=== PATIENT | female | born 1985 | race Caucasian/White ===

== ENCOUNTER 2019-08-17 11:01 | Observation (INO) | payer OTHER, MEDICAID, SELFPAY ==
[2019-08-17] VITALS (32 sets, daily range): BP systolic 81–177; BP diastolic 58–154; PULSE 72–91; RESP 9–45; TEMP 36.8–37.7; O2SAT 96–100; BMI 25.9
--- NOTE | ~2019-08-17 | XR_ITS ---
EXAMINATION: XR chest 2V 08/17/2019 11:24 INDICATION: Chest pain PROCEDURE: 2 view chest COMPARISON: No prior studies for comparison. FINDINGS: The lungs are clear. The cardiomediastinal silhouette is within normal limits. There are no pleural effusions. There is no pneumothorax suspected. IMPRESSION: 1: NO ACUTE CARDIOPULMONARY DISEASE. Reviewed, dictated and finalized at location A.
--- NOTE | ~2019-08-17 | NM_ITS ---
EXAMINATION: NM pulmonary perfusion EXAM DATE: 08/17/2019 17:12 INDICATION: Dyspnea and chest pain. Free TECHNIQUE: A perfusion lung scan was performed. The patient was injected with 5.2 mCi technetium 99m MAA and reimaged. Correlation is made to chest x-ray same date. FINDINGS: There is homogeneous perfusion throughout the lungs, no segmental defects. IMPRESSION: Normal lung perfusion scan. Reviewed, dictated and finalized at location A. IMPRESSION: Normal lung perfusion scan.
--- NOTE | 2019-08-17 11:03 | ECG_ITS ---
Measurements Intervals [place] Rate: 91 P: 68 KS: 150 QRS: 52 QRSD: 85 T: 44 QT: 343 QTc: 422 Interpretive Statements SINUS RHYTHM BASELINE ARTIFACT- V3-V4 NORMAL ECG Electronically Signed On 08-17-2019 11:31:07 CDT by Nakul Loza D.O.
[2019-08-17] MEDS: ASPIRIN 81 MG CHEWABLE TABLET 324 MG PO (11:16)
--- NOTE | 2019-08-17 11:16 | ED.CHESTPAIN ---
HPI - Chest Pain General Chief Complaint: Chest Pain Stated Complaint: chest pain Time Seen by Provider: 08/17/19 11:05 Source: RN notes reviewed History of Present Illness HPI narrative: Patient presents emergency department from home for chest pain. Patient states she has been having midsternal chest pain described as a pressure that radiates out across the chest. She states that symptoms have been occurring daily for the last 2 months. They are associated with shortness of breath. States that pain is better with rest. She denies any fevers or chills abdominal pain nausea vomiting or any other symptoms. Denies any previous cardiac history Related Data Home Medications Medication Instructions Recorded Confirmed No Home Medications 08/17/19 08/17/19 Allergies Allergy/AdvReac Type Severity Reaction Status Date / Time No Known Allergies Allergy Unverified 08/17/19 11:11 Review of Systems Review of Systems: Narrative: Gen.: Denies fevers or chills ENT: Denies congestion Respiratory: Denies shortness of breath or cough CV: See HPI GI: Denies abdominal pain nausea, emesis or diarrhea denies burning, urgency, frequency or hematuria Musculoskeletal: Denies back pain or muscle pain Neuro: Denies numbness, tingling, weakness or focal weakness Skin: Denies rash Except as documented, all other systems reviewed and negative [facility] Past Medical History Medical History (Updated 08/17/19 @ 17:38 by Steven Dupree DO) Skin cancer Social History Social History (Updated 08/17/19 @ 11:17 by Steven Dupree DO) Smoking packs per day: 1 Smoking cigarettes per day: 20.0 Gender identity (if verbalized by the patient): Female Exam Narrative: Exam Narrative: APPEARANCE: No acute distress, nontoxic, resting in bed EYES: EOMI HEENT: Normocephalic, atraumatic, OMM RESPIRATORY: No respiratory distress Clear to auscultation bilaterally with no rhonchi wheezing or rales. CARDIOVASCULAR: Regular rate and rhythm without murmurs rubs or gallops. ABDOMINAL: Soft, nontender, nondistended, no rebound or guarding MUSCULOSKELETAl: Moves all extremities. No clubbing, cyanosis or edema. NEURO: Awake and alert. Following commands, speech normal, no focal deficits SKIN:: Warm, dry. No rashes lesions or abrasions PSYCHIATRIC: Normal affect/mood, Course Course Emergency Course: Patient is chest pain-free at this time Discussed with Dr. Peterson presentation work-up. At this time recommends admission to the chest pain center Discussed with patient and family results of workup and diagnosis. Discussed need for admission. Patient and family understand and agree to current treatment plan Vital Signs Vital signs: Vital Signs Temperature 98.9 F 08/17/19 11:06 Pulse Rate 91 08/17/19 11:06 Respiratory Rate 18 08/17/19 11:06 Blood Pressure 157/103 H 08/17/19 11:06 Pulse Oximetry 100 08/17/19 11:06 Temperature 98.9 F 08/17/19 11:06 Pulse Rate 79 08/17/19 16:15 Respiratory Rate 15 08/17/19 16:15 Blood Pressure 118/79 08/17/19 16:01 Pulse Oximetry 98 08/17/19 16:15 MDM - Chest Pain Lab Data Result diagrams: 08/17/19 11:12 08/17/19 12:23 Labs: Lab Results 08/17/19 08/17/19 08/17/19 Range/Units 11:12 11:12 12:23 WBC 7.2 (4.5-10.0) K/mm3 RBC 5.10 (4.2-5.4) M/mm3 Hgb 14.8 (12.0-15.0) g/dL Hct 44.9 (37.0-47.0) % MCV 88.0 (80-100) fl MCH 29.0 (26-34) pg MCHC 33.0 (32-36) g/dl RDW 16.5 H (11.5-14.5) % Plt Count 415 H (150-375) k/mm3 MPV 10.6 H (7.4-10.4) fl Immature Gran % (Auto) 0.6 H (0-0.5) % Neut % (Auto) 53.6 (45.5-73.1) % Lymph % (Auto) 34.3 (18.3-44.2) % Atkinson % (Auto) 7.3 (2.6-8.5) % Eos % (Auto) 2.9 (0-4.4) % Baso % (Auto) 1.3 H (0.2-1.2) % Lymph # (Auto) 2.46 (0.9-3.2) K/mm3 Atkinson # (Auto) 0.5 (0.1-0.6) K/mm3 Eos # (Auto) 0.2 (0-0.3) K/mm3 Baso # (Aut
[2019-08-17 11:29] LABS: Basophils Absolute Auto 0.1 K/mm3 (0.0-0.1); Basophils Percent Auto 1.3 % (0.2-1.2); Eosinophils Absolute Auto 0.2 K/mm3 (0-0.3); Eosinophils Percent Auto 2.9 % (0-4.4); Hematocrit 44.9 % (37.0-47.0); Hemoglobin 14.8 g/dL (12.0-15.0); Immature Granulocyte Absolute 0.04 K/mm3 (0.00-0.031); Immature Granulocyte Percent A 0.6 % (0-0.5); Lymphocytes Absolute Auto 2.46 K/mm3 (0.9-3.2); Lymphocytes Percent Auto 34.3 % (18.3-44.2); Mean Platelet Volume 10.6 fl (7.4-10.4); Monocytes Absolute Auto 0.5 K/mm3 (0.1-0.6); Monocytes Percent Auto 7.3 % (2.6-8.5); Neutrophils Absolute Auto 3.9 K/mm3 (1.3-6.7); Neutrophils Percent Auto 53.6 % (45.5-73.1); Platelet Count Result 415 k/mm3 (150-375); Red Cell Distribution Width 16.5 % (11.5-14.5); White Blood Count 7.2 K/mm3 (4.5-10.0)
[2019-08-17 11:33] LABS: Prothrombin Time 12.5 Seconds (11.1-14.7)
[2019-08-17 11:34] LABS: Partial Thromboplastin Time 26.3 SECONDS (22.3-36.8)
[2019-08-17 12:44] LABS: Alanine Aminotransferase 29 U/L (4-35); Albumin Level 3.1 g/dL (3.5-5.1); Alkaline Phosphatase 46 U/L (38-126); Aspartate Amino Transferase 39 U/L (14-36); Bilirubin,Total 0.2 mg/dL (0.2-1.3); Blood Urea Nitrogen 12 mg/dL (7-17); Calcium 8.5 mg/dL (8.4-10.2); Carbon Dioxide 30 mmol/L (22-30); Chloride 104 mmol/L (98-107); Estimated CRCL calculation 107 ml/min; Estimated Glomerular Filt Rate > 60; Glucose 80 mg/dL (65-105); Lipase 161 U/L (23-300); Sodium 135 mmol/L (137-145)
[2019-08-17 12:55] LABS: Troponin I < 0.012 ng/mL (0.000-0.034)
--- NOTE | 2019-08-17 13:27 | PC.NURSE ---
Attempts x5 for IV site unsuccessful. Dr. Dupree made aware. Vascular nurse not available today.
--- NOTE | 2019-08-17 14:18 | PC.NURSE ---
Call to CT. States that patient is next to go to scan. Attempting to collect 3 hour troponin level.
--- NOTE | 2019-08-17 14:51 | PC.NURSE ---
Pt returns from CT; RAC IV site blew after contrast pushed and IV dc'd per technical sales advisor. Dr. Dupree aware. D-dimer ordered.
[2019-08-17 14:56] LABS: Troponin I < 0.012 ng/mL (0.000-0.034)
[2019-08-17] MEDS: SODIUM CHLORIDE 0.9% IV 500 ML 999 ML IV CONT (14:58)
--- NOTE | 2019-08-17 15:33 | PC.NURSE ---
Per lab blood too hemolyzed to run the d-dimer.
[2019-08-17 16:01] LABS: D Dimer 1.55 ug/mL (<0.48)
--- NOTE | 2019-08-17 16:12 | PC.NURSE ---
D-dimer elevated, still unable to get IV line. Preparing to call nuclear med in for VQ scan.
--- NOTE | 2019-08-17 16:27 | PC.NURSE ---
Explained need for VQ scan. Pt tearful, states she's just so exhausted, I'm so tired I can't even deal with how tired I am . Denies sob. VSS.
--- NOTE | 2019-08-17 16:56 | PC.NURSE ---
To Nuc Med via stretcher.
--- NOTE | 2019-08-17 17:57 | PC.NURSE ---
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 Pt updated.
[2019-08-17 18:05] LABS: Troponin I < 0.012 ng/mL (0.000-0.034)
[2019-08-17 18:22] LABS: Cholesterol 300 mg/dL (0-200); HDL Direct 55 mg/dL; Triglycerides 178 mg/dL (<150)
[2019-08-17 18:33] LABS: LDL Cholesterol Direct 178 mg/dL
[2019-08-17] MEDS: NICOTINE (*PBKC) 21 MG PATCH 1 PATCH TRANSDERM (20:25)
[2019-08-17] MEDS: MELATONIN 5 MG TABLET PO (21:15)
[2019-08-18] VITALS: PULSE 61
--- NOTE | 2019-08-18 | ECHO_ITS ---
Patient Info Name: Santy Okeefe Age: 34 years : 1985 Gender: Female Ht: 63 in Wt: 150 lbs BSA: 1.76 m2 HR: 66 bpm BP: 116 / 70 mmHg Heart Rhythm: Sinus Rhythm Technical Quality: Good Exam Date: 08/18/2019 10:34 AM [facility] Patient Status: Inpatient Admit Date: 08/17/2019 Staff Ordering Physician: Jaun Peterson MD Drying Rack Changer: Lauren Scott RDCS Attending Provider: Jaun Peterson MD Referring Physician: Kristen LEI; Exam Type: CA echo doppler color flow Study Info Indications - chest pain Complete two-dimensional, color flow and Doppler transthoracic echocardiogram is performed. Summary 1. Left ventricular chamber dimension is normal. 2. Left ventricular systolic function is normal, estimated at 55-60%. 3. There is no increased left ventricular wall thickness. 4. Left ventricular septal wall motion is normal. 5. The left ventricular diastolic function is normal. 6. There is mild mitral valve regurgitation. 7. There is mild tricuspid valve regurgitation. 8. There is mild pulmonic regurgitation. Left Ventricle Left ventricular chamber dimension is normal. Left ventricular systolic function is normal, estimated at 55-60%. There is no increased left ventricular wall thickness. Left ventricular septal wall motion is normal. The left ventricular diastolic function is normal. Right Ventricle Right ventricular chamber dimension is normal. Right ventricular systolic function is normal. Left Atria Left atrial chamber dimension is normal. Right Atria Right atrial chamber dimension is normal. Atrial Septum Intact interatrial septum visualized by color flow imaging. Aortic Valve The aortic valve is trileaflet. There is no aortic valve sclerosis. There is no aortic valve stenosis. There is trace aortic valve regurgitation. Pulmonic Valve The pulmonic valve is normal. There is no pulmonic valve stenosis. There is mild pulmonic regurgitation. Mitral Valve The mitral valve has normal leaflets. There is no mitral valve stenosis. There is mild mitral valve regurgitation. Tricuspid Valve The tricuspid valve leaflets are normal. There is no significant tricuspid valve stenosis. There is mild tricuspid valve regurgitation. No pulmonary hypertension, estimated pulmonary arterial systolic pressure is 29 mmHg. Pericardium/Pleural The pericardium appears normal. There is no pericardial effusion. Inferior Vena Cava Normal inferior vena cava with >50% collapse upon inspiration consistent with normal right atrial pressure, 10 mmHg. Aorta The aortic root size at the sinus of Valsalva is normal. The prox ascending aorta size is normal. Left Ventricular Outflow Tract Name Value Normal LVOT 2D LVOT Diameter 2.0 cm LVOT Doppler LVOT Peak Gradient 5 mmHg LVOT Mean Gradient 3 mmHg LVOT VTI 22 cm LVOT VTI/AV VTI Ratio 0.8 LVOT Stroke Volume 65 ml
--- NOTE | 2019-08-18 | EST_ITS ---
Patient Info Name: Santy Okeefe Age: 34 years : 1985 Gender: Female Ht: 63 in Wt: 146 lbs BSA: 1.73 m2 Technical Quality: Good Exam Date: 08/18/2019 12:14 PM Exam Location: [facility] Pulmonary Patient Status: Inpatient Admit Date: 08/17/2019 Staff Ordering Physician: Jaun Peterson MD Sales Promotion Manager: Bright Cabello RDCS, RT Attending Provider: Jaun Peterson MD Referring Physician: Kristen LEI; Exercise Technologist: Bright Cabello RDCS, RT Exercise Physician: Elmo Membreno MD Exam Type: CA stress echo Study Info Indications R07.89 - Other chest pain Treadmill exercise stress echocardiogram is performed. Summary 1. Stress echocardiogram is normal. 2. Appropriate heart rate recovery at 1 minute post exercise. Stress Echo Findings Left Ventricle No regional wall motion abnormalities noted at rest. Normal left venticular systolic function with no regional wall motion abnormalities noted at rest. No regional wall motion abnormalities noted post stress. Left ventricular end systolic volume decreases post stress. Overall global left ventricular systolic function Improved post stress. Normal augmentation of all wall segments without evidence of ischemia with stress. Protocol: Silviano Stress ECG Details Stage: REST Duration (min): 1 min : 27 sec Speed (mph): 0.0 Grade (%): 0 HR (bpm): 72 SBP (mmHg): 139 DBP (mmHg): 69 METS: --- Stage: REST Duration (min): 7 min : 3 sec Speed (mph): 0.0 Grade (%): 0 HR (bpm): 81 SBP (mmHg): 139 DBP (mmHg): 69 METS: --- Stage: STAGE 1 Duration (min): 1 min : 0 sec Speed (mph): 1.7 Grade (%): 10 HR (bpm): 107 SBP (mmHg): 139 DBP (mmHg): 69 METS: --- Stage: STAGE 1 Duration (min): 2 min : 0 sec Speed (mph): 1.7 Grade (%): 10 HR (bpm): 126 SBP (mmHg): 139 DBP (mmHg): 69 METS: --- Stage: STAGE 1 Duration (min): 3 min : 0 sec Speed (mph): 1.7 Grade (%): 10 HR (bpm): --- SBP (mmHg): 161 DBP (mmHg): 95 METS: --- Stage: STAGE 2 Duration (min): 1 min : 0 sec Speed (mph): 2.5 Grade (%): 12 HR (bpm): --- SBP (mmHg): 161 DBP (mmHg): 95 METS: --- Stage: STAGE 2 Duration (min): 2 min : 0 sec Speed (mph): 2.5 Grade (%): 12 HR (bpm): --- SBP (mmHg): 139 DBP (mmHg): 95 METS: --- Stage: STAGE 2 Duration (min): 3 min : 0 sec Speed (mph): 2.5 Grade (%): 12 HR (bpm): 131 SBP (mmHg): 135 DBP (mmHg): 87 METS: --- Stage: STAGE 3 Duration (min): 1 min : 0 sec Speed (mph): 3.4 Grade (%): 14 HR (bpm): 142 SBP (mmHg): 176 DBP (mmHg): 81 METS: --- Stage: STAGE 3 Duration (min): 2 min : 0 sec Speed (mph): 3.4 Grade (%): 14 HR (bpm): 147 SBP (mmHg): 176 DBP (mmHg): 81 METS: --- Stage: STAGE 3 Duration (min): 3 min : 0 sec Speed (mph): 3.4 Grade (%): 14 HR (bpm): 148 SBP (mmH
[2019-08-18 04:00] VITALS: BP 122/75; PULSE 69; PULSE 74; RESP 14; TEMP 36.6; O2SAT 100
[2019-08-18] MEDS: ASPIRIN 81 MG CHEWABLE TABLET PO (07:32)
[2019-08-18 07:35] VITALS: BP 126/75; PULSE 77; RESP 16; TEMP 36.9; O2SAT 100
[2019-08-18 08:00] VITALS: PULSE 76
--- NOTE | 2019-08-18 09:59 | PM.IMHP ---
H&P: HPI History of Present Illness Chief complaint: chest pain Narrative: Date of service: 08/18/2019 Santy Okeefe is a 34 year old female who came to hospital because of chest pain. She has been out of work recently because of some intermittent edema that she developed about 6 months ago. Her employer called her yesterday and asked her how she was feeling and after a discussion, she was instructed to go to the emergency room for further evaluation. Patient states that about 6 months ago she started developed some intermittent swelling in her feet legs and back. It would come and go. She takes some ibuprofen and we even things would improve. She has also elevate her legs. She has not had any edema over the past week or so. About 2 or 3 months ago though she started developing chest pain. Chest pain occurs daily. It occurs in the center of her chest and radiates to her shoulders at times. It is described a couple of different ways. She has some sharp localized chest pain in the center of her chest. She also has a dull tight chest discomfort. Her symptoms will last for couple minutes. Some of her symptoms are worsened as the day goes on depending how busy she is. At other times she describes her symptoms are worsened with exertion such as climbing a flight of stairs. She also describes some significant dyspnea. The chest discomfort is associated with some shortness of breath nausea and sweatiness. She also describes some symptoms of paroxysmal nocturnal dyspnea, inability to lie flat, and feeling short of breath even while sitting here discussing her symptoms with me. She denies any syncope but does have some dizziness at times. She has some associated palpitations. She does not have a primary care provider. She does smoke Review of Systems Review of Systems: All systems reviewed & are unremarkable except as noted in HPI and below Constitutional: Constitutional: Reports fatigue and Reports lethargy Eyes: Eyes: Denies blurry vision ENT: Denies epistaxis Cardiovascular: Cardiovascular: Reports chest pain and Reports leg edema Respiratory: Respiratory: Reports cough and Reports dyspnea Gastrointestinal: Gastrointestinal: Denies melena Genitourinary: Genitourinary: Denies hematuria and Denies flank pain Musculoskeletal: Musculoskeletal: Denies back pain and Denies neck pain Integumentary/Breasts: Skin/Breast: Denies dry skin and Denies unusual bruising Neurologic: Denies headache(s) and Denies numbness Psychiatric: Psychiatric: Reports anxiety Endocrine: Endocrine: Reports fatigue Hematologic/Lymphatic: Hematologic/Lymphatic: Denies easy bleeding Allergic/Immunologic: Allergic/Immunologic: Denies GI upset with certain foods PMFSH Past Medical History Medical History Skin cancer Family History Family History Sibling Testicle cancer Mother Small cell lung cancer Hypertension Father Melanoma Social History Social History Smoking packs per day: 1 Smoking cigarettes per day: 20.0 Smoking status: Current every day smoker Tobacco type: cigarettes Gender identity (if verbalized by the patient): Female Meds Home Medications and Allergies Home Medications Medication Instructions Recorded Confirmed Type melatonin 5 mg PO HS PRN 08/17/19 08/17/19 History Allergies Allergy/AdvReac Type Severity Reaction Status Date / Time No Known Allergies Allergy Unverified 08/17/19 11:11 Vital Signs Vital Signs - 24 hr 08/17/19 11:06 08/17/19 11:08 08/17/19 11:24 Temperature 37.2 C Pulse Rate 91 84 91 Respiratory Rate 18 15 22 H Blood Pressure 157/103 H 157/103 H 177/154 H Pulse Oximetry 100 99 99 08/17/19 11:27 08/17/19 11:31 08/17/19 12:04 Temperature Pulse Rate 89 87 74 Respiratory Rate 20 17 13 Blo
[2019-08-18 10:00] VITALS: PULSE 77
[2019-08-18 12:00] VITALS: BP 129/88; PULSE 85; RESP 24; TEMP 36.9; O2SAT 100
== END 2019-08-18 15:18 | disposition home or self-care (01) ==
LOC: ANHED 17:43 → ANHCPC 18:53
PROVIDERS: Admitting Provider Internal Medicine Cardiovascular Disease; Emergency Provider Emergency Medicine; Visit Provider Internal Medicine Cardiovascular Disease
DX: R07.89 Other chest pain (principal); R06.02 Shortness of breath; F17.210 Nicotine dependence, cigarettes, uncomplicated; F41.9 Anxiety disorder, unspecified; E78.5 Hyperlipidemia, unspecified
CPT/HCPCS: 36415; 71046; 78580; 80048; 80061; 80076; 83690; 84484; 85025; 85380; 85610; 85730; 93005; 93306; 93351; 96360; 99285; A9270; A9540; G0378; J7040

== ENCOUNTER 2019-10-14 15:21 | Emergency (ER) | payer OTHER, MEDICAID, SELFPAY ==
[2019-10-14 15:26] VITALS: BP 122/104; PULSE 89; RESP 18; TEMP 36.5; O2SAT 100
--- NOTE | 2019-10-14 15:38 | PC.NURSE ---
Pt to ED complaining of generalized swelling in face/mouth/throat, back, and legs. Pt reports face swelling is what is bothering her the most, specifically her throat.Pt able to speak in clear sentences with no labored breathing. Pt reports fatigue. Pt rpeorts this all started yesterday. Pt reports she has been sick this past week and was tested for COVID and it came back negative. Pt reports no BM at all for 2 weeks. Pt reports normal appetite.
[2019-10-14 16:17] VITALS: PULSE 70; O2SAT 99
--- NOTE | 2019-10-14 16:55 | PC.NURSE ---
Went to room 19 and patient was not in there. ER triage nurse reports he saw them leaving just 5 minutes prior. Pt did not have an IV. EDP mad aware.
--- NOTE | 2019-10-14 21:34 | ED_ITS ---
HPI - General Adult General Chief complaint: Unspecified Stated complaint: facial swelling Time Seen by Provider: 10/14/19 15:38 Related Data Home Medications Medication Instructions Recorded Confirmed melatonin 5 mg PO HS PRN 08/17/19 08/17/19 Allergies Allergy/AdvReac Type Severity Reaction Status Date / Time No Known Allergies Allergy Verified 10/14/19 15:41 [facility] Past Medical History Medical History (Updated 08/18/19 @ 10:08 by Jaun Peterson MD) Hyperlipidemia Skin cancer Tobacco abuse Social History Social History Smoking packs per day: 1 Smoking cigarettes per day: 20.0 Smoking status: Current every day smoker Tobacco type: cigarettes Gender identity (if verbalized by the patient): Female Course Course Emergency Course: Patient left before being seen. No medical evaluation was performed. Vital Signs Vital signs: Vital Signs Temperature 97.7 F 10/14/19 15:26 Pulse Rate 89 10/14/19 15:26 Respiratory Rate 18 10/14/19 15:26 Blood Pressure 122/104 H 10/14/19 15:26 Pulse Oximetry 100 10/14/19 15:26 Temperature 97.7 F 10/14/19 15:26 Pulse Rate 70 10/14/19 16:17 Respiratory Rate 18 10/14/19 15:26 Blood Pressure 122/104 H 10/14/19 15:26 Pulse Oximetry 99 10/14/19 16:17 Medical Decision Making Vital Signs Vital Signs: Vital Signs Temperature 97.7 F 10/14/19 15:26 Pulse Rate 89 10/14/19 15:26 Respiratory Rate 18 10/14/19 15:26 Blood Pressure 122/104 H 10/14/19 15:26 Pulse Oximetry 100 10/14/19 15:26 Temperature 97.7 F 10/14/19 15:26 Pulse Rate 70 10/14/19 16:17 Respiratory Rate 18 10/14/19 15:26 Blood Pressure 122/104 H 10/14/19 15:26 Pulse Oximetry 99 10/14/19 16:17 Discharge Plan Discharge Patient Disposition: Left Without Being Seen Prescriptions: No Action melatonin 5 mg Tablet 5 mg PO HS PRN (Reason: Insomnia) RF: 0 omeprazole 20 mg capsule,delayed release(DR/EC) 20 mg PO DAILY Qty: 30 RF: 3 Follow-up/Referrals: PHYSICIAN,IMAGE PROCESSING ENGINEER [Primary Care Provider] - Discharge Date/Time: 10/14/19 16:55
== END 2019-10-14 16:55 | disposition left against medical advice (07) ==
LOC: ANHED 15:47
PROVIDERS: Emergency Provider Emergency Medicine
DX: M79.89 Other specified soft tissue disorders (principal)
CPT/HCPCS: 99199

== ENCOUNTER 2019-10-20 07:53 | Inpatient (IN) | payer OTHER, MEDICAID, SELFPAY ==
[2019-10-20] VITALS (46 sets, daily range): BP systolic 104–151; BP diastolic 61–105; PULSE 59–112; RESP 17–30; TEMP 36.6–36.9; O2SAT 90–100; BMI 27.8
--- NOTE | 2019-10-20 | ECHO_ITS ---
Patient Info Name: Santy Okeefe Age: 34 years : 1985 Gender: Female Ht: 62 in Wt: 140 lbs BSA: 1.68 m2 HR: 72 bpm BP: 104 / 64 mmHg Heart Rhythm: Sinus Rhythm Technical Quality: Good Exam Date: 10/20/2019 4:07 PM Exam Location: [facility] Pulmonary Patient Status: Inpatient Admit Date: 10/20/2019 Staff Ordering Physician: Jaun Peterson MD Swimming Pool Salesperson: Gibson Rizzo RDCS Attending Provider: Maggie Alicia MD Referring Physician: Kristen LEI; Exam Type: CA echo doppler color flow Study Info Indications R07.9 - Chest pain, unspecified Complete two-dimensional, color flow and Doppler transthoracic echocardiogram is performed. History/Risk Factors Chest pain; pleural effusion. Summary 1. Left ventricular chamber dimension is normal. 2. Left ventricular systolic function is normal, estimated at 55-60%. 3. There is no increased left ventricular wall thickness. 4. The left ventricular diastolic function is normal. 5. There is mild tricuspid valve regurgitation. 6. There is mild pulmonic regurgitation. Left Ventricle Left ventricular chamber dimension is normal. Left ventricular systolic function is normal, estimated at 55-60%. There is no increased left ventricular wall thickness. The left ventricular diastolic function is normal. Right Ventricle Right ventricular chamber dimension is normal. Right ventricular systolic function is normal. Left Atria Left atrial chamber dimension is normal. Right Atria Right atrial chamber dimension is normal. Atrial Septum Intact interatrial septum visualized by color flow imaging. Aortic Valve The aortic valve is trileaflet. There is mild aortic valve sclerosis. There is no aortic valve stenosis. There is trace aortic valve regurgitation. Pulmonic Valve The pulmonic valve is normal. There is no pulmonic valve stenosis. There is mild pulmonic regurgitation. Mitral Valve The mitral valve has normal leaflets. There is no mitral valve stenosis. There is trace mitral valve regurgitation. Tricuspid Valve The tricuspid valve leaflets are normal. There is no significant tricuspid valve stenosis. There is mild tricuspid valve regurgitation. No pulmonary hypertension, estimated pulmonary arterial systolic pressure is 24 mmHg. Pericardium/Pleural The pericardium appears normal. There is no pericardial effusion. Inferior Vena Cava Normal inferior vena cava with >50% collapse upon inspiration consistent with normal right atrial pressure, 5 mmHg. Aorta The aortic root size at the sinus of Valsalva is normal. The prox ascending aorta size is normal. Left Ventricular Outflow Tract Name Value Normal LVOT 2D LVOT Diameter 2.1 cm LVOT Doppler LVOT Peak Gradient 6 mmHg LVOT Mean Gradient 3 mmHg LVOT VTI 22 cm LVOT VTI/AV VTI Ratio 0.8 LVOT Stroke Volume 76 ml LVOT CO 4.1 l/min LVOT CI
--- NOTE | ~2019-10-20 | US_ITS ---
EXAMINATION: US carotid duplex BI DATE: 10/27/2019 11:47 INDICATION: Dizziness. TECHNIQUE: Grayscale, color Doppler, and pulsed Doppler images of the cervical carotid arteries were obtained. The degree of vessel stenosis is placed in one of the following categories: normal, <50%, 5 0-69%, >=70% but less than near-occlusion, near-occlusion, or total occlusion. Note that percent sten osis relative to normal distal artery lumen diameter is indirectly measured from velocity measurement s as described by Omer, et al. Radiology 2003; [id number]. COMPARISON: None. FINDINGS: RIGHT: The right common carotid artery (CCA) peak systolic velocity (PSV) is 95 cm/s. The right internal car otid artery (ICA) PSV is 118 cm/s. The right ICA end-diastolic velocity (EDV) is 51 cm/s. The right I CA/CCA PSV ratio is 1.2. Grayscale and color Doppler images yield an estimate of 0% diameter reductio n from plaque in the ICA. There is antegrade flow in the right vertebral artery. LEFT: The left CCA PSV is 114 cm/s. The left ICA PSV is 98 cm/s. The left ICA EDV is 49 cm/s. The left ICA/ CCA PSV ratio is 0.9. Grayscale and color Doppler images yield an estimate of 0% diameter reduction f rom plaque in the ICA. There is antegrade flow in the left vertebral artery. IMPRESSION: 1. Normal internal carotid arteries. Reviewed, dictated and finalized at location A.
--- NOTE | ~2019-10-20 | US_ITS ---
EXAMINATION: US biopsy renal DATE: 10/25/2019 11:20 INDICATION: Nephrotic syndrome. TECHNIQUE: The procedure including the risks, benefits, and alternatives was discussed with the patie nt. Risks discussed included bleeding and infection. The patient understood the risks and agreed to p roceed. A timeout was performed to verify the patient's name, date of , and procedure to be p erformed. The skin overlying the left kidney was prepped and draped in usual sterile fashion. Anest hetic was administered with 1% lidocaine subcutaneously. An 18 gauge core biopsy needle was then use d to obtain 3 core biopsy specimens under continuous sonographic guidance. The entry site was cleaned and dressed. There were no immediate complications. FINDINGS: Ultrasound images demonstrate the needle in the kidney. IMPRESSION: 1. Ultrasound-guided random left kidney core needle biopsy. Reviewed, dictated and finalized at location A.
--- NOTE | ~2019-10-20 | XR_ITS ---
XR chest 1V portable DATE: 10/20/2019 09:23 INDICATION: Chest pain TECHNIQUE: Portable upright AP chest on 10/20/2019 at 0911 hours COMPARISON: 08/16/2021 view chest FINDINGS: There is bibasilar mild infiltrate and/atelectasis. The lungs are otherwise clear. Normal heart size. There is minimal if any pleural effusion. No pneumothorax. No hilar or mediastinal enlargement. IMPRESSION: Mild bibasilar infiltrate and/atelectasis Reviewed, dictated and finalized at location A.
--- NOTE | ~2019-10-20 | XR_ITS ---
EXAMINATION: XR chest 2V DATE: 10/24/2019 10:47 INDICATION: Shortness of breath. TECHNIQUE: Frontal and lateral views of the chest were obtained. COMPARISON: Chest 2 views 10/21/2019, chest CT 10/20/2019 FINDINGS: There is a small left pleural effusion. There is mild atelectasis at left lung base. No pne umothorax. The heart size is normal. IMPRESSION: 1. Stable small left pleural effusion. Reviewed, dictated and finalized at location A.
--- NOTE | ~2019-10-20 | CT_ITS ---
EXAMINATION: CTA chest PE protocol DATE: 10/20/2019 14:12 INDICATION: Chest pain TECHNIQUE: Computed tomography angiography (CTA) of the chest was performed with 100 mL Omnipaque-350 intravenous contrast timed to evaluate the pulmonary arteries. Coronal maximum intensity projection 3D-reconstructions were created by the technologist. Automated exposure control and iterative reconst ruction technique were employed. Exam dose: 193.66 mGy-cm total exam DLP. COMPARISON: 10/20/2019 portable AP chest 08/17/2019 pulmonary perfusion scan FINDINGS: There is diagnostic contrast enhancement of the pulmonary arteries and no evidence of pulmo nary embolism. No thoracic aortic aneurysm of dissection. No hilar or mediastinal mass lesion or lymphadenopathy. Moderate bilateral pleural effusions. Bilateral dependent lower lobe atelectasis. Included skeletal structures are unremarkable. IMPRESSION: No evidence of pulmonary embolism Moderate bilateral pleural effusions Bilateral lower lobe dependent atelectasias Reviewed, dictated and finalized at Location A. Reviewed, dictated and finalized at location A.
--- NOTE | ~2019-10-20 | CT_ITS ---
EXAMINATION: CT brain wo con EXAM DATE: 10/27/2019 11:20 INDICATION: Dizziness. TECHNIQUE: Spiral CT of the head was performed without contrast. Axial, coronal and sagittal images were reviewed. The dose-length product (DLP) for this examination was 605.33 mGy-cm. The exposure w as tailored according to patient size, and iterative reconstruction (ASIR) was used as additional dos e reduction technique. There is no prior study for comparison. FINDINGS: There is no acute intraparenchymal hemorrhage. No evidence of intraparenchymal brain mass lesion. No evidence of acute infarction. There is no mass effect or midline shift. The ventricles are normal in size. There are no extra-axial collections. There are no acute calvarial fractures. T he orbits are unremarkable. Soft tissue is unremarkable. The visualized sinuses and mastoid air mary ls are well aerated. IMPRESSION: Normal head CT examination. Reviewed, dictated and finalized at location B. IMPRESSION: Normal head CT examination.
--- NOTE | ~2019-10-20 | US_ITS ---
EXAMINATION: US thoracentesis DATE: 10/21/2019 14:44 INDICATION: Bilateral pleural effusions. TECHNIQUE: The procedure and its risks and benefits were discussed with the patient. Potential risks discussed included bleeding, infection, and pneumothorax. The patient understood the risks and agreed to proceed. The skin was prepped and draped in sterile fashion. 1% lidocaine was used for local anes thesia. Under ultrasound guidance, a 5 Fr catheter with trochar was advanced into the small right ple ural effusion. Fluid was aspirated. The catheter was removed, and a dressing was applied. There were no immediate complications. FINDINGS: Ultrasound images demonstrate a small right pleural effusion and the catheter within the fluid. IMPRESSION: 1. Successful ultrasound-guided thoracentesis yielding 100 mL of clear colorless fluid. Reviewed, dictated and finalized at location A. IMPRESSION: 1. Successful ultrasound-guided thoracentesis yielding 100 mL of clear colorle ss fluid.
--- NOTE | ~2019-10-20 | XR_ITS ---
EXAMINATION: XR chest 2V DATE: 10/21/2019 14:32 INDICATION: Bilateral pleural effusions post right thoracentesis TECHNIQUE: PA and lateral views of the chest were obtained. COMPARISON: Chest CT and radiographs dated 10/20/2019 FINDINGS: Small left pleural effusion with blunting at the costophrenic angle and posterior sulcus. Tiny right pleural effusion with minimal blunting at the posterior sulcus. Mild opacities along the left lung ba se with dense on prior CT most consistent with secondary passive atelectasis. No other airspace opaci ties, pulmonary edema or pneumothorax. The cardiomediastinal silhouette is normal. Mild thoracic spon dylosis. IMPRESSION: 1. Small left and tiny right pleural effusions. Reviewed, dictated and finalized at location A.
--- NOTE | 2019-10-20 08:04 | ECG_ITS ---
Measurements Intervals [place] Rate: 92 P: 64 MN: 163 QRS: 81 QRSD: 79 T: 54 QT: 336 QTc: 416 Interpretive Statements SINUS RHYTHM LOW QRS VOLTAGE IN PRECORDIAL LEADS BORDERLINE T WAVE ABNORMALITY- ANTERIOR LEADS BASELINE WANDER- II, III, V4-V5 BORDERLINE ECG Electronically Signed On 10-20-2019 8:08:49 CDT by Nakul Loza D.O.
--- NOTE | 2019-10-20 08:07 | ED.CHESTPAIN ---
HPI - Chest Pain General Chief Complaint: Chest Pain Stated Complaint: chest pain Time Seen by Provider: 10/20/19 07:54 Source: RN notes reviewed History of Present Illness HPI narrative: Patient presents emergency department from home for chest pain. Patient states pain began upon awaking this morning. Pain is located in the midsternal chest and does not radiate described as sharp and stabbing in nature. States associated with shortness of breath as well as generalized swelling. Patient states she has had the swelling for the past several months patient denies any fevers or chills abdominal pain nausea vomiting or any other symptoms. Patient very anxious crying and yelling in the room Related Data Home Medications Medication Instructions Recorded Confirmed melatonin 5 mg PO HS PRN 08/17/19 08/17/19 Allergies Allergy/AdvReac Type Severity Reaction Status Date / Time No Known Allergies Allergy Verified 10/20/19 09:16 Review of Systems Review of Systems: Narrative: Gen.: Denies fevers or chills Eyes: Denies eye pain or visual change ENT: Denies congestion Respiratory: Reports shortness of breath CV: See HPI GI: Denies abdominal pain nausea, emesis or diarrhea denies burning, urgency, frequency or hematuria Musculoskeletal: Denies back pain or muscle pain reports swelling of the legs Neuro: Denies numbness, tingling, weakness or focal weakness Skin: Denies rash Except as documented, all other systems reviewed and negative [facility] Past Medical History Medical History Hyperlipidemia Skin cancer Tobacco abuse Family History Family History Sibling Testicle cancer Mother Small cell lung cancer Hypertension Father Melanoma Social History Social History Smoking packs per day: 1 Smoking cigarettes per day: 20.0 Smoking status: Current every day smoker Tobacco type: cigarettes Gender identity (if verbalized by the patient): Female Exam Narrative: Exam Narrative: APPEARANCE: Anxious and tearful in bed hyperventilating EYES: EOMI HEENT: Normocephalic, atraumatic, OMM RESPIRATORY: No respiratory distress Clear to auscultation bilaterally with no rhonchi wheezing or rales. CARDIOVASCULAR: Regular rate and rhythm without murmurs rubs or gallops. ABDOMINAL: Soft, nontender, nondistended, no rebound or guarding MUSCULOSKELETAl: Moves all extremities. No clubbing, cyanosis 3+ edema the bilateral lower extremities as well as 2+ edema of the upper extremities NEURO: Awake and alert. Following commands, speech normal, no focal deficits SKIN:: Warm, dry. No rashes lesions or abrasions PSYCHIATRIC: Anxious and tearful Course Course Emergency Course: Patient given Ativan in ED. Following this patient is feeling much more calm states the chest pain has resolved On repeat troponin again discussed with patient states chest pain is beginning to return. At this time I will order a CTA of the chest Repeat CT of the chest showing pleural effusions again discussed with patient. She states she is had intermittent episodes of swelling. She states since yesterday she has had swelling of her eyes and her eyes have progressively had more swelling of the upper and lower eyelids with some mild chemosis will admit at this time for further evaluation. Question whether this is an acute process or for patient's rubbing of eyes and crying in ED but with pleural effusion suspect possible angioedema versus other Called and discussed with OCTAVIA Sy to Dr Alicia presentation work-up. Agrees with admission at this time Discussed Dr. May presentation work-up. Agrees with consult and will come see patient in ED Discussed with patient and family results of workup and diagnosis. Discussed need for admission. Patient and family understand and agree to current t
[2019-10-20 08:33] LABS: Basophils Absolute Auto 0.1 K/mm3 (0.0-0.1); Basophils Percent Auto 1.3 % (0.2-1.2); Eosinophils Absolute Auto 0.1 K/mm3 (0-0.3); Eosinophils Percent Auto 1.9 % (0-4.4); Hematocrit 41.9 % (37.0-47.0); Hemoglobin 13.7 g/dL (12.0-15.0); Immature Granulocyte Absolute 0.03 K/mm3 (0.00-0.031); Immature Granulocyte Percent A 0.5 % (0-0.5); Lymphocytes Absolute Auto 1.61 K/mm3 (0.9-3.2); Lymphocytes Percent Auto 26.1 % (18.3-44.2); Mean Corpuscular HGB Conc 32.7 g/dl (32-36); Mean Corpuscular Hemoglobin 28.8 pg (26-34); Mean Corpuscular Volume 88.2 fl (80-100); Mean Platelet Volume 10.5 fl (7.4-10.4); Monocytes Absolute Auto 0.4 K/mm3 (0.1-0.6); Monocytes Percent Auto 6.6 % (2.6-8.5); Neutrophils Absolute Auto 3.9 K/mm3 (1.3-6.7); Neutrophils Percent Auto 63.6 % (45.5-73.1); Platelet Count Result 464 k/mm3 (150-375); Red Blood Count 4.75 M/mm3 (4.2-5.4); Red Cell Distribution Width 14.1 % (11.5-14.5); White Blood Count 6.2 K/mm3 (4.5-10.0)
[2019-10-20 08:42] LABS: INR 0.9; Prothrombin Time 12.3 Seconds (11.1-14.7)
[2019-10-20 08:43] LABS: Partial Thromboplastin Time 26.7 SECONDS (22.3-36.8)
[2019-10-20 08:45] LABS: Anion Gap 1 mmol/L (8-16); Blood Urea Nitrogen 13 mg/dL (7-17); Calcium 8.1 mg/dL (8.4-10.2); Carbon Dioxide 27 mmol/L (22-30); Chloride 106 mmol/L (98-107); Estimated CRCL calculation 125 ml/min; Estimated Glomerular Filt Rate > 60; Glucose 90 mg/dL (65-105); Potassium 3.9 mmol/L (3.4-5.0); Sodium 134 mmol/L (137-145)
[2019-10-20 08:57] LABS: NT Pro B Type Natriuretic Pept 446 PG/ML (5-100); Troponin I < 0.012 ng/mL (0.000-0.034)
--- NOTE | 2019-10-20 09:30 | PC.NURSE ---
pt sleeping on stretcher. no distress noted
--- NOTE | 2019-10-20 09:30 | PC.NURSE ---
pt resting on stretcher. pt more calm. laying on side in darkened room in position of comfort.
--- NOTE | 2019-10-20 12:40 | PC.NURSE ---
3 hour troponin drawn and sent. pt c/o some chest pain when changing positions. but states is better than upon arrival
[2019-10-20 13:21] LABS: Troponin I < 0.012 ng/mL (0.000-0.034)
--- NOTE | 2019-10-20 13:38 | PC.NURSE ---
Per CT scan, need a 20 or 18 G IV for CTA of chest. Pt has 22G w/ mult attempts. Called Desiree Counts from [facility] to place IV.
[2019-10-20] MEDS: FUROSEMIDE INJ 40 MG/4 ML VIAL IV PUSH (15:10)
--- NOTE | 2019-10-20 15:36 | PM.CNCAR ---
Assessment and Plan Assessment and plan (1) Chest pain: Code(s): R07.9 - Chest pain, unspecified Status: Acute Assessment and Plan: this is not coronary chest pain. Stress test was previously negative and her EKG shows no acute ST or T-wave abnormality. There is some reproducible component with pushing on her chest. Low voltage does present. She does have pleural effusions and concern about pericardial effusion. Will repeat a 2D echocardiogram with Doppler now. Will check an TOREY panel, CRP, ESR. She has been given a dose of furosemide in the ER. Agree with Toradol also has a 1 time dose for pain relief. TSH and free T4 levels also ordered. She may need an endoscope, rheumatological evaluation versus other (2) Hyperlipidemia: Code(s): E78.5 - Hyperlipidemia, unspecified Status: Acute Assessment and Plan: not on statin to this point (3) Anxiety: Code(s): F41.9 - Anxiety disorder, unspecified Status: Acute (4) Pleural effusion: Code(s): J90 - Pleural effusion, not elsewhere classified Status: Acute Assessment and Plan: Thoracentesis to be ordered (5) Tobacco abuse: Code(s): Z72.0 - Tobacco use Status: Acute Assessment and Plan: ongoing History of Present Illness History of Present Illness Consult date/time: 10/20/19 15:36 Requesting physician: Steven Dupree DO Consult reason: chest pain and Other (Bilateral pleural effusions) Reason For Visit: b/l pleural effusion Narrative: date of service 10/20/2019 reason for admission: Chest pain, effusions History patient is a 34-year-old female who presents back to the emergency department because of chest pain. She was seen by myself a few months ago and unfortunately Mr. follow-up because of work schedule. She presented the hospital because of chest pain back in August and she had a stress echocardiogram which was unremarkable as well as a plane 2D echocardiogram with Doppler which was also unremarkable. She states that she felt okay for a few days after discharge. She went back to work and since then has had several episodes of chest pain and she states that she is progressively more swollen. She has had some paroxysmal nocturnal dyspnea recently. She states that today she woke up with chest pain and her eyes were more swollen. She describes the pain as very sharp and radiates all the way through into her back. She also describes it as an air bubble in her chest she did have a temperature of a 102? and was tested for Coronavirus while at work. Reportedly her Coronavirus test was negative. Her shortness breath has progressively worsened. 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 Chest pain is quite severe and sharp. It lasts for less than a minute and then goes away. It is nonexertional per se. No palpitations, syncope although she did feel as if she could have passed out today. She came to the hospital today because of the symptoms and the fact that the chest pain was overall much worse. It was also more frequent. Since the last time she was here she states that the chest pain was more severe but was not as frequent as what it had been. She does take some occasional ibuprofen which does not help. She did undergo CT scan which did show moderate bilateral effusions. Review of Systems Review of Systems: All systems reviewed & are unremarkable except as noted in HPI and below Constitutional: Constitutional: Reports body ache(s), Reports difficulty sleeping and Reports fatigue Eyes: Eyes: Reports blurry vision ENT: Reports nasal congestion and Reports nasal discharge Cardiovascular: Cardiovascular: Reports chest pain Respiratory: Respiratory: Reports dyspnea Gastrointestinal: Gastrointestinal: Denies diarrhea Genitourinary: Genitourinary: Denies hematuria Musculoskeletal: Musculoskeletal: Reports arthralgias, Reports joint sw
--- NOTE | 2019-10-20 15:39 | PC.NURSE ---
pt amb to bathroom with assistance of .
[2019-10-20] MEDS: KETOROLAC 30 MG/ML VIAL (*BKC) IV PUSH (15:45)
[2019-10-20 15:55] LABS: Troponin I < 0.012 ng/mL (0.000-0.034)
[2019-10-20 16:27] LABS: Alanine Aminotransferase 14 U/L (4-35); Albumin Level 2.7 g/dL (3.5-5.1); Alkaline Phosphatase 48 U/L (38-126); Aspartate Amino Transferase 23 U/L (14-36); Bilirubin,Total 0.2 mg/dL (0.2-1.3); Lipase 132 U/L (23-300)
--- NOTE | 2019-10-20 16:46 | ADMGEN ---
This patient, Santy Okeefe, was admitted to [facility] Surg Room 312-01. Patient/family oriented to hospital policies and general routines including ID bracelet, bed and alarms, visiting hours, pain management, procedures, bathroom and other care routines, personal items, smoking policy, room service/diet, and visiting hours. Valuables list has been completed. Information on how to activate the Rapid Response Team has been discussed. Patient/Family are encouraged to report perceived risks to care and to ask questions if they do not understand what they are told or what they should do.
[2019-10-20 17:46] LABS: CRP < 0.5 mg/dL (<1.0)
[2019-10-20 20:20] LABS: Erythrocyte Sedimentation Rate > 140 mm/hr (0-20)
--- NOTE | 2019-10-20 22:00 | PM.IMHP ---
H&P: HPI History of Present Illness Date/Time: 10/20/19 22:00 Chief complaint: Chest pain. Narrative: Santy Okeefe is a 34-year-old female smoker with history of melanoma status post excision who presented to the emergency department earlier this morning from home for evaluation of chest pain. When she woke from sleep this morning she began experiencing pain in the lower sternum/epigastric region, radiating through to the back, that she describes as sharp and stabbing in nature. The pain comes and goes without pattern and does not seem to last longer than minutes at a time. She was hospitalized on August 18, 2019 with chest pain, similar to what she is experiencing today, and she had a stress test at that time which was unremarkable. Today she developed swelling of her eyelids which has gotten progressively worse since admission. Additionally she has had shortness of breath, orthopnea, nonproductive cough, sinus congestion, and sweats. With further questioning, sometime last summer she developed sporadic urticaria and she was seen by a local network/telecom engineer and it sounds as though she had a skin test and possible blood tests, however she does not recall being told that she was allergic to anything. Since that time she has had intermittent swelling in her hands, feet, lower back, and on occasion her lips and tongue to a mild extent. At times her face will flush and she will begin to sweat. 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 She lives in a very old house, and believes there is a small amount of mold in one of her closets. They have a cat that lives in the house, and I believe they have owned it for approximately 1 year. She has not used any new products such as lotions, shampoos, or soaps. To her knowledge, there is no family history of similar symptoms. She has not been on any new medication or cqse-apw-yqabceg supplements, however she has been taking 800 milligrams of ibuprofen, 2 to 3 times per day, for a couple of months due to this chest/epigastric pain. she has not tried taking allergy medications. She has not had fever, otalgia, odynophagia, neck pain, stridor, wheezing, dysphagia, nausea, vomiting, hematemesis, melena, hematochezia, diarrhea, or dysuria. She has no history of thyroid disease or autoimmune disease. No recent travel, sick contacts, or history of venous thromboembolism. She has not had urticaria or pruritus recently. Review of Systems Review of Systems: Narrative: 12 systems were reviewed with pertinent positives and negatives as per HPI. She was recently tested for COVID-19 as she was experiencing upper respiratory symptoms and a fever up to 102?. That tested come back negative. Weight has remained stable. No significant hair loss. She denies excessively dry or or oily skin. No history of gallbladder disease or pancreatitis. She does take medication for GERD, but has not been bad recently. GI cocktail in the ER was of no benefit. No history of peptic ulcers. No dysuria or hematuria. She admits to being quite anxious, wondering what is causing all of these symptoms. Except as documented, all other systems were reviewed and are negative. FOR[facility] Past Medical History Medical History (Updated 10/21/19 @ 00:23 by Kerrie Henderson PA-C) Craniosynostosis Depression with anxiety Gastroesophageal reflux disease Hyperlipidemia Not currently on medication. Melanoma Left upper extremity, status post excision. Normal cardiac stress test (~08/2019) Previous echocardiogram showed an ejection fraction of 55-60% with mild mitral and tricuspid regurgitation. Tobacco abuse Surgical History Surgical History (Updated 10/21/19 @ 00:08 by Kerrie Henderson PA-C) History of 3 sections History of cranial surgery As a child for craniosynostosis. History of melanoma excision (~2017) Left upper extremity. History of tubal ligation Family History Family History (Up
[2019-10-20] MEDS: methylPREDNISolone SOD SUCC 125 MG VIAL 60 MG IV PUSH (23:27)
[2019-10-20] MEDS: diphenhydrAMINE HCl INJ 50 MG/ML VIAL 25 MG IV PUSH (23:27)
[2019-10-20] MEDS: FAMOTIDINE 20 MG/2 ML VIAL IV PUSH (23:27)
[2019-10-21] VITALS (12 sets, daily range): BP systolic 112–121; BP diastolic 49–78; PULSE 16–91; RESP 16–71; TEMP 36.4–37.5; O2SAT 92–99
[2019-10-21 00:15] LABS: Rheumatoid Factor < 8.6 IU/ML (<12)
[2019-10-21 00:50] LABS: HIV 1/2 Ab P24 Ag Result Negative (Negative)
[2019-10-21 01:10] LABS: Hepatitis B Surface Antigen Negative (Negative)
[2019-10-21 01:16] LABS: HAV RESULT Negative (Negative); Hepatitis B Core IgM Result Negative (Negative)
[2019-10-21 01:27] LABS: Hepatitis C Virus Antibody Negative (Negative)
[2019-10-21] MEDS: diphenhydrAMINE HCl CAP 25 MG CAPSULE PO ×3 (06:18→23:59)
[2019-10-21 06:48] LABS: Basophils Percent Auto 0.2 % (0.2-1.2); Hematocrit 40.2 % (37.0-47.0); Hemoglobin 13.1 g/dL (12.0-15.0); Immature Granulocyte Absolute 0.02 K/mm3 (0.00-0.031); Immature Granulocyte Percent A 0.4 % (0-0.5); Lymphocytes Absolute Auto 0.59 K/mm3 (0.9-3.2); Mean Corpuscular HGB Conc 32.6 g/dl (32-36); Mean Corpuscular Hemoglobin 28.4 pg (26-34); Mean Platelet Volume 10.3 fl (7.4-10.4); Monocytes Percent Auto 0.8 % (2.6-8.5); Neutrophils Absolute Auto 4.3 K/mm3 (1.3-6.7); Neutrophils Percent Auto 86.6 % (45.5-73.1); Platelet Count Result 422 k/mm3 (150-375); Red Blood Count 4.62 M/mm3 (4.2-5.4); Red Cell Distribution Width 13.9 % (11.5-14.5); White Blood Count 4.9 K/mm3 (4.5-10.0)
[2019-10-21 07:33] LABS: Alanine Aminotransferase 13 U/L (4-35); Albumin Level 2.4 g/dL (3.5-5.1); Alkaline Phosphatase 42 U/L (38-126); Anion Gap 0 mmol/L (8-16); Aspartate Amino Transferase 20 U/L (14-36); Bilirubin,Total 0.2 mg/dL (0.2-1.3); Blood Urea Nitrogen 13 mg/dL (7-17); Calcium 7.6 mg/dL (8.4-10.2); Carbon Dioxide 27 mmol/L (22-30); Chloride 105 mmol/L (98-107); Estimated CRCL calculation 118 ml/min; Estimated Glomerular Filt Rate > 60; Glucose 138 mg/dL (65-105); HDL Direct 65 mg/dL; LDL Cholesterol Direct 255 mg/dL; Magnesium 1.9 mg/dL (1.6-2.3); Potassium 3.8 mmol/L (3.4-5.0); Sodium 132 mmol/L (137-145); Triglycerides 96 mg/dL (<150)
[2019-10-21 07:38] LABS: Cholesterol 394 mg/dL (0-200)
[2019-10-21] MEDS: predniSONE 20 MG TABLET 40 MG PO (08:51)
[2019-10-21] MEDS: FAMOTIDINE 20 MG TABLET PO ×2 (08:51→20:20)
--- NOTE | 2019-10-21 09:26 | PM.IMPN ---
Progress Note: A&P Assessment and Plan (1) Atypical chest pain: Code(s): R07.89 - Other chest pain Status: Acute Assessment and Plan: Her chest pain is atypical and seems to be centered more so in the low sternum/epigastric region. I do not think it is musculoskeletal in etiology as it seems to occur her at the same time as her swelling. Possible visceral involvement of for angioedema. Omeprazole and GI cocktail have provided her with no relief. Telemetry grossly unremarkable Stress test in August 2019 was negative with echocardiogram as detailed above. Cardiology consulted from ER and appreciate recommendations Monitor (2) Angioedema: Code(s): T78.3XXA - Angioneurotic edema, initial encounter Status: Acute Assessment and Plan: She gives a history dating back to summer including episodic and sporadic urticaria, occasionally pruritic, in addition to more recent episodes of angioedema affecting the hands, feet, lips, tongue, and now the eyes. Evaluation by a local twisting machine operator in the summer of 2018 with skin and RAST tests was reportedly unremarkable. Etiology is not entirely clear and may very well be idiopathic. I am not sure it is IgE mediated, and her only new exposure over the last year is a cat that lives in their household and her eosinophils are not elevated. She takes quite a bit of ibuprofen, which may very well be causing the angioedema, and she was instructed to stop taking that. Autoimmune/rheumatologic conditions are considered thus will check rheumatoid factor, TOREY, ESR, and CRP. Vasculitis seems less likely by history. As she had no improvement with methylprednisolone, diphenhydramine, and famotidine, C4 and C1 esterase inhibitor obtained although she has no known family history of hereditary angioedema. C4 WNL. Tryptase level requested to be drawn in the emergency department when she began having worsening chemosis, but I am not certain that was drawn. She states her swelling improved only with Lasix. Considering nephrotic syndrome although patient has not been able to give a urine sample. Continue scheduled prednisone, diphenhydramine, and famotidine for now to see if it is of benefit. There is no true indication for epinephrine at this time, as she is stable and has no airway compromise. Should her condition not improve, it may be prudent to try a dose of epi simply to see if she is responsive to it. Will do another dose of Lasix for now to see if that improves (3) Bilateral pleural effusion: Code(s): J90 - Pleural effusion, not elsewhere classified Status: Acute Assessment and Plan: Etiology not clear, but may be related to her angioedema and possible capillary leak. Effusion due to malignancy, CHF, liver disease, or infection, are less likely. Will obtain a diagnostic/therapeutic thoracentesis today as patient states she has trouble taking deep breaths and data would possibly provide insight to etiology of angioedema (4) Hyperlipidemia: Code(s): E78.5 - Hyperlipidemia, unspecified Status: Acute Assessment and Plan: Cholesterol and LDL both significantly elevated. Not currently on medication. Will begin 40 mg atorvastatin this hospital stay (5) Tobacco abuse: Code(s): Z72.0 - Tobacco use Status: Acute Assessment and Plan: Smoking cessation is encouraged. Subjective Date/time seen: 10/21/19 09:26 Interval history: Patient is a 34 yo F with history of HLD and melanoma status post excision who is here for evaluation of angioedema and b/l pleural effusion. Patient states her swelling is possibly slightly worse than before. Mainly around her eyes, her lower b
[2019-10-21 09:47] LABS: Free T4 Free Thyroxine 0.82 ng/mL (0.78-2.19)
--- NOTE | 2019-10-21 10:43 | PM.PNCARD ---
Progress Note: A&P Assessment and Plan (1) Chest pain: Code(s): R07.9 - Chest pain, unspecified Status: Acute Assessment and Plan: this is not coronary chest pain. (2) Hyperlipidemia: Code(s): E78.5 - Hyperlipidemia, unspecified Status: Acute Assessment and Plan: not on statin to this point. Will eventually need statin medication but for now whole office to not complicate picture (3) Anxiety: Code(s): F41.9 - Anxiety disorder, unspecified Status: Acute (4) Pleural effusion: Code(s): J90 - Pleural effusion, not elsewhere classified Status: Acute Assessment and Plan: Thoracentesis to be ordered (5) Tobacco abuse: Code(s): Z72.0 - Tobacco use Status: Acute Assessment and Plan: ongoing (6) Elevated sed rate: Code(s): R70.0 - Elevated erythrocyte sedimentation rate Status: Acute Assessment and Plan: sed rate is greater than 140. Rheumatological evaluation is needed Subjective Date/time seen: 10/21/19 10:43 Interval history: Patient is a 34 yo F admitted for edema and chest pain Date of service 10/21/2019: Chest pain has resolved. Still very swollen and especially involving her eyes but some degree of generalized inflammation is noted. Review of Systems Review of Systems: All systems reviewed & are unremarkable except as noted in HPI and below Constitutional: Constitutional: Reports body ache(s), Reports difficulty sleeping, Denies excessive sweating and Denies headache(s) Eyes: Eyes: Reports blurry vision ENT: Denies headache(s), Reports nasal congestion, Reports nasal discharge and Denies neck pain Cardiovascular: Cardiovascular: Reports chest pain and Reports dyspnea Respiratory: Respiratory: Reports dyspnea Gastrointestinal: Gastrointestinal: Denies diarrhea Genitourinary: Genitourinary: Denies hematuria Musculoskeletal: Musculoskeletal: Reports arthralgias, Reports joint swelling and Denies neck pain Integumentary/Breasts: Skin/Breast: Denies dry skin Neurologic: Denies headache(s) Psychiatric: Psychiatric: Reports anxiety Endocrine: Endocrine: Denies excessive sweating Hematologic/Lymphatic: Hematologic/Lymphatic: Denies easy bleeding Exam Narrative: Exam Narrative: uncomfortable but pleasant. Anxious though Const: General: uncomfortable HENMT: General nose exam: no epistaxis Other: eyes are swollen. Sclera are red Eyes: Sclera: scleral abnormality ( redness) bilateral Other: eyes are swollen Neck: Neck: supple and no JVD Chest: Other: patient does have reproducible chest pain to palpate Resp: Auscultation: diminished lung sounds Other: blunting at the bases Cardio: Rate: regular rate Rhythm: regular rhythm Skin: General skin exam: normal color Neuro: Cognition (Neuro): normal cognition Speech: normal speech Extrem: General: edema Other: mild lower extremity edema is noted. Some generalized non pitting edema is also appreciated Psych: Affect: Anxious affect present Objective Data Vital Signs Vital Signs: Vital Signs - 24 hr 10/20/19 10:45 10/20/19 11:00 10/20/19 11:15 Temperature Pulse Rate 83 72 78 Respiratory Rate Blood Pressure Pulse Oximetry 100 100 100 10/20/19 11:30 10/20/19 11:45 10/20/19 12:00 Temperature Pulse Rate 69 71 69 Respiratory Rate Blood Pressure Pulse Oximetry 99 100 100 10/20/19 12:15 10/20/19 12:30 10/20/19 12:54 Temperature Pulse Rate 72 62 59 L Respiratory Rate Blood Pressure Pulse Oximetry 97 98 10/20/19 13:00 10/20/19 13:15 10/20/19 13:30 Temperature Pulse Rate 66 64 66 Respiratory Rate Blood Pressure Pulse Oximetry 100 97 10/20/19 13:35 10/20/19 13:45 10/20/19 13:46 Temperature Pulse Rate 67 67 71 Respiratory Rate 17 Blood Pressure 113/80 114/81 Pulse Oximetry 98 98 97 10/20/19 14:00 10/20/19 14:01 10/20/19 14:15 Tem
[2019-10-21] MEDS: ATORVASTATIN 40 MG TABLET PO (11:33)
[2019-10-21] MEDS: FUROSEMIDE INJ 40 MG/4 ML VIAL IV PUSH (11:34)
[2019-10-21 11:40] LABS: Add Urine Microscopic? YES; Appearance Urine Cloudy (Clear); Bilirubin Urine Negative (Negative); Blood Urine Negative (Negative); Color Urine Yellow (Yellow); Glucose Urine UA Negative (Negative); Ketones Urine Negative (Negative); Leukocyte Esterase Ur Negative LEU/UL (Negative); Mucus Urine Rare /lpf; Nitrate Urine Positive (Negative); Protein Urine 3+ mg/dL (Negative); RBC Urine 0-2 /hpf (0-2); Specific Grav Ur 1.028 (1.001-1.035); Squamous Epithelial Cell Urine Many /hpf (Few); Urobilinogen Urine Negative mg/dL (<2.0)
[2019-10-21] MEDS: ACETAMINOPHEN 325 MG TABLET 650 MG PO (11:40)
[2019-10-21 12:15] LABS: Amylase 68 U/L (30-110); Lactate Dehydrogenase 334 U/L (313-618)
[2019-10-21 13:04] LABS: Creatinine Urine 116.3 mg/dL
[2019-10-21 14:29] LABS: Sodium Urine Random 192 meq/L
[2019-10-21 14:39] LABS: Amphetamine Screen Urine Negative (Negative); Barbiturate Screen Urine Negative (Negative); Benzodiazepines Screen Urine Negative (Negative); Cannabinoid Screen Urine Negative (Negative); Cocaine Screen Urine Negative (Negative); Methadone Screen Urine Negative (Negative); Opiate Screen Urine Negative (Negative); Phencyclidine Screen Urine Negative (Negative)
[2019-10-21 15:45] LABS: Appearance Pleural Fluid Cloudy (Clear); Color Pleural Fluid Colorless (Colorless); Nucleated Cell Pleural Fluid 643 /uL (0-1000); Pleural fluid source Pleural fluid; RBC Pleural Fluid 0 /uL (0-0)
[2019-10-21 15:46] LABS: Lymphocytes Pleural Fluid 16 %; Macrophages Pleural Fluid 2 %; Mesothelial Cells Pleural Flui 22 %; Monocytes Pleural Fluid 56 %; Neutrophils Pleural Fluid 4 % (0-25)
[2019-10-21] MEDS: NICOTINE (*PBKC) 7 MG PATCH 1 PATCH TRANSDERM (16:12)
[2019-10-22] VITALS (9 sets, daily range): BP systolic 111–124; BP diastolic 67–97; PULSE 59–76; RESP 16–18; TEMP 36.6–37.2; O2SAT 99–100
[2019-10-22 05:57] LABS: Basophils Absolute Auto 0.1 K/mm3 (0.0-0.1); Basophils Percent Auto 1.4 % (0.2-1.2); Eosinophils Absolute Auto 0.2 K/mm3 (0-0.3); Eosinophils Percent Auto 2.8 % (0-4.4); Hematocrit 34.9 % (37.0-47.0); Hemoglobin 11.2 g/dL (12.0-15.0); Immature Granulocyte Absolute 0.01 K/mm3 (0.00-0.031); Immature Granulocyte Percent A 0.2 % (0-0.5); Lymphocytes Absolute Auto 2.26 K/mm3 (0.9-3.2); Lymphocytes Percent Auto 40.2 % (18.3-44.2); Mean Corpuscular HGB Conc 32.1 g/dl (32-36); Mean Corpuscular Hemoglobin 28.6 pg (26-34); Mean Platelet Volume 10.4 fl (7.4-10.4); Monocytes Absolute Auto 0.4 K/mm3 (0.1-0.6); Monocytes Percent Auto 7.1 % (2.6-8.5); Neutrophils Absolute Auto 2.7 K/mm3 (1.3-6.7); Neutrophils Percent Auto 48.3 % (45.5-73.1); Platelet Count Result 355 k/mm3 (150-375); Red Blood Count 3.92 M/mm3 (4.2-5.4); Red Cell Distribution Width 14.3 % (11.5-14.5); White Blood Count 5.6 K/mm3 (4.5-10.0)
[2019-10-22] MEDS: diphenhydrAMINE HCl CAP 25 MG CAPSULE PO ×3 (06:00→20:24)
[2019-10-22 06:22] LABS: Alanine Aminotransferase 12 U/L (4-35); Albumin Level 1.9 g/dL (3.5-5.1); Alkaline Phosphatase 29 U/L (38-126); Anion Gap -2 mmol/L (8-16); Aspartate Amino Transferase 17 U/L (14-36); Bilirubin,Total < 0.1 mg/dL (0.2-1.3); Blood Urea Nitrogen 16 mg/dL (7-17); Calcium 7.2 mg/dL (8.4-10.2); Carbon Dioxide 28 mmol/L (22-30); Chloride 106 mmol/L (98-107); Estimated CRCL calculation 144 ml/min; Estimated Glomerular Filt Rate > 60; Glucose 95 mg/dL (65-105); Magnesium 1.8 mg/dL (1.6-2.3); Phosphorus 3.6 mg/dL (2.5-4.5); Potassium 3.6 mmol/L (3.4-5.0); Sodium 132 mmol/L (137-145)
[2019-10-22] MEDS: NICOTINE (*PBKC) 7 MG PATCH 1 PATCH TRANSDERM (08:57)
[2019-10-22] MEDS: FAMOTIDINE 20 MG TABLET PO ×2 (08:57→20:53)
[2019-10-22] MEDS: predniSONE 20 MG TABLET 40 MG PO (08:58)
--- NOTE | 2019-10-22 12:17 | PM.PNCARD ---
Progress Note: A&P Assessment and Plan (1) Chest pain: Code(s): R07.9 - Chest pain, unspecified Status: Acute Assessment and Plan: this is not coronary chest pain. (2) Hyperlipidemia: Code(s): E78.5 - Hyperlipidemia, unspecified Status: Acute Assessment and Plan: not on statin to this point. Will eventually need statin medication but for now whole office to not complicate picture (3) Anxiety: Code(s): F41.9 - Anxiety disorder, unspecified Status: Acute (4) Pleural effusion: Code(s): J90 - Pleural effusion, not elsewhere classified Status: Acute Assessment and Plan: thoracentesis yesterday on the right side (5) Tobacco abuse: Code(s): Z72.0 - Tobacco use Status: Acute Assessment and Plan: ongoing (6) Elevated sed rate: Code(s): R70.0 - Elevated erythrocyte sedimentation rate Status: Acute Assessment and Plan: sed rate is greater than 140. Rheumatological evaluation is needed (7) Proteinuria: Code(s): R80.9 - Proteinuria, unspecified Status: Acute Assessment and Plan: will order 24 hour urine due to her protein urea. Will consult Nephrology Subjective Date/time seen: 10/22/19 12:17 Interval history: Patient is a 34 yo F admitted for edema and chest pain Date of service 10/22/2019: She feels better. Eyes are less swollen. She did undergo thoracentesis yesterday. No chest pain at this point. Still short of breath Review of Systems Review of Systems: All systems reviewed & are unremarkable except as noted in HPI and below Constitutional: Constitutional: Reports body ache(s), Reports difficulty sleeping, Denies excessive sweating and Denies headache(s) Eyes: Eyes: Reports blurry vision ENT: Denies headache(s), Reports nasal congestion, Reports nasal discharge and Denies neck pain Cardiovascular: Cardiovascular: Reports chest pain and Reports dyspnea Respiratory: Respiratory: Reports dyspnea Gastrointestinal: Gastrointestinal: Denies diarrhea Genitourinary: Genitourinary: Denies hematuria Musculoskeletal: Musculoskeletal: Reports arthralgias, Reports joint swelling and Denies neck pain Integumentary/Breasts: Skin/Breast: Denies dry skin Neurologic: Denies headache(s) Psychiatric: Psychiatric: Reports anxiety Endocrine: Endocrine: Denies excessive sweating Hematologic/Lymphatic: Hematologic/Lymphatic: Denies easy bleeding Exam Narrative: Exam Narrative: uncomfortable but pleasant. Anxious though Const: General: uncomfortable HENMT: General nose exam: no epistaxis Other: eyes are less swollen Eyes: Sclera: scleral abnormality ( redness) bilateral Other: eyes are less swollen Neck: Neck: supple and no JVD Chest: Other: patient does have reproducible chest pain to palpate Resp: Auscultation: diminished lung sounds Other: blunting at the left base Cardio: Rate: regular rate Rhythm: regular rhythm Skin: General skin exam: normal color Neuro: Cognition (Neuro): normal cognition Speech: normal speech Extrem: General: edema Other: mild lower extremity edema is noted. Some generalized non pitting edema is also appreciated Psych: Affect: Anxious affect present Objective Data Vital Signs Vital Signs: Vital Signs - 24 hr 10/21/19 14:00 10/21/19 14:38 10/21/19 14:39 Temperature 37.1 C Pulse Rate 76 20 L 16 L Respiratory Rate 18 71 H 16 Blood Pressure 118/69 112/77 118/78 Pulse Oximetry 99 92 94 10/21/19 16:00 10/21/19 20:00 10/21/19 22:00 Temperature 37.5 C Pulse Rate 85 91 86 Respiratory Rate 16 Blood Pressure 117/49 L Pulse Oximetry 95 10/21/19 22:14 10/22/19 00:00 10/22/19 04:00 Temperature Pulse Rate 74 69 Respiratory Rate Blood Pressure 118/66 Pulse Oximetry 10/22/19 06:00 10/22/19 08:00 Temperature 37.2 C Pulse Rate 70 76 Respiratory Rate 16 16 Blood Pressure 111/67 P
--- NOTE | 2019-10-22 14:37 | PM.IMPN ---
Progress Note: A&P Assessment and Plan (1) Atypical chest pain: Code(s): R07.89 - Other chest pain Status: Acute Assessment and Plan: Her chest pain is atypical Stress test in August 2019 was negative (2) Angioedema: Code(s): T78.3XXA - Angioneurotic edema, initial encounter Status: Acute Assessment and Plan: She gives a history dating back to summer including episodic and sporadic urticaria, occasionally pruritic, in addition to more recent episodes of angioedema affecting the hands, feet, lips, tongue, and now the eyes. Evaluation by a local director of analytics in the summer with skin and RAST tests was reportedly unremarkable. No family history of allergy or ESRD (3) Bilateral pleural effusion: Code(s): J90 - Pleural effusion, not elsewhere classified Status: Acute Assessment and Plan: Etiology not clear, but may be related to her angioedema Sp diagnostic/therapeutic thoracentesis awaiting full analysis (4) Hyperlipidemia: Code(s): E78.5 - Hyperlipidemia, unspecified Status: Acute Assessment and Plan: Cholesterol and LDL both significantly elevated. Not currently on medication. Will begin 40 mg atorvastatin this hospital stay TSH is high jan rpt TSH on dischrage to confirm hypothyroidism (5) Tobacco abuse: Code(s): Z72.0 - Tobacco use Status: Acute Assessment and Plan: Smoking cessation is encouraged. (6) Proteinuria: Code(s): R80.9 - Proteinuria, unspecified Status: Acute Assessment and Plan: treat for infection, protein in urine with swelling ? nephrotic syndrome -collect urine for 24 hours and consult nephrology Subjective Date/time seen: 10/22/19 14:37 Interval history: Patient is a 34 yo F with history of HLD and melanoma status post excision who is here for evaluation of angioedema and b/l pleural effusion. Swelling all over face to feet, happens often over past 6 months not related to medications. UA shows proteinuria. Awaiting 24 hour urinary collection. Awaiting to see nephrology. Denies SOB or dysphagia Denies rash or any specific allergies. RA is neg, TOREY pending, COmplment is pending, Immunoglobulins pending, HEP a, b ,c are negative, HIV is negative Review of Systems Constitutional: Comments: Anasarca Exam Const: General: cooperative, comfortable and no acute distress HENMT: Face and sinus: edema bilaterally periorbital Mouth: Yes moist mucous membranes Throat: posterior oropharynx normal Neck: Thyroid: thyroid normal Resp: Effort & Inspection: normal respiratory effort Auscultation: clear to auscultation bilaterally Cardio: Rate: regular rate Rhythm: regular rhythm Heart sounds: no murmurs GI: Inspection: non-distended Auscultation: normal bowel sounds Skin: General skin exam: normal color Neuro: General: patient oriented x3, moves all extremities and no focal motor deficits Speech: normal speech Extrem: Right upper extremity: edema Left upper extremity: edema Right lower extremity: edema Left lower extremity: edema Psych: Mental Status: mental status grossly normal Affect: normal affect Objective Data Vital Signs Vital Signs: Vital Signs - 24 hr 10/21/19 14:38 10/21/19 14:39 10/21/19 16:00 Temperature Pulse Rate 20 L 16 L 85 Respiratory Rate 71 H 16 Blood Pressure 112/77 118/78 Pulse Oximetry 92 94 10/21/19 20:00 10/21/19 22:00 10/21/19 22:14 Temperature 37.5 C Pulse Rate 91 86 Respiratory Rate 16 Blood Pressure 117/49 L 118/66 Pulse Oximetry 95 10/22/19 00:00 10/22/19 04:00 10/22/19 06:00 Temperature 37.2 C Pulse Rate 74 69 70 Respir
[2019-10-22] MEDS: ACETAMINOPHEN 325 MG TABLET 650 MG PO (19:13)
[2019-10-22] MEDS: NITROFURANTOIN MONOHYD MACROCR 100 MG CAP PO (20:53)
[2019-10-23] VITALS (9 sets, daily range): BP systolic 131–138; BP diastolic 71–97; PULSE 48–100; RESP 16–18; TEMP 36.3–37.2; O2SAT 97–100
[2019-10-23] MEDS: diphenhydrAMINE HCl CAP 25 MG CAPSULE PO ×4 (00:16→18:53)
[2019-10-23] MEDS: FAMOTIDINE 20 MG TABLET PO ×2 (07:43→20:12)
[2019-10-23] MEDS: NICOTINE (*PBKC) 7 MG PATCH 1 PATCH TRANSDERM (07:43)
[2019-10-23] MEDS: NITROFURANTOIN MONOHYD MACROCR 100 MG CAP PO ×2 (07:44→20:12)
[2019-10-23] MEDS: FUROSEMIDE 40 MG TABLET PO (07:44)
[2019-10-23] MEDS: predniSONE 20 MG TABLET PO (07:45)
--- NOTE | 2019-10-23 12:40 | PM.CNNEP ---
Assessment and Plan Assessment and plan (1) Proteinuria: Code(s): R80.9 - Proteinuria, unspecified Status: Acute Assessment and Plan: the patient has 3+ protein on her dipstick. Her specific gravity is quite high at 1.028 and so the dipstick would show concentrated urine and exaggerated any proteinuria present. A 24hour urine is being collected now and we will see how much protein she has in her urine. Certainly she has nephrotic range proteinuria would explain her volume overload with her swelling and pleural effusions. Her joint pains, high sed rate, proteinuria, and anasarca all are reminiscent of lupus, specially who class 5 lupus which comes with lots of protein but not an active sediment. There other things do this such as minimal change disease, membranous nephropathy, focal segmental glomerulosclerosis, or MP GN. And there are plenty of secondary glomerulonephritides that could cause these issues as well. At this point will see what the 24hour urine shows. Will see how some of the serology comes back. Consider biopsy. The patient could have the biopsy as an outpatient unless she still here when the decision is made. (2) Anasarca: Code(s): R60.1 - Generalized edema Status: Acute Assessment and Plan: She has proteinuria and low albumin. These may be due to nephrotic syndrome. (3) Hyperlipidemia: Code(s): E78.5 - Hyperlipidemia, unspecified Status: Acute Assessment and Plan: She has hyperlipidemia. She is awfully young for that high an LDL. I suspect that this may be from the nephrotic syndrome as well. (4) Tobacco abuse: Code(s): Z72.0 - Tobacco use Status: Acute Assessment and Plan: The patient should stop smoking. She may have to go on immunosuppressive therapy and smoking would be dangerous in that circumstance (5) Atypical chest pain: Code(s): R07.89 - Other chest pain Status: Acute Assessment and Plan: she was seen by Dr. Peterson and cleared. History of Present Illness Reason for Consult Consult date: 10/23/19 Chief Complaint Chief complaint: Chest pain. History of Present Illness Narrative: Santy is a very pleasant 34-year-old lady who has no prior medical problems. She says that about 6 months ago she noted some swelling in her ankles. Eventually this worsened and sandra to the thighs and then presacral area and more recently she has facial swelling as well. This has continued to worsen so she came to the emergency room. In the ER she was found to have protein in her urine. Lots of tests have been ordered including a 24hour urine for protein. She was found to have pleural effusions and so these were tapped. She has received diuretics and her swelling is better. She says that for about the last 12 months she has been having aches and pains in her joints she specifically points to her metacarpal phalangeal joints in both hands. But she has had aches and pains elsewhere as well. she has been taking ibuprofen 800 mg 1 every couple of days or so. This was given by her primary care provider. She has not had any blood done lately. She denies coughing up blood, blowing blood out of her nose, malar rash, sores in her mouth, hair loss in clumps, photosensitivity. She smokes but she only rarely drinks Review of Systems Constitutional: Constitutional: Reports no additional constitutional complaints Eyes: Eyes: Reports no additional eye complaints ENT: Reports system reviewed and no additional complaints, except as documented Cardiovascular: Cardiovascular: Reports no additional cardiovascular complaints Respiratory: Respiratory: Reports no additional respiratory complaints Gastrointestinal: Gastrointestinal: Reports no additional gastrointestinal complaints Genitourinary: Genitourinary: Reports no additional female genitourinary complaints Musculoskeletal: Musculoskeletal: Report
--- NOTE | 2019-10-23 15:32 | PM.IMPN ---
Progress Note: A&P Assessment and Plan (1) Atypical chest pain: Code(s): R07.89 - Other chest pain Status: Acute Assessment and Plan: Her chest pain is atypical Stress test in August 2019 was negative (2) Angioedema: Code(s): T78.3XXA - Angioneurotic edema, initial encounter Status: Acute Assessment and Plan: She gives a history dating back to summer including episodic and sporadic urticaria, occasionally pruritic, in addition to more recent episodes of angioedema affecting the hands, feet, lips, tongue, and now the eyes. Evaluation by a local paper cone grader in the summer with skin and RAST tests was reportedly unremarkable. No family history of allergy or ESRD (3) Bilateral pleural effusion: Code(s): J90 - Pleural effusion, not elsewhere classified Status: Acute Assessment and Plan: Etiology not clear, but may be related to her angioedema Sp diagnostic/therapeutic thoracentesis awaiting full analysis (4) Hyperlipidemia: Code(s): E78.5 - Hyperlipidemia, unspecified Status: Acute Assessment and Plan: Cholesterol and LDL both significantly elevated. Not currently on medication. Will begin 40 mg atorvastatin this hospital stay TSH is high jan rpt TSH on dischrage to confirm hypothyroidism (5) Tobacco abuse: Code(s): Z72.0 - Tobacco use Status: Acute Assessment and Plan: Smoking cessation is encouraged. (6) Proteinuria: Code(s): R80.9 - Proteinuria, unspecified Status: Acute Assessment and Plan: treat for infection, protein in urine with swelling ? nephrotic syndrome -collect urine for 24 hours, pt needs to have biopsy. Subjective Date/time seen: 10/23/19 15:32 Interval history: Patient is a 34 yo F with history of HLD and melanoma status post excision who is here for evaluation of angioedema and b/l pleural effusion. Swelling all over face to feet, happens often over past 6 months not related to medications. UA shows proteinuria. Awaiting 24 hour urinary collection. Nephrology recommends biopsy. Denies rash or any specific allergies. RA is neg, TOREY pending, Complment is pending, Immunoglobulins pending, HEP a, b ,c are negative, HIV is negative Review of Systems Review of Systems: Narrative: Swelling, Anasarca Exam Narrative: Exam Narrative: Const: General: cooperative, comfortable and no acute distress HENMT: Face and sinus: edema bilaterally periorbital Mouth: Yes moist mucous membranes Throat: posterior oropharynx normal Neck: Thyroid: thyroid normal Resp: Effort & Inspection: normal respiratory effort Auscultation: clear to auscultation bilaterally Cardio: Rate: regular rate Rhythm: regular rhythm Heart sounds: no murmurs GI: Inspection: non-distended Auscultation: normal bowel sounds Skin: General skin exam: normal color Neuro: General: patient oriented x3, moves all extremities and no focal motor deficits Speech: normal speech Extrem: Right upper extremity: edema Left upper extremity: edema Right lower extremity: edema Left lower extremity: edema Psych: Mental Status: mental status grossly normal Affect: normal affect Objective Data Vital Signs Vital Signs: Vital Signs - 24 hr 10/22/19 16:00 10/22/19 20:00 10/22/19 22:00 Temperature 36.6 C Pulse Rate 75 76 59 L Respiratory Rate 16 Blood Pressure 124/77 Pulse Oximetry 99 10/23/19 00:00 10/23/19 04:00 10/23/19 06:00 Temperature 36.6 C Pulse Rate 73 48 L 69 Respiratory Rate 16 Blood Pressure 135/89 Pulse Oximetry 98 10/23/19 08:00 10/23/19 12:00 10/23/19 14:00 Temperature 36.3 C L Pulse Rate 5
[2019-10-23 17:11] LABS: Specific Gravity Ur 1.011; Total Volume 24 Hour Urine 4700 ml
[2019-10-23 17:24] LABS: Total Protein Urine 24 Hr 14429 MG/DAY (28-141); Total Protein Urine Random 307 mg/dL
[2019-10-23] MEDS: ZOLPIDEM TARTRATE 5 MG TABLET PO (20:12)
[2019-10-24] VITALS (9 sets, daily range): BP systolic 112–122; BP diastolic 78–83; PULSE 52–99; RESP 16–18; TEMP 36.4–36.7; O2SAT 99–100
[2019-10-24] MEDS: diphenhydrAMINE HCl CAP 25 MG CAPSULE PO ×4 (01:23→19:05)
[2019-10-24 03:58] LABS: C1 Esterase Inhibitor >100 % (>=68)
[2019-10-24] MEDS: NICOTINE (*PBKC) 7 MG PATCH 1 PATCH TRANSDERM (07:57)
[2019-10-24] MEDS: NITROFURANTOIN MONOHYD MACROCR 100 MG CAP PO ×2 (07:58→21:14)
[2019-10-24] MEDS: FUROSEMIDE 40 MG TABLET PO (07:58)
[2019-10-24] MEDS: predniSONE 20 MG TABLET PO (07:58)
[2019-10-24] MEDS: FAMOTIDINE 20 MG TABLET PO ×2 (07:58→21:15)
--- NOTE | 2019-10-24 08:40 | PM.PNNEP ---
Progress Note: A&P Assessment and Plan (1) Proteinuria: Code(s): R80.9 - Proteinuria, unspecified Status: Acute Assessment and Plan: the patient has 3+ protein on her dipstick. Twenty-four urine shows over 14 g of protein per 24 hours the patient clearly has nephrotic range proteinuria. This explains the swelling, pleural effusions, hyperlipidemia. Her joint pains suggest a secondary cause. She could have lupus, cryoglobulinemia, or some sort of ANCA related vasculitis. I think the latter 2 are less likely because she does not have blood in the urine. Minimal change or membranous nephropathy due to nonsteroidals as possible as well since she has been on ibuprofen. Other possibilities include minimal change and membranous GN. FSGS is less likely because her creatinine is normal. and MP GN Is less likely because her hepatitis studies are negative. I discussed at length the situation and she should get a kidney biopsy to help elucidate what is going on. She is in agreement. We discussed the process, risks, benefits, and alternatives. She is already on prednisone but she may need higher doses or alternative therapies depending on what the pathology shows. Long discussion. (2) Anasarca: Code(s): R60.1 - Generalized edema Status: Acute Assessment and Plan: She has proteinuria and low albumin. These are due to nephrotic syndrome. (3) Hyperlipidemia: Code(s): E78.5 - Hyperlipidemia, unspecified Status: Acute Assessment and Plan: She has hyperlipidemia. She is awfully young for that high an LDL. I suspect that is probably from the nephrotic syndrome as well. (4) Tobacco abuse: Code(s): Z72.0 - Tobacco use Status: Acute Assessment and Plan: The patient should stop smoking. She may have to go on immunosuppressive therapy and smoking would be dangerous in that circumstance (5) Atypical chest pain: Code(s): R07.89 - Other chest pain Status: Acute Assessment and Plan: she was seen by Dr. Peterson and cleared. Subjective Date/time seen: 10/24/19 08:40 Interval history: Santy is feeling about the same. Still some aches and pains. Review of Systems Cardiovascular: Cardiovascular: Reports no additional cardiovascular complaints Respiratory: Respiratory: Reports no additional respiratory complaints Gastrointestinal: Gastrointestinal: Reports no additional gastrointestinal complaints Genitourinary: Genitourinary: Reports no additional female genitourinary complaints Exam Narrative: Exam Narrative: WDWN in NAD skin no rash. Rare small bruises. head ncat lungs clear cor reg no rub abd BS+ nontender and soft ext One to 2+ edema. Objective Data Vital Signs Vital Signs: Vital Signs - 24 hr 10/23/19 12:00 10/23/19 14:00 10/23/19 16:00 Temperature 36.3 C L Pulse Rate 71 100 64 Respiratory Rate 18 Blood Pressure 131/97 H Pulse Oximetry 97 10/23/19 20:00 10/23/19 22:00 10/24/19 00:00 Temperature 37.2 C Pulse Rate 60 64 64 Respiratory Rate 18 Blood Pressure 138/71 Pulse Oximetry 100 10/24/19 04:00 10/24/19 06:00 Temperature 36.4 C Pulse Rate 52 L 57 L Respiratory Rate 16 Blood Pressure 122/78 Pulse Oximetry 99 Intake/Output Intake/Output: Intake & Output 10/21/19 10/22/19 10/23/19 10/24/19 23:59 23:59 23:59 23:59 Intake Total 1330 2330 3000 800 Output Total 185 088 2009 600 Balance 980 1580 -900 200 Meds/Results Medications: Active Medications Generic Name Dose Route Start Last Admin Trade Name Freq PRN Reason Stop Dose Admin Acetaminophen 650 mg 10/21/19 09:16 10/22/19 19:13 Tylenol Tablet PO 650 mg Q4H PRN Administration Mild Pain (1-3) or Fever Diphenhydramine HCl 25 mg 10/21/19 06:55 10/24/19 06:17 Benadryl Cap PO 25 mg Q6H PRATIBHA Administration Famotidine 20 mg 10/21/19 09:00 10/24/19 07:58 Pe
[2019-10-24 09:47] LABS: Complement C3 119 mg/dL (88-165)
--- NOTE | 2019-10-24 16:49 | PM.IMPN ---
Progress Note: A&P Assessment and Plan (1) Atypical chest pain: Code(s): R07.89 - Other chest pain Status: Acute Assessment and Plan: Her chest pain is atypical Stress test in August 2019 was negative (2) Angioedema: Code(s): T78.3XXA - Angioneurotic edema, initial encounter Status: Acute Assessment and Plan: She gives a history dating back to summer including episodic and sporadic urticaria, occasionally pruritic, in addition to more recent episodes of angioedema affecting the hands, feet, lips, tongue, and now the eyes. Evaluation by a local cashier ticket selling in the summer with skin and RAST tests was reportedly unremarkable. No family history of allergy or ESRD (3) Bilateral pleural effusion: Code(s): J90 - Pleural effusion, not elsewhere classified Status: Acute Assessment and Plan: Etiology not clear, but may be related to her angioedema Sp diagnostic/therapeutic thoracentesis awaiting full analysis (4) Hyperlipidemia: Code(s): E78.5 - Hyperlipidemia, unspecified Status: Acute Assessment and Plan: Cholesterol and LDL both significantly elevated. Not currently on medication. Will begin 40 mg atorvastatin this hospital stay TSH is high jan rpt TSH on dischrage to confirm hypothyroidism (5) Tobacco abuse: Code(s): Z72.0 - Tobacco use Status: Acute Assessment and Plan: Smoking cessation is encouraged. (6) Proteinuria: Code(s): R80.9 - Proteinuria, unspecified Status: Acute Assessment and Plan: treat for infection, protein in urine with swelling ? nephrotic syndrome -collect urine for 24 hours, pt needs to have biopsy. Nephrology consulted. increase edema continue diuresis with iv lasix order ECHO also to check heart Subjective Date/time seen: 10/24/19 16:49 Interval history: Patient is a 34 yo F with history of HLD and melanoma status post excision who is here for evaluation of angioedema and b/l pleural effusion. Swelling all over face to feet, happens often over past 6 months not related to medications. UA shows proteinuria. Awaiting 24 hour urinary collection. Nephrology recommends biopsy. Denies rash or any specific allergies. RA is neg, TOREY pending, Complment is pending, Immunoglobulins pending, HEP a, b ,c are negative, HIV is negative Pt complains of edema in ankles abdomen and increasing SOB, diuresis with iv lasix. Review of Systems Review of Systems: All systems reviewed & are unremarkable except as noted in HPI and below Exam Const: Nutritional Appearance: well nourished Orientation/consciousness: patient oriented x3 HENMT: Head: normocephalic Face and sinus: edema Resp: Effort & Inspection: normal respiratory effort Auscultation: breath sounds absent and vesicular breath sounds Cardio: Rate: regular rate Rhythm: regular rhythm Heart sounds: no murmurs GI: Inspection: non-distended Auscultation: normal bowel sounds Skin: General skin exam: normal color Neuro: General: patient oriented x3, moves all extremities and no focal motor deficits Speech: normal speech Extrem: Right upper extremity: edema Left upper extremity: edema Right lower extremity: edema Left lower extremity: edema Other: Possibly slightly worse left>right in both UE and LE Psych: Mental Status: mental status grossly normal Affect: normal affect Objective Data Vital Signs Vital Signs: Vital Signs - 24 hr 10/23/19 20:00 10/23/19 22:00 10/24/19 00:00 Temperature 37.2 C Pulse Rate 60 64 64 Respiratory Rate 18 Blood Pressure 138/71 Pulse Oximetry 100 10/24/19 04:00 10/24/19 06:00 10/24/19 08:00
[2019-10-24] MEDS: FUROSEMIDE INJ 40 MG/4 ML VIAL 20 MG IV PUSH (16:57)
[2019-10-24] MEDS: ZOLPIDEM TARTRATE 5 MG TABLET PO (21:15)
[2019-10-25] VITALS (11 sets, daily range): BP systolic 111–133; BP diastolic 76–80; PULSE 54–80; RESP 16–20; TEMP 36.7; O2SAT 98–99
[2019-10-25] MEDS: diphenhydrAMINE HCl CAP 25 MG CAPSULE PO ×4 (01:00→17:58)
[2019-10-25 06:44] LABS: Basophils Absolute Auto 0.1 K/mm3 (0.0-0.1); Basophils Percent Auto 1.4 % (0.2-1.2); Eosinophils Absolute Auto 0.2 K/mm3 (0-0.3); Eosinophils Percent Auto 2.4 % (0-4.4); Hematocrit 39.1 % (37.0-47.0); Hemoglobin 12.2 g/dL (12.0-15.0); Immature Granulocyte Absolute 0.03 K/mm3 (0.00-0.031); Immature Granulocyte Percent A 0.4 % (0-0.5); Lymphocytes Absolute Auto 2.92 K/mm3 (0.9-3.2); Mean Corpuscular HGB Conc 31.2 g/dl (32-36); Mean Corpuscular Hemoglobin 28.8 pg (26-34); Mean Corpuscular Volume 92.4 fl (80-100); Mean Platelet Volume 10.1 fl (7.4-10.4); Monocytes Absolute Auto 0.5 K/mm3 (0.1-0.6); Monocytes Percent Auto 6.9 % (2.6-8.5); Neutrophils Absolute Auto 3.4 K/mm3 (1.3-6.7); Neutrophils Percent Auto 47.9 % (45.5-73.1); Platelet Count Result 391 k/mm3 (150-375); Red Blood Count 4.23 M/mm3 (4.2-5.4); Red Cell Distribution Width 14.2 % (11.5-14.5); White Blood Count 7.1 K/mm3 (4.5-10.0)
[2019-10-25 07:30] LABS: Albumin Level 2.1 g/dL (3.5-5.1); Anion Gap -1 mmol/L (8-16); Blood Urea Nitrogen 14 mg/dL (7-17); Calcium 7.6 mg/dL (8.4-10.2); Carbon Dioxide 28 mmol/L (22-30); Chloride 105 mmol/L (98-107); Estimated CRCL calculation 119 ml/min; Estimated Glomerular Filt Rate > 60; Glucose 89 mg/dL (65-105); Potassium 3.9 mmol/L (3.4-5.0); Sodium 132 mmol/L (137-145)
[2019-10-25] MEDS: NICOTINE (*PBKC) 7 MG PATCH 1 PATCH TRANSDERM (08:09)
[2019-10-25] MEDS: FUROSEMIDE INJ 40 MG/4 ML VIAL 20 MG IV PUSH ×2 (08:09→17:58)
--- NOTE | 2019-10-25 08:47 | PM.PNNEP ---
Progress Note: A&P Assessment and Plan (1) Proteinuria: Code(s): R80.9 - Proteinuria, unspecified Status: Acute Assessment and Plan: the patient has 3+ protein on her dipstick. Twenty-four urine shows over 14 g of protein per 24 hours the patient clearly has nephrotic range proteinuria. This explains the swelling, pleural effusions, hyperlipidemia. renal biopsy is scheduled for today. She is on prednisone (2) Anasarca: Code(s): R60.1 - Generalized edema Status: Acute Assessment and Plan: she also has pleural effusions She has proteinuria and low albumin. These are due to nephrotic syndrome. (3) Hyperlipidemia: Code(s): E78.5 - Hyperlipidemia, unspecified Status: Acute Assessment and Plan: likely due to the nephrosis. (4) Tobacco abuse: Code(s): Z72.0 - Tobacco use Status: Acute Assessment and Plan: The patient should stop smoking. She may have to go on immunosuppressive therapy and smoking would be dangerous in that circumstance (5) Atypical chest pain: Code(s): R07.89 - Other chest pain Status: Acute Assessment and Plan: she was seen by Dr. Peterson and cleared. Subjective Date/time seen: 10/25/19 08:47 Interval history: Santy is feeling about the same. Swelling seems to be better she says. Review of Systems Cardiovascular: Cardiovascular: Reports no additional cardiovascular complaints Respiratory: Respiratory: Reports no additional respiratory complaints Gastrointestinal: Gastrointestinal: Reports no additional gastrointestinal complaints Genitourinary: Genitourinary: Reports no additional female genitourinary complaints Exam Narrative: Exam Narrative: WDWN in NAD skin no rash. Rare small bruises. head ncat lungs clear To auscultation cor reg no rub abd BS+ nontender and soft ext 1+ edema. Objective Data Vital Signs Vital Signs: Vital Signs - 24 hr 10/24/19 12:00 10/24/19 14:00 10/24/19 16:00 Temperature 36.7 C Pulse Rate 99 86 73 Respiratory Rate 18 Blood Pressure 122/81 Pulse Oximetry 100 10/24/19 20:00 10/24/19 22:00 10/25/19 00:00 Temperature 36.7 C Pulse Rate 66 67 72 Respiratory Rate 16 Blood Pressure 112/83 Pulse Oximetry 99 10/25/19 04:00 10/25/19 06:00 Temperature 36.7 C Pulse Rate 59 L 54 L Respiratory Rate 16 Blood Pressure 133/80 Pulse Oximetry 99 Intake/Output Intake/Output: Intake & Output 10/22/19 10/23/19 10/24/19 10/25/19 23:59 23:59 23:59 23:59 Intake Total 2330 3000 2860 700 Output Total 750 3900 4400 2300 Balance 0273 -[phone] -[phone] -1600 Meds/Results Medications: Active Medications Generic Name Dose Route Start Last Admin Trade Name Freq PRN Reason Stop Dose Admin Acetaminophen 650 mg 10/21/19 09:16 10/22/19 19:13 Tylenol Tablet PO 650 mg Q4H PRN Administration Mild Pain (1-3) or Fever Diphenhydramine HCl 25 mg 10/21/19 06:55 10/25/19 06:47 Benadryl Cap PO 25 mg Q6H PRATIBHA Administration Famotidine 20 mg 10/21/19 09:00 10/24/19 21:15 Pepcid PO 20 mg Q12HR PRATIBHA Administration Furosemide 20 mg 10/24/19 17:00 10/25/19 08:09 Lasix Inj IV PUSH 20 mg BID PRATIBHA Administration Lorazepam 0.5 mg 10/21/19 12:43 10/21/19 13:35 Ativan Inj IV PUSH 0.5 mg ONCE PRN Administration Anxiety Nicotine 1 patch 10/21/19 15:30 10/25/19 08:09 Nicoderm Cq 7 Mg TRANSDERM 1 patch DAILY PRATIBHA Administration Nitrofurantoin Macrocrystals 100 mg 10/22/19 21:00 10/24/19 21:14 Macrobid PO 100 mg Q12HR PRATIBHA Administration Prednisone 20 mg 10/23/19 08:00 10/24/19 07:58 Prednisone PO 20 mg DAILY@0800 PRATIBHA Administration Zolpidem Tartrate 5 mg 10/24/19 10:16 10/24/19 21:15 Ambien PO 5 mg HS PRN Administration Insomnia Radiology Results: ITS Impressions Chest CTA 10/20/19 14:14 IMPRESSION: No evide
[2019-10-25] MEDS: NITROFURANTOIN MONOHYD MACROCR 100 MG CAP PO ×2 (14:21→20:54)
[2019-10-25] MEDS: predniSONE 20 MG TABLET PO (14:21)
[2019-10-25] MEDS: FAMOTIDINE 20 MG TABLET PO ×2 (14:21→20:54)
--- NOTE | 2019-10-25 15:23 | PM.IMPN ---
Progress Note: A&P Assessment and Plan (1) Atypical chest pain: Code(s): R07.89 - Other chest pain Status: Acute Assessment and Plan: Her chest pain is atypical Stress test in August 2019 was negative (2) Angioedema: Code(s): T78.3XXA - Angioneurotic edema, initial encounter Status: Acute Assessment and Plan: She gives a history dating back to summer including episodic and sporadic urticaria, occasionally pruritic, in addition to more recent episodes of angioedema affecting the hands, feet, lips, tongue, and now the eyes. Evaluation by a local smoke jumper supervisor in the summer with skin and RAST tests was reportedly unremarkable. No family history of allergy or ESRD 10/25/19 15:23 patient is a 34-year-old female with no significant past medical history presented with anasarca, hypoalbuminemia, proteinuria, pleural effusion and hyperlipidemia patient is seen by truck hop and had a 24 hour urine protein output which total of 14 g indicating most likely patient has nephrotic syndrome, to further evaluate patient had kidney biopsy today and just returned, patient denies any complaint abdominal pain nausea or vomiting fever or or chills, truck hop suspect patient will need immunosuppression therapy and further recommendation to follow (3) Bilateral pleural effusion: Code(s): J90 - Pleural effusion, not elsewhere classified Status: Acute Assessment and Plan: Etiology not clear, but may be related to her angioedema Sp diagnostic/therapeutic thoracentesis awaiting full analysis (4) Hyperlipidemia: Code(s): E78.5 - Hyperlipidemia, unspecified Status: Acute Assessment and Plan: Cholesterol and LDL both significantly elevated. Not currently on medication. Will begin 40 mg atorvastatin this hospital stay TSH is high jan rpt TSH on dischrage to confirm hypothyroidism (5) Tobacco abuse: Code(s): Z72.0 - Tobacco use Status: Acute Assessment and Plan: Smoking cessation is encouraged. (6) Proteinuria: Code(s): R80.9 - Proteinuria, unspecified Status: Acute Assessment and Plan: treat for infection, protein in urine with swelling ? nephrotic syndrome -collect urine for 24 hours, pt needs to have biopsy. Nephrology consulted. increase edema continue diuresis with iv lasix order ECHO also to check heart Subjective Date/time seen: 10/25/19 15:23 patient is a 34-year-old female with no significant past medical history presented with anasarca, hypoalbuminemia, proteinuria, pleural effusion and hyperlipidemia patient is seen by truck hop and had a 24 hour urine protein output which total of 14 g indicating most likely patient has nephrotic syndrome, to further evaluate patient had kidney biopsy today and just returned, patient denies any complaint abdominal pain nausea or vomiting fever or or chills, truck hop suspect patient will need immunosuppression therapy and further recommendation to follow Review of Systems Review of Systems: All systems reviewed & are unremarkable except as noted in HPI and below Exam Const: General: comfortable and no acute distress HENMT: General nose exam: Normal nares present Mouth: Yes moist mucous membranes Eyes: General: appearance normal, both eyes and all related structures Sclera: sclerae normal Neck: Neck: supple Resp: Other: bilateral fair air entry with rhonchi and rales Cardio: Rate: regular rate Rhythm: regular rhythm GI: Auscultation: normal bowel sounds Skin: General skin exam: normal color Neuro: Speech: normal speech Sensory Exam: normal sensation Extrem: Gene
[2019-10-25] MEDS: ZOLPIDEM TARTRATE 5 MG TABLET PO (20:54)
[2019-10-26] VITALS (9 sets, daily range): BP systolic 103–123; BP diastolic 52–81; PULSE 58–120; RESP 16–18; TEMP 36.3–36.9; O2SAT 100
[2019-10-26 02:55] LABS: Amylase, Pleural Fluid 13 U/L
[2019-10-26] MEDS: diphenhydrAMINE HCl CAP 25 MG CAPSULE PO ×3 (06:31→17:56)
[2019-10-26 06:38] LABS: Hemoglobin 12.7 g/dL (12.0-15.0); Mean Corpuscular HGB Conc 32.6 g/dl (32-36); Mean Corpuscular Hemoglobin 28.5 pg (26-34); Mean Corpuscular Volume 87.4 fl (80-100); Mean Platelet Volume 10.4 fl (7.4-10.4); Platelet Count Result 383 k/mm3 (150-375); Red Blood Count 4.46 M/mm3 (4.2-5.4); Red Cell Distribution Width 14.1 % (11.5-14.5); White Blood Count 10.5 K/mm3 (4.5-10.0)
[2019-10-26 06:54] LABS: Glucose Pleural Fluid 131 mg/dL; LDH Pleural Fluid 33 U/L; Total Protein Pleural Fluid <3.0 g/dL
[2019-10-26 06:55] LABS: Alanine Aminotransferase 24 U/L (4-35); Albumin Level 2.3 g/dL (3.5-5.1); Alkaline Phosphatase 33 U/L (38-126); Anion Gap -2 mmol/L (8-16); Aspartate Amino Transferase 23 U/L (14-36); Bilirubin,Total < 0.1 mg/dL (0.2-1.3); Blood Urea Nitrogen 11 mg/dL (7-17); Calcium 7.9 mg/dL (8.4-10.2); Carbon Dioxide 27 mmol/L (22-30); Chloride 105 mmol/L (98-107); Estimated CRCL calculation 143 ml/min; Estimated Glomerular Filt Rate > 60; Glucose 94 mg/dL (65-105); Potassium 4.1 mmol/L (3.4-5.0); Sodium 130 mmol/L (137-145)
--- NOTE | 2019-10-26 08:42 | PM.PNNEP ---
Progress Note: A&P Assessment and Plan (1) Proteinuria: Code(s): R80.9 - Proteinuria, unspecified Status: Acute Assessment and Plan: the patient has 3+ protein on her dipstick. Twenty-four urine shows over 14 g of protein per 24 hours the patient clearly has nephrotic range proteinuria. This explains the swelling, pleural effusions, hyperlipidemia. renal biopsy was done yesterday and is pending. She has some bruising and a negative anion gap. I wonder if she may have some paraprotein issue. She is on prednisone (2) Anasarca: Code(s): R60.1 - Generalized edema Status: Acute Assessment and Plan: she also has pleural effusions She has proteinuria and low albumin. These are due to nephrotic syndrome. (3) Hyperlipidemia: Code(s): E78.5 - Hyperlipidemia, unspecified Status: Acute Assessment and Plan: likely due to the nephrosis. (4) Tobacco abuse: Code(s): Z72.0 - Tobacco use Status: Acute Assessment and Plan: The patient should stop smoking. She may have to go on immunosuppressive therapy and smoking would be dangerous in that circumstance (5) Atypical chest pain: Code(s): R07.89 - Other chest pain Status: Acute Assessment and Plan: she was seen by Dr. Peterson and cleared. Subjective Date/time seen: 10/26/19 08:42 Interval history: Santy is feeling about the same. she says her weight is back to her fighting weight. It does not seem like she has lost any real weight Review of Systems Cardiovascular: Cardiovascular: Reports no additional cardiovascular complaints Respiratory: Respiratory: Reports no additional respiratory complaints Gastrointestinal: Gastrointestinal: Reports no additional gastrointestinal complaints Genitourinary: Genitourinary: Reports no additional female genitourinary complaints Exam Narrative: Exam Narrative: WDWN in NAD skin no rash. Rare small bruises. head ncat lungs clear To auscultation cor reg no rub abd BS+ nontender and soft ext 1+ edema. Objective Data Vital Signs Vital Signs: Vital Signs - 24 hr 10/25/19 10:45 10/25/19 11:10 10/25/19 12:00 Temperature Pulse Rate 64 62 62 Respiratory Rate 20 18 Blood Pressure 125/80 115/76 Pulse Oximetry 98 98 10/25/19 14:00 10/25/19 16:00 10/25/19 20:00 Temperature 36.7 C Pulse Rate 66 80 71 Respiratory Rate 16 Blood Pressure 111/77 Pulse Oximetry 98 10/25/19 22:00 10/26/19 00:00 10/26/19 04:00 Temperature 36.7 C Pulse Rate 79 74 58 L Respiratory Rate 18 Blood Pressure 124/76 Pulse Oximetry 98 10/26/19 05:57 Temperature 36.3 C L Pulse Rate 62 Respiratory Rate 18 Blood Pressure 122/81 Pulse Oximetry 100 Intake/Output Intake/Output: Intake & Output 10/23/19 10/24/19 10/25/19 10/26/19 23:59 23:59 23:59 23:59 Intake Total 3000 2860 2090 240 Output Total 3900 4400 5550 2300 [facility] -[phone] -6250 Meds/Results Medications: Active Medications Generic Name Dose Route Start Last Admin Trade Name Freq PRN Reason Stop Dose Admin Acetaminophen 650 mg 10/21/19 09:16 10/22/19 19:13 Tylenol Tablet PO 650 mg Q4H PRN Administration Mild Pain (1-3) or Fever Diphenhydramine HCl 25 mg 10/21/19 06:55 10/26/19 06:31 Benadryl Cap PO 25 mg Q6H PRATIBHA Administration Famotidine 20 mg 10/21/19 09:00 10/25/19 20:54 Pepcid PO 20 mg Q12HR PRATIBHA Administration Furosemide 20 mg 10/24/19 17:00 10/25/19 17:58 Lasix Inj IV PUSH 20 mg BID PRATIBHA Administration Lorazepam 0.5 mg 10/21/19 12:43 10/21/19 13:35 Ativan Inj IV PUSH 0.5 mg ONCE PRN Administration Anxiety Nicotine 1 patch 10/21/19 15:30 10/25/19 08:09 Nicoderm Cq 7 Mg TRANSDERM 1 patch DAILY PRATIBHA Administration Nitrofurantoin Macrocrystals 100 mg 10/22/19 21:00 10/25/19 20:54 Macrobid PO 100 mg Q12HR PRATIBHA Administra
[2019-10-26] MEDS: NITROFURANTOIN MONOHYD MACROCR 100 MG CAP PO ×2 (09:39→20:55)
[2019-10-26] MEDS: NICOTINE (*PBKC) 7 MG PATCH 1 PATCH TRANSDERM (09:39)
[2019-10-26] MEDS: predniSONE 20 MG TABLET PO (09:39)
[2019-10-26] MEDS: FAMOTIDINE 20 MG TABLET PO ×2 (09:39→20:57)
[2019-10-26] MEDS: FUROSEMIDE INJ 40 MG/4 ML VIAL 20 MG IV PUSH ×2 (09:40→16:47)
--- NOTE | 2019-10-26 12:57 | PM.IMPN ---
Progress Note: A&P Assessment and Plan (1) Atypical chest pain: Code(s): R07.89 - Other chest pain Status: Acute Assessment and Plan: Her chest pain is atypical Stress test in August 2019 was negative (2) Angioedema: Code(s): T78.3XXA - Angioneurotic edema, initial encounter Status: Acute Assessment and Plan: She gives a history dating back to summer including episodic and sporadic urticaria, occasionally pruritic, in addition to more recent episodes of angioedema affecting the hands, feet, lips, tongue, and now the eyes. 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 No family history of allergy or ESRD 10/26/19 12:57 patient is a 34-year-old female with no significant past medical history presented with anasarca, hypoalbuminemia, proteinuria, pleural effusion and hyperlipidemia patient is seen by florist and had a 24 hour urine protein output which total of 14 g indicating most likely patient has nephrotic syndrome, to further evaluate patient had kidney biopsy on 10/24 which is pending, today patient denies any complaint abdominal pain nausea or vomiting fever or or chills, florist suspect patient will need immunosuppression therapy pending kidney biopsy results, and further recommendation to follow (3) Bilateral pleural effusion: Code(s): J90 - Pleural effusion, not elsewhere classified Status: Acute Assessment and Plan: Etiology not clear, but may be related to her angioedema and most likely nephrotic syndrome Sp diagnostic/therapeutic thoracentesis awaiting full analysis (4) Hyperlipidemia: Code(s): E78.5 - Hyperlipidemia, unspecified Status: Acute Assessment and Plan: Cholesterol and LDL both significantly elevated. Not currently on medication. Will begin 40 mg atorvastatin this hospital stay TSH is high free T4 is normal, will repeat TSH once clinically stable (5) Tobacco abuse: Code(s): Z72.0 - Tobacco use Status: Acute Assessment and Plan: Smoking cessation is encouraged. (6) Proteinuria: Code(s): R80.9 - Proteinuria, unspecified Status: Acute Assessment and Plan: treat for infection, protein in urine with swelling ? nephrotic syndrome -collect urine for 24 hours, pt needs to have biopsy. Nephrology consulted. increase edema continue diuresis with iv lasix order ECHO also to check heart Subjective Date/time seen: 10/26/19 12:57 patient is a 34-year-old female with no significant past medical history presented with anasarca, hypoalbuminemia, proteinuria, pleural effusion and hyperlipidemia patient is seen by florist and had a 24 hour urine protein output which total of 14 g indicating most likely patient has nephrotic syndrome, to further evaluate patient had kidney biopsy on 10/24 which is pending, today patient denies any complaint abdominal pain nausea or vomiting fever or or chills, florist suspect patient will need immunosuppression therapy pending kidney biopsy results, and further recommendation to follow Review of Systems Review of Systems: All systems reviewed & are unremarkable except as noted in HPI and below Exam Const: General: comfortable and no acute distress HENMT: General nose exam: Normal nares present Eyes: General: appearance normal, both eyes and all related structures Sclera: sclerae normal Neck: Neck: supple Resp: Effort & Inspection: normal respiratory effort Auscultation: clear to auscultation bilaterally Cardio: Rate: regular rate Rhythm: regular rhythm GI: Auscultation: normal bowel soun
[2019-10-26] MEDS: ACETAMINOPHEN 325 MG TABLET 650 MG PO ×2 (16:57→20:15)
[2019-10-26 21:21] LABS: Immunoglobulin A 205 mg/dL (47-310); Immunoglobulin G 324 mg/dL (600-1640); Immunoglobulin M 215 mg/dL (50-300)
[2019-10-27 04:00] VITALS: PULSE 67
[2019-10-27 06:00] VITALS: BP 120/87; PULSE 69; RESP 16; TEMP 36.5; O2SAT 99
[2019-10-27 06:12] LABS: Hematocrit 41.7 % (37.0-47.0); Hemoglobin 13.8 g/dL (12.0-15.0); Mean Corpuscular HGB Conc 33.1 g/dl (32-36); Mean Corpuscular Hemoglobin 28.9 pg (26-34); Mean Corpuscular Volume 87.4 fl (80-100); Mean Platelet Volume 10.6 fl (7.4-10.4); Platelet Count Result 437 k/mm3 (150-375); Red Blood Count 4.77 M/mm3 (4.2-5.4); Red Cell Distribution Width 14.1 % (11.5-14.5); White Blood Count 11.4 K/mm3 (4.5-10.0)
[2019-10-27 06:26] LABS: Alanine Aminotransferase 31 U/L (4-35); Albumin Level 2.6 g/dL (3.5-5.1); Alkaline Phosphatase 40 U/L (38-126); Anion Gap 2 mmol/L (8-16); Aspartate Amino Transferase 23 U/L (14-36); Bilirubin,Total < 0.1 mg/dL (0.2-1.3); Blood Urea Nitrogen 21 mg/dL (7-17); Calcium 8.3 mg/dL (8.4-10.2); Carbon Dioxide 26 mmol/L (22-30); Chloride 104 mmol/L (98-107); Estimated CRCL calculation 117 ml/min; Estimated Glomerular Filt Rate > 60; Glucose 89 mg/dL (65-105); Potassium 4.1 mmol/L (3.4-5.0); Sodium 132 mmol/L (137-145)
[2019-10-27 06:53] VITALS: PULSE 71
[2019-10-27] MEDS: diphenhydrAMINE HCl CAP 25 MG CAPSULE PO (06:56)
[2019-10-27 08:00] VITALS: PULSE 63
--- NOTE | 2019-10-27 08:06 | PC.NURSE ---
1999 medications were administered under the wrong nurse sign on. Medications were given by Annita Ortega Rn.
[2019-10-27] MEDS: FUROSEMIDE INJ 40 MG/4 ML VIAL 20 MG IV PUSH (08:50)
[2019-10-27] MEDS: predniSONE 20 MG TABLET PO (08:50)
[2019-10-27] MEDS: FAMOTIDINE 20 MG TABLET PO (08:50)
[2019-10-27] MEDS: NITROFURANTOIN MONOHYD MACROCR 100 MG CAP PO (08:51)
[2019-10-27] MEDS: NICOTINE (*PBKC) 7 MG PATCH 1 PATCH TRANSDERM (08:51)
--- NOTE | 2019-10-27 09:30 | PC.NURSE ---
Called to room, patient lying in bed states was in bathroom brushing teeth and getting dressed to be discharged, suddenly felt light headed and dizzy, states this is not new she does this at work on occasion, it was the first time here and wanted to make us aware. b/p 127/86 p 78 r 18 o2 sat 94% on ra. notified.
[2019-10-27 09:39] LABS: HIV 1/2 Ab P24 Ag Result Negative (Negative)
--- NOTE | 2019-10-27 09:39 | PM.PNNEP ---
Progress Note: A&P Assessment and Plan (1) Proteinuria: Code(s): R80.9 - Proteinuria, unspecified Status: Acute Assessment and Plan: the patient has 3+ protein on her dipstick. Twenty-four urine shows over 14 g of protein per 24 hours renal biopsy was done. This shows minimal change nephropathy. This is often idiopathic. Some underlying causes include lymphoma, Hodgkin's, TB, HIV, other more strange infections, and a host of medications. She was on nonsteroidal anti-inflammatory agents and this usually causes a different kind of a diagnosis however might be on the list. She was encouraged not to take anymore the nonsteroidals. We discussed at length. We will check a QuantiFERON test, HIV, stay off the nonsteroidals. We will use prednsone 70 mg per day for 3 months and if she has responded by then we can taper doses. We discussed the risk of the prednisone. This includes high sugar, high blood pressure, weight gain, osteoporosis, stomach ulcers. We will start famotidine and the patient will take Tums 500 mg twice a day well on the prednisone. long discussion. (2) Anasarca: Code(s): R60.1 - Generalized edema Status: Acute Assessment and Plan: she also has pleural effusions She has proteinuria and low albumin. These are due to nephrotic syndrome. (3) Hyperlipidemia: Code(s): E78.5 - Hyperlipidemia, unspecified Status: Acute Assessment and Plan: likely due to the nephrosis. (4) Tobacco abuse: Code(s): Z72.0 - Tobacco use Status: Acute Assessment and Plan: The patient should stop smoking. She will go on Prednisone and smoking would be dangerous in that circumstance (5) Atypical chest pain: Code(s): R07.89 - Other chest pain Status: Acute Assessment and Plan: she was seen by Dr. Peterson and cleared. Subjective Date/time seen: 10/27/19 09:39 Interval history: Santy is feeling about the same. Review of Systems Cardiovascular: Cardiovascular: Reports no additional cardiovascular complaints Respiratory: Respiratory: Reports no additional respiratory complaints Gastrointestinal: Gastrointestinal: Reports no additional gastrointestinal complaints Genitourinary: Genitourinary: Reports no additional female genitourinary complaints Exam Narrative: Exam Narrative: WDWN in NAD skin no rash. Rare small bruises. head ncat lungs clear cor reg no rub abd BS+ nontender and soft ext 1+ edema. Objective Data Vital Signs Vital Signs: Vital Signs - 24 hr 10/26/19 12:00 10/26/19 14:00 10/26/19 16:00 Temperature 36.8 C Pulse Rate 120 H 88 114 H Respiratory Rate 18 Blood Pressure 103/52 L Pulse Oximetry 100 10/26/19 20:00 10/26/19 22:00 10/27/19 04:00 Temperature 36.9 C Pulse Rate 78 86 67 Respiratory Rate 16 Blood Pressure 123/75 Pulse Oximetry 100 10/27/19 06:00 10/27/19 06:53 Temperature 36.5 C Pulse Rate 69 71 Respiratory Rate 16 Blood Pressure 120/87 Pulse Oximetry 99 Intake/Output Intake/Output: Intake & Output 10/24/19 10/25/19 10/26/19 10/27/19 23:59 23:59 23:59 23:59 Intake Total 2860 2090 3740 520 Output Total 4400 5720 6182 1000 [facility] -[phone] -2435 -480 Meds/Results Medications: Active Medications Generic Name Dose Route Start Last Admin Trade Name Freq PRN Reason Stop Dose Admin Acetaminophen 650 mg 10/21/19 09:16 10/26/19 20:15 Tylenol Tablet PO 650 mg Q4H PRN Administration Mild Pain (1-3) or Fever Diphenhydramine HCl 25 mg 10/21/19 06:55 10/27/19 06:56 Benadryl Cap PO 25 mg Q6H PRATIBHA Administration Famotidine 20 mg 10/21/19 09:00 10/27/19 08:50 Pepcid PO 20 mg Q12HR PRATIBHA Administration Furosemide 20 mg 10/24/19 17:00 10/27/19 08:50 Lasix Inj IV PUSH 20 mg BID PRATIBHA Administration Lorazepam 0.5 mg 10/21/19 12:43 10/21/19 13:35 Ativan Inj IV PUSH 0.5
--- NOTE | 2019-10-27 09:59 | ECG_ITS ---
Measurements Intervals Keller Rate: 68 P: 54 VA: 175 QRS: 37 QRSD: 88 T: 59 QT: 368 QTc: 394 Interpretive Statements SINUS RHYTHM DELAYED PRECORDIAL R/S TRANSITION BORDERLINE T WAVE ABNORMALITY- ANTERIOR LEADS BORDERLINE ECG Electronically Signed On 10-27-2019 10:37:40 CDT by Nakul Loza D.O.
[2019-10-27 10:15] VITALS: BP 114/92; PULSE 109; RESP 16; TEMP 36.4; O2SAT 100
[2019-10-27 12:00] VITALS: PULSE 81
[2019-10-27] MEDS: predniSONE 40 MG, predniSONE 10 MG 50 MG PO (12:07)
--- NOTE | 2019-10-27 13:22 | PM.DS ---
DS: Admitting Diagnosis Admitting Diagnosis Admitting Diagnosis: Chest pain. DS: Discharge Diagnosis Discharge Diagnosis (1) Atypical chest pain: Code(s): R07.89 - Other chest pain Status: Acute Assessment and Plan: Her chest pain is atypical Stress test in August 2019 was negative (2) Angioedema: Code(s): T78.3XXA - Angioneurotic edema, initial encounter Status: Acute Assessment and Plan: She gives a history dating back to summer including episodic and sporadic urticaria, occasionally pruritic, in addition to more recent episodes of angioedema affecting the hands, feet, lips, tongue, and now the eyes. Evaluation by a local veneer sorter in the summer with skin and RAST tests was reportedly unremarkable. No family history of allergy or ESRD 10/26/19 12:57 patient is a 34-year-old female with no significant past medical history presented with anasarca, hypoalbuminemia, proteinuria, pleural effusion and hyperlipidemia patient is seen by ice rink attendant and had a 24 hour urine protein output which total of 14 g indicating most likely patient has nephrotic syndrome, to further evaluate patient had kidney biopsy on 10/24 which is pending, today patient denies any complaint abdominal pain nausea or vomiting fever or or chills, ice rink attendant suspect patient will need immunosuppression therapy pending kidney biopsy results, and further recommendation to follow (3) Bilateral pleural effusion: Code(s): J90 - Pleural effusion, not elsewhere classified Status: Acute Assessment and Plan: Etiology not clear, but may be related to her angioedema and most likely nephrotic syndrome Sp diagnostic/therapeutic thoracentesis awaiting full analysis (4) Hyperlipidemia: Code(s): E78.5 - Hyperlipidemia, unspecified Status: Acute Assessment and Plan: Cholesterol and LDL both significantly elevated. Not currently on medication. Will begin 40 mg atorvastatin this hospital stay TSH is high free T4 is normal, will repeat TSH once clinically stable (5) Tobacco abuse: Code(s): Z72.0 - Tobacco use Status: Acute Assessment and Plan: Smoking cessation is encouraged. (6) Proteinuria: Code(s): R80.9 - Proteinuria, unspecified Status: Acute Assessment and Plan: treat for infection, protein in urine with swelling ? nephrotic syndrome -collect urine for 24 hours, pt needs to have biopsy. Nephrology consulted. increase edema continue diuresis with iv lasix order ECHO also to check heart DS: Summary Hospital Course Reason for hospitalization: Chief complaint: Chest pain. Narrative: Santy Okeefe is a 34-year-old female smoker with history of melanoma status post excision who presented to the emergency department earlier this morning from home for evaluation of chest pain. When she woke from sleep this morning she began experiencing pain in the lower sternum/epigastric region, radiating through to the back, that she describes as sharp and stabbing in nature. The pain comes and goes without pattern and does not seem to last longer than minutes at a time. She was hospitalized on August 18, 2019 with chest pain, similar to what she is experiencing today, and she had a stress test at that time which was unremarkable. Today she developed swelling of her eyelids which has gotten progressively worse since admission. Additionally she has had shortness of breath, orthopnea, nonproductive cough, sinus congestion, and sweats. With further questioning, sometime last summer she developed sporadic urticaria and she was seen by a local veneer sorter and it sounds as though she had a skin t
[2019-10-28 07:00] LABS: Albumin Pleural Fluid 0.1 g/dL
[2019-10-28 08:03] LABS: Anti Glomerular Basement Memb <1.0 AI (<1.0)
[2019-10-28 10:24] LABS: ANCA Screen Negative (Negative)
[2019-10-28 12:04] LABS: Complement Total CH50 56 U/mL (31-60)
[2019-10-29 23:13] LABS: NIL 0.02 IU/mL; Quantiferon TB Plus, 1T NEGATIVE (NEGATIVE); TB1-NIL 0.01 IU/mL; TB2-NIL 0.01 IU/mL
[2019-10-30 04:13] LABS: Cryoglobulin, QL Negative (Negative)
[2019-10-30 22:09] LABS: Lambda Light Chain 24.7 mg/L (5.7-26.3)
== END 2019-10-27 14:10 | disposition home or self-care (01) | DRG 313 ==
LOC: ANHED 08:09 → ANH3MEDSUR 15:23
PROVIDERS: Internal Medicine Cardiovascular Disease; Internal Medicine Nephrology; Physician Assistant; Admitting Provider Family Medicine; Emergency Provider Emergency Medicine; Visit Provider Family Medicine
DX: R07.89 Other chest pain (principal); J90 Pleural effusion, not elsewhere classified; N04.9 Nephrotic syndrome with unspecified morphologic changes; T78.3XXA Angioneurotic edema, initial encounter; E78.5 Hyperlipidemia, unspecified; F17.210 Nicotine dependence, cigarettes, uncomplicated; R80.9 Proteinuria, unspecified; R70.0 Elevated erythrocyte sedimentation rate; F41.8 Other specified anxiety disorders; Z85.820 Personal history of malignant melanoma of skin; Z79.899 Other long term (current) drug therapy
CPT/HCPCS: 32555; 36415; 50200; 70450; 71045; 71046; 71275; 76942; 80048; 80053; 80061; 80069; 80074; 80076; 80307; 81001; 81025; 81050; 82042; 82150; 82570; 82595; 82784; 82945; 83520; 83615; 83690; 83735; 83880; 83883; 83986; 84156; 84157; 84300; 84311; 84439; 84443; 84478; 84484; 85025; 85027; 85610; 85652; 85730; 86021; 86038; 86140; 86160; 86162; 86334; 86335; 86430; 86480; 86703; 88104; 88108; 88184; 88300; 88305; 88313; 88329; 88346; 88348; 88350; 89051; 93005; 93306; 93880; 96374; 96375; 99285; A9270; G0378; G0432; J1200; J1885; J1940; J2060; J2930; J7512; Q9967

== ENCOUNTER 2019-10-28 10:27 | Outpatient (CLI) | payer OTHER, MEDICAID, SELFPAY ==
--- NOTE | 2019-10-29 15:14 | PC.NURSE ---
patient has prescription for prednisone 20 mg 3 tablets, x30 with 2 refills. [facility] in [place] notified that the prescription is actually for 90 tablets with [address] Brown.
== END 2019-10-28 10:28 | disposition home or self-care (01) ==
PROVIDERS: PCP Internal Medicine Cardiovascular Disease; Visit Provider Internal Medicine Nephrology
DX: R80.9 Proteinuria, unspecified (principal)
CPT/HCPCS: 86335

== ENCOUNTER 2020-01-12 18:20 | Inpatient (IN) | payer OTHER, MEDICAID, SELFPAY ==
--- NOTE | ~2020-01-12 | NM_ITS ---
EXAMINATION: NM pulmonary perfusion DATE: 01/12/2020 22:34 INDICATION: Shortness of breath. TECHNIQUE: 5.17 mCi Tc-99m MAA was administered intravenously for perfusion images. Scintigraphic im ages of the chest were obtained. COMPARISON: Chest 2 views 01/12/20, chest scintigraphy 08/17/2019 FINDINGS: Perfusion images show large and moderate-sized defects in left lower lobe. ] IMPRESSION: 1. Nondiagnostic (intermediate probability for pulmonary embolism). Reviewed, dictated and finalized at location A. UNITY LEADER
--- NOTE | ~2020-01-12 | CT_ITS ---
EXAMINATION: CT abdomen pelvis w con INDICATION: Abdominal distention TECHNIQUE: Computed tomographic images of the abdomen and pelvis were obtained after the administrati on of 100 cc of Omnipaque 350 intravenous contrast. The dose-length product (DLP) was 371.50 mGy-cm. Automated exposure control and iterative reconstruction technique were employed. COMPARISON: None available FINDINGS: Small pleural effusions persist but have decreased. There is also decreased atelectasis of the lung bases. The heart size is normal. The liver, spleen, pancreas, gallbladder, and adrenal gland s are normal. The kidneys are unremarkable. No pathologically enlarged abdominal or pelvic lymph node s are identified. There is no free intraperitoneal gas or evidence of bowel obstruction. A large volu me of colonic stool is present. There is a tiny umbilical hernia containing fat. IMPRESSION: 1. Constipation. 2. Interval decrease in small pleural effusions and bibasilar atelectasis. Reviewed, dictated and finalized at location A. PACKER
--- NOTE | ~2020-01-12 | XR_ITS ---
EXAMINATION: XR chest 2V DATE: 01/12/2020 22:38 INDICATION: Shortness of breath. TECHNIQUE: Frontal and lateral views of the chest were obtained. COMPARISON: Chest 2 views 10/24/2019 FINDINGS: There is a small left pleural effusion. There are airspace opacities in left lower lobe. No pneumothorax. The heart size is normal. IMPRESSION: 1. Airspace opacities in left lower lobe, consistent with atelectasis versus pneumonia. 2. Small left pleural effusion. Reviewed, dictated and finalized at location A. OR SOFTWARE QUALITY ENGINEER IMPRESSION: 1. Airspace opacities in left lower lobe, consistent with atelectasis versus pn eumonia. 2. Small left pleural effusion.
--- NOTE | ~2020-01-12 | CT_ITS ---
EXAMINATION: CTA chest PE protocol DATE: 01/13/2020 09:02 INDICATION: Shortness of breath TECHNIQUE: Computed tomography angiography (CTA) of the chest was performed with 100 mL Omnipaque-350 intravenous contrast timed to evaluate the pulmonary arteries. Coronal maximum intensity projection 3D-reconstructions were created by the technologist. The dose-length product (DLP) was 196.40 mGy-cm. Automated exposure control and iterative reconstruction technique were employed. COMPARISON: 10/20/2019 FINDINGS: The pulmonary arteries are well-opacified. No pulmonary embolism is identified. Respiratory motion artifact somewhat limits evaluation in peripheral pulmonary arterial branches. There are smal l pleural effusions. There are minimal airspace opacities in the lingula and lower lobes. No patholog ically enlarged thoracic lymph nodes are identified. The heart size is normal. There is mild thoracic spondylosis. The left hepatic artery arises from the left gastric artery. IMPRESSION: 1. No pulmonary embolism identified. 2. Small pleural effusions, left greater than right. 3. Minimal airspace opacities in the lingula and lower lobes, consistent with atelectasis. Reviewed, dictated and finalized at location A. E COMMERCE MANAGER IMPRESSION: 1. No pulmonary embolism identified. 2. Small pleural effusions, left greater than right. 3. Minimal airspace opacities in the lingula and lower lobes, consistent with a telectasis.
--- NOTE | ~2020-01-12 | US_ITS ---
EXAMINATION: US venous doppler [facility] DATE: 01/13/2020 10:25 INDICATION: Lower limb swelling TECHNIQUE: Glass scale images without and with compression and Doppler images of the bilateral lower e xtremity veins were obtained. COMPARISON: None FINDINGS: The right common femoral vein, profunda femoral vein, femoral vein, popliteal vein, peroneal trunk, p osterior tibial veins, and greater saphenous vein are patent. The left common femoral vein, profunda femoral vein, femoral vein, popliteal vein, peroneal trunk, po sterior tibial veins, and greater saphenous vein are patent. IMPRESSION: 1. Patent bilateral lower extremity veins. No evidence of deep venous thrombosis. Reviewed, dictated and finalized at location A. RVISOR WET ROOM IMPRESSION: 1. Patent bilateral lower extremity veins. No evidence of deep venous thrombosi s.
[2020-01-12 18:51] VITALS: BP 148/111; PULSE 73; RESP 16; TEMP 36.4; O2SAT 97
--- NOTE | 2020-01-12 19:21 | ED.GENADULT ---
HPI - General Adult General Chief complaint: Abdominal Pain Stated complaint: nephotic synd/mult complaints Time Seen by Provider: 01/12/20 19:04 Source: patient Mode of arrival: ambulatory Limitations: no limitations History of Present Illness HPI narrative: Patient is a 34-year-old female complaining of generalized edema particularly in her bilateral lower extremity accompanied by increased abdominal distention that started approximately 3 weeks ago and getting worse. Patient states she has a history of nephrotic syndrome and currently on steroids. Patient states that when she has nephrotic syndrome attack as usual presents this way. Patient states that she is short of breath only because her increasing nondistention is pushing up her lungs, worse when she lays down. Patient denies any chest pain, abdominal pain, nausea vomiting diarrhea or fever. Related Data Home Medications Medication Instructions Recorded Confirmed melatonin 5 mg PO HS PRN 08/17/19 10/20/19 nicotine 1 patch TRANSDERMAL DAILY 01/12/20 Allergies Allergy/AdvReac Type Severity Reaction Status Date / Time No Known Allergies Allergy Verified 01/12/20 19:05 Review of Systems Review of Systems: All systems reviewed & are unremarkable except as noted in HPI and below Constitutional: Constitutional: Denies body ache(s), Denies chills, Denies excessive sweating, Denies fatigue, Denies fever(s), Denies headache(s), Denies lethargy, Denies malaise, Denies weakness and Denies weight loss Eyes: Eyes: Denies blurry vision, Denies change in vision and Denies loss of vision ENT: Denies dizziness, Denies ear discharge, Denies headache(s), Denies lip swelling, Denies epistaxis, Denies nasal congestion, Denies neck pain, Denies throat swelling and Denies tongue swelling Cardiovascular: Cardiovascular: Denies chest pain, Denies chest pain at rest, Denies chest pain with activity, Denies diaphoresis, Denies rapid heart rate, Denies edema, Denies irregular heart rhythm, Denies lightheadedness and Denies palpitations Respiratory: Respiratory: Denies cough and Denies hemoptysis Gastrointestinal: Gastrointestinal: Denies abdominal pain, Denies melena, Denies hematochezia, Denies diarrhea, Denies nausea, Denies vomiting and Denies hematemesis Musculoskeletal: Musculoskeletal: Denies abnormal gait, Denies deformity, Denies joint swelling, Denies limited range of motion, Denies neck pain and Denies numbness Neurologic: Denies Abnormal speech present, Denies abnormal gait, Denies confusion, Denies dizziness, Denies headache(s), Denies focal weakness, Denies loss of vision, Denies numbness, Denies Other visual disturbances, Denies Sensory deficit (Neuro) and Denies weakness Psychiatric: Psychiatric: Denies confusion, Denies depression, Denies auditory hallucinations, Denies homicidal ideation and Denies suicidal ideation Endocrine: Endocrine: Denies cold intolerance, Denies excessive sweating, Denies fatigue, Denies heat intolerance and Denies palpitations Hematologic/Lymphatic: Hematologic/Lymphatic: Denies easy bleeding and Denies easy bruising Allergic/Immunologic: Allergic/Immunologic: Denies lip swelling, Denies throat swelling and Denies tongue swelling PMFSH Past Medical History Medical History (Updated 01/12/20 @ 23:48 by Steven Courtney MD) Craniosynostosis Depression with anxiety Gastroesophageal reflux disease Hyperlipidemia Not currently on medication. Melanoma Left upper extremity, status post excision. Normal cardiac stress test (~08/2019) Previous echocardiogram showed an ejection fraction of 55-60% with mild mitral and tricuspid regurgitation. Tobacco abuse Surgical History Surgical History History of 3 sections History of cranial surgery As a child for craniosynostosis. History of melanoma excision (~2017) Left upper extremity. History of tubal ligation Family History Family Hi
[2020-01-12] MEDS: FUROSEMIDE INJ 40 MG/4 ML VIAL IV PUSH (20:02)
[2020-01-12 20:24] LABS: Basophils Absolute Auto 0.1 K/mm3 (0.0-0.1); Basophils Percent Auto 0.4 % (0.2-1.2); Eosinophils Percent Auto 0.1 % (0-4.4); Hematocrit 35.1 % (37.0-47.0); Hemoglobin 11.7 g/dL (12.0-15.0); Immature Granulocyte Absolute 0.72 K/mm3 (0.00-0.031); Immature Granulocyte Percent A 3.7 % (0-0.5); Lymphocytes Absolute Auto 3.21 K/mm3 (0.9-3.2); Lymphocytes Percent Auto 16.6 % (18.3-44.2); Mean Corpuscular HGB Conc 33.3 g/dl (32-36); Mean Corpuscular Hemoglobin 28.4 pg (26-34); Mean Corpuscular Volume 85.2 fl (80-100); Monocytes Absolute Auto 1.3 K/mm3 (0.1-0.6); Monocytes Percent Auto 6.9 % (2.6-8.5); Neutrophils Percent Auto 72.3 % (45.5-73.1); Platelet Count Result 485 k/mm3 (150-375); Red Blood Count 4.12 M/mm3 (4.2-5.4); Red Cell Distribution Width 16.1 % (11.5-14.5); White Blood Count 19.4 K/mm3 (4.5-10.0)
[2020-01-12 20:34] LABS: INR 0.9; Prothrombin Time 12.3 Seconds (11.1-14.7)
[2020-01-12 20:35] LABS: Partial Thromboplastin Time 23.1 SECONDS (22.3-36.8)
[2020-01-12 20:36] LABS: D Dimer 2.55 ug/mL (<0.48)
[2020-01-12 20:40] LABS: Alanine Aminotransferase 16 U/L (4-35); Albumin Level 2.7 g/dL (3.5-5.1); Alkaline Phosphatase 35 U/L (38-126); Anion Gap 4 mmol/L (8-16); Aspartate Amino Transferase 20 U/L (14-36); Bilirubin,Total 0.2 mg/dL (0.2-1.3); Blood Urea Nitrogen 22 mg/dL (7-17); Calcium 8.5 mg/dL (8.4-10.2); Carbon Dioxide 27 mmol/L (22-30); Chloride 103 mmol/L (98-107); Estimated Glomerular Filt Rate > 60; Glucose 101 mg/dL (65-105); Potassium 4.1 mmol/L (3.4-5.0); Sodium 134 mmol/L (137-145)
[2020-01-12 20:49] LABS: NT Pro B Type Natriuretic Pept 216 PG/ML (5-100)
[2020-01-12 20:52] LABS: Troponin I < 0.012 ng/mL (0.000-0.034)
[2020-01-12 22:06] VITALS: BP 138/79; PULSE 68; RESP 16; O2SAT 98
--- NOTE | 2020-01-12 23:35 | ECG_ITS ---
Measurements Intervals [place] Rate: 84 P: 36 [place]: 147 QRS: 27 QRSD: 89 T: 46 QT: 349 QTc: 413 Interpretive Statements SINUS RHYTHM DELAYED PRECORDIAL R/S TRANSITION BORDERLINE ECG Electronically Signed On 01-13-2020 7:09:07 PIG IRON LOADER by Nakul Loza D.O.
[2020-01-12] MEDS: ENOXAPARIN 80 MG/0.8 ML SYRINGE 70 MG SUB-Q (23:46)
[2020-01-13] VITALS (7 sets, daily range): BP systolic 117–126; BP diastolic 72–78; PULSE 72–90; RESP 16–18; TEMP 36.1–36.7; O2SAT 97–99; BMI 29.2
--- NOTE | 2020-01-13 01:55 | ADMGEN ---
This patient, Santy Okeefe, was admitted to Medical Room 341-01. Patient/family oriented to hospital policies and general routines including ID bracelet, bed and alarms, visiting hours, pain management, procedures, bathroom and other care routines, personal items, smoking policy, room service/diet, and visiting hours. Information on how to activate the Rapid Response Team has been discussed. Patient/Family are encouraged to report perceived risks to care and to ask questions if they do not understand what they are told or what they should do.
[2020-01-13] MEDS: MORPHINE SULFATE (*CRX) 2 MG/ML INJ IV PUSH (03:25)
[2020-01-13 07:52] LABS: Hematocrit 33.8 % (37.0-47.0); Hemoglobin 11.1 g/dL (12.0-15.0); Mean Corpuscular HGB Conc 32.8 g/dl (32-36); Mean Corpuscular Hemoglobin 28.5 pg (26-34); Mean Corpuscular Volume 86.9 fl (80-100); Mean Platelet Volume 9.6 fl (7.4-10.4); Platelet Count Result 377 k/mm3 (150-375); Red Blood Count 3.89 M/mm3 (4.2-5.4); Red Cell Distribution Width 16.4 % (11.5-14.5); White Blood Count 12.5 K/mm3 (4.5-10.0)
[2020-01-13 08:04] LABS: Albumin Level 2.1 g/dL (3.5-5.1); Anion Gap -1 mmol/L (8-16); Blood Urea Nitrogen 20 mg/dL (7-17); Calcium 7.6 mg/dL (8.4-10.2); Carbon Dioxide 31 mmol/L (22-30); Chloride 103 mmol/L (98-107); Estimated CRCL calculation 126 ml/min; Estimated Glomerular Filt Rate > 60; Glucose 89 mg/dL (65-105); Phosphorus 4.8 mg/dL (2.5-4.5); Potassium 3.8 mmol/L (3.4-5.0); Sodium 133 mmol/L (137-145)
[2020-01-13 09:33] LABS: Add Urine Microscopic? YES; Appearance Urine Clear (Clear); Bilirubin Urine Negative (Negative); Blood Urine Negative (Negative); Color Urine Yellow (Yellow); Glucose Urine UA Negative (Negative); Ketones Urine Negative (Negative); Leukocyte Esterase Ur Negative LEU/UL (NEGATIVE); Nitrate Urine Negative (Negative); Protein Urine 1+ mg/dL (Negative); RBC Urine 0-2 /hpf (0-2); Squamous Epithelial Cell Urine Few /hpf (Few); Urobilinogen Urine Negative mg/dL (<2.0); WBC Urine 0-3 /hpf (0-3)
[2020-01-13 09:35] LABS: Creatinine Urine 68.3 mg/dL; Total Protein Urine Random 13 mg/dL
--- NOTE | 2020-01-13 09:45 | PM.CNCAR ---
Assessment and Plan Assessment and plan (1) Nephrotic syndrome: Code(s): N04.9 - Nephrotic syndrome with unspecified morphologic changes Status: Acute Assessment and Plan: Nephrology to see. (2) Bilateral pleural effusion: Code(s): J90 - Pleural effusion, not elsewhere classified Status: Acute Assessment and Plan: Her edema is related to nephrotic syndrome. (3) Shortness of breath: Code(s): R06.02 - Shortness of breath Status: Acute Assessment and Plan: Will give 1 more dose of furosemide 40 mg IV x1 (4) Leukocytosis: Qualifiers: Leukocytosis type: unspecified Qualified Code(s): D72.829 - Elevated white blood cell count, unspecified Code(s): D72.829 - Elevated white blood cell count, unspecified Status: Acute Assessment and Plan: Likely related to steroids History of Present Illness History of Present Illness Consult date/time: 01/13/20 09:45 Requesting physician: Kathleen Handley PA-C Consult reason: Other (edema) Reason For Visit: NEPHROTIC SYNDROME, ANASARCA, PLEURAL EFFUSION Narrative: Date of service 01/13/2020: History patient 34-year-old female who I originally met several months ago because of chest pain and swelling. She has been diagnosed with nephrotic syndrome and is seeing Dr. Mejia. She called our office yesterday stating that she is very swollen everywhere including abdominal distention, shortness of breath and leg swelling. She remains on high-dose steroids. Because of the symptoms she decided to come to the hospital for further evaluation where she was admitted and she was started on diuretics. Symptoms started about 3 weeks ago with lower extremity swelling which then progressed up to her abdominal area. Abdominal distension was noted and ultimately leading to significant swelling shortness of breath. She does describe some chest discomfort that she has had in the past related to swelling. She denies any syncope, presyncope. She does have some paroxysmal nocturnal dyspnea. Review of Systems Review of Systems: All systems reviewed & are unremarkable except as noted in HPI and below Constitutional: Constitutional: Denies chills Eyes: Eyes: Denies blurry vision ENT: Reports Normal hearing present Cardiovascular: Cardiovascular: Reports chest pain and Reports leg edema Respiratory: Respiratory: Reports dyspnea Gastrointestinal: Gastrointestinal: Reports abdominal pain Genitourinary: Genitourinary: Denies flank pain Musculoskeletal: Musculoskeletal: Reports arthralgias Integumentary/Breasts: Skin/Breast: Denies skin pain Neurologic: Denies headache(s) Psychiatric: Psychiatric: Denies anxiety Endocrine: Endocrine: Denies excessive sweating Hematologic/Lymphatic: Hematologic/Lymphatic: Denies easy bleeding Allergic/Immunologic: Allergic/Immunologic: Denies lip swelling PMFSH Past Medical History Medical History Craniosynostosis Depression with anxiety Gastroesophageal reflux disease Hyperlipidemia Not currently on medication. Melanoma Left upper extremity, status post excision. Normal cardiac stress test (~08/2019) Previous echocardiogram showed an ejection fraction of 55-60% with mild mitral and tricuspid regurgitation. Tobacco abuse Surgical History Surgical History History of 3 sections History of cranial surgery As a child for craniosynostosis. History of melanoma excision (~2017) Left upper extremity. History of tubal ligation Family History Family History Sibling Testicle cancer Mother Small cell lung cancer Hypertension Father Throat cancer Hernia Melanoma Social History Social History Social History:
[2020-01-13] MEDS: NICOTINE (*PBKC) 21 MG PATCH 1 PATCH TRANSDERM (09:47)
[2020-01-13] MEDS: predniSONE 10 MG TABLET PO (09:47)
[2020-01-13] MEDS: PANTOPRAZOLE 40 MG TABLET PO (09:47)
[2020-01-13] MEDS: predniSONE 20 MG TABLET 60 MG PO (09:47)
[2020-01-13] MEDS: traMADol HCL (*CRX) 50 MG TABLET PO ×2 (09:47→17:03)
[2020-01-13 09:48] LABS: Beta HCG Quantitative < 2.39 mIU/ML
--- NOTE | 2020-01-13 12:16 | PM.IMHP ---
H&P: HPI History of Present Illness Date/Time: 01/13/20 12:16 Chief complaint: NEPHROTIC SYNDROME, ANASARCA, PLEURAL EFFUSION Narrative: Santy Okeefe is a 34 year old female with PMH significant for nephrotic syndrome and currently on prednisone, depression, anxiety, GERD, and hx of tobacco dependence (quit smoking 3 weeks ago and using nicotine patch) who presented to the emergency department for the evaluation of generalized edema throughout her body for three weeks. She was diagnosed with nephrotic syndrome due to minimal change nephropathy 10/2019. She was treated with IV lasix and steroids with significant improvement in her edema. She notes that swelling returned 3 weeks ago. Her lower extremity edema was so significant that she took off work 12/26-01/04 and spent most of her time in bed. Her lower extremity edema improved but she subsequently noticed that her abdomen was much charles/bloated and she attributed this to fluid shift from her legs. She admits that she eats a very salty diet including pork steaks as well as fast food including sausage breakfast wraps and hot dogs from the gas station. She notices that her swelling is especially worse after a salty meal. 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 At the end of her shift, she noticed that she felt very swollen throughout and short of breath. This prompted her to proceed to the emergency department. Initial workup in the emergency department included CBC with WBC 19,400 with lymphocyte predominance, Hb 11.7, Hct 35.1, platelets 485. CMP with sodium 134, BUN 22, Cr 0.7. LFTs and bilirubin normal, troponin <0.012, total protein 5.0, and albumin 2.7. Urinalysis shows 1+ protein. D dimer was elevated at 2.55. VQ scan was performed and indeterminate for PE. CXR showed a small left pleural effusion and left lower lobe opacity consistent with atelectasis vs pneumonia. In the ER, she received 1 dose of IV ceftriaxone and azithromycin and IV lasix. She was admitted to the hospitalist service for further evaluation. Cardiology and nephrology were consulted. At the time of my evaluation, she notes that she already feels significantly better with IV diuresis. She reports that her bowels have been less frequent and she thinks she only has one bowel movement every two weeks. She notes abdominal fullness as opposed to localizing pain. She notes occasional nausea but no vomiting. She denies subjective fever and chills. She notes weight gain. Review of Systems Review of Systems: All systems reviewed & are unremarkable except as noted in HPI and below PMFSH Past Medical History Medical History (Updated 01/13/20 @ 23:32 by Kathleen Handley PA-C) Craniosynostosis Depression with anxiety Gastroesophageal reflux disease Hyperlipidemia Not currently on medication. Melanoma Left upper extremity, status post excision. Nephrotic syndrome Normal cardiac stress test (~08/2019) Previous echocardiogram showed an ejection fraction of 55-60% with mild mitral and tricuspid regurgitation. Tobacco abuse Surgical History Surgical History History of 3 sections History of cranial surgery As a child for craniosynostosis. History of melanoma excision (~2017) Left upper extremity. History of tubal ligation Family History Family History Sibling Testicle cancer Mother Small cell lung cancer Hypertension Father Throat cancer Hernia Melanoma Social History Social History (Updated 01/13/20 @ 19:47 by Kathleen Handley PA-C) Social History: The patient lives in [place] with her and 4 children. She has 1 adult child that is out of the home. 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 She smoked 1PPD for 20 years. She quit three weeks ago using the nicotine patches. She has a his
--- NOTE | 2020-01-13 12:17 | PM.CNNEP ---
Assessment and Plan Assessment and plan (1) Nephrotic syndrome: Code(s): N04.9 - Nephrotic syndrome with unspecified morphologic changes Status: Acute Assessment and Plan: the patient had nephrotic syndrome in October. She was spilling 14 g of protein in the urine. Biopsy showed minimal change nephropathy. She was treated with steroids 1milligram/kilogram per day. She seemed to of had a good response. Now her urine protein to creatinine ratio is only about 300. Her urinalysis shows 1+ protein and no blood. I suspect that she is recovering from her minimal change nephropathy. I do not think that her swelling has anything to do with the kidney disease. I would like to wean the steroids. I will drop the dose to 60mg a day for now and continue weaning as an outpatient. The patient may get a recurrence down the line as there is a significant percentage of people with minimal change nephropathy that will occur. This can happen years later. She does seem to have some swelling. She has trace amount of swelling in her ankles. She also has pleural effusions. Her belly is put she but does not have any pitting edema in her belly Or her hips. I suppose she could have ascites. If so this probably would not be related to her kidneys either and we would have to investigate liver issues. She is on steroids which can cause increased appetite and weight gain. This may be most of her problem. This steroids also can cause sodium retention which is probably why she has a little bit of extra fluid throughout her body. I discussed with OCTAVIA Cain. will give some diuretics to see if we can get her feeling better. Will wean the steroids. Check a CT of the abdomen to make sure is nothing else going on there. (2) Leukocytosis: Qualifiers: Leukocytosis type: unspecified Qualified Code(s): D72.829 - Elevated white blood cell count, unspecified Code(s): D72.829 - Elevated white blood cell count, unspecified Status: Acute Assessment and Plan: The patient has an elevated white count. This could be due to the steroids. History of Present Illness Reason for Consult Consult date: 01/13/20 Chief Complaint Chief complaint: NEPHROTIC SYNDROME, ANASARCA, PLEURAL EFFUSION History of Present Illness Narrative: Santy is a very pleasant 34-year-old lady who has multiple medical problems including nephrotic syndrome due to minimal change nephropathy, hyperlipidemia, melanoma, tobacco abuse, normal stress test, GERD , depression and anxiety. The patient came in the hospital in October with severe swelling. She had proteinuria and so renal biopsy was done which showed minimal change nephropathy. She was placed on steroids. I saw her in mid November in the office and she was much better. Swelling was gone. I sent her for blood work and urine for protein however she never got this done. Santy called me yesterday because of swelling and shortness of breath so she came to the emergency room. She says that in mid December her swelling became substantially worse. She said her legs were 3 times the size of what they had been. This came on relatively suddenly. She just went to bed and stayed there until it went away. She did not call anybody because she had no insurance. Then in the last few days the patient has noticed more shortness of breath. She notes that in the morning her belly is swollen and in the evening her legs are swollen. She denies bloody urine foamy urine kidney stones or bladder infections. She is still taking prednisone 70 mg a day. She says she had been eating a lot. She is always hungry. She has been eating junk food. She denies any fevers or chills. She has no cough. Review of Systems Constitutional: Constitutional: Reports no additional constitutional complaints Eyes: Eyes: Reports no additional eye complaints ENT: Reports system reviewed and no a
[2020-01-13] MEDS: FUROSEMIDE INJ 40 MG/4 ML VIAL IV PUSH (12:49)
[2020-01-13] MEDS: diphenhydrAMINE HCl CAP 25 MG CAPSULE PO (21:13)
[2020-01-13] MEDS: ENOXAPARIN 40 MG/0.4 ML SYRINGE SUB-Q (21:13)
[2020-01-14 05:53] VITALS: BP 134/79; PULSE 78; RESP 16; TEMP 36.2; O2SAT 100
[2020-01-14 06:08] LABS: Hematocrit 36.2 % (37.0-47.0); Hemoglobin 11.7 g/dL (12.0-15.0); Mean Corpuscular HGB Conc 32.3 g/dl (32-36); Mean Corpuscular Hemoglobin 28.7 pg (26-34); Mean Corpuscular Volume 88.7 fl (80-100); Mean Platelet Volume 9.7 fl (7.4-10.4); Platelet Count Result 415 k/mm3 (150-375); Red Blood Count 4.08 M/mm3 (4.2-5.4); Red Cell Distribution Width 16.6 % (11.5-14.5); White Blood Count 16.9 K/mm3 (4.5-10.0)
[2020-01-14 06:27] LABS: Albumin Level 2.4 g/dL (3.5-5.1); Anion Gap -1 mmol/L (8-16); Blood Urea Nitrogen 14 mg/dL (7-17); Calcium 8.2 mg/dL (8.4-10.2); Carbon Dioxide 32 mmol/L (22-30); Chloride 101 mmol/L (98-107); Cholesterol 264 mg/dL (0-200); Estimated CRCL calculation 124 ml/min; Estimated Glomerular Filt Rate > 60; Glucose 100 mg/dL (65-105); HDL Direct 103 mg/dL; Phosphorus 3.2 mg/dL (2.5-4.5); Potassium 3.6 mmol/L (3.4-5.0); Sodium 132 mmol/L (137-145); Triglycerides 176 mg/dL (<150)
[2020-01-14 06:32] LABS: LDL Cholesterol Direct 128 mg/dL
[2020-01-14 07:09] LABS: Hepatitis B Surface Antigen Negative (Negative)
[2020-01-14 07:15] LABS: HAV RESULT Negative (Negative); Hepatitis B Core IgM Result Negative (Negative)
[2020-01-14 07:27] LABS: Hepatitis C Virus Antibody Negative (Negative)
[2020-01-14] MEDS: PANTOPRAZOLE 40 MG TABLET PO (09:41)
[2020-01-14] MEDS: predniSONE 20 MG TABLET 60 MG PO (09:41)
[2020-01-14] MEDS: NICOTINE (*PBKC) 21 MG PATCH 1 PATCH TRANSDERM (09:42)
[2020-01-14] MEDS: polyethylene glycoL 3350 17 GM POWD.PACK PO (09:53)
[2020-01-14] MEDS: BISACODYL 10 MG SUPPOSITORY RECTAL (09:54)
[2020-01-14] MEDS: FUROSEMIDE 40 MG TABLET PO (11:50)
--- NOTE | 2020-01-14 12:01 | PCDIET ---
Physician consult for better diet choices and Low Sodium Diet education. Educated patient today, info given. Would make a diet recommendation to have diet order changed to Low Sodium diet vs Renal Dialysis diet. Thank you for the consult.
--- NOTE | 2020-01-14 13:04 | PM.PNCARD ---
Progress Note: A&P Assessment and Plan (1) Nephrotic syndrome: Code(s): N04.9 - Nephrotic syndrome with unspecified morphologic changes Status: Acute Assessment and Plan: Nephrology to see. (2) Bilateral pleural effusion: Code(s): J90 - Pleural effusion, not elsewhere classified Status: Acute Assessment and Plan: Her edema is related to nephrotic syndrome. (3) Shortness of breath: Code(s): R06.02 - Shortness of breath Status: Acute Assessment and Plan: DC IV furosemide. Oral Lasix 40 mg on a p.r.n. basis from my perspective. Will defer to Dr. Mejia treatment/ adjustments in her nephrotic syndrome regimen/treatment (4) Leukocytosis: Qualifiers: Leukocytosis type: unspecified Qualified Code(s): D72.829 - Elevated white blood cell count, unspecified Code(s): D72.829 - Elevated white blood cell count, unspecified Status: Acute Assessment and Plan: Likely related to steroids Subjective Date/time seen: 01/14/20 13:04 Interval history: 34-year-old with nephrotic syndrome admitted for anasarca Date of service 01/14/2020: Feels much better. No chest pain or shortness of breath. Review of Systems Review of Systems: All systems reviewed & are unremarkable except as noted in HPI and below Constitutional: Constitutional: Denies chills, Denies excessive sweating and Denies headache(s) Eyes: Eyes: Denies blurry vision ENT: Reports Normal hearing present, Denies headache(s) and Denies lip swelling Cardiovascular: Cardiovascular: Reports chest pain, Reports leg edema and Reports dyspnea Respiratory: Respiratory: Reports dyspnea Gastrointestinal: Gastrointestinal: Reports abdominal pain Genitourinary: Genitourinary: Denies flank pain Musculoskeletal: Musculoskeletal: Reports arthralgias Integumentary/Breasts: Skin/Breast: Denies skin pain Neurologic: Reports Normal hearing present and Denies headache(s) Psychiatric: Psychiatric: Denies anxiety Endocrine: Endocrine: Denies excessive sweating Hematologic/Lymphatic: Hematologic/Lymphatic: Denies easy bleeding Allergic/Immunologic: Allergic/Immunologic: Reports GI upset with certain foods and Denies lip swelling Exam Narrative: Exam Narrative: Patient is alert and oriented. Appears to be in no acute distress Const: General: comfortable and no acute distress HENMT: General nose exam: Normal nares present Eyes: Sclera: sclerae normal Neck: Neck: supple and no JVD Chest: Other: No reproducible chest wall pain to palpation Resp: Auscultation: clear to auscultation bilaterally Cardio: Rate: regular rate Rhythm: regular rhythm Skin: General skin exam: normal color Neuro: Cranial nerves: Yes Normal hearing present Cognition (Neuro): normal cognition Speech: normal speech Extrem: General: edema Psych: Affect: normal affect Objective Data Vital Signs Vital Signs: Vital Signs - 24 hr 01/13/20 14:00 01/13/20 15:56 01/13/20 20:28 Temperature 36.3 C L 36.2 C L Pulse Rate 90 81 Respiratory Rate 16 18 Blood Pressure 117/76 123/75 Pulse Oximetry 99 98 98 01/13/20 21:48 01/14/20 05:53 Temperature 36.2 C L Pulse Rate 78 Respiratory Rate 16 Blood Pressure 134/79 Pulse Oximetry 98 100 Intake/Output Intake/Output: Intake & Output 01/11/20 01/12/20 01/13/20 01/14/20 23:59 23:59 23:59 23:59 Intake Total 50 1620 1128 Output Total 4240 1500 Balance 80 -5603 -435 Meds/Results Medications: Active Medications Generic Name Dose Route Start Last Admin Trade Name Freq PRN Reason Stop Dose Admin Bisacodyl 10 mg 01/14/20 09:39 01/14/20 09:54 Bisacodyl 10 Mg Suppository RECTAL 10 mg QAM PRN Administration Resistant constipation Diphenhydramine HCl 25 mg 01/13/20 21:00 01/13/20 21:13 Diphenhydramine Hcl Cap 25 Mg Capsule PO 25 mg HS PRATIBHA Administration Docusate Sodium 100 mg 01/14/20 21:00 D
[2020-01-14 14:00] VITALS: BP 146/91; PULSE 94; RESP 18; TEMP 36.4; O2SAT 98
--- NOTE | 2020-01-14 15:12 | PM.DS ---
DS: Admitting Diagnosis Admitting Diagnosis Admitting Diagnosis: NEPHROTIC SYNDROME, ANASARCA, PLEURAL EFFUSION DS: Discharge Diagnosis Discharge Diagnosis (1) Nephrotic syndrome: Code(s): N04.9 - Nephrotic syndrome with unspecified morphologic changes Status: Acute Assessment and Plan: Discharge Summary (Date of service 01/14/20): Mrs. Okeefe is a 34 y.o. female with PMH significant for nephrotic syndrome (on immunosuppressive therapy with prednisone prior to admission), depression, anxiety, GERD, and former smoker who presented to the emergency department for the evaluation of generalized edema throughout her body for three weeks. She was diagnosed with nephrotic syndrome due to minimal change nephropathy 10/2019. She was treated with IV lasix and steroids with significant improvement in her edema. Her swelling returned 3 weeks prior to admission. She noted that her diet was very high in salt and appetite increased due to prednisone. Initial workup in the emergency department included CBC with WBC 19,400 with lymphocyte predominance, Hb 11.7, Hct 35.1, platelets 485. CMP with sodium 134, BUN 22, Cr 0.7. LFTs and bilirubin normal, troponin <0.012, total protein 5.0, and albumin 2.7. Urinalysis shows 1+ protein. D dimer was elevated at 2.55. VQ scan was performed and indeterminate for PE. CXR showed a small left pleural effusion and left lower lobe opacity consistent with atelectasis vs pneumonia. In the ER, she received 1 dose of IV ceftriaxone and azithromycin and IV lasix. She was admitted to the hospitalist service for further evaluation. Cardiology and nephrology were consulted. Chest CTA was performed and negative for pulmonary embolism. Small pleural effusions were noted. She had excellent urine output of 6.6 liters with diuresis. Her edema improved significantly. She met with the gymnastics coach to discuss a low sodium diet and really appreciated all the education she received. She was seen by nephrology who recommended she begin a slow prednisone taper for her minimal change nephropathy. She was seen by cardiology who recommended no further cardiac workup at this time since her symptoms were felt secondary to nephrotic syndrome and prednisone use. She did have an echocardiogram 10/2019 which showed normal EF 55-60%, normal diastolic function, and mild tricuspid and pulmonic regurgitation. CT abd/pelvis was performed to ensure she did not have any hepatic/retroperitoneal etiology for her edema which was negative. CT abd/pelvis did show constipation and she had a good bowel movement with miralax. She felt much better and requested to discharge home. She was advised to continue a low sodium diet and start slow prednisone taper per nephrology recommendations. She was given lasix to take on an as needed basis for weight gain with strict instructions for use. She was advised to follow-up with Dr. Mejia outpatient. Reasons to return to the emergency department were discussed and she verbalized understanding with the plan of care. She was discharged in hemodynamically stable condition 01/14/20. (2) Leukocytosis: Qualifiers: Leukocytosis type: unspecified Qualified Code(s): D72.829 - Elevated white blood cell count, unspecified Code(s): D72.829 - Elevated white blood cell count, unspecified Status: Acute Assessment and Plan: Likely secondary to high-dose steroid use for minimal change nephropathy. Chest CTA was performed and demonstrated minimal airspace opacities in the lingula and lower lobes, consistent with atelectasis. Pneumonia is not suspected. Urinalysis was negative for evidence of infection. She was advised to monitor closely for any new symptoms. (3) Proteinuria: Code(s): R80.9 - Proteinuria, unspecified Status: Acute Assessment and Plan: Likely secondary to nephrotic syndrome. Urinalysis showed 1+ protein. Urine random protein has improved significantly from 307 to 13. Nephrology r
== END 2020-01-14 16:22 | disposition home or self-care (01) | DRG 699 ==
LOC: ANHED 23:49 → ANH3MED 01-13 01:26
PROVIDERS: Internal Medicine Nephrology; Physician Assistant; Admitting Provider Student in an Organized Health Care Education/Training Program; Emergency Provider Emergency Medicine; PCP Internal Medicine Cardiovascular Disease; Visit Provider Family Medicine
DX: N04.9 Nephrotic syndrome with unspecified morphologic changes (principal); J91.8 Pleural effusion in other conditions classified elsewhere; D72.829 Elevated white blood cell count, unspecified; R19.8 Other specified symptoms and signs involving the digestive system and abdomen; R79.89 Other specified abnormal findings of blood chemistry; K59.9 Functional intestinal disorder, unspecified; F41.8 Other specified anxiety disorders; K21.9 Gastro-esophageal reflux disease without esophagitis; Z23 Encounter for immunization; Z79.52 Long term (current) use of systemic steroids; Z79.899 Other long term (current) drug therapy; Z85.820 Personal history of malignant melanoma of skin; Z87.891 Personal history of nicotine dependence
CPT/HCPCS: 36415; 71046; 71275; 74177; 78580; 80053; 80061; 80069; 80074; 81001; 82570; 83605; 83880; 84156; 84484; 84702; 85025; 85027; 85380; 85610; 85730; 87040; 90471; 90653; 93005; 93970; 94667; 96365; 96367; 96372; 96375; 99285; A9270; A9540; G0008; G0378; G0379; J0456; J0696; J1650; J1940; J2270; J7512; Q9967

== ENCOUNTER 2020-04-06 15:38 | Emergency (ER) | payer OTHER, SELFPAY ==
--- NOTE | 2020-04-06 16:00 | PC.NURSE ---
97.3TEMP, 84 PULSE, 98% SATS 137/86 BP
--- NOTE | 2020-04-06 16:04 | PC.NURSE ---
AT 1600 I WALK INTO ROOM TO INTRODUCE SELF TO PT AND TELL HER WE ARE GOING TO TRIAGE HER AND WORK ON GETTING AN IV. SHE REQUESTS THE ULTRASOUND RN. WE TOLD HER THAT NO ULTRASOUND NURSE AVAILABLE AT THIS TIME. SHE THEN IMMEDIATELY BEGINS TO PANT, CRY AND YELL OUT THAT WE AREN'T GOING TO TRY FOR AN IV WITHOUT ULTRASOUND BECAUSE WE KEEP STICKING AND STICKING AND STICKING AND STICKING. PT BECAME HYSTERICAL. AT BEDSIDE ATTEMPTING TO REASSURE THE PT. I EXPLAINED THAT WE CAN STILL TRY FOR AN IV BUT PT STATES THAT SHE IS LEAVING AND WILL RETURN TOMORROW MORNING WHEN THE ULTRASOUND IV NURSE IS IN HOUSE.
== END 2020-04-06 16:12 | disposition left against medical advice (07) ==
PROVIDERS: Emergency Provider Emergency Medicine; PCP Internal Medicine Cardiovascular Disease
DX: Z53.21 Procedure and treatment not carried out due to patient leaving prior to being seen by health care provider (principal)
CPT/HCPCS: 99199

== ENCOUNTER 2020-04-07 13:49 | Inpatient (IN) | payer OTHER, SELFPAY ==
[2020-04-07] VITALS (22 sets, daily range): BP systolic 127–204; BP diastolic 70–160; PULSE 75–98; RESP 11–30; TEMP 36.6–36.7; O2SAT 96–100; BMI 30.9
--- NOTE | ~2020-04-07 | XR_ITS ---
EXAMINATION: XR chest 2V EXAM DATE: 04/07/2020 14:49 INDICATION: Shortness of breath, fluid overload. Recent pneumonia. TECHNIQUE: Frontal and lateral projections of the chest obtained and reviewed. Comparison is made to prior examination from 01/12/2020. FINDINGS: Again there is small left pleural effusion and adjacent subsegmental atelectasis. The lung s are otherwise clear. There are no pleural effusions. The cardiomediastinal silhouette is within n ormal limits. There is no pneumothorax suspected. The bones and soft tissues are unremarkable. IMPRESSION: Small left pleural effusion, adjacent subsegmental atelectasis. Reviewed, dictated and finalized at location A. ING UNIT OPERATOR
--- NOTE | ~2020-04-07 | US_ITS ---
EXAMINATION: US biopsy renal DATE: 04/11/2020 12:05 INDICATION: Proteinuria. TECHNIQUE: The procedure including the risks, benefits, and alternatives was discussed with the patie nt. Risks discussed included bleeding and infection. The patient understood the risks and agreed to p roceed. A timeout was performed to verify the patient's name, date of , and procedure to be p erformed. The skin overlying the left kidney was prepped and draped in usual sterile fashion. Anest hetic was administered with 1% lidocaine subcutaneously. An 18 gauge core biopsy needle was then use d to obtain 3 core biopsy specimens under continuous sonographic guidance. The entry site was cleaned and dressed. There were no immediate complications. FINDINGS: Ultrasound images demonstrate the needle in the kidney. IMPRESSION: 1. Ultrasound-guided random left kidney core needle biopsy. Reviewed, dictated and finalized at location A. D PROTECTION SPECIALIST
--- NOTE | 2020-04-07 14:10 | ECG_ITS ---
Measurements Intervals Proctor Rate: 84 P: 29 WY: 167 QRS: 27 QRSD: 83 T: 48 QT: 343 QTc: 406 Interpretive Statements SINUS RHYTHM BASELINE ARTIFACT- I, II, AVR, AVL NORMAL ECG Electronically Signed On 04-07-2020 16:44:05 PROJECTION CAMERA OPERATOR by Nakul Loza D.O.
[2020-04-07 14:38] LABS: Basophils Percent Auto 0.3 % (0.2-1.2); Eosinophils Percent Auto 0.1 % (0-4.4); Hematocrit 39.8 % (37.0-47.0); Hemoglobin 13.1 g/dL (12.0-15.0); Immature Granulocyte Absolute 0.08 K/mm3 (0.00-0.031); Immature Granulocyte Percent A 0.5 % (0-0.5); Lymphocytes Absolute Auto 2.16 K/mm3 (0.9-3.2); Lymphocytes Percent Auto 14.4 % (18.3-44.2); Mean Corpuscular HGB Conc 32.9 g/dl (32-36); Mean Corpuscular Hemoglobin 28.9 pg (26-34); Mean Corpuscular Volume 87.7 fl (80-100); Mean Platelet Volume 10.4 fl (7.4-10.4); Monocytes Absolute Auto 0.7 K/mm3 (0.1-0.6); Monocytes Percent Auto 4.9 % (2.6-8.5); Neutrophils Percent Auto 79.8 % (45.5-73.1); Platelet Count Result 491 k/mm3 (150-375); Red Blood Count 4.54 M/mm3 (4.2-5.4); Red Cell Distribution Width 16.1 % (11.5-14.5)
[2020-04-07 14:59] LABS: Anion Gap -3 mmol/L (8-16); Blood Urea Nitrogen 24 mg/dL (7-17); Calcium 7.6 mg/dL (8.4-10.2); Carbon Dioxide 30 mmol/L (22-30); Chloride 105 mmol/L (98-107); Estimated CRCL calculation 132 ml/min; Estimated Glomerular Filt Rate > 60; Glucose 103 mg/dL (65-105); Potassium 3.8 mmol/L (3.4-5.0); Sodium 132 mmol/L (137-145)
[2020-04-07 16:59] LABS: Alanine Aminotransferase 13 U/L (4-35); Albumin Level 2.4 g/dL (3.5-5.1); Alkaline Phosphatase 42 U/L (38-126); Aspartate Amino Transferase 23 U/L (14-36); Bilirubin,Total 0.2 mg/dL (0.2-1.3)
[2020-04-07 17:08] LABS: NT Pro B Type Natriuretic Pept 257 PG/ML (5-100)
--- NOTE | 2020-04-07 17:48 | ED.GENADULT ---
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 It is unclear to me whether she was treated with steroids or not. Right around March 10 she began to experience edema again and restarted her diuretics at that time She reported that they were efficacious for about a week but for the last 2 or 3 weeks she is just continued to experience progressive worse generalized swelling as well as some shortness of breath culminating in her visit to the ER today Onset (ago): week(s) Related Data Home Medications Medication Instructions Recorded Confirmed melatonin 5 mg PO HS PRN 08/17/19 01/13/20 nicotine 1 patch TRANSDERMAL DAILY 01/12/20 01/13/20 tramadol 50 mg PO Q4H PRN 01/13/20 01/13/20 Allergies Allergy/AdvReac Type Severity Reaction Status Date / Time No Known Allergies Allergy Verified 01/13/20 02:30 Review of Systems Review of Systems: All systems reviewed & are unremarkable except as noted in HPI and below Constitutional: Constitutional: Denies chills, Reports fatigue, Denies fever(s), Denies headache(s) and Reports weakness Eyes: Eyes: Reports no additional eye complaints and Denies change in vision ENT: Denies headache(s), Denies epistaxis, Denies nasal congestion and Denies sore throat Cardiovascular: Cardiovascular: Denies chest pain, Denies leg edema, Denies palpitations and Denies dyspnea Respiratory: Respiratory: Denies cough, Reports dyspnea and Denies wheezing Gastrointestinal: Gastrointestinal: Reports abdominal pain, Reports bloating, Denies diarrhea, Denies nausea and Denies vomiting Genitourinary: Genitourinary: Denies hematuria, Denies urinary frequency, Denies nocturia (Infrequent in fact) and Denies dysuria Musculoskeletal: Musculoskeletal: Reports myalgias, Denies deformity, Reports arthralgias, Reports joint swelling, Denies muscle weakness and Denies numbness Integumentary/Breasts: Skin/Breast: Denies rash and Denies wounds Neurologic: Denies headache(s), Denies focal weakness, Denies numbness and Denies weakness Psychiatric: Psychiatric: Reports no additional psychiatric complaints Endocrine: Endocrine: Denies fatigue and Denies palpitations Hematologic/Lymphatic: Hematologic/Lymphatic: Denies easy bleeding and Denies easy bruising Allergic/Immunologic: Allergic/Immunologic: Denies wheezing PMFSH Past Medical History Medical History (Updated 04/07/20 @ 18:29 by Silverio Williamson MD) Craniosynostosis Depression with anxiety Gastroesophageal reflux disease Hyperlipidemia Not currently on medication. Melanoma Left upper extremity, status post excision. Nephrotic syndrome Normal cardiac stress test (~08/2019) Previous echocardiogram showed an ejection fraction of 55-60% with mild mitral and tricuspid regurgitation. Tobacco abuse Surgical History Surgical History History of 3 sections History of cranial surgery As a child for craniosynostosis. History of melanoma excision (~2017) Left upper extremity. History of tubal ligation Family History Family History Sibling Testicle cancer Mother Small cell lung cancer Hypertension Father Throat cancer Hernia Melanoma Social History Social History (Updated 01/13/20 @ 19:47 by Kathleen Handley PA-C) Social History: The patient lives in [place] with her and 4 children. She has 1 adult child
[2020-04-07] MEDS: BUMETANIDE INJ 1 MG/4 ML VIAL 2 MG IV PUSH (17:52)
[2020-04-07 19:13] LABS: Add Urine Microscopic? YES; Appearance Urine Clear (Clear); Bacteria Urine Trace /hpf; Bilirubin Urine Negative (Negative); Blood Urine 1+ (Negative); Color Urine Straw (Yellow); Glucose Urine UA Negative (Negative); Ketones Urine Negative (Negative); Leukocyte Esterase Ur Negative LEU/UL (Negative); Mucus Urine Rare /lpf; Nitrate Urine Negative (Negative); Protein Urine 2+ mg/dL (Negative); RBC Urine 0-2 /hpf (0-2); Squamous Epithelial Cell Urine Few /hpf (Few); Urobilinogen Urine Negative mg/dL (<2.0); WBC Urine 0-3 /hpf
--- NOTE | 2020-04-07 19:45 | ADMGEN ---
This patient, Santy Okeefe, was admitted to Medical Room 348-01. Patient/family oriented to hospital policies and general routines including ID bracelet, bed and alarms, visiting hours, pain management, procedures, bathroom and other care routines, personal items, smoking policy, room service/diet, and visiting hours. Information on how to activate the Rapid Response Team has been discussed. Patient/Family are encouraged to report perceived risks to care and to ask questions if they do not understand what they are told or what they should do.
[2020-04-07] MEDS: FUROSEMIDE INJ 40 MG/4 ML VIAL IV PUSH (20:52)
[2020-04-07] MEDS: FAMOTIDINE 20 MG/2 ML VIAL IV PUSH (20:52)
--- NOTE | 2020-04-08 00:16 | PM.IMHP ---
H&P: HPI History of Present Illness Date/Time: 04/08/20 00:16 Chief Complaint: Generalized swelling for the past few weeks++ Narrative: This is a 34 year old female with PMH significant for nephrotic syndrome, depression, anxiety, and GERD who presented to the hospital with a complaint of increased peripheral swelling over the past couple of weeks. The patient was recently admitted to our Hospitalist service in January for similar symptoms and had been doing well until the beginning of March when she started to develop increased swelling. She has been on a steroid taper since her last discharge. She reports that she did take her oral lasix this past week but it has not been effective. She believes that maybe she waited too long before she started to take her lasix. She has noticed increased swelling of her legs, arms, abdomen, and left breast. She also complains of lower extremity itching. Tonight she was treated with IV lasix and reports more urine output tonight than all of this past week. The patient admits that she has not been compliant with keeping her medical appointments and attributes this to working too much and caring for 5 children. Tonight she denies any fever, chills, cough, chest pain, shortness of breath, dysuria, hematuria, vomiting, or diarrhea. ER provider has consulted nephrology to see the patient. The patient's normal dry weight is 120 pounds. Today she weights 176 pounds. Review of Systems Review of Systems: All systems reviewed & are unremarkable except as noted in HPI and below PMFSH Past Medical History Medical History Craniosynostosis Depression with anxiety Gastroesophageal reflux disease Hyperlipidemia Not currently on medication. Melanoma Left upper extremity, status post excision. Nephrotic syndrome Normal cardiac stress test (~08/2019) Previous echocardiogram showed an ejection fraction of 55-60% with mild mitral and tricuspid regurgitation. Tobacco abuse Surgical History Surgical History History of 3 sections History of cranial surgery As a child for craniosynostosis. History of melanoma excision (~2017) Left upper extremity. History of tubal ligation Family History Family History Sibling Testicle cancer Mother Small cell lung cancer Hypertension Father Throat cancer Hernia Melanoma Social History Social History Social History: The patient lives in [place] with her and 4 children. She has 1 adult child that is out of the home. 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 She smoked 1PPD for 20 years. She quit three weeks ago using the nicotine patches. She has a history of IV methamphetamine use for 2 years and quit over a year ago. She designates her , Jamil, as her surrogate decision maker and she wishes to be a full code. Smoking packs per day: 1 Smoking cigarettes per day: 20.0 Years smoked: 20 Smoking pack-years: 20.00 Smoking status: Current every day smoker Tobacco type: cigarettes Additional smoking assessment comments: Using nicotine patch Alcohol intake: former Substance use: former Substance use type: methamphetamine Gender identity (if verbalized by the patient): Female Sexual Orientation (if Verbalized by the Patient): Straight or Heterosexual Spiritual care concerns: No Agree to blood products: Yes Meds Home Medications and Allergies Home Medications Medication Instructions Recorded Confirmed Type melatonin 5 mg PO HS PRN 08/17/19 04/07/20 History diphenhydramine HCl 25 mg PO Q6H #30 cap 10/27/19 04/07/20 Rx famotidine 20 mg PO Q12HR #60 tablet 10/27/19 04/07/20 Rx nicotine 1 patch TRANSDERMAL DAILY 01/12/20 04/07/20 History tramado
[2020-04-08] MEDS: diphenhydrAMINE HCl CAP 25 MG CAPSULE PO ×4 (01:22→23:10)
[2020-04-08] MEDS: MELATONIN 5 MG TABLET PO ×2 (01:22→20:15)
[2020-04-08 04:50] VITALS: BP 112/71; PULSE 77; RESP 18; TEMP 36.1; O2SAT 96
[2020-04-08 05:56] LABS: Basophils Absolute Auto 0.1 K/mm3 (0.0-0.1); Basophils Percent Auto 1.1 % (0.2-1.2); Eosinophils Absolute Auto 0.1 K/mm3 (0-0.3); Eosinophils Percent Auto 1.8 % (0-4.4); Hematocrit 33.6 % (37.0-47.0); Hemoglobin 10.8 g/dL (12.0-15.0); Immature Granulocyte Absolute 0.07 K/mm3 (0.00-0.031); Immature Granulocyte Percent A 0.9 % (0-0.5); Lymphocytes Absolute Auto 3.16 K/mm3 (0.9-3.2); Lymphocytes Percent Auto 39.6 % (18.3-44.2); Mean Corpuscular HGB Conc 32.1 g/dl (32-36); Mean Corpuscular Hemoglobin 28.3 pg (26-34); Mean Platelet Volume 10.2 fl (7.4-10.4); Monocytes Absolute Auto 0.6 K/mm3 (0.1-0.6); Monocytes Percent Auto 7.3 % (2.6-8.5); Neutrophils Absolute Auto 3.9 K/mm3 (1.3-6.7); Neutrophils Percent Auto 49.3 % (45.5-73.1); Platelet Count Result 376 k/mm3 (150-375); Red Blood Count 3.82 M/mm3 (4.2-5.4); Red Cell Distribution Width 16.4 % (11.5-14.5)
[2020-04-08 06:18] LABS: LDL Cholesterol Direct 196 mg/dL
[2020-04-08 06:19] LABS: Anion Gap -7 mmol/L (8-16); Blood Urea Nitrogen 22 mg/dL (7-17); Calcium 7.3 mg/dL (8.4-10.2); Carbon Dioxide 33 mmol/L (22-30); Chloride 106 mmol/L (98-107); Estimated CRCL calculation 129 ml/min; Estimated Glomerular Filt Rate > 60; Glucose 95 mg/dL (65-105); HDL Direct 71 mg/dL; Potassium 3.8 mmol/L (3.4-5.0); Sodium 132 mmol/L (137-145); Triglycerides 264 mg/dL (<150)
[2020-04-08 06:55] LABS: Cholesterol 349 mg/dL (0-200)
[2020-04-08] MEDS: predniSONE 20 MG TABLET 60 MG PO (08:13)
[2020-04-08] MEDS: FAMOTIDINE 20 MG/2 ML VIAL IV PUSH ×2 (08:13→20:15)
[2020-04-08] MEDS: NICOTINE (*PBKC) 21 MG PATCH 1 PATCH TRANSDERM (08:14)
[2020-04-08] MEDS: FUROSEMIDE INJ 40 MG/4 ML VIAL IV PUSH ×2 (08:14→20:15)
[2020-04-08] MEDS: ACETAMINOPHEN 325 MG TABLET 650 MG PO (09:15)
[2020-04-08 09:26] LABS: Creatinine Urine 37.2 mg/dL; Total Protein Urine Random 114 mg/dL; Ur Ttl Prot Creatinine Ratio 3.06 mg/mg (0-0.20)
[2020-04-08 09:35] LABS: Sodium Urine Random 129 meq/L
--- NOTE | 2020-04-08 10:43 | PM.IMPN ---
Progress Note: A&P Assessment and Plan (1) Generalized edema: Code(s): R60.1 - Generalized edema Status: Acute Assessment and Plan: [place] to be secondary to nephrotic syndrome; unclear if she has definitive diagnosis of lupus. Dr. Hutchison has been consulted and appreciate input. Follows Dr. Mejia as outpatient. Notes her home lasix regimen only increased her urine output slightly; possibly needs increase in her meds. She states her dry weight is about 130#. She has improvement in her edema overnight; good urine output thus far Continue lasix 40 mg IV Q12h for now Await further rec from Nephrology Monitor (2) Nephrotic syndrome: Code(s): N04.9 - Nephrotic syndrome with unspecified morphologic changes Status: Acute Assessment and Plan: Renal Biopsy showed minimal change nephropathy in 10/2019. Has been following Dr. Mejia since diagnosis. Patient thinks she may have been diagnosed with Lupus on previous stay, but uncertain if this is official dx. Other etiologies include previous IV drug use; no longer user. Continue steroid therapy low salt diet Appreciate Nephrology recommendations Monitor (3) Leukocytosis: Qualifiers: Leukocytosis type: unspecified Qualified Code(s): D72.829 - Elevated white blood cell count, unspecified Code(s): D72.829 - Elevated white blood cell count, unspecified Status: Acute Assessment and Plan: Likely secondary to steroid use. WNL today Monitor CBC (4) Hyperlipidemia: Qualifiers: Hyperlipidemia type: unspecified Qualified Code(s): E78.5 - Hyperlipidemia, unspecified Code(s): E78.5 - Hyperlipidemia, unspecified Status: Chronic Assessment and Plan: Likely secondary to nephrotic syndrome. Continue fish oil. (5) Depression with anxiety: Code(s): F41.8 - Other specified anxiety disorders Status: Chronic Assessment and Plan: No acute issues continue home meds Subjective Date/time seen: 04/08/20 10:43 Interval history: Patient is a 34 year old female with PMH significant for nephrotic syndrome, depression, anxiety, and GERD who is seen in follow up for generalized edema/nephrotic syndrome. PAtient states she feels better today. She notes she was unable to open eyes due to swelling, but now feels her facial swelling has improved significantly. She noticed her LE swelling has improved. SOB also improved since admission. No other complaints. She reports increased urine output Denies f/c/s, headaches, dizziness, lightheadedness, cp/palpitations, cough, n/v/d/c, abd pain, changes in BMs, dysuria, calf pain/swelling. Review of Systems Review of Systems: All systems reviewed & are unremarkable except as noted in HPI and below Exam Narrative: Exam Narrative: General: Patient resting supine in bed in no acute distress. HEENT: Normocephalic, EOMI, oral mucosa moist. Facial edema appreciated Cardiovascular: Rate and rhythm are regular. No notable murmur, rub, or gallop. Respiratory: Lungs clear to auscultation all hallman. Non-labored breathing. Abdomen: Soft, edematous, non-tender, a bit distended, bowel sounds present. Extremities: Peripheral pulses intact. No edema. generalized b/l edema in all extremities. NTTP b/l calves Neuro: No focal neurological deficits. Speech is clear. Objective Data Vital Signs Vital Signs: Last Vital Signs Temp 97 F L 04/08/20 04:50 Pulse 77 04/08/20 04:50 Resp 18 04/08/20 04:50 BP 112/71 04/08/20 04:50 Pulse Ox 96 04/08/20 04:50 Intake/Output Intake/Output: Intake & Output 04/05/20 04/06/20 04/07/20 04/08/20 23:59 23:59 23:59 23:59 Intake Total 1200 Output Total 1200 300 Balance -1200 900 Meds/Results Medicatio
[2020-04-08] MEDS: CALCIUM CARBONATE (TUMS) 500 MG (200 MG ELEMENTAL) PO ×2 (11:10→20:17)
[2020-04-08 14:00] VITALS: BP 118/76; PULSE 72; RESP 18; TEMP 36.1; O2SAT 96
[2020-04-08 16:49] VITALS: O2SAT 96
--- NOTE | 2020-04-08 17:14 | PM.CNNEP ---
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 Status: Acute Assessment and Plan: biopsy proven possible flare as her proteinuria has increased to 3000mg when it was 190mg in January 2020 on prednisone at this time (2) Nephrotic syndrome: Code(s): N04.9 - Nephrotic syndrome with unspecified morphologic changes Status: Acute Assessment and Plan: due to #1 supportive therapy (3) Anasarca: Code(s): R60.1 - Generalized edema Status: Acute Assessment and Plan: although she does have recurrence of her proteinuria, I am unclear if this is the specific cause of he edema even in January 2020 when she had edema/swelling, her proteinuria was significantly better agree with IV diuretics at this time will given one time dose of IV bumex + metolazone today follow daily weights and I/Os Long and extensive discussion (> 20 minutes) with patient regarding the above issues and plan of care as outlined. Will continue to follow. History of Present Illness Reason for Consult Consult date: 04/08/20 Reason for consult: Other (minimal change disease and edema) Chief Complaint Chief complaint: glomerulonephritis with nephrotic syndrome History of Present Illness Narrative: The patient is a 34 year old Causian female with past medical history as outlined below Who presented to [facility] Emergency room with complaints of increased swelling/edema everywhere for the last two weeks. The patient was just recently hospitalized in January of last year for similar issues and improved with conservative therapy during that hospital say any even after discharge. However, in early March of this year, she noted increased swelling and edema. She has remained on her steroid taper since her last hospitalization despite these intervention, it seems that she has been persistently retaining more and more fluid. She is on oral diuretic therapy but she feels it is not really accomplished anything with regard to her swelling as she has gained approximately 60 pounds that she attributes to fluid. The swelling seems to be present in multiple locations including her lower extremities, arms, abdomen, and upper chest. For all these reasons, she presented to the ER for further evaluation. Workup and evaluation in the emergency room demonstrated the patient to be hemodynamically stable and with what appeared to be generalized anasarca. She had no other acute complaints with regard to fevers, chills, shortness of breath, chest pain dysuria, hematuria, nausea, vomiting, or diarrhea. Given her history nephrotic syndrome and the constellation of symptoms as mentioned above, she was started on IV diuretic therapy and subsequent mid the hospital for further evaluation and therapy. Since her admission, she has diuresed reasonably well with the use of IV Lasix but she feels that it has not improved her overall condition as well as it should have. Renal consultation was requested due to history of minimal change disease and associated history of nephrotic syndrome. The patient normally follows with Dr. Giovanni Mejia for management of this issue although the last time she saw Dr. Mejia was when she was hospitalized here in January of 2020. her history significant for nephrotic range proteinuria / syndrome with approximately 15-16 g of proteinuria. She had a renal biopsy done in November of 2019 that demonstrated minimal change disease as the etiology of her nephrotic syndrome. There is no evidence of any type of vasculitis or autoimmune disorder both by blood work and of course the renal biopsy. She was treated prednisone with a fairly good response as her proteinuria had dropped to almost 190 mg in January of 2020 as evidenced by testing during her January 2020 hospitalization. She was instructed to decrease
[2020-04-08 20:32] VITALS: BP 144/101; PULSE 84; RESP 14; TEMP 36.6; O2SAT 97
[2020-04-08] MEDS: metOLazone 2.5 MG TABLET PO (23:09)
[2020-04-08] MEDS: BUMETANIDE INJ 1 MG/4 ML VIAL 1.5 MG IV PUSH (23:09)
[2020-04-09 05:51] LABS: Hematocrit 33.1 % (37.0-47.0); Hemoglobin 10.7 g/dL (12.0-15.0); Mean Corpuscular HGB Conc 32.3 g/dl (32-36); Mean Corpuscular Hemoglobin 28.2 pg (26-34); Mean Corpuscular Volume 87.1 fl (80-100); Platelet Count Result 364 k/mm3 (150-375); Red Cell Distribution Width 15.8 % (11.5-14.5); White Blood Count 11.5 K/mm3 (4.5-10.0)
[2020-04-09] MEDS: diphenhydrAMINE HCl CAP 25 MG CAPSULE PO ×2 (05:55→12:07)
[2020-04-09 05:58] VITALS: BP 124/72; PULSE 84; RESP 14; TEMP 36.6; O2SAT 98
[2020-04-09 06:06] LABS: Albumin Level 1.9 g/dL (3.5-5.1); Anion Gap -7 mmol/L (8-16); Blood Urea Nitrogen 19 mg/dL (7-17); Calcium 7.9 mg/dL (8.4-10.2); Carbon Dioxide 34 mmol/L (22-30); Chloride 102 mmol/L (98-107); Estimated CRCL calculation 107 ml/min; Estimated Glomerular Filt Rate > 60; Glucose 111 mg/dL (65-105); Magnesium 1.7 mg/dL (1.6-2.3); Phosphorus 4.6 mg/dL (2.5-4.5); Potassium 3.4 mmol/L (3.4-5.0); Sodium 129 mmol/L (137-145)
[2020-04-09] MEDS: NICOTINE (*PBKC) 21 MG PATCH 1 PATCH TRANSDERM (08:44)
[2020-04-09] MEDS: FAMOTIDINE 20 MG/2 ML VIAL IV PUSH ×2 (08:45→20:12)
[2020-04-09] MEDS: FUROSEMIDE INJ 40 MG/4 ML VIAL IV PUSH ×2 (08:45→14:33)
[2020-04-09] MEDS: predniSONE 20 MG TABLET 60 MG PO (08:45)
[2020-04-09] MEDS: CALCIUM CARBONATE (TUMS) 500 MG (200 MG ELEMENTAL) PO (08:54)
--- NOTE | 2020-04-09 12:39 | PM.IMPN ---
Progress Note: A&P Assessment and Plan (1) Generalized edema: Code(s): R60.1 - Generalized edema Status: Acute Assessment and Plan: [place] to be secondary to nephrotic syndrome; diagnosis of biopsy-proven minimal change disease. Dr. Hutchison has been consulted and appreciate input. Follows Dr. Mejia as outpatient. Notes her home lasix regimen only increased her urine output slightly as an outpatient. She states her dry weight is about 130#. She has improvement in her edema again overnight; good urine output thus far Continue lasix 40 mg IV Q12h for now Await further rec from Nephrology Monitor (2) Nephrotic syndrome: Code(s): N04.9 - Nephrotic syndrome with unspecified morphologic changes Status: Acute Assessment and Plan: Renal Biopsy showed minimal change disease in 10/2019. Has been following Dr. Mejia since diagnosis. Patient thinks she may have been diagnosed with Lupus on previous stay, but uncertain if this is official dx. Other etiologies include previous IV drug use; no longer user. Continue steroid therapy low salt diet Appreciate Nephrology recommendations Monitor (3) Leukocytosis: Qualifiers: Leukocytosis type: unspecified Qualified Code(s): D72.829 - Elevated white blood cell count, unspecified Code(s): D72.829 - Elevated white blood cell count, unspecified Status: Acute Assessment and Plan: Likely secondary to steroid use. WNL today Monitor CBC (4) Hyperlipidemia: Qualifiers: Hyperlipidemia type: unspecified Qualified Code(s): E78.5 - Hyperlipidemia, unspecified Code(s): E78.5 - Hyperlipidemia, unspecified Status: Chronic Assessment and Plan: Likely secondary to nephrotic syndrome. Continue fish oil. (5) Depression with anxiety: Code(s): F41.8 - Other specified anxiety disorders Status: Chronic Assessment and Plan: No acute issues continue home meds Subjective Date/time seen: 04/09/20 12:39 Interval history: Patient is a 34 year old female with PMH significant for nephrotic syndrome, depression, anxiety, and GERD who is seen in follow up for generalized edema/nephrotic syndrome. Patient states she feels better again today. She had good urine output last night after given one time doses of additional diuretics per Dr. Hutchison. She notes great improvement in her swelling in her face and extremities and has noticed weight loss today. SOB has improved as well, but still has orthopnea. No other complaints. Urine output has been less this morning but still significang. Denies f/c/s, headaches, dizziness, lightheadedness, cp/palpitations, cough, n/v/d/c, abd pain, changes in BMs, dysuria, calf pain/swelling. Review of Systems Review of Systems: All systems reviewed & are unremarkable except as noted in HPI and below Exam Narrative: Exam Narrative: General: Patient sitting upright in bed in no acute distress. HEENT: Normocephalic, EOMI, oral mucosa moist. Facial edema present but significant improvement compared to yesterday Cardiovascular: Rate and rhythm are regular. No notable murmur, rub, or gallop. Respiratory: Lungs clear to auscultation all hallman. Non-labored breathing. Abdomen: Soft, edematous, non-tender, a bit distended, bowel sounds present. Extremities: Peripheral pulses intact. generalized b/l edema in all extremities, with improvement since yesterday. NTTP b/l calves Neuro: No focal neurological deficits. Speech is clear. Objective Data Vital Signs Vital Signs: Last Vital Signs Temp 98 F 04/09/20 05:58 Pulse 84 04/09/20 05:58 Resp 14 04/09/20 05:58 BP 124/72 04/09/20 05:58 Pulse Ox 98 04/09/20 05:58 Intake/Output Intake/Output: Intake & Output 04/06
--- NOTE | 2020-04-09 13:34 | PM.PNNEP ---
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 - Unspecified nephritic syndrome with minor glomerular abnormality Status: Acute Assessment and Plan: biopsy proven possible flare as her proteinuria has increased to 3000mg when it was 190mg in January 2020 on prednisone at this time (2) Nephrotic syndrome: Code(s): N04.9 - Nephrotic syndrome with unspecified morphologic changes Status: Acute Assessment and Plan: due to #1 supportive therapy (3) Anasarca: Code(s): R60.1 - Generalized edema Status: Acute Assessment and Plan: although she does have recurrence of her proteinuria, I am unclear if this is the specific cause of all of her edema even in January 2020 when she had edema/swelling, her proteinuria was significantly better agree with IV diuretics at this time follow daily weights and I/Os (4) Hyponatremia: Code(s): E87.1 - Hypo-osmolality and hyponatremia Status: Acute Assessment and Plan: due to diuretics or fluid retention or both(?) did receive thiazide diuretic (metolazone) once follow trend with ongoing therapy Will continue to follow. Subjective Date/time seen: 04/09/20 13:34 Significant diuresis/urine output in the last 24 - 48 hours with current therapy although she thinks bumex is working better for her than lasix; no issues or events overnight other that frequent urination due to diuretics; hemodynamics appear better if not stable (fluctuating BP readings noted). Exam Narrative: Exam Narrative: General: WD/WN female in NAD Heart: normal S1 and S2; no rub Lungs: clear to auscultation Abdomen: soft, nontender, nondistended, positive bowel sounds Extremities: no cyanosis or clubbing; 1+ edema Skin: warm and dry Objective Data Vital Signs Vital Signs: Vital Signs Temp Pulse Resp BP Pulse Ox 04/09/20 05:58 36.6 C 84 14 124/72 98 04/08/20 20:32 36.6 C 84 14 144/101 H 97 Intake/Output Intake/Output: Intake & Output 04/06/20 04/07/20 04/08/20 04/09/20 23:59 23:59 23:59 23:59 Intake Total 2230 560 Output Total 1200 4500 18871 Balance -6894 -8116 -48688 Meds/Results Medications: Active Medications Generic Name Dose Route Start Last Admin Trade Name Freq PRN Reason Stop Dose Admin Acetaminophen 650 mg 04/07/20 18:23 04/08/20 09:15 Acetaminophen 325 Mg Tablet PO 650 mg Q4H PRN Administration Mild Pain (1-3) or Fever Artificial Tears 1 drop 04/09/20 13:35 04/09/20 14:32 Artificial Tears Op Soln 15 Ml Bottle EACH EYE 1 drop QID PRN Administration Dry Eye(s) Calcium Carbonate 200 mg 04/08/20 10:07 04/09/20 08:54 Calcium Carbonate (Tums) 500 Mg (200 Mg Elemental) PO 200 mg Q6H PRN Administration Indigestion Diphenhydramine HCl 50 mg 04/09/20 18:00 Diphenhydramine Hcl Cap 25 Mg Capsule PO Q6H PRATIBHA Famotidine 20 mg 04/07/20 21:00 04/09/20 08:45 Famotidine 20 Mg/2 Ml Vial IV PUSH 20 mg Q12HR PRATIBHA Administration Furosemide 40 mg 04/07/20 21:00 04/09/20 08:45 Furosemide Inj 40 Mg/4 Ml Vial IV PUSH 40 mg Q12HR PRATIBHA Administration Melatonin 5 mg 04/08/20 00:06 04/08/20 20:15 Melatonin 5 Mg Tablet PO 5 mg HS PRN Administration Insomnia Multi-Ingred Cream/Lotion/Oil/Oint 1 applic 04/10/20 09:00 Eucerin Cream 120 Gm Jar TOPICAL DAILY PRATIBHA Nicotine 1 patch 04/08/20 09:00 04/09/20 08:44 Nicotine (*Pbkc) 21 Mg Patch TRANSDERM 1 patch DAILY PRATIBHA Administration Ondansetron HCl 4 mg 04/07/20 18:23 Ondansetron Inj 4 Mg/2 Ml Vial IV PUSH Q4H PRN Nausea Polyethylene Glycol 17 gm 04/08/20 00:06 Polyethylene Glycol 3350 17 Gm Powd.Pack PO QAM PRN Constipation Prednisone 60 mg 04/08/20 08:00 04/09/20 08:45 Prednisone 20 Mg Tablet PO 60 mg DAILY@08 PRATIBHA Administration Radiology Results: ITS I
[2020-04-09 14:26] VITALS: BP 127/84; PULSE 92; RESP 16; TEMP 36.2; O2SAT 97
[2020-04-09] MEDS: metOLazone 2.5 MG TABLET PO ×2 (14:33→20:12)
[2020-04-09] MEDS: diphenhydrAMINE HCl CAP 25 MG CAPSULE 50 MG PO ×2 (18:05→23:20)
[2020-04-09] MEDS: BUMETANIDE INJ 1 MG/4 ML VIAL 1.5 MG IV PUSH (20:13)
[2020-04-09 20:20] VITALS: BP 161/111; PULSE 105; RESP 14; TEMP 36.5; O2SAT 99
[2020-04-09 21:16] VITALS: BP 153/98
[2020-04-10 06:07] LABS: Hematocrit 43.7 % (37.0-47.0); Hemoglobin 14.6 g/dL (12.0-15.0); Mean Corpuscular HGB Conc 33.4 g/dl (32-36); Mean Corpuscular Hemoglobin 28.9 pg (26-34); Mean Corpuscular Volume 86.5 fl (80-100); Mean Platelet Volume 9.7 fl (7.4-10.4); Platelet Count Result 563 k/mm3 (150-375); Red Blood Count 5.05 M/mm3 (4.2-5.4); Red Cell Distribution Width 16.1 % (11.5-14.5); White Blood Count 15.6 K/mm3 (4.5-10.0)
[2020-04-10 06:16] LABS: Albumin Level 2.8 g/dL (3.5-5.1); Anion Gap -1 mmol/L (8-16); Blood Urea Nitrogen 15 mg/dL (7-17); Carbon Dioxide 38 mmol/L (22-30); Chloride 94 mmol/L (98-107); Estimated CRCL calculation 91 ml/min; Estimated Glomerular Filt Rate > 60; Glucose 89 mg/dL (65-105); Magnesium 1.6 mg/dL (1.6-2.3); Phosphorus 5.7 mg/dL (2.5-4.5); Potassium 3.3 mmol/L (3.4-5.0); Sodium 131 mmol/L (137-145)
[2020-04-10 06:57] VITALS: BP 151/91; PULSE 98; RESP 18; TEMP 36.8; O2SAT 93
[2020-04-10] MEDS: FAMOTIDINE 20 MG/2 ML VIAL IV PUSH ×2 (09:02→21:44)
[2020-04-10] MEDS: predniSONE 20 MG TABLET 60 MG PO (09:02)
[2020-04-10] MEDS: POTASSIUM CHLORIDE 20 MEQ TABLET 40 MEQ PO (09:02)
[2020-04-10] MEDS: BUMETANIDE INJ 1 MG/4 ML VIAL IV PUSH (09:02)
[2020-04-10] MEDS: NICOTINE (*PBKC) 21 MG PATCH 1 PATCH TRANSDERM (09:03)
[2020-04-10] MEDS: EUCERIN CREAM 120 GM JAR 1 APPLIC TOPICAL (09:04)
[2020-04-10] MEDS: ENOXAPARIN 40 MG/0.4 ML SYRINGE SUB-Q (09:07)
[2020-04-10 14:31] VITALS: BP 140/97; PULSE 116; RESP 18; TEMP 36.2; O2SAT 96
--- NOTE | 2020-04-10 14:46 | PM.IMPN ---
Progress Note: A&P Assessment and Plan (1) Generalized edema: Code(s): R60.1 - Generalized edema Status: Acute Assessment and Plan: [place] to be secondary to nephrotic syndrome; diagnosis of biopsy-proven minimal change disease. Nephrology has been consulted and appreciate input. Follows Dr. Mejia as outpatient. Notes her home lasix regimen only increased her urine output slightly as an outpatient. She states her dry weight is about 130#. She has improvement in her edema again overnight; good urine output thus far with significant weight loss (~20kg) since admission. Discussed with Dr. Mejia who rec switching to Bumex 1 mg PO BID this evening and observing urine output overnight, if sufficient urine output then will consider discharge tomorrow on this regimen. Switch to Bumex 1 mg PO BID tonight metolazone 2.5 mg once, now Observe urine output overnight; possible discharge in 1-2 days if continued urine output and clinical improvement Await further rec from Nephrology Monitor (2) Nephrotic syndrome: Code(s): N04.9 - Nephrotic syndrome with unspecified morphologic changes Status: Acute Assessment and Plan: Renal Biopsy showed minimal change disease in 10/2019. Has been following Dr. Mejia since diagnosis. Patient thinks she may have been diagnosed with Lupus on previous stay, but uncertain if this is official dx. Other etiologies include previous IV drug use; no longer user. Continue prednisone 60 mg daily. After discussion with Dr. Mejia, plan on discharging at this amount with a long taper, again low salt diet Appreciate Nephrology recommendations Monitor (3) Leukocytosis: Qualifiers: Leukocytosis type: unspecified Qualified Code(s): D72.829 - Elevated white blood cell count, unspecified Code(s): D72.829 - Elevated white blood cell count, unspecified Status: Acute Assessment and Plan: Likely secondary to steroid use. 15.6k today Monitor CBC (4) Hyperlipidemia: Qualifiers: Hyperlipidemia type: unspecified Qualified Code(s): E78.5 - Hyperlipidemia, unspecified Code(s): E78.5 - Hyperlipidemia, unspecified Status: Chronic Assessment and Plan: Likely secondary to nephrotic syndrome. Continue fish oil. (5) Depression with anxiety: Code(s): F41.8 - Other specified anxiety disorders Status: Chronic Assessment and Plan: No acute issues continue home meds Subjective Date/time seen: 04/10/20 14:46 Interval history: Patient is a 34 year old female with PMH significant for nephrotic syndrome, depression, anxiety, and GERD who is seen in follow up for generalized edema/nephrotic syndrome. Patient states she feels better again today. She had good urine output again today. Feels her swelling has significantly improved. SOB improved as well. No other complaints. Denies f/c/s, headaches, dizziness, lightheadedness, cp/palpitations, cough, n/v/d/c, abd pain, changes in BMs, dysuria, calf pain/swelling. Review of Systems Review of Systems: All systems reviewed & are unremarkable except as noted in HPI and below Exam Narrative: Exam Narrative: General: Patient sitting upright in bed in no acute distress. HEENT: Normocephalic, EOMI, oral mucosa moist. Facial edema present but, again, significant improvement compared to yesterday Cardiovascular: tachycardic, regular rhythm. No notable murmur, rub, or gallop. Respiratory: Lungs clear to auscultation all hallman. Non-labored breathing. Abdomen: Soft, edematous but improved, non-tender, a bit distended, bowel sounds present. Extremities: Peripheral pulses intact. generalized b/l edema in all extremities, with improvement since yesterday. NTTP b/l calves Neuro: No focal neur
[2020-04-10] MEDS: metOLazone 2.5 MG TABLET PO (15:47)
[2020-04-10] MEDS: BUMETANIDE 1 MG TABLET PO (17:06)
--- NOTE | 2020-04-10 18:25 | PM.PNNEP ---
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 I believe the proteinuria was better in January as her symptoms were far better and she was off diuretics completely. I told her we could go to directions. One would be to give her a different immunosuppressive to treat her minimal change. She had a remission then relapsed while on therapy. I do not think this is glucocorticoid resistance but rather just a relapse during weaning of therapy. If this would be the idea then cyclophosphamide would be the correct medication to use. I told her this is a mild chemotherapy that we see use in lymphoma at higher dose but now is more common for immunologic diseases like hers. She is done having children. A 2nd option would be a repeat biopsy. Her minimal change is not acting like the run of the mill minimal change. So perhaps this is focal segmental sclerosis. Sometimes the sclerotic glomeruli which make the diagnosis on pathology are scattered and a biopsy may miss this. focal segmental sclerosis is a more resistant disease but would be treated a little differently. We discussed these 2 options at length and I think the best way to go would be to re-biopsy so we know it were dealing with. She agrees. She remembers a biopsy per from before and she remembers the risks benefits alternatives and process. (2) Nephrotic syndrome: Code(s): N04.9 - Nephrotic syndrome with unspecified morphologic changes Status: Acute Assessment and Plan: due to #1 On Bumex and intermittent metolazone. (3) Anasarca: Code(s): R60.1 - Generalized edema Status: Acute Assessment and Plan: although she does have recurrence of her proteinuria, I am unclear if this is the specific cause of all of her edema even in January 2020 when she had edema/swelling, her proteinuria was significantly better agree with IV diuretics at this time follow daily weights and I/Os (4) Hyponatremia: Code(s): E87.1 - Hypo-osmolality and hyponatremia Status: Acute Assessment and Plan: due to diuretics or fluid retention or both(?) did receive thiazide diuretic (metolazone) once follow trend with ongoing therapy Will continue to follow. Subjective Date/time seen: 04/10/20 18:25 Interval history: patient is feeling better. Reviewing her course, she started with 14,000 mg of protein. Biopsy showed minimal change nephropathy. She then started on Prednisone 60 mg per day In October. she did not follow up in the office until January when her protein had dropped to about 180 mg. At this point she started weaning the prednisone. Her weight on was 120 lb. This is close to her fighting weight. Even at this weight, she did have some swelling when she woke up in the mornings in her hands and face. However was far better than it had been in October. Then over the next 2 weeks she gained about 50 lb and 2 weeks later she came back into the hospital because of all the swelling. Currently her proteinuria is up to 3060. Diuretics have improved her swelling and she feels better and wants to go home. Review of Systems Cardiovascular: Cardiovascular: Reports no additional cardiovascular complaints Respiratory: Respiratory: Reports no additional respiratory complaints Gastrointestinal: Gastrointestinal: Reports no additional gastrointestinal complaints Genitourinary: Genitourinary: Reports no additional female genitourinary complaints Exam Narrative: Exam Narrative: General: WD/WN female in NAD Heart: normal S1 and S2; no rub Lungs: clear to auscultation Abdomen: soft, nontender, nondistended, positive bowel sounds Extremities: no cyanosis or clubbi
[2020-04-10 20:00] VITALS: BP 132/97; PULSE 110; RESP 14; TEMP 36.1; O2SAT 100
[2020-04-10] MEDS: MELATONIN 5 MG TABLET PO (21:44)
[2020-04-10] MEDS: diphenhydrAMINE HCl CAP 25 MG CAPSULE 50 MG PO (23:45)
[2020-04-10 23:54] LABS: INR 0.8
[2020-04-11 00:01] LABS: Creatinine Urine 9.9 mg/dL; Total Protein Urine Random 54 mg/dL; Ur Ttl Prot Creatinine Ratio 5.45 mg/mg (0-0.20)
[2020-04-11 04:31] VITALS: BP 139/87; PULSE 115; RESP 18; TEMP 36.9; O2SAT 100
[2020-04-11 06:30] LABS: Hematocrit 43.9 % (37.0-47.0); Hemoglobin 14.5 g/dL (12.0-15.0); Mean Corpuscular Hemoglobin 28.3 pg (26-34); Mean Corpuscular Volume 85.6 fl (80-100); Mean Platelet Volume 9.9 fl (7.4-10.4); Platelet Count Result 581 k/mm3 (150-375); Red Blood Count 5.13 M/mm3 (4.2-5.4); White Blood Count 15.9 K/mm3 (4.5-10.0)
[2020-04-11] MEDS: CALCIUM CARBONATE (TUMS) 500 MG (200 MG ELEMENTAL) PO (07:46)
[2020-04-11] MEDS: ONDANSETRON INJ 4 MG/2 ML VIAL IV PUSH (10:25)
[2020-04-11] MEDS: NICOTINE (*PBKC) 21 MG PATCH 1 PATCH TRANSDERM (11:00)
[2020-04-11] MEDS: EUCERIN CREAM 120 GM JAR 1 APPLIC TOPICAL (11:00)
[2020-04-11] MEDS: FAMOTIDINE 20 MG/2 ML VIAL IV PUSH (11:01)
[2020-04-11 11:32] VITALS: BP 127/93; PULSE 99; RESP 18; O2SAT 100
[2020-04-11 12:00] VITALS: BP 100/71; PULSE 90; RESP 18; O2SAT 100
[2020-04-11] MEDS: predniSONE 20 MG TABLET 60 MG PO (12:16)
[2020-04-11] MEDS: diphenhydrAMINE HCl CAP 25 MG CAPSULE 50 MG PO (12:16)
[2020-04-11] MEDS: BUMETANIDE 1 MG TABLET PO (12:17)
[2020-04-11 13:04] LABS: Albumin Level 3.1 g/dL (3.5-5.1); Anion Gap 1 mmol/L (8-16); Blood Urea Nitrogen 21 mg/dL (7-17); Carbon Dioxide 37 mmol/L (22-30); Chloride 94 mmol/L (98-107); Estimated CRCL calculation 91 ml/min; Estimated Glomerular Filt Rate > 60; Glucose 84 mg/dL (65-105); Magnesium 1.5 mg/dL (1.6-2.3); Phosphorus 4.7 mg/dL (2.5-4.5); Potassium 3.7 mmol/L (3.4-5.0); Sodium 132 mmol/L (137-145)
[2020-04-11 14:00] VITALS: BP 173/93; PULSE 90; RESP 18; TEMP 34.9; O2SAT 97
--- NOTE | 2020-04-11 14:00 | PM.DS ---
DS: Admitting Diagnosis Admitting Diagnosis Admitting Diagnosis: Leg swelling, weight gain DS: Discharge Diagnosis Discharge Diagnosis (1) Generalized edema: Code(s): R60.1 - Generalized edema Status: Acute Assessment and Plan: Henry to be secondary to nephrotic syndrome; diagnosis of biopsy-proven minimal change disease. Nephrology has been consulted and appreciate input. Follows Dr. Mejia as outpatient. Notes her home lasix regimen only increased her urine output slightly as an outpatient. She states her dry weight is about 130#. She has improvement in her edema again overnight; good urine output thus far with significant weight loss (~20kg) since admission. Discussed with Dr. Mejia who rec switching to Bumex 1 mg PO BID this evening and observing urine output overnight, if sufficient urine output then will consider discharge tomorrow on this regimen. Continue Bumex 1 mg PO BID at discharge Nephrology would like for you to continue Prednisone 60 mg per day and follow up with them in 1 week with further adjustments. (2) Nephrotic syndrome: Code(s): N04.9 - Nephrotic syndrome with unspecified morphologic changes Status: Acute Assessment and Plan: Renal Biopsy showed minimal change disease in 10/2019. Has been following Dr. Mejia since diagnosis. Patient thinks she may have been diagnosed with Lupus on previous stay, but uncertain if this is official dx. Other etiologies include previous IV drug use; no longer user. Continue prednisone 60 mg daily and follow up with nephrology for further adjustments. low salt diet (3) Leukocytosis: Qualifiers: Leukocytosis type: unspecified Qualified Code(s): D72.829 - Elevated white blood cell count, unspecified Code(s): D72.829 - Elevated white blood cell count, unspecified Status: Acute Assessment and Plan: Likely secondary to steroid use. 15.9k today (4) Hyperlipidemia: Qualifiers: Hyperlipidemia type: unspecified Qualified Code(s): E78.5 - Hyperlipidemia, unspecified Code(s): E78.5 - Hyperlipidemia, unspecified Status: Chronic Assessment and Plan: Likely secondary to nephrotic syndrome. Continue fish oil. (5) Depression with anxiety: Code(s): F41.8 - Other specified anxiety disorders Status: Chronic Assessment and Plan: No acute issues continue home meds DS: Summary Hospital Course Reason for hospitalization: Patient is a 34-year-old woman with a history of nephrotic syndrome, followed by nephrology as an outpatient, who presented to the emergency room with increased peripheral swallowing, abdominal distension and reported 50 lb weight gain over the last few weeks. Initial vitals showed she was afebrile, normal heart rate, increased respiratory rate at 30, elevated blood pressure 204/160, oxygen saturation 100% on room air. Initial labs showed leukocytosis at 15,000, normal anemia labs, hyponatremia at 132, normal creatinine at 0.5, BUN slightly elevated at 24, BNP 257, urinalysis showed 2+ protein, 1+ blood. Chest x-ray showed small left pleural effusion, adjacent subsegmental atelectasis. Patient was admitted into the hospital with fluid overload, started on IV diuretics, consult to Nephrology who follows her as an outpatient. She received multiple days of IV Lasix, IV Bumex with resolution of her fluid overload status and loss of approximately 40 lb in the last few days. Patient was feeling much better prior to discharge and was sent home on oral Bumex 1 mg b.i.d., prednisone 60 mg daily and follow-up with nephrology for further recommendations on prednisone tapering. While she was here she also received a renal biopsy which we followed up by Nephrology as an outpatient. __
[2020-04-11] MEDS: MAGNESIUM SULF 2 GM/WATER 50ML 2 GM/50 ML BAG IVPB (14:05)
== END 2020-04-11 15:15 | disposition home or self-care (01) | DRG 462 ==
LOC: ANHED 18:29 → ANH3MED 22:39
PROVIDERS: Family Medicine; Internal Medicine Nephrology; Physician Assistant; Admitting Provider Internal Medicine; Emergency Provider Emergency Medicine; PCP Family Medicine; Visit Provider Physician Assistant
DX: N04.9 Nephrotic syndrome with unspecified morphologic changes (principal); D72.829 Elevated white blood cell count, unspecified; N05.0 Unspecified nephritic syndrome with minor glomerular abnormality; E78.5 Hyperlipidemia, unspecified; F41.8 Other specified anxiety disorders; F17.210 Nicotine dependence, cigarettes, uncomplicated; K21.9 Gastro-esophageal reflux disease without esophagitis; Z79.899 Other long term (current) drug therapy
CPT/HCPCS: 36415; 50200; 71046; 76942; 80048; 80061; 80069; 80076; 81001; 81050; 82570; 83735; 83880; 84156; 84300; 84443; 85025; 85027; 85610; 85730; 85999; 88300; 88305; 88313; 88329; 88346; 88348; 88350; 93005; 96372; 96374; 96375; 96376; 99285; A9270; G0378; G0379; J1650; J1940; J2405; J3475; J7512

== ENCOUNTER 2020-05-02 14:38 | Outpatient (CLI) | payer OTHER, SELFPAY ==
[2020-05-02 15:39] LABS: Albumin Level 3.8 g/dL (3.5-5.1); Anion Gap 5 mmol/L (8-16); Blood Urea Nitrogen 18 mg/dL (7-17); Carbon Dioxide 27 mmol/L (22-30); Chloride 107 mmol/L (98-107); Estimated Glomerular Filt Rate > 60; Glucose 109 mg/dL (65-105); Phosphorus 3.2 mg/dL (2.5-4.5); Potassium 3.4 mmol/L (3.4-5.0); Sodium 139 mmol/L (137-145)
[2020-05-02 16:25] LABS: Creatinine Urine 203.1 mg/dL; Total Protein Urine Random 7 mg/dL; Ur Ttl Prot Creatinine Ratio 0.03 mg/mg (0-0.20)
== END 2020-05-02 14:39 | disposition home or self-care (01) ==
PROVIDERS: Visit Provider Internal Medicine Nephrology
DX: N18.2 Chronic kidney disease, stage 2 (mild) (principal); R80.1 Persistent proteinuria, unspecified
CPT/HCPCS: 36415; 80069; 82570; 84156

== ENCOUNTER 2021-04-18 16:55 | Emergency (ER) | payer BC, SELFPAY ==
[2021-04-18 16:59] VITALS: BP 125/96; PULSE 101; RESP 20; TEMP 36.4; O2SAT 100
--- NOTE | 2021-04-18 17:55 | PC.NURSE ---
patient not found in room or WR.
== END 2021-04-19 03:40 | disposition left against medical advice (07) ==
PROVIDERS: Emergency Provider Family Medicine; PCP Family Medicine
DX: M79.601 Pain in right arm (principal)
CPT/HCPCS: 99199

== ENCOUNTER 2021-04-25 12:08 | Emergency (ER) | payer BC, SELFPAY ==
[2021-04-25 12:13] VITALS: BP 112/84; PULSE 110; RESP 16; TEMP 36.2; O2SAT 99
--- NOTE | 2021-04-25 13:00 | PC.NURSE ---
pt to desk to inform this RN she will try another day because it is too busy . pt was amb with steady gait out of building.
== END 2021-04-26 04:37 | disposition left against medical advice (07) ==
LOC: ANHED 13:53
PROVIDERS: PCP Family Medicine
DX: R29.898 Other symptoms and signs involving the musculoskeletal system (principal)
CPT/HCPCS: 99199

== ENCOUNTER 2021-05-08 13:00 | Outpatient (CLI) | payer BC, SELFPAY ==
--- NOTE | 2021-05-08 13:17 | ECG_ITS ---
Measurements Intervals Perry Rate: 103 P: OK: 0 QRS: 32 QRSD: 88 T: 58 QT: 340 QTc: 446 Interpretive Statements SINUS TACHYCARDIA NONSPECIFIC T WAVE ABNORMALITY ABNORMAL ECG Electronically Signed On 05-08-2021 13:44:50 HAND STONER by Jaun Peterson M.D.
== END 2021-05-08 13:01 | disposition home or self-care (01) ==
PROVIDERS: PCP Family Medicine; Visit Provider Physician Assistant
DX: R55 Syncope and collapse (principal); R94.31 Abnormal electrocardiogram [ECG] [EKG]
CPT/HCPCS: 93005

== ENCOUNTER 2021-05-14 09:57 | Outpatient (CLI) | payer BC, SELFPAY ==
[2021-05-14 10:59] LABS: Hematocrit 37.7 % (37.0-47.0); Hemoglobin 12.2 g/dL (12.0-15.0); Mean Corpuscular HGB Conc 32.4 g/dl (32-36); Mean Corpuscular Hemoglobin 29.3 pg (26-34); Mean Corpuscular Volume 90.4 fl (80-100); Mean Platelet Volume 9.7 fl (7.4-10.4); Platelet Count Result 384 k/mm3 (150-375); Red Blood Count 4.17 M/mm3 (4.2-5.4); Red Cell Distribution Width 15.9 % (11.5-14.5); White Blood Count 7.6 K/mm3 (4.5-10.0)
[2021-05-14 11:10] LABS: Alanine Aminotransferase 11 U/L (4-35); Albumin Level 4.1 g/dL (3.5-5.1); Alkaline Phosphatase 38 U/L (38-126); Anion Gap 9 mmol/L (8-16); Aspartate Amino Transferase 21 U/L (14-36); Bilirubin,Total 0.1 mg/dL (0.2-1.3); Blood Urea Nitrogen 13 mg/dL (7-17); Calcium 8.4 mg/dL (8.4-10.2); Carbon Dioxide 25 mmol/L (22-30); Chloride 106 mmol/L (98-107); Estimated Glomerular Filt Rate > 60; Glucose 67 mg/dL (65-110); Potassium 3.8 mmol/L (3.4-5.0); Sodium 140 mmol/L (137-145)
[2021-05-14 11:11] LABS: Rheumatoid Factor < 8.6 IU/ML (<12)
[2021-05-14 11:32] LABS: Erythrocyte Sedimentation Rate 12 mm/hr (0-20)
[2021-05-14 11:40] LABS: Thyroid Stimulating Hormone 0.614 uIU/mL (0.465-4.680)
[2021-05-14 11:43] LABS: Free T4 Free Thyroxine 0.99 ng/mL (0.78-2.19)
== END 2021-05-14 09:58 | disposition home or self-care (01) ==
LOC: ANHLAB 10:00
PROVIDERS: PCP Family Medicine; Visit Provider Physician Assistant
DX: Z00.00 Encounter for general adult medical examination without abnormal findings (principal); M25.50 Pain in unspecified joint; N04.9 Nephrotic syndrome with unspecified morphologic changes; R53.83 Other fatigue
CPT/HCPCS: 36415; 80053; 84439; 84443; 85027; 85652; 86038; 86430; 99212; G0463

== ENCOUNTER 2023-12-05 12:05 | Outpatient (CLI) | payer OTHER, SELFPAY ==
[2023-12-05 12:37] LABS: Basophils Absolute Auto 0.1 K/mm3 (0.0-0.1); Basophils Percent Auto 1.9 % (0.2-1.2); Eosinophils Absolute Auto 0.1 K/mm3 (0-0.3); Eosinophils Percent Auto 1.7 % (0-4.4); Hematocrit 34.4 % (37.0-47.0); Hemoglobin 10.5 g/dL (12.0-15.0); Immature Granulocyte Absolute 0.05 K/mm3 (0.00-0.031); Immature Granulocyte Percent A 0.7 % (0-0.5); Lymphocytes Percent Auto 24.8 % (18.3-44.2); Mean Corpuscular HGB Conc 30.5 g/dl (32-36); Mean Corpuscular Hemoglobin 21.9 pg (26-34); Mean Corpuscular Volume 71.8 fl (80-100); Mean Platelet Volume 9.6 fl (7.4-10.4); Monocytes Absolute Auto 0.6 K/mm3 (0.1-0.6); Monocytes Percent Auto 9.3 % (2.6-8.5); Neutrophils Absolute Auto 4.2 K/mm3 (1.3-6.7); Neutrophils Percent Auto 61.6 % (45.5-73.1); Platelet Count Result 446 k/mm3 (150-375); Red Blood Count 4.79 M/mm3 (4.2-5.4); Red Cell Distribution Width 18.8 % (11.5-14.5); White Blood Count 6.9 K/mm3 (4.5-10.0)
[2023-12-05 13:05] LABS: Microcytosis 2+ (NORMAL); Platelet Estimate Adequate (Adequate); Schistocytes None Seen
== END 2023-12-05 12:06 | disposition home or self-care (01) ==
LOC: ANHLAB 12:07
PROVIDERS: PCP Family Medicine; Visit Provider Obstetrics & Gynecology
DX: N92.0 Excessive and frequent menstruation with regular cycle (principal)
CPT/HCPCS: 36415; 85025

== ENCOUNTER 2023-12-26 12:54 | Outpatient (CLI) | payer OTHER, SELFPAY ==
--- NOTE | ~2023-12-26 | MMUS_ITS ---
EXAMINATION: MM diagnostic rachel BI w joaquin, US breast BI complete HISTORY: Palpable right breast abnormality TECHNIQUE: Additional 3-D tomosynthesis images of the breasts were performed and synthetic 2-D images were generated. CAD analysis was submitted and interpreted. High resolution complete bilateral breas t ultrasound was performed. COMPARISON: No prior studies for comparison. BREAST PARENCHYMAL COMPOSITION: Dense: The breasts are extremely dense, which lowers the sensitivity of mammography. FINDINGS: MAMMOGRAPHIC FINDINGS: There are no suspicious masses, calcifications or architectural distortion in either breast to sugges t malignancy. Specifically, no abnormality in the area of palpable concern. ULTRASOUND: Complete US of all 4 quadrants of the breast/s and retroareolar region was reviewed. Normal heterogen eous echotexture without focal solid or cystic mass. IMPRESSION: 1. No evidence for malignancy in either breast. 2. Routine yearly screening mammogram and regular clinical breast examination are recommended. BI-RADS Category 1: Negative Reviewed, dictated and finalized at location B. IMPRESSION: 1. No evidence for malignancy in either breast. 2. Routine yearly screening mammogram and regular clinical breast examination a re recommended. BI-RADS Category 1: Negative
== END 2023-12-26 12:55 | disposition home or self-care (01) ==
LOC: ANHIMG 12:56
PROVIDERS: PCP Family Medicine; Visit Provider Obstetrics & Gynecology
DX: N63.11 Unspecified lump in the right breast, upper outer quadrant (principal)
CPT/HCPCS: 76641; 77062; 77066; G0279

== ENCOUNTER 2024-04-16 11:54 | Inpatient (IN) | payer OTHER, SELFPAY ==
[2024-04-16] VITALS (20 sets, daily range): BP systolic 125–143; BP diastolic 77–117; PULSE 78–112; RESP 11–28; TEMP 36.4–36.7; O2SAT 96–100; BMI 32.4
--- NOTE | ~2024-04-16 | XR_ITS ---
EXAMINATION: XR chest 1V portable DATE: 04/16/2024 14:07 INDICATION: Dyspnea. TECHNIQUE: A single frontal view of the chest was obtained. COMPARISON: Chest 2 views 04/07/2020 FINDINGS: There is a small left pleural effusion. There are airspace opacities at left lung base. No pneumothorax. The heart size is normal. IMPRESSION: 1. Small left pleural effusion. 2. Airspace opacities at left lung base, likely atelectasis. Reviewed, dictated and finalized at location A. F WHEELAGE CLERK
--- OUTSIDE RECORDS SUMMARY | 2024-04-16 12:13 | XMS_ITS ---
Author Organization [facility] Address [address] [place] [address] Care Team Providers Care Business Management Intern Name Role Phone Natalia Saucedo Primary Care Provider [phone] REASON FOR VISIT psych eval; hospital followup from [facility] Encounters Encounter Location Date Provider Diagnosis [address] [address] 03/18/2023 Natalia Saucedo Plan Of Treatment No Information Progress Notes * OKEEFE BinuJose AOB: 4 (39 yo F)Acc No.[id number]:03/18/2023 UNLOCKED PROGRESS NOTE Patient: Santy SINGH Provider: Niels Saucedo, DNP, CUFF SETTER OVERLOCK, PMHNP-BC :1985 A ge:37 Y S ex:Female Date:03/18/2023 [id number] Subjective: * Chief Complaints: * 1 . psych eval; hospital followup from [facility]. * Medical History: Objective: * Vitals: Assessment: Plan: * Treatment: * Recommended Wellness and Pre vention Guidelines: * S tatus A lert L ast Done N ext Due A ction Taken N ONCOMPLIANT B price Mass Index - 0 03/17/2023 - N ONCOMPLIANT C ervical cancer screening - 0 03/17/2023 - N ONCOMPLIANT D epression screening - 0 03/17/2023 - N ONCOMPLIANT H IV screening - 0 03/17/2023 - * * Electronic signature of Carmenza Ogden , [id number] on 04/16/2024 at 12:12 PM MOTTLER MACHINE FEEDER Sign off status: Pending * Provider: Niels Saucedo DNP, CUFF SETTER [employer]LOCK, PMHNP-BC Date: 0 03/18/2023 Generated for Printing/Faxing/eTransmitting on: 0 04/16/2024 12:12 PM MOTTLER MACHINE FEEDER
--- OUTSIDE RECORDS SUMMARY | 2024-04-16 12:13 | XMS_ITS | CONTINUITY OF CARE DOCUMENT ---
Author Name donna thompson Address Unknown Organization [facility] Address [address] [facility] [address] [place] [address] Phone [phone] Care Team Providers Care Rn Telehealth Name Role Phone Joao Hopson MD Unavailable [phone] Joao Hopson MD Unavailable [phone] INSURANCE PROVIDERS Payer name Policy type / Coverage type [place] red green party ID [facility] Medicaid [id number]
--- OUTSIDE RECORDS SUMMARY | 2024-04-16 12:13 | XMS_ITS | Clinical Summary ---
Author Organization [facility] Address [address] [place] [id number] Care Team Providers Care Legal Billing Coordinator Name Role Phone Giovanni Mejia MD Unavailable [phone] Litzy Clayton MD Primary Care Provider [phone] Allergies No known active allergies Medications bumetanide (BUMEX) 2 MG tablet Take 1 tablet (2 mg total) by mouth daily. 30 tablet 11/27/2023 Active Social History Tobacco Use Types Packs/Day Years Used Date Smoking Tobacco: Every Day Cigarettes Smokeless Tobacco: Never Tobacco Cessation:Ready to Q uit: Not Asked; Counseling Given: Not Answered Alcohol Use Standard Drinks/Week Comments Never 0 (1 standard drink = 0.6 oz pur e alcohol) Comments Unknown Sex and Gender Information Value Date Recorded Sex Assigned at Not on file Legal Sex Female 1:55 PM CDT Gender Identity Not on file Sexual Orientation Not on file Last Filed Vital Signs Vital Sign Reading Time Taken Comments Blood Pressure 126/72 11/27/2023 4:57 PM CDT Pulse 92 11/27/2023 4:57 PM CDT Temperature 36.7 C (98.1 F) 11/27/2023 4:57 PM CDT Respiratory Rate 18 11/27/2023 4:57 PM CDT Oxygen Saturation 99% 11/27/2023 4:57 PM CDT Inhaled Oxygen Concentration - - Weight 65.4 kg (144 lb 2.9 oz) 11/27/2023 2:08 P M CDT Height 160 cm (5' 3 ) 11/27/2023 2:08 PM CDT Body Mass Index 25.54 11/27/2023 2:08 PM CDT Plan of Treatment Upcoming Encounters Date Type Department Care Team (Latest Contact Info) Description 04/29/2024 12:48 PM CONVEYOR ATTENDANT Hospital Encounter [facility] [place] [address] Elmo Thompson MD [address] [place], [place] [address]dg [address] [place] [address] 04/29/2024 12:48 PM CONVEYOR ATTENDANT - 04/29/2024 4:36 PM CONVEYOR ATTENDANT Surgery [place] [address] Elmo Thompson MD [address] [place], [place] [address] [address] [place] [address] ROBOTIC XI ASSISTED TOTAL LAPAROSCOPIC HYSTERECTOMY, BILATERAL SALPINGECTOMY, CYSTOSCOPY Scheduled Procedures Name Priority Associated Diagnoses Date/Ti me ROBOTIC XI HYSTERECTOMY N92.4, N94.4- MENORRHAGIA, DYSMENORRHEA 04/29/2024 12:48 PM CONVEYOR ATTENDANT Health Maintenance Due Date Last Done Comments Cervical Cancer Screening Pap Smear (Age 30 to 64) Every 3 Years 1983 Annual Physical 1986 Hepatitis C 2001 Hepatitis B Vaccines (1 of 3 - 19+ 3-dose series) 2002 Cervical Cancer Screening Pap with HPV Testing (Age 30 to 64) Every 5 Years 2013 Cervical Cancer Screening with HPV 2013 Mammogram Screening 2023 COVID-19 Vaccine ( season) 2023 07/06/2020, 06/09/2020 Influenza Adult (#1) 2023 11/16/2021, 01/14/2020, 12/09/2019, Additional history exists DTaP, Tdap and Td Vaccines (3 - Td or Tdap) 03/04/2033 03/04/2023, 11/16/2021 Pneumococcal Vaccine: Pediatrics (0 to 5 Years) and At-Risk Patients (6 to 64 Years) Completed 11/16/2021 HPV Vaccines Aged Out No longer eligi ble based on patient's age to complete this topic Meningococcal B Vaccine Aged Out No l onger eligible based on patient's age to complete this topic Meningococcal Vaccine Aged Out No zac jean-pierre eligible based on patient's age to complete this topic RSV Immunizations Under 20 Months Aged Out No longer eligible based on patient's age to complete this topic Insurance [employer] Care Teams Legal Billing Coordinator Relationship Specialty Start Date End Date Litzy Clayton MD [address] [place] [address] PCP - General FAMILY PRACTICE 11/27/23 Giovanni Mejia MD [address] [place] [address] Referring Physician NEPHROLOGY 11/27/23
--- OUTSIDE RECORDS SUMMARY | 2024-04-16 12:13 | XMS_ITS | Data Portability ---
Author Organization [facility] , [facility] Address [address] [place] [address] Assessment No assessment recorded. Plan of Treatment Reminders Order Date Submit Date Provider Last Modified By Organization Details Last Modified Time Details Appointments Surgery Block 2024 10:30A M Elmo Thompson MD Not available Not available Not available Lab CBC w/ diff [address], [address] [place] [address] [address], [place], [address], 01/08/2024 15:03:25 Referral breast evaluatio n referral 2023 024 [facility] Not available 12/19/2023 12:29:35 Procedures None recorded. Surgeries None recorded. Imaging US, transvagi nal 2023 024 [facility] Not available 08/28/2023 12:29:39 US, breast, unilatera l - right breast upper outer quad [address] - [facility]tr, [address], [address], [place], [address], 12/19/2023 15:48:26 MAMMO, diagnosti c, digital, unilatera l - right breast upper outer quad 2023 024 [facility], [address], [address], [place], [address], 01/02/2024 16:10:28 US, transvagi nal 2023 024 GER Not available 12/13/2023 20:45:51 Medication Orders ferrous sulfate 325 mg (65 mg iron) tablet 2024 025 [facility]23645, [address] [place] [address], [id number], 03/22/2024 14:50:56 IBU 800 mg tablet 2024 025 [facility] #63954, [address] [place] [address], [id number], 03/22/2024 14:50:58 hydroxyzi ne HCl 25 mg tablet 2024 025 [facility] #60528, [address] [place] [address], [id number], 03/22/2024 14:51:07 metronida zole 500 mg tablet 2024 025 [facility] #45913, [address] [place] [address], [id number], 03/22/2024 14:50:59 oxycodone -acetamin ophen 5 mg-325 mg tablet 2024 025 [facility] #06681, [address] [place] [address], [id number], 03/22/2024 14:51:01 Patient TargetsNo targets recorded. Patient Instructions Encounter Date Encounter Id Patient Instructions Last Modified By Organization Details Last Modified Time 12/10/2023 [id number] breast lumps: care instructions Not available 12/10/2023 17:55:10 Reason for Referral Breast Evaluation Referral f or Breast lump Referring Physician: Elmo Thompson, WHITTLING ROOM OPERATOR, Encounter Date: 12/10/2023 Results Created Date Observation Date Name Description Value Unit Range Abnormal Flag Note LastModifiedBy Organization Detail LastModifiedTime 12/13/19 24 12/10/2023 US, trans vagin al No observ ation record ed. [email or web address] [address], [place], [address], 12/16/2023 14:52:28 12/26/19 24 12/26/2023 MAMMO , diagn ostic , digit al, unila teral No observ ation record ed. [address], [place], [address], 03/22/2024 14:52:01 Result Notes None recorded. Procedures Surgical History Date Name Laterality Status Provider Name and Address Organization Details Recorded Time Most Recent Mammogram completed Rosalia Ramachandran [facility] 03/22/2024 14:20:15 5 laparoscopy completed Elmo Thompson MD [facility] [place], [address], [facility] 07/30/2023 16:02:36 C Section completed Janice Rosa [facility] 07/30/2023 15:12:15 Imaging Results Imaging Date Name Status LastModified by Organization Details LastModified Time 12/10/2023 US, transvaginal completed [email or web address], [place], [address], 12/16/2023 14:52:28 12/26/2023 MAMMO, diagnostic, digital, unilateral completed [address], [place], [address], 03/22/2024 14:52:01 Procedure Notes None recorded. Medical Equipment None Reported. Allergies No known drug allergies Medications Name Sig Start Date Stop Date Status Note LastModified by Organization Details LastModified Time bumetanide 2 mg tablet 12/09 completed Not Available Not Available Not Available ibuprofen 800 mg tablet TAKE 1 TABLET BY MOUTH FOUR TIMES DAILY DIRECTED active Not Available Not Available No t Available sumatriptan 50 mg tablet active Not Available Not Available Not Available metronidazo le 500 mg tablet Take 1 tablet every 12 hours by oral route as directed. 2024 active Not Available Not Available Not Avai lable oxycodone-a cetaminophe n 5 mg-325 mg tablet Take 1 tablet every 6 hours by oral route as needed. 2024 active Not Available Not Available Not Avai lable ferrous sulfate 325 mg (65 mg iron) tablet Take 1 tablet twice a day by oral route. 2024 active Not Available Not Available Not Avai lable bumetanide 1 mg tablet TAKE 1 TABLET BY MOUTH TWICE DAILY active Not Available Not Available No t Available hydroxyzine HCl 25 mg tablet TAKE 1 TO 2 TABLETS BY MOUTH EVERY 6 HOURS NEEDED active Not Available Not Available No t Available polyethylen e glycol 3350 17 gram/dose oral powder 12/09 completed Not Available Not Available Not Available fluoxetine 20 mg capsule TAKE 1 CAPSULE BY MOUTH EVERY DAY active Not Available Not Available No t Available escitalopra m 10 mg tablet active Not Available Not Available Not Available BinaxNOW COVID-19 Ag Self Test kit TEST DIRECTED TODAY 07/29 completed Not Available Not Available Not Available Vitals Date Recorded Body height Body mass index (BMI) Body weight Body temperature Systolic blood pressure Diastolic blood pressure Provider Name and Address Organization Details Last Updated DateTime 4 160.02 cm 23.9 kg/m2 62005.9 7 g 98.1 [degF] 122 mm[Hg] 70 mm[Hg] Janice Rosa [facility] 4 15:22:19 Date Recorded Body height Body mass index (BMI) Body weight Systolic blood pressure Diastolic blood pressure Provider Name and Address Organization Details Last Updated DateTime 12/10/2023 160.02 cm 25.5 kg/m2 07128.02 g 102 mm[Hg] 68 mm[Hg] Estiven [place]on [place] [facility] 4 17:09:14 Date Recorded Body height Body mass index (BMI) Body weight Systolic blood pressure Diastolic blood pressure Provider Name and Address Organization Details Last Updated DateTime 03/22/2024 160.02 cm 27.8 kg/m2 02371.28 g 104 mm[Hg] 78 mm[Hg] Rosalia Ramachandran [place] [facility] 5 14:24:22 Social History Question Answer Notes LastModified by Organizat ion Details LastModified Time Tobacco Smoking Status Current Some Day Smoker Janice Moe [facility], [facility] 07/30/2023 15:12:05 Are You Blind Or Do You Have Difficulty Seeing? No [email or web address] Information not available 07/30/2023 Are You Currently Employed? Yes [email or web address] Information not available 07/30/2023 Are You Deaf Or Do You Have Serious Difficulty Hearing? No [email or web address] Information not available 07/30/2023 What Type Of Diet Are You Following? 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 3 3 Living 2 Adopted. [email or web address] Information not available 03/22/2024 Are There Any Occupational Health Risks Where You Work? Yes [email or web address] Information not available 07/30/2023 What Is Your Relationship Status? 10 Years = Jamil And All Is Good Information not available 07/30/2023 Are You Sexually Active? Yes [email or web address] Information not available 07/30/2023 At What Age Did You Start Smoking Tobacco? 12 [email or web address] Information not available 07/30/2023 How Much Tobacco Do You Smoke? 2 PPW [email or web address] Information not available 07/30/2023 Do You Use Any Illicit Or Recreational Drugs? No [email or web address] Information not available 07/30/2023 How Many Years Have You Smoked Tobacco? 26 [email or web address] Information not available 07/30/2023 Sex: Unknown Functional Status Question Answer Note LastModified by Organizat ion Details LastModified Time What is your exercise level? Occasional [email or web address] Information not available 07/30/2023 Mental Status None recorded. Family History Relationship Description Onset Age of this Age Resolved Age Notes LastModified by Organization Details LastModified Time Mother Malignant tumor of lung small cells- passed 2016 [email or web address] Not available 12/10/2023 17:05:50 Father Hypertensive disorder [email or web address] Not available 2023 17:07:02 Father Malignant neoplasm of liver [email or web address] Not available 2024 14:20:58 Father Malignant neoplasm of skin Not available 2024 14:21:13 Father Hernia of abdominal cavity [email or web address] Not available 2024 14:21:30 Medical History Condition Response Other Cancer N High Blood Pressure N Colon Cancer N Cytomegalovirus N Hyperthyroidism N Breast Cancer N Herpes (HSV) N MRSA N Blood Transfusion Y Lung Cancer N Depression Y Hypothyroidism N Incontinence N Panic Attacks Y Neurological Disorder N Deep Vein Thrombosis N Anxiety Disorder N Autoimmune disease Y Arthritis Y Tuberculosis/Positive PPD N Shingles N Polycystic Ovarian Syndrome N Infertility N Cervical Cancer N Hematuria N Chlamydia N Varicosities N Stroke N Crohn's Disease N Seasonal allergies Y Alzheimer's/Dementia N COPD/Emphysema N HPV/Genital Warts N Endometriosis N IBS (Irritable Bowel Syndrome) N History of Abnormal Pap N High Cholesterol Y Liver Disease N Fibromyalgia N Kidney Infection N Ulcer Y Kidney Disease Y HIV N Gallbladder disease N Von Willebrand disease N Sickle Cell Disease/Trait N ADD/ADHD N Eating Disorder N Diabetes Mellitus (non-insulin dependent ) N Anemia Y Ovarian Problems N Multiple Sclerosis N Gonorrhea N Frequent Urinary Tract infections N Osteopenia N Headaches/migraines Y GERD (reflux) N Ovarian Cancer N Diabetes (insulin dependent) N Seizures/Epilepsy N Breast Problems N Fibroids Y Asthma N Heart Attack N Endometrial Cancer N Lupus Y Rubella N Blood Clotting Disorder Y Bipolar Disorder N Diabetes Mellitus (during ) N Ulcerative Colitis N Hepatitis N Heart Disease N Pulmonary Embolism N RPR N Chicken Pox Y Osteoporosis N Gynecological History Statement/Question Response Flow Heavy Frequency of Cycle (Q days) 30 Date of LMP 03/21/2024 HPV Vaccine N Date of Last Pap Smear Duration of Flow (days) 5 Most Recent Mammogram 12/26/2023 Current Control Method Tubal Ligat ion Age at Menarche 12 Obstetrics History GPAL:G 3 P 3 0 0 3 Type Value Full Term 3 Living 3 Total 3 Past Encounters Encounter ID Performer Location Encounter Start Date Encounter Closed Date Diagnosis/Indication Diagnosis SNOMED-CT Code Diagnosis ICD10 Code Diagnosis Note [id number] Elmo Thompson MD [facility] [address] [place] [address] 07/30/2023 14:49:18 08/05/2023 15:44:01 Menorrhagia 911216289 N92.0 COUNSELING was provided today regarding the following topics: . You are scheduled for an endometria l ablation which may be done a few different ways and we will proceed with the type we feel seems best for you. You have a substantia l risk for complicati ons including blood transfusio n, hysterecto my and or if you become after an endometria l ablation. A the time of ablation we highly suggest permanet sterilizat ion and at least a reliable long acting contracept jeanine. Risks of surgery discussed which include: infection, undesirabl e result with continued bleeding, cramping or pain, possibly leading to hysterecto my; electrolyt e imbalance which could lead to a seizure; perforatio n of uterine wall or transfer of energy through the uterine wall leading to damage to adjacent structures such as bowel and bladder; blood clots.Samuel tional diagnosis detail: Menorrhagi a with regular cycle We will have her come back and get an ultrasound and a Pap smear see again so she is going to come back for an ultrasound she is making that appointmen t up therelabs to be drawn at [facility] Iron defic iency anemia due to blood loss 337308787 D50.0 Additional diagnosis detail: Iron deficiency anemia due to chronic blood loss [id number] Elmo Thompson MD [facility] [address] [place] [address] 12/10/2023 16:24:22 12/11/2023 17:52:55 Pain of breast 71514475 N64.4 Breast lump 71443603 N63 .0 we will send [facility] if needed Menometrorrhagia 6973236 08 N92.1 COUNSELING was provided today regarding the following topics: . The surgical procedure for Da German total Laparoscop ic Hyst and bilateral salpingect gayla, the alternativ es and risks including but not limited to anethesia, bleeding, infection, injury to surroundin g organs, improper wound healing, DVT, VTE, PE, pneumonia, possible need for laparotomy , ureteral or bladder injury, , or possible need for more surgery at a later date were all discussed and explained. The procedure was explained with the aid of an anatomical model and pamphlet. The patient wants to keep her ovaries unless they look abnormal or we discussed removing them and ramificati ons of surgical menopause as well as recommend to do HRT in some regard . She understand s that her uterus is being removed and she then will not be able to carry a for herself or anyone else. The expected recovery was discussed. The patient was able to tell me back a good understand ing of the procedure, it's indication , the risks and recovery. She has no questions and wants to proceed as scheduled Secondary dysmenorrhea 23895678 N94.5 Anemia due to chronic blood loss 158510501 D50.0 Lump in up per outer quadrant of right breast 2755574968 28994 N63.11 Ordered US and mammogram for further evaluation . [id number] Elmo Thompson MD [facility] [address] [place] [address] 03/22/2024 14:08:12 03/24/2024 16:16:50 Menometrorrhagia 969543173 N92.1 COUNSELING was provided today regarding the following topics: . The surgical procedure for Da German total Laparoscop ic Hyst and bilateral salpingect gayla, the alternativ es and risks including but not limited to anethesia, bleeding, infection, injury to surroundin g organs, improper wound healing, DVT, VTE, PE, pneumonia, possible need for laparotomy , ureteral or bladder injury, , or possible need for more surgery at a later date were all discussed and explained. The procedure was explained with the aid of an anatomical model and pamphlet. The patient wants to keep her ovaries unless they look abnormal or we discussed removing them and ramificati ons of surgical menopause as well as recommend to do HRT in some regard . She understand s that her uterus is being removed and she then will not be able to carry a for herself or anyone else. The expected recovery was discussed. The patient was able to tell me back a good understand ing of the procedure, it's indication , the risks and recovery. She has no questions and wants to proceed as scheduled Secondary dysmenorrhea 48031003 N94.5 Anemia due to chronic blood loss 914169760 D50.0 10.5 Health Concerns Section Related Observation LastModified by Organization Detai ls LastModified Time None Recorded Concern Status LastModified by Organization Details LastModified Time None Recorded Advance Directives Directive None Recorded Payers Encounter Date Sequence Insurance Name Policy Number Policy Mendoza Covered Member ID Mendoza Member ID Guarantor Name 07/30/2023 1 [facility] (MEDICAID HMO) [id number] Santy Okeefe [id number] Santy Okeefe 12/10/2023 1 [facility] (MEDICAID HMO) [id number] Santy Milianer [id number] Santy Okeefe 03/22/2024 1 [facility] (MEDICAID HMO) [id number] Santy Okeefe [id number] Santy Okeefe Notes Date Note Type Note Provider Name and Address Organization Details Recorded Time 07/30/2023 text/html Had a tubal in 2 015 after her last , ever since then her periods are extremely heavy pt wears 2 super tampons and an overnight pad. 5-7 days is usually the length of her periods. Pt menses was not heavy prior to tubal, pt has Lupus and nephrotic syndrome. and bleeds theough clothes and 2 tampons and a diaper and has anemia and blood transfusion and has never had an US and has been 9 years since she has had a pelvic .......has cramps and she and has postional dyspareunia and no change in bowel parttern and she has dierrhetics and has some paracentesis w/nephrotic sx Elmo Thompson MD [address] [place] [address], [phone], [facility] IV 08/02/2023 20:02:59 12/10/2023 text/html Breast ProblemReported bypatient.Location:[facility]; in [place] The patient verbally consented to documentation via virtual scribe for this encounter. Santy is a 38-year-old female who is here for followup on US and complaints of breast pain. She reports this started Friday night and reports she feels shooting pains. She denies any breast discharge. She also started her periods 12/07 and reports her periods are heavy and has clots the size of her fist. She reports having these symptoms for about 9 years. She is interested in aggressive treatment. She has had tubal ligation in the past and 3 C-sections in the past. Elmo Thompson MD [address] [place] [address], [phone], [facility] 12/11/2023 15:48:08 03/22/2024 text/html The patient elvis gray consented to documentation via virtual scribe for this encounter. Santy is a 38-year-old woman who presents today for a hysterectomy consult due to menorrhagia. Patient stated that her menstrual cycles have been really heavy lately. She underwent mammogram, which were within normal limits. Elmo Thompson MD [facility] [place], [address], [facility] 03/23/2024 14:45:44 OBGyn Episode Ob Episode Information Episode Created Date Number of Fetuses Patient Bloodtype Patient rh Status Prepregnancy Weight lbs Domestic Partner Domestic Partner Phone Father Name Lighting Engineer Status 12/10/19 1 CLOSED Fetus Data First Name Last Name Admitted to NICU Weight (g) Sex Living Outcome Pediatric Complications Fetus ID Race Codes Race Delivery Type 3515.33 8 F Full Term [id number] Repeat Milan Calculation Initial Milan Date Initial Exam Date Initial Exam Provider Initial Ultrasound Date Last Menstrual Period Date Ultra Sound Weeks Gestation 0 Eighteen To Twenty Week Milan Update Ultra Sound Date Fundal Height At Umbil Quickening Date Ultra Sound Latest Weeks Gestation Final [place] Confirmed By Final [place] Confirmed Date Final [place] Date Ultra Sound Latest Days Gestation 0 0 Menstrual History Last Menstrual Date Menses Monthly On Bcp Conception Prior Menses Frequency Hcg Plus Date Menarche Onset Age Delivery Information Delivery Date Delivery Type Labor Anesthesia Weeks Gestation Incision Type Labor Labor Length Hrs Delivered By Post Complications Tubal Sterilization Discharge Date Comments 7 Discharge Information Feeding Method Contraceptive Method Maternal HG B and HCT Levels Ob Episode Information Episode Created Date Number of Fetuses Patient Bloodtype Patient rh Status Prepregnancy Weight lbs Domestic Partner Domestic Partner Phone Father Name Lighting Engineer Status 12/10/19 24 1 CLOSED Fetus Data First Name Last Name Admitted to NICU Weight (g) Sex Living Outcome Pediatric Complications Fetus ID Race Codes Race Delivery Type 3345.24 1 F Full Term [id number] Primary Milan Calculation Initial Milan Date Initial Exam Date Initial Exam Provider Initial Ultrasound Date Last Menstrual Period Date Ultra Sound Weeks Gestation 0 Eighteen To Twenty Week Milan Update Ultra Sound Date Fundal Height At Umbil Quickening Date Ultra Sound Latest Weeks Gestation Final [place] Confirmed By Final [place] Confirmed Date Final [place] Date Ultra Sound Latest Days Gestation 0 0 Menstrual History Last Menstrual Date Menses Monthly On Bcp Conception Prior Menses Frequency Hcg Plus Date Menarche Onset Age Delivery Information Delivery Date Delivery Type Labor Anesthesia Weeks Gestation Incision Type Labor Labor Length Hrs Delivered By Post Complications Tubal Sterilization Discharge Date Comments 2 Discharge Information Feeding Method Contraceptive Method Maternal HG B and HCT Levels Ob Episode Information Episode Created Date Number of Fetuses Patient Bloodtype Patient rh Status Prepregnancy Weight lbs Domestic Partner Domestic Partner Phone Father Name Lighting Engineer Status 12/10/19 24 1 CLOSED Fetus Data First Name Last Name Admitted to NICU Weight (g) Sex Living Outcome Pediatric Complications Fetus ID Race Codes Race Delivery Type 3430.06 2704 M Full Term [id number] Repeat Milan Calculation Initial Milan Date Initial Exam Date Initial Exam Provider Initial Ultrasound Date Last Menstrual Period Date Ultra Sound Weeks Gestation 0 Eighteen To Twenty Week Milan Update Ultra Sound Date Fundal Height At Umbil Quickening Date Ultra Sound Latest Weeks Gestation Final [place] Confirmed By Final [place] Confirmed Date Final [place] Date Ultra Sound Latest Days Gestation 0 0 Menstrual History Last Menstrual Date Menses Monthly On Bcp Conception Prior Menses Frequency Hcg Plus Date Menarche Onset Age Delivery Information Delivery Date Delivery Type Labor Anesthesia Weeks Gestation Incision Type Labor Labor Length Hrs Delivered By Post Complications Tubal Sterilization Discharge Date Comments 5 Discharge Information Feeding Method Contraceptive Method Maternal HG B and HCT Levels
--- OUTSIDE RECORDS SUMMARY | 2024-04-16 12:13 | XMS_ITS ---
Author Organization [facility] Address [address] [place] [address] Care Team Providers Care Personnel Administrator Name Role Phone Natalia Saucedo Primary Care Provider [phone] REASON FOR VISIT appt check in Encounters Encounter Location Date Provider Diagnosis [facility] [address] [place] [address] 03/18/2023 Natalia Saucedo Plan Of Treatment No Information Progress Notes * Matt OKEEFEOB: 4 (37 yo F)Acc No.[id number]:03/18/2023 Patient: Santy SINGH :1985 A ge:37 Y S ex:Female Address:[address], [place] [address] * true * Date: Generated for Jose L carson/Shawna/eTransmitting on: 0 04/16/2024 12:12 PM 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
--- OUTSIDE RECORDS SUMMARY | 2024-04-16 12:13 | XMS_ITS | Patient Health Record ---
Author Organization [facility] Address [address] [place] [address] Care Team Providers Care Application Manager Name Role Phone Natalia Saucedo Primary Care Provider [phone] Reason For Referral No Information Plan Of Treatment No Information Insurance Providers Payer Name Payer Address Payer Phone Subscriber Number Group Number Insured Name Patient Relationship to Insured Coverage Start Date Coverage End Date [employer] [address] [place] [address] [id number] Santy Okeefe Self - patient is the insured 4 [employer] [address] [place] [address] [id number] Santy Okeefe Self - patient is the insured 4
--- NOTE | 2024-04-16 13:38 | ECG_ITS ---
Test Date: 2024-04-16 14:31:58 Measurements Intervals [place] Rate: 80 P: 67 AL: 165 QRS: 42 QRSD: 86 T: 64 QT: 380 QTc: 439 Interpretive Statements SINUS RHYTHM BORDERLINE T WAVE ABNORMALITY- ANTERIOR LEADS BORDERLINE ECG No previous ECG available for comparison Electronically Signed On 04-16-2024 14:46:45 [employer]BORNE AND AIR DELIVERY SPECIALIST by Nakul Loza D.O.
--- NOTE | 2024-04-16 13:43 | ED.SOB ---
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 today patient presents to the emergency department with profound swelling, weight gain, subjective dyspnea and feeling like she is going through a significant flare of her nephrotic syndrome. Her last flare was 2 years prior and she follows with Dr. Mejia on outpatient basis. She states that she thinks she needs steroids as it has previously helped in the past. She has been taking 2 mg of Bumex at home without any significant urination. Has not urinated over last 2 days.. Over last week she has been having profound swelling in her face, hands, feet and describing shortness of breath. Denies any chest pain, fever, chills. She is extremely anxious and tearful, brought back to room 4 for evaluation. Related Data Home Medications ?Medication ?Instructions ?Recorded ?Confirmed ?Last Taken ?Type melatonin 5 mg tablet 5 mg PO HS PRN Insomnia 08/17/19 05/08/21 08/16/19 21:00 History nicotine 21 mg/24 hr daily 1 patch transdermal DAILY 01/12/20 05/08/21 Unknown History transdermal patch prednisone 10 mg tablet 10 mg PO DAILY 09/06/21 Unknown History Allergies Allergy/AdvReac Type Severity Reaction Status Date / Time adhesive tape AdvReac Unknown Rash Verified 09/06/21 10:36 Review of Systems Review of Systems: As reviewed above in HPI [facility] Past Medical History Medical History Rheumatoid arthritis Arthritis Depression Hair loss Psoriasis Cellulitis Excessive thirst Kidney disease Kidney infection UTI (urinary tract infection) Constipation Abdominal pain Nausea High cholesterol Wheezing SOB (shortness of breath) Ear pain Hearing loss Wears glasses Light headedness Dizziness Chronic headaches Trigger finger of right thumb Trigger finger, left middle finger Generalized edema Elevated d-dimer Abdominal fullness Nephrotic syndrome Normal cardiac stress test (~08/2019) Previous echocardiogram showed an ejection fraction of 55-60% with mild mitral and tricuspid regurgitation. Angioedema Depression with anxiety Gastroesophageal reflux disease Craniosynostosis Melanoma Left upper extremity, status post excision. Pleural effusion Chest pain Negative stress test 10/2019 Hyperlipidemia Not currently on medication. Tobacco abuse Surgical History Surgical History History of cranial surgery As a child for craniosynostosis. History of tubal ligation History of 3 sections History of melanoma excision (~2018) Left upper extremity. Family History Family History Sibling Testicle cancer Mother Small cell lung cancer Hypertension Father Throat cancer Hernia Melanoma Other Asthma Depression High cholesterol Kidney disorder Social History Social History Social History: The patient lives in [place] with her and 4 children. She has 1 adult child that is out of the home. 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 She smoked 1PPD for 20 years. She quit three weeks ago using the nicotine patches. She has a history of IV methamphetamine use for 2 years and quit over a year ago. She designates her , Jamil, as her surrogate decision maker and she wishes to be a full code. Smoking packs per day: 1 Smoking cigarettes per day: 20.0 Years smoked: 20 Smoking pack-years: 20.00 Smoking status: Current every day smoker Tobacco type: cigarettes Additional smoking assessment comments: Using nicotine patch Alcohol intake: former Alcohol use details: She reports no recent alcohol use. Substance use: former Substance use type: marijuana and methamphetamine Other substance usage details: Current marijuana user Living arrangements: with family Occupation/Education: occupation Gender identity (if verbalized by the patient): Female Sexual Orientation (if Verbalized by the Patient): Straight or Heterosexual Spiritual care concerns: No Agree to blood products: Yes Exam Narrative: GENERAL: uncomfortable appearing, anxious and tearful HEAD: [Normocephalic, atraumatic.] EYES: profound periorbital edema ENT: Nares clear, no rhinorrhea or epistaxis. Mucous membranes moist. NECK: Supple. CHEST: [Clear to auscultation. No respiratory distress.] HEART: [ tachycardic rate but regular rhythm]. No murmur heard. [Normal peripheral pulses.] ABDOMEN: [Soft, nondistended], [nontender], [No rigidity or guarding] EXTREMITIES: Normal range of motion. 2+ pitting edema to both hands and feet SKIN: Warm, dry, no rash. NEURO: [No focal deficits]. Alert and oriented [x3.] PSYCH: [Normal mood and affect.] Course Vital Signs Vital signs: Vital Signs Temperature 36.4 C 04/16/24 12:06 Pulse Rate 112 H 04/16/24 12:06 Respiratory Rate 22 H 04/16/24 12:06 Blood Pressure 143/117 H 04/16/24 12:06 Pulse Oximetry 96 04/16/24 12:06 Oxygen Delivery Room Air 04/16/24 12:06 Temperature 36.4 C 04/16/24 12:06 Pulse Rate 112 H 04/16/24 12:06 Respiratory Rate 22 H 04/16/24 12:06 Blood Pressure 143/117 H 04/16/24 12:06 Pulse Oximetry 96 04/16/24 12:06 Oxygen Delivery Room Air 04/16/24 12:06 MDM - SOB/Dyspnea MDM Narrative Medical decision making narrative: 39-year-old female with 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 She presents to the emergency department with profound swelling in her extremities, facial features and a 20 kg weight gain over last 7 days. Her dry weight is approximately 60 kg. She follows with Dr. Mejia on outpatient basis. She states that she feels like this is a significant flare for her and she has had previous flares most recently 2 years prior. Requesting steroids that has helped her in the past. Denies any fever, chills. Endorses some subjective shortness of breath, but she is also very anxious and uncomfortable appearing. She has profound periorbital edema and peripheral edema in her arms and legs. Clear breath sounds. Afebrile and saturating 96% on room air. No recent steroid use, has been taking Bumex at home but urinating less often. Presently she weighs 80 kg. IV was established and she was given 2 mg of IV Bumex, 60 mg of p.o. prednisone as previous recommendations from her urologist were documented in the EMR. CBC and CMP were obtained as well as urinalysis. Will evaluate if she needs any abdomen replacement. Patient would require admission to the hospital for continued diuresis and management of her flare. patient was re-evaluated, did get a Hartman catheter placed with significant urinary output. She was diuresing appropriately and already seems to be less puffy around her face and hands. Her creatinine is within normal limits, urinalysis does show some microscopic hematuria and protein consistent with her nephrotic syndrome. No significant leukocytosis or significant electrolyte derangements. Consult was placed to Nephrology and patient will be admitted to the hospital. I discussed the case with the P currently covering the hospitalist service. Patient was accepted to a medical-surgical bed at this time is a full admission. Prednisone daily with scheduled, she received albumin infusions secondary to hypoalbuminemia which will help with the oncotic pressure and diuresis as well. Patient was comfortable with plan of care for admission. Medical Records Attestation: I reviewed the patient's medical records. Lab Data Attestation: I reviewed the patient's lab results. 04/16/24 13:56 04/16/24 13:56 Labs: Lab Results 04/16/24 Range/Units 13:56 WBC 5.4 (4.5-10.0) K/mm3 RBC 4.97 (4.2-5.4) M/mm3 Hgb 11.8 L (12.0-15.0) g/dL Hct 39.0 (37.0-47.0) % MCV 78.5 L (80-100) fl MCH 23.7 L (26-34) pg MCHC 30.3 L (32-36) g/dl RDW 21.2 H (11.5-14.5) % Plt Count 471 H (150-375) k/mm3 MPV 10.2 (7.4-10.4) fl Immature Gran % (Auto) 0.6 H (0-0.5) % Neut % (Auto) 62.7 (45.5-73.1) % Lymph % (Auto) 21.8 (18.3-44.2) % Ross % (Auto) 11.9 H (2.6-8.5) % Eos % (Auto) 1.9 (0-4.4) % Baso % (Auto) 1.1 (0.2-1.2) % Lymph # (Auto) 1.17 (0.9-3.2) K/mm3 Ross # (Auto) 0.6 (0.1-0.6) K/mm3 Eos # (Auto) 0.1 (0-0.3) K/mm3 Baso # (Auto) 0.1 (0.0-0.1) K/mm3 Abs Immat Gran (auto) 0.03 (0.00-0.031) K/mm3 Absolute Neuts (auto) 3.4 (1.3-6.7) K/mm3 Absolute Nucleated RBC 0.000 (0.0-0.012) K/mm3 Nucleated RBC % 0.0 (0.0-0.2) % Sodium 133 L (137-145) mmol/L Potassium 4.3 (3.4-5.0) mmol/L Chloride 104 (98-107) mmol/L Carbon Dioxide 26 (22-30) mmol/L Anion Gap 3 L (4-12) mmol/L BUN 11 (7-17) mg/dL Creatinine 0.46 L (0.7-1.0) mg/dL Estim Creat Clear Calc 110 ml/min Estimated GFR > 60 (59 - ) Glucose 83 (65-110) mg/dL Calcium 8.1 L (8.4-10.2) mg/dL Magnesium 1.7 (1.6-2.3) mg/dL Total Bilirubin 0.3 (0.2-1.3) mg/dL AST 39 H (14-36) U/L ALT 29 (6-35) U/L Alkaline Phosphatase 52 (38-126) U/L Total Protein 6.0 L (6.3-8.2) g/dL Albumin 2.3 L (3.5-5.1) g/dL Urine Color Yellow (Yellow) Urine Appearance Clear (Clear) Urine pH 8.5 (5.0-9.0) Ur Specific [place] 1.015 (1.001-1.035) Urine Protein 4+ H (Negative) mg/dL Urine Glucose (UA) Negative (Negative) mg/dL Urine Ketones Negative (Negative) mg/dL Ur Blood (Man) 3+ H (Negative) Urine Nitrate Negative (Negative) Urine Bilirubin Negative (Negative) Urine Urobilinogen 0.2 (<2.0) mg/dL Leukocyte Esterase Rfl Negative (Negative) POP/UL Urine RBC >100 H (0-2) /hpf Urine WBC 0-5 (0-3) /hpf Ur Squamous Epith Cells None seen (Few) /hpf Urine Bacteria None seen /hpf Urine Casts 0-2 Imaging Data Attestation: I personally reviewed and interpreted this imaging study as follows: My impression: Impressions Chest X-Ray 04/16/24 14:07 IMPRESSION: 1. Small left pleural effusion. 2. Airspace opacities at left lung base, likely atelectasis. Discharge Plan Discharge Clinical Impression: Nephrotic syndrome, Peripheral edema Patient Disposition: Home, Self-Care Condition: Stable Instructions: Antibiotic Form Patient Language: Fijian Prescriptions: No Action prednisone 10 mg tablet 10 mg PO DAILY melatonin 5 mg Tablet 5 mg PO HS PRN (Reason: Insomnia) nicotine 21 mg/24 hr Patch 24 Hour 1 patch TRANSDERMAL DAILY (DME) compression socks, medium Misc See Rx Instructions .ROUTE .MEDSUPPLY Qty: 1 0RF Rx Instructions: As directed ketoconazole 2 % cream 1 applic topical DAILY Qty: 60 0RF bumetanide 1 mg tablet 1 mg PO BID 30 Days Qty: 60 5RF sumatriptan succinate [Imitrex] 50 mg tablet See Rx Instructions PO .COMPLEX Qty: 10 6RF Rx Instructions: take 1 tab at onset of headache; if no relief may repeat 1 tab after at least 2 hrs; max = 4 tabs/24 hr PO Follow-up/Referrals: Litzy Clayton MD [Primary Care Provider] - Time of Disposition: 15:37
[2024-04-16] MEDS: BUMETANIDE INJ 1 MG/4 ML VIAL 2 MG IV PUSH (13:51)
[2024-04-16] MEDS: predniSONE 20 MG TABLET 60 MG PO (13:52)
--- OUTSIDE RECORDS SUMMARY | 2024-04-16 13:58 | XMS_ITS | CONTINUITY OF CARE DOCUMENT ---
Author Name donna thompson Address Unknown Organization [facility] Address [address] [place] [address] Phone [phone] Care Team Providers Care Restaurant Supervisor Name Role Phone Joao Hopson MD Unavailable [phone] Joao Hopson MD Unavailable [phone] INSURANCE PROVIDERS Payer name Policy type / Coverage type Media red alliance party ID [facility] Medicaid [id number]
--- OUTSIDE RECORDS SUMMARY | 2024-04-16 13:58 | XMS_ITS | Clinical Summary ---
Author Organization [facility] Address [address] [place] [address] Care Team Providers Care Coastal/Harbor Defense Officer Name Role Phone Giovanni Mejia MD Unavailable [phone] Litzy Clayton MD Primary Care Provider [phone] Allergies No known active allergies Medications bumetanide [...] (Latest Contact Info) Description 04/29/2024 12:48 PM HEALTHCARE MANAGEMENT Hospital Encounter [facility] [place] [address] Elmo Thompson MD [address] [place], [place] [address]dg [address] [place] [address] 04/29/2024 12:48 PM HEALTHCARE MANAGEMENT - 04/29/2024 4:36 PM HEALTHCARE MANAGEMENT [place] [address] Elmo Thompson MD [address] [place], [place] [address] [address] [place] [address] ROBOTIC XI ASSISTED TOTAL LAPAROSCOPIC HYSTERECTOMY, BILATERAL SALPINGECTOMY, CYSTOSCOPY Scheduled Procedures Name Priority Associated Diagnoses Date/Ti me ROBOTIC XI HYSTERECTOMY N92.4, N94.4- MENORRHAGIA, DYSMENORRHEA 04/29/2024 12:48 PM HEALTHCARE MANAGEMENT Health Maintenance Due Date Last Done Comments [...] complete this topic Insurance [employer] Care Teams Coastal/Harbor Defense Officer Relationship Specialty Start Date End Date Litzy Clayton MD [address] [place] [address] PCP - General FAMILY PRACTICE 11/27/23 Giovanni Mejia MD [address] [place] [address] Referring Physician NEPHROLOGY 11/27/23
[2024-04-16 14:10] LABS: Basophils Absolute Auto 0.1 K/mm3 (0.0-0.1); Basophils Percent Auto 1.1 % (0.2-1.2); Eosinophils Absolute Auto 0.1 K/mm3 (0-0.3); Eosinophils Percent Auto 1.9 % (0-4.4); Hemoglobin 11.8 g/dL (12.0-15.0); Immature Granulocyte Absolute 0.03 K/mm3 (0.00-0.031); Immature Granulocyte Percent A 0.6 % (0-0.5); Lymphocytes Absolute Auto 1.17 K/mm3 (0.9-3.2); Lymphocytes Percent Auto 21.8 % (18.3-44.2); Mean Corpuscular HGB Conc 30.3 g/dl (32-36); Mean Corpuscular Hemoglobin 23.7 pg (26-34); Mean Corpuscular Volume 78.5 fl (80-100); Mean Platelet Volume 10.2 fl (7.4-10.4); Monocytes Absolute Auto 0.6 K/mm3 (0.1-0.6); Monocytes Percent Auto 11.9 % (2.6-8.5); Neutrophils Absolute Auto 3.4 K/mm3 (1.3-6.7); Neutrophils Percent Auto 62.7 % (45.5-73.1); Platelet Count Result 471 k/mm3 (150-375); Red Blood Count 4.97 M/mm3 (4.2-5.4); Red Cell Distribution Width 21.2 % (11.5-14.5); White Blood Count 5.4 K/mm3 (4.5-10.0)
[2024-04-16 14:13] LABS: Add Urine Microscopic? YES; Appearance Urine Clear (Clear); Bacteria Urine None Seen /hpf; Bilirubin Urine Negative (Negative); Blood Urine 3+ (Negative); Color Urine Yellow (Yellow); Glucose Urine UA Negative (Negative); Ketones Urine Negative (Negative); Leukocyte Esterase Ur Negative LEU/UL (Negative); Nitrate Urine Negative (Negative); Non Pathogenic Casts 0-2; Protein Urine 4+ mg/dL (Negative); RBC Urine >100 /hpf (0-2); Specific Grav Ur 1.015 (1.001-1.035); Squamous Epithelial Cell Urine None Seen /hpf (Few); Urobilinogen Urine 0.2 mg/dL (<2.0); WBC Urine 0-5 /hpf (0-3); pH Urine 8.5 (5.0-9.0)
[2024-04-16 14:18] LABS: Alanine Aminotransferase 29 U/L (6-35); Albumin Level 2.3 g/dL (3.5-5.1); Alkaline Phosphatase 52 U/L (38-126); Anion Gap 3 mmol/L (4-12); Aspartate Amino Transferase 39 U/L (14-36); Bilirubin,Total 0.3 mg/dL (0.2-1.3); Blood Urea Nitrogen 11 mg/dL (7-17); Calcium 8.1 mg/dL (8.4-10.2); Carbon Dioxide 26 mmol/L (22-30); Chloride 104 mmol/L (98-107); Estimated CRCL calculation 110 ml/min; Estimated Glomerular Filt Rate > 60; Glucose 83 mg/dL (65-110); Magnesium 1.7 mg/dL (1.6-2.3); Potassium 4.3 mmol/L (3.4-5.0); Sodium 133 mmol/L (137-145)
[2024-04-16] MEDS: NICOTINE (*PBKC) 21 MG PATCH 1 PATCH TRANSDERM (14:45)
[2024-04-16 16:14] LABS: BEDSIDEPREGUCG Negative (Negative)
[2024-04-16] MEDS: ALBUMIN HUMAN 25% 25 GM/100 ML 100 ML IVPB (16:26)
--- NOTE | 2024-04-16 18:55 | ADMGEN ---
This patient, Santy Okeefe, was admitted to [address] [place] [address] Room 332-01 and arrived at 1755. Patient/family oriented to hospital policies and general routines including ID bracelet, bed and alarms, visiting hours, pain management, procedures, bathroom and other care routines, personal items, smoking policy, room service/diet, and visiting hours. Information on how to activate the Rapid Response Team has been discussed. Patient/Family are encouraged to report perceived risks to care and to ask questions if they do not understand what they are told or what they should do.
--- NOTE | 2024-04-16 23:01 | PM.IMHP ---
H&P: HPI History of Present Illness Date/Time: 04/16/24 23:01 Chief Complaint: Generalized swelling Narrative: 39-year-old female with a past medical history nephrotic syndrome and minimal change disease, migraines, active tobacco abuse presenting to [place] [facility] with complaint of profound generalized swelling weight gain of 20 kg and shortness of breath for 7 days. The patient follows with Dr. Mejia in the outpatient setting her last flare reported by the patient was a few years ago. 70-100 mg of prednisone daily but has been off of that for 1 year now. She also reports lack of urination for 2 days now in spite of taking her prescribed Bumex. Patient was anxious on arrival. On presentation she was saturating well on room air with blood pressure 143/117. A one-view portable chest x-ray demonstrated a small left pleural effusion and airspace opacities at the left lung likely indicating atelectasis. She was given Bumex 2 mg IV x1, albumin IV infusion, prednisone 60 mg p.o. x1. A Hartman catheter was placed with significant urinary output. Her swelling began to improve. Nephrology was contacted from the ER. Patient was again seen on the medical surgical floor and she reports feeling improved regarding her presenting symptoms but she does have a moderate headache and would like her migraine medicine. She also requested Ativan which she reports she takes as needed. Review of Systems Review of Systems: All systems reviewed & are unremarkable except as noted in HPI and below (HPI) [facility] Past Medical History Medical History Rheumatoid arthritis Arthritis Depression Hair loss Psoriasis Cellulitis Excessive thirst Kidney disease Kidney infection UTI (urinary tract infection) Constipation Abdominal pain Nausea High cholesterol Wheezing SOB (shortness of breath) Ear pain Hearing loss Wears glasses Light headedness Dizziness Chronic headaches Trigger finger of right thumb Trigger finger, left middle finger Generalized edema Elevated d-dimer Abdominal fullness Nephrotic syndrome Normal cardiac stress test (~08/2019) Previous echocardiogram showed an ejection fraction of 55-60% with mild mitral and tricuspid regurgitation. Angioedema Depression with anxiety Gastroesophageal reflux disease Craniosynostosis Melanoma Left upper extremity, status post excision. Pleural effusion Chest pain Negative stress test 10/2019 Hyperlipidemia Not currently on medication. Tobacco abuse Surgical History Surgical History History of cranial surgery As a child for craniosynostosis. History of tubal ligation History of 3 sections History of melanoma excision (~2018) Left upper extremity. Family History Family History Sibling Testicle cancer Mother Small cell lung cancer Hypertension Father Throat cancer Hernia Melanoma Other Asthma Depression High cholesterol Kidney disorder Social History Social History Social History: The patient lives in [place] with her and 4 children. She has 1 adult child that is out of the home. 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 She smoked 1PPD for 20 years. She quit three weeks ago using the nicotine patches. She has a history of IV methamphetamine use for 2 years and quit over a year ago. She designates her , Jamil, as her surrogate decision maker and she wishes to be a full code. Smoking packs per day: 1 Smoking cigarettes per day: 20.0 Years smoked: 20 Smoking pack-years: 20.00 Smoking status: Current every day smoker Tobacco type: cigarettes Second hand tobacco smoke exposure: Yes Additional smoking assessment comments: Using nicotine patch Alcohol intake: former Alcohol use details: She reports no recent alcohol use. Substance use: current Substance use type: marijuana Other substance usage details: former IV methamphetamine use; last used >10 years, no alcohol intake >8 yr Do You Feel Safe in your Home?: Yes Lack of Transportation: YES Lack of Food: Often True Current Housing: I Do Not Have Housing Concerned About Future Housing: YES Difficulty Paying Gas/Electric Bills: YES Difficulty Paying for Meds: YES Currently Unemployed: No Education: Bachelor's Degree Difficulty w/ Childcare or Family Care: No Living arrangements: with family Occupation/Education: occupation Gender identity (if verbalized by the patient): Female Sexual Orientation (if Verbalized by the Patient): Straight or Heterosexual Spiritual care concerns: No Agree to blood products: Yes Meds Home Medications and Allergies Home Medications ?Medication ?Instructions ?Recorded ?Confirmed ?Type melatonin 5 mg tablet 5 mg PO HS PRN Insomnia 08/17/19 04/16/24 History nicotine 21 mg/24 hr daily 1 patch transdermal DAILY 01/12/20 04/16/24 History transdermal patch compression socks, medium #1 ea 01/14/20 04/16/24 Rx prednisone 10 mg tablet 10 mg PO DAILY 09/06/21 04/16/24 History ketoconazole 2 % topical cream 1 applic topical DAILY #60 grams 03/31/22 04/16/24 Rx bumetanide 1 mg tablet 1 mg PO BID 30 days #60 tabs 04/13/23 04/16/24 Rx sumatriptan succinate 50 mg tablet See Rx Instructions PO .COMPLEX 03/29/24 04/16/24 Rx (Imitrex) #10 tabs ferrous sulfate 325 mg (65 mg mg 04/16/24 History iron) tablet (FeroSul) Allergies Allergy/AdvReac Type Severity Reaction Status Date / Time adhesive tape AdvReac Unknown Rash Verified 09/06/21 10:36 Vital Signs Vital Signs - 24 hr 04/16/24 12:06 04/16/24 13:02 04/16/24 13:19 Temperature 97.6 F Pulse Rate 112 H 91 82 Respiratory Rate 22 H 16 11 L Blood Pressure 143/117 H Pulse Oximetry 96 100 100 Oxygen Delivery Room Air 04/16/24 13:50 04/16/24 14:00 04/16/24 14:15 Temperature Pulse Rate 104 H 87 87 Respiratory Rate 26 H 16 24 H Blood Pressure Pulse Oximetry Oxygen Delivery 04/16/24 14:30 04/16/24 14:56 04/16/24 15:00 Temperature Pulse Rate 78 86 83 Respiratory Rate 13 16 14 Blood Pressure Pulse Oximetry Oxygen Delivery 04/16/24 15:31 04/16/24 15:45 04/16/24 16:09 Temperature Pulse Rate 88 85 110 H Respiratory Rate 13 14 16 Blood Pressure Pulse Oximetry Oxygen Delivery 04/16/24 16:12 04/16/24 16:24 04/16/24 16:31 Temperature Pulse Rate 84 101 H 104 H Respiratory Rate 15 17 Blood Pressure Pulse Oximetry Oxygen Delivery 04/16/24 16:45 04/16/24 17:14 04/16/24 17:15 Temperature Pulse Rate 108 H 104 H 95 Respiratory Rate 26 H 28 H 14 Blood Pressure 142/90 H Pulse Oximetry 98 99 Oxygen Delivery 04/16/24 19:36 04/16/24 20:00 Temperature 98.1 F Pulse Rate 101 H Respiratory Rate 18 Blood Pressure 140/99 H Pulse Oximetry Oxygen Delivery Room Air Exam Const: General: comfortable and no acute distress Other: Anasarca Eyes: Pupils: Equal, round and reactive pupils present Neck: Neck: supple Resp: Effort & Inspection: normal respiratory effort Auscultation: clear to auscultation bilaterally Cardio: Rate: regular rate Rhythm: regular rhythm GI: GI Palp: Yes Soft to palpation Extrem: General: edema H&P: Results Labs Labs: Short CBC 04/16/24 Range/Units 13:56 WBC 5.4 (4.5-10.0) K/mm3 Hgb 11.8 L (12.0-15.0) g/dL Hct 39.0 (37.0-47.0) % Plt Count 471 H (150-375) k/mm3 BMP 04/16/24 13:56 Sodium 133 L Potassium 4.3 Chloride 104 Carbon Dioxide 26 BUN 11 Creatinine 0.46 L Glucose 83 Calcium 8.1 L Liver Function 04/16/24 Range/Units 13:56 Total Bilirubin 0.3 (0.2-1.3) mg/dL AST 39 H (14-36) U/L ALT 29 (6-35) U/L Alkaline Phosphatase 52 (38-126) U/L Albumin 2.3 L (3.5-5.1) g/dL Urine 04/16/24 Range/Units 13:56 Urine Color Yellow (Yellow) Urine Appearance Clear (Clear) Urine pH 8.5 (5.0-9.0) Ur Specific [place] 1.015 (1.001-1.035) Urine Protein 4+ H (Negative) mg/dL Urine Glucose (UA) Negative (Negative) mg/dL Assessment and Plan Assessment and plan (1) Anxiety: Code(s): F41.9 - Anxiety disorder, unspecified Status: Acute (2) Nephrotic syndrome: Code(s): N04.9 - Nephrotic syndrome with unspecified morphologic changes Status: Acute Plan 39-year-old female with a past medical history nephrotic syndrome and minimal change disease, migraines, active tobacco abuse presenting to [facility] with complaint of profound generalized swelling weight gain of 20 kg and shortness of breath for 7 days. The patient follows with Dr. Mejia in the outpatient setting her last flare reported by the patient was a few years ago. 70-100 mg of prednisone daily but has been off of that for 1 year now. She also reports lack of urination for 2 days now in spite of taking her prescribed Bumex. Patient was anxious on arrival. On presentation she was saturating well on room air with blood pressure 143/117. A one-view portable chest x-ray demonstrated a small left pleural effusion and airspace opacities at the left lung likely indicating atelectasis. She was given Bumex 2 mg IV x1, albumin IV infusion, prednisone 60 mg p.o. x1. A Hartman catheter was placed with significant urinary output. Her swelling began to improve. Nephrology was contacted from the ER. Patient was again seen on the medical surgical floor and she reports feeling improved regarding her presenting symptoms but she does have a moderate headache and would like her migraine medicine. She also requested Ativan which she reports she takes as needed. ----- Hartman catheter remains. Trend daily weights along with strict intake and output. Anasarca improved but still significant. Will given additional Bumex 2 mg IV x1. Continue with prednisone 60 mg p.o. q.day. nephrology to see in consultation. For her migraine restart CASTING OPERATOR sumatriptan p.r.n. Tobacco counseling provided. Continue nicotine patch. Restart CASTING OPERATOR melatonin for insomnia. Patient reports overt anxiety and self reports she takes Ativan p.r.n. at home. Will allow a 1 time dose of Ativan 0.5 mg p.o.. ----- SCDs. Patient wishes to be full code. Hospitalist [facility] Advance Care Plan I have confirmed that the patient's Advanced Care Plan is present, code status is documented, or surrogate decision maker is listed in patient medical record.: Yes Medication Reconciliation I have utilized all available resources to obtain, update and review the patients current medications (includes all prescriptions, OTC, herbals, cannabis, and nutritional supplements).: Yes
[2024-04-16] MEDS: SUMAtriptan SUCCINATE 25 MG TABLET PO (23:07)
[2024-04-16] MEDS: MELATONIN 5 MG TABLET PO (23:07)
[2024-04-16] MEDS: LORazepam (*CRX) 0.5 MG TABLET PO (23:07)
[2024-04-16 23:54] LABS: Creatinine Urine 79.8 mg/dL; Urea Random Urine 704 MG/DL
[2024-04-17 00:05] LABS: Sodium Urine Random 191 meq/L
[2024-04-17 00:41] LABS: Eosinophil Urine Rare % (None Seen); Urine Eos QC 2nd Tech Confirmed
[2024-04-17 01:04] LABS: Creatinine Urine 80.9 mg/dL; Total Protein Urine Random > 600 mg/dL; Ur Ttl Prot Creatinine Ratio > 7.42 mg/mg (0-0.20)
[2024-04-17 01:05] LABS: Total Protein Urine Random > 600 mg/dL
[2024-04-17 02:55] VITALS: BP 134/99
[2024-04-17] MEDS: BUMETANIDE INJ 1 MG/4 ML VIAL 2 MG IV PUSH (02:55)
[2024-04-17 05:19] VITALS: BP 121/72; PULSE 89; RESP 16; TEMP 36.4; O2SAT 95
[2024-04-17 07:09] LABS: Albumin Level 2.1 g/dL (3.5-5.1); Anion Gap 0 mmol/L (4-12); Blood Urea Nitrogen 13 mg/dL (7-17); Calcium 7.8 mg/dL (8.4-10.2); Carbon Dioxide 29 mmol/L (22-30); Chloride 106 mmol/L (98-107); Creatine Kinase 28 U/L (30-135); Estimated CRCL calculation 131 ml/min; Estimated Glomerular Filt Rate > 60; Glucose 95 mg/dL (65-110); HDL Direct 64 mg/dL; Phosphorus 3.9 mg/dL (2.5-4.5); Potassium 3.6 mmol/L (3.4-5.0); Sodium 135 mmol/L (137-145); Triglycerides 171 mg/dL (<150)
[2024-04-17 07:17] LABS: LDL Cholesterol Direct 220 mg/dL
[2024-04-17 08:12] LABS: Cholesterol 339 mg/dL (0-200)
[2024-04-17] MEDS: NICOTINE (*PBKC) 21 MG PATCH 1 PATCH TRANSDERM (09:10)
[2024-04-17] MEDS: predniSONE 20 MG TABLET 60 MG PO (09:10)
--- NOTE | 2024-04-17 09:15 | P.CONNP_ITS ---
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 Status: Acute Assessment and Plan: * biopsy proven (January 2020) * possible flare/recurrence as her proteinuria has increased > 7grams (by random testing done here) * clinical improvement with steroids and IV diuretics * continue diuretics PRN * on prednisone -- would continue for at least 4 weeks prior to weaning (2) Nephrotic syndrome: Code(s): N04.9 - Nephrotic syndrome with unspecified morphologic changes Status: Acute Assessment and Plan: * due to #1 * likely etiology of #4 * continue supportive therapy (3) Hypertension: Code(s): I10 - Essential (primary) hypertension Status: Acute Assessment and Plan: * resolved with current therapy * follow trend of hemodynamics * consider SILVIA-I or ARB as joint terminal attack controller therapy depending on trend of BP readings as an outpatient (4) Anasarca: Code(s): R60.1 - Generalized edema Status: Deleted Assessment and Plan: * suspected manifestation for #1 and #2 * clinical improvement noted * continue current therapy Not opposed to discharge from renal perspective if she is otherwise medically stable -- suspect her swelling/edema will continue to improve with steroids and diuretics as it has in the past on her previous hospitalizations (from January 2020 and April 2020); she should follow-up with Dr. Mejia for ongoing management of her minimal change disease... I will continue to follow the patient with you while he remains hospitalized and make further recommendations as deemed necessary. Thank you for allowing me to participate in the care of this patient. L History of Present Illness Reason for Consult Consult date: 04/17/24 Reason for consult: proteinuria and Other (minimal change disease) Chief Complaint Chief complaint: Nephrotic Syndrome/Hypoalbuminemia/Peripheral Rachid History of Present Illness Narrative: The patient is a 39 year old female with past medical history as outlined below who presented to [facility] Emergency room with complaints of worsening swelling/edema, weight gain (fluid), and shortness of breath. The patient states that over the past week if not longer, she has noticed worsening swelling and edema localized to her face, hands, feet, and lower extremities in association with shortness of breath. It effort to compensate for this issue, she has been he taking oral Bumex but she has not noticed any significant improvement in her urine output or her volume status. She does have a known history of biopsy-proven minimal change disease which was diagnosed when she developed nephrotic range proteinuria/nephrotic syndrome in the past. Unfortunately, she has not seen Dr. Mejia in the office in almost 3 years if not longer. She came to the emergency room due to the a for mentioned constellation of symptoms and the concern that this may be a flare up of her minimal change disease/nephrotic syndrome. Workup and evaluation emergency room demonstrated the patient to be slightly hypertensive with systolic BP in the 140s but with stable oxygenation on room air. Routine blood test demonstrated normal renal function and CBC and her urinalysis was significant for protein and some blood. Her chest x-ray demonstrated a small left pleural effusion and airspace opacities at the left lung likely indicate atelectasis. Given the concern for a flare of her minimal change disease and associated chronic syndrome, she read given IV Bumex, IV albumin, initiated on prednisone therapy. Although the recreation instructor mentions in his admission note that ER physician contacted me, this was not the case.She also had a Hartman catheter placed in the emergency room with significant urine output following the interventions mention. Since her admission to the hospital, her swelling and edema has significantly improved particularly in her face and extremities. She has been making fairly good urine output with just the doses of IV Bumex that she has received but does report that she still feels little congested but does not want to stay in the hospital to which longer for fear that she will develop pneumonia. Renal consultation was requested due to history of minimal change disease and associated history of nephrotic syndrome. The patient HAD BEEN following with Dr. Giovanni Mejia for management of this issue although the last time she saw Dr. Mejia was in late April 2020 after her recently hospitalization earlier that month for an apparent recurrence of nephrotic syndrome. Her history is significant for nephrotic range proteinuria/syndrome with approximately 15-16 g of proteinuria. She had a renal biopsy done in November of 2019 that demonstrated minimal change disease as the etiology of her nephrotic syndrome. There is no evidence of any type of vasculitis or autoimmune disorder both by blood work and of course the renal biopsy. She was treated prednisone with a fairly good response as her proteinuria had dropped to almost 190 mg in January of 2020 as evidenced by testing during her January 2020 hospitalization. She was hospitalized once again in early April of 2020 with recurrence of her nephrotic syndrome and nephrotic range proteinuria. She was initiated on IV diuretic therapy as well as prednisone with improvement in her overall volume status. There was discussion by Dr. Mejia on his last progress note about possibly repeating a renal biopsy to ensure that we are not missing some other disease process given the rapid recurrence of proteinuria when steroids were weaned but it does not seem this ever occurred. She last saw Dr. Mejia in the office in late April of 2020 but by that point, she had achieved her dry weight with prednisone therapy and her diuretics were discontinued altogether although there was discussion about possible use of immunosuppression (i.e. cellcept or cyclosporine). However, she never followed up after that April 2020 office visit. Currently, the patient is feeling significantly better is asking me about discharge as she does not want to stay in the hospital for fear that she may develop an infection (pneumonia). Review of Systems 2 Review of Systems: As per HPI. [facility] Past Medical History Medical History Rheumatoid arthritis Arthritis Depression Hair loss Psoriasis Cellulitis Excessive thirst Kidney disease Kidney infection UTI (urinary tract infection) Constipation Abdominal pain Nausea High cholesterol Wheezing SOB (shortness of breath) Ear pain Hearing loss Wears glasses Light headedness Dizziness Chronic headaches Trigger finger of right thumb Trigger finger, left middle finger Generalized edema Elevated d-dimer Abdominal fullness Nephrotic syndrome Normal cardiac stress test (~08/2019) Previous echocardiogram showed an ejection fraction of 55-60% with mild mitral and tricuspid regurgitation. Angioedema Depression with anxiety Gastroesophageal reflux disease Craniosynostosis Melanoma Left upper extremity, status post excision. Pleural effusion Chest pain Negative stress test 10/2019 Hyperlipidemia Not currently on medication. Tobacco abuse Surgical History Surgical History History of cranial surgery As a child for craniosynostosis. History of tubal ligation History of 3 sections History of melanoma excision (~2017) Left upper extremity. Family History Family History Sibling Testicle cancer Mother Small cell lung cancer Hypertension Father Throat cancer Hernia Melanoma Other Asthma Depression High cholesterol Kidney disorder Social History Social History Social History: The patient lives in [place] with her and 4 children. She has 1 adult child that is out of the home. 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 She smoked 1PPD for 20 years. She quit three weeks ago using the nicotine patches. She has a history of IV methamphetamine use for 2 years and quit over a year ago. She designates her , Jamil, as her surrogate decision maker and she wishes to be a full code. Smoking packs per day: 1 Smoking cigarettes per day: 20.0 Years smoked: 20 Smoking pack-years: 20.00 Smoking status: Current every day smoker Tobacco type: cigarettes Second hand tobacco smoke exposure: Yes Additional smoking assessment comments: Using nicotine patch Alcohol intake: former Alcohol use details: She reports no recent alcohol use. Substance use: current Substance use type: marijuana Other substance usage details: former IV methamphetamine use; last used >10 years, no alcohol intake >8 yr Do You Feel Safe in your Home?: Yes Lack of Transportation: YES Lack of Food: Often True Current Housing: I Do Not Have Housing Concerned About Future Housing: YES Difficulty Paying Gas/Electric Bills: YES Difficulty Paying for Meds: YES Currently Unemployed: No Education: Bachelor's Degree Difficulty w/ Childcare or Family Care: No Living arrangements: with family Occupation/Education: occupation Gender identity (if verbalized by the patient): Female Sexual Orientation (if Verbalized by the Patient): Straight or Heterosexual Spiritual care concerns: No Agree to blood products: Yes Meds Home Medications and Allergies Home Medications ?Medication ?Instructions ?Recorded ?Confirmed ?Type melatonin 5 mg tablet 5 mg PO HS PRN Insomnia 08/17/19 04/16/24 History nicotine 21 mg/24 hr daily 1 patch transdermal DAILY 01/12/20 04/16/24 History transdermal patch compression socks, medium #1 ea 01/14/20 04/16/24 Rx ketoconazole 2 % topical cream 1 applic topical DAILY #60 grams 03/31/22 04/16/24 Rx bumetanide 1 mg tablet 1 mg PO BID 30 days #60 tabs 04/13/23 04/16/24 Rx sumatriptan succinate 50 mg tablet See Rx Instructions PO .COMPLEX 03/29/24 04/16/24 Rx (Imitrex) #10 tabs ferrous sulfate 325 mg (65 mg mg 04/16/24 History iron) tablet (FeroSul) prednisone 20 mg tablet 60 mg (3 x 20 mg) PO DAILY@08 #30 04/17/24 Rx tabs Allergies Allergy/AdvReac Type Severity Reaction Status Date / Time adhesive tape AdvReac Unknown Rash Verified 09/06/21 10:36 Vital Signs Vital Signs Temp Pulse Resp BP Pulse Ox O2 Del Method 04/17/24 05:19 97.5 F L 89 16 121/72 95 04/17/24 02:55 134/99 H 04/16/24 21:05 97.9 F 112 H 16 125/77 97 04/16/24 20:00 Room Air 04/16/24 19:36 98.1 F 101 H 18 140/99 H 04/16/24 17:15 95 14 99 04/16/24 17:14 104 H 28 H 142/90 H 98 04/16/24 16:45 108 H 26 H 04/16/24 16:31 104 H 17 04/16/24 16:24 101 H 15 04/16/24 16:12 84 04/16/24 16:09 110 H 16 04/16/24 15:45 85 14 04/16/24 15:31 88 13 04/16/24 15:00 83 14 04/16/24 14:56 86 16 04/16/24 14:30 78 13 04/16/24 14:15 87 24 H 04/16/24 14:00 87 16 04/16/24 13:50 104 H 26 H 04/16/24 13:19 82 11 L 100 Exam 2 Narrative: GENERAL APPEARANCE: well developed well nourished female in no acute distress HEENT: normocephalic, atraumatic, normal conjunctiva and sclera, nares patient NECK: no lymphadenopathy, thyromegaly, or JVD MOUTH: normal lips, teeth, and gums CARDIOVASCULAR: RRR, normal S1 and S2, no rub detected RESPIRATORY: clear anteriorly; decreased at bases ABDOMEN: soft, nontender, nondistended, positive bowel sounds present EXTREMITIES: no evidence of cyanosis, clubbing; generalized edema (arms, legs, back, abdomen, face...etc) NEUROLOGICAL: alert and oriented x 3; CN II - XII intact bilaterally; no focal deficits noted Results Lab Results 04/16/24 13:56 04/17/24 05:59 Lab results: Most recent lab results Calcium 7.8 mg/dL (8.4-10.2) L 04/17/24 05:59 Phosphorus 3.9 mg/dL (2.5-4.5) 04/17/24 05:59 Magnesium 1.7 mg/dL (1.6-2.3) 04/16/24 13:56 Urine Creatinine 79.8 mg/dL 04/16/24 23:34 Urine Creatinine 80.9 mg/dL 04/16/24 23:34
[2024-04-17] MEDS: SUMAtriptan SUCCINATE 25 MG TABLET PO (09:26)
--- NOTE | 2024-04-17 11:33 | PC.NURSE ---
pt c/o feeling like fluid is on lungs, 2+ generalized edema present. I reviewed med list and no diuretic currently ordered. MD notified. MD said she would take a look at chart.
--- NOTE | 2024-04-17 12:56 | PM.DS ---
DS: Admitting Diagnosis Discharge Date 04/17/2024 Admitting Diagnosis Generalized swelling DS: Discharge Diagnosis Discharge Diagnosis (1) Anxiety: Code(s): F41.9 - Anxiety disorder, unspecified Status: Acute (2) Nephrotic syndrome: Code(s): N04.9 - Nephrotic syndrome with unspecified morphologic changes Status: Acute Plan 39-year-old female with a past medical history nephrotic syndrome and minimal change disease, migraines, active tobacco abuse presenting to [place] [facility] with complaint of profound generalized swelling weight gain of 20 kg and shortness of breath for 7 days. The patient follows with Dr. Mejai in the outpatient setting her last flare reported by the patient was a few years ago. 70-100 mg of prednisone daily but has been off of that for 1 year now. She also reports lack of urination for 2 days now in spite of taking her prescribed Bumex. Patient was anxious on arrival. On presentation she was saturating well on room air with blood pressure 143/117. A one-view portable chest x-ray demonstrated a small left pleural effusion and airspace opacities at the left lung likely indicating atelectasis. She was given Bumex 2 mg IV x1, albumin IV infusion, prednisone 60 mg p.o. x1. A Hartman catheter was placed with significant urinary output. Her swelling began to improve. Nephrology was contacted from the ER. Patient was again seen on the medical surgical floor and she reports feeling improved regarding her presenting symptoms but she does have a moderate headache and would like her migraine medicine. She also requested Ativan which she reports she takes as needed. ----- Hartman catheter remains. Trend daily weights along with strict intake and output. Anasarca improved but still significant. Will given additional Bumex 2 mg IV x1. Continue with prednisone 60 mg p.o. q.day. nephrology to see in consultation. For her migraine restart RESIDENT CARE ASSISTANT sumatriptan p.r.n. Tobacco counseling provided. Continue nicotine patch. Restart RESIDENT CARE ASSISTANT melatonin for insomnia. Patient reports overt anxiety and self reports she takes Ativan p.r.n. at home. Will allow a 1 time dose of Ativan 0.5 mg p.o.. DS: Summary Hospital Course Hospital Course: Renal consultation was requested due to history of minimal change disease and associated history of nephrotic syndrome. The patient HAD BEEN following with Dr. Giovanni Mejia for management of this issue although the last time she saw Dr. Mejia was in late April 2020 after her recently hospitalization earlier that month for an apparent recurrence of nephrotic syndrome. Her history is significant for nephrotic range proteinuria/syndrome with approximately 15-16 g of proteinuria. She had a renal biopsy done in November of 2019 that demonstrated minimal change disease as the etiology of her nephrotic syndrome. There is no evidence of any type of vasculitis or autoimmune disorder both by blood work and of course the renal biopsy. She was treated prednisone with a fairly good response as her proteinuria had dropped to almost 190 mg in January of 2020 as evidenced by testing during her January 2020 hospitalization. She was hospitalized once again in early April of 2020 with recurrence of her nephrotic syndrome and nephrotic range proteinuria. She was initiated on IV diuretic therapy as well as prednisone with improvement in her overall volume status. There was discussion by Dr. Mejia on his last progress note about possibly repeating a renal biopsy to ensure that we are not missing some other disease process given the rapid recurrence of proteinuria when steroids were weaned but it does not seem this ever occurred. She last saw Dr. Mejia in the office in late April of 2020 but by that point, she had achieved her dry weight with prednisone therapy and her diuretics were discontinued altogether although there was discussion about possible use of immunosuppression (i.e. cellcept or cyclosporine). However, she never followed up after that April 2020 office visit. ok to Dc with steroids as per nephrology note ok really wants to go home Time Spent with Patient Time attestation: Total time spent providing and/or coordinating discharge services:40 minutes on day of dc Exam Const: General: comfortable and no acute distress Other: less swollen Eyes: Pupils: Equal, round and reactive pupils present Neck: Neck: supple Resp: Effort & Inspection: normal respiratory effort Auscultation: clear to auscultation bilaterally Cardio: Rate: regular rate Rhythm: regular rhythm Neuro: Cranial nerves: Yes Equal, round and reactive pupils present Extrem: General: edema DS: Data Data Completed and Pending Labs on day of discharge: Labs from last 24 hours 04/17/24 04/16/24 04/16/24 05:59 23:34 23:34 WBC RBC Hgb Hct MCV MCH MCHC RDW Plt Count MPV Immature Gran % (Auto) Neut % (Auto) Lymph % (Auto) Harris % (Auto) Eos % (Auto) Baso % (Auto) Lymph # (Auto) Harris # (Auto) Eos # (Auto) Baso # (Auto) Abs Immat Gran (auto) Absolute Neuts (auto) Absolute Nucleated RBC Nucleated RBC % Sodium 135 L Potassium 3.6 Chloride 106 Carbon Dioxide 29 Anion Gap 0 L BUN 13 Creatinine 0.45 L Estim Creat Clear Calc 131 Estimated GFR > 60 Glucose 95 Calcium 7.8 L Phosphorus 3.9 Magnesium Total Bilirubin AST ALT Alkaline Phosphatase Total Creatine Kinase 28 L Total Protein Albumin 2.1 L Triglycerides 171 H Cholesterol 339 H LDL Cholesterol Direct 220 HDL Direct 64 TSH (Reflex) 1.730 Urine Color Urine Appearance Urine pH Ur Specific [place] Urine Protein Urine Glucose (UA) Urine Ketones Ur Blood (Man) Urine Nitrate Urine Bilirubin Urine Urobilinogen Leukocyte Esterase Rfl Urine RBC Urine WBC Ur Squamous Epith Cells Urine Bacteria Urine Casts Urine Eosinophils U Random Total Protein > 600 Ur Random Sodium 191 Ur Random Urea 704 Urine Creatinine 79.8 80.9 Protein/Creat Ratio 2 > 7.42 H POC Urine HCG, Qual 04/16/24 04/16/24 04/16/24 23:34 16:12 13:56 WBC 5.4 RBC 4.97 Hgb 11.8 L Hct 39.0 MCV 78.5 L MCH 23.7 L MCHC 30.3 L RDW 21.2 H Plt Count 471 H MPV 10.2 Immature Gran % (Auto) 0.6 H Neut % (Auto) 62.7 Lymph % (Auto) 21.8 Harris % (Auto) 11.9 H Eos % (Auto) 1.9 Baso % (Auto) 1.1 Lymph # (Auto) 1.17 Harris # (Auto) 0.6 Eos # (Auto) 0.1 Baso # (Auto) 0.1 Abs Immat Gran (auto) 0.03 Absolute Neuts (auto) 3.4 Absolute Nucleated RBC 0.000 Nucleated RBC % 0.0 Sodium 133 L Potassium 4.3 Chloride 104 Carbon Dioxide 26 Anion Gap 3 L BUN 11 Creatinine 0.46 L Estim Creat Clear Calc 110 Estimated GFR > 60 Glucose 83 Calcium 8.1 L Phosphorus Magnesium 1.7 Total Bilirubin 0.3 AST 39 H ALT 29 Alkaline Phosphatase 52 Total Creatine Kinase Total Protein 6.0 L Albumin 2.3 L Triglycerides Cholesterol LDL Cholesterol Direct HDL Direct TSH (Reflex) Urine Color Yellow Urine Appearance Clear Urine pH 8.5 Ur Specific [place] 1.015 Urine Protein 4+ H Urine Glucose (UA) Negative Urine Ketones Negative Ur Blood (Man) 3+ H Urine Nitrate Negative Urine Bilirubin Negative Urine Urobilinogen 0.2 Leukocyte Esterase Rfl Negative Urine RBC >100 H Urine WBC 0-5 Ur Squamous Epith Cells None seen Urine Bacteria None seen Urine Casts 0-2 Urine Eosinophils Rare U Random Total Protein > 600 Ur Random Sodium Ur Random Urea Urine Creatinine Protein/Creat Ratio 2 POC Urine HCG, Qual Negative Discharge Plan Discharge Attending physician on discharge: Maggie Alicia Consulting providers: David Hutchison Discharging Clinician: Maggie Alicia Anticipated Discharge Date/Time: 04/17/24 12:53 Patient Disposition: Home, Self-Care Activity: as tolerated Diet: renal Discharge Instructions: Pt to complete steroid course and follow up with Nephrology MD Patient Instructions: Antibiotic Form Patient Language: Marshallese Stand Alone Forms: General Discharge Information Follow-up/Referrals: Litzy Clayton MD [Primary Care Provider] - (in 3-4 weeks time ) Giovanni Mejia MD [Physician] - (in 3-4 weeks time with [facility] ) Discharge Medications: New prednisone 20 mg Tablet 60 mg PO DAILY@08 Qty: 30 0RF Continued ferrous sulfate [FeroSul] 325 mg (65 mg iron) tablet melatonin 5 mg Tablet 5 mg PO HS PRN (Reason: Insomnia) nicotine 21 mg/24 hr Patch 24 Hour 1 patch TRANSDERMAL DAILY (DME) compression socks, medium Misc See Rx Instructions .ROUTE .MEDSUPPLY Qty: 1 0RF Rx Instructions: As directed ketoconazole 2 % cream 1 applic topical DAILY Qty: 60 0RF bumetanide 1 mg tablet 1 mg PO BID 30 Days Qty: 60 5RF sumatriptan succinate [Imitrex] 50 mg tablet See Rx Instructions PO .COMPLEX Qty: 10 6RF Rx Instructions: take 1 tab at onset of headache; if no relief may repeat 1 tab after at least 2 hrs; max = 4 tabs/24 hr PO Discontinued prednisone 10 mg tablet 10 mg PO DAILY Date of admission: 04/16/24 15:26 Primary Care Provider: Litzy Clayton Admitting Provider: Ray Babb Attending physician on admission: Ray Babb Condition: Stable
[2024-04-17] MEDS: BUMETANIDE INJ 2.5 MG/10 ML VIAL 2 MG IV PUSH (13:44)
[2024-04-17 16:07] VITALS: BP 126/96; PULSE 95; RESP 16; TEMP 36.5; O2SAT 95
[2024-04-17] MEDS: INFLUENZA TRIVALENT VACCINE 45 MCG/0.5 ML SYRINGE IM (18:00)
--- NOTE | 2024-04-22 19:30 | ECG_ITS ---
Test Date: 2024-04-22 19:29:20 Measurements Intervals [place] Rate: 80 P: 46 MI: 132 QRS: 37 QRSD: 89 T: 58 QT: 344 QTc: 399 Interpretive Statements SINUS RHYTHM BORDERLINE T WAVE ABNORMALITY- ANTERIOR LEADS BASELINE ARTIFACT- I, II, III, AVR, AVL, AVF, V1-V6 BORDERLINE ECG Compared to ECG 04/16/2024 14:31:58 No significant changes Electronically Signed On 04-23-2024 06:55:20 [employer]GY SYSTEMS LABORATORY DIRECTOR by Nakul Loza D.O.
== END 2024-04-17 18:05 | disposition home or self-care (01) | DRG 462 ==
LOC: ANHED 15:37 → ANH3MEDSUR 16:39
PROVIDERS: Internal Medicine Nephrology; Admitting Provider Internal Medicine; Emergency Provider Student in an Organized Health Care Education/Training Program; PCP Family Medicine; Visit Provider Family Medicine
DX: N04.0 Nephrotic syndrome with minor glomerular abnormality (principal); M06.9 Rheumatoid arthritis, unspecified; M19.90 Unspecified osteoarthritis, unspecified site; L40.9 Psoriasis, unspecified; E78.00 Pure hypercholesterolemia, unspecified; E78.5 Hyperlipidemia, unspecified; K21.9 Gastro-esophageal reflux disease without esophagitis; R60.1 Generalized edema; H91.90 Unspecified hearing loss, unspecified ear; F41.9 Anxiety disorder, unspecified; F32.A Depression, unspecified; Z23 Encounter for immunization; Z85.820 Personal history of malignant melanoma of skin; Z87.891 Personal history of nicotine dependence
CPT/HCPCS: 36415; 71045; 80053; 80061; 80069; 81001; 81025; 81050; 82550; 82570; 83735; 84156; 84300; 84443; 84540; 85025; 85999; 90471; 90656; 93005; 96365; 96375; 99285; A9270; G0008; J1939; J7512; P9047

== ENCOUNTER 2024-04-22 19:26 | Inpatient (IN) | payer OTHER, SELFPAY ==
--- NOTE | ~2024-04-22 | CT_ITS ---
EXAMINATION: CTA chest PE protocol DATE: 04/22/2024 22:18 [facility] INDICATION: Elevated d-dimer TECHNIQUE: Computed tomographic angiography (CTA) of the chest was performed with 100 mL Omnipaque-35 0 intravenous contrast. The dose-length product was 240.65 mGy-cm. Maximum intensity projection 3D-re constructions of the aorta and other arteries were constructed by the technologist on a separate work station. COMPARISON: 01/13/2020 FINDINGS/OBSERVATIONS: PULMONARY ARTERIES: No filling defect is identified within the main or proximal pulmonary artery. The main pulmonary artery is not enlarged. THORACIC AORTA: No aneurysmal dilatation or dissection is present. The great vessels are intact LUNGS: Examination is limited by respiratory motion artifact for the detection of small pulmonary nod ules. Trace bilateral pleural effusions with adjacent compressive atelectasis. MEDIASTINUM: No morphologically suspicious or pathologically enlarged lymph nodes are identified with in the mediastinum or bilateral axilla. BONES OF THE CHEST: No acute fracture. No significant degenerative disease. No lytic or blastic lesions. HEART: The heart is within the upper limits of normal for size, without pericardial effusion. SOFT TISSUES: Moderate anasarca is detected. IMPRESSION: No pulmonary embolus. No thoracic aortic dissection. Trace bilateral pleural effusions with adjacent compressive atelectasis Reviewed, dictated and finalized at location A. [facility]
--- NOTE | ~2024-04-22 | XR_ITS ---
CHEST RADIOGRAPH CLINICAL HISTORY: [email or web address] . COMPARISON: 04/16/2024 TECHNIQUE: Single portable view of the chest. FINDINGS The cardiomediastinal silhouette is unremarkable. Blunting of the left costophrenic sulcus is identified suggesting a small left-sided pleural effusion . Increased interstitial markings are identified bilaterally, findings suggesting mild pulmonary vascul ar congestion. The lungs are otherwise clear. IMPRESSION: Mild pulmonary vascular congestion with a small left-sided pleural effusion. No focal infiltrate. Reviewed, dictated and finalized at location A. CONSTRUCTION SUPERINTENDENT
[2024-04-22 19:21] VITALS: BP 133/100; PULSE 77; RESP 25; O2SAT 100
[2024-04-22 19:31] VITALS: PULSE 78
--- NOTE | 2024-04-22 19:32 | ED_ITS ---
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 Mejia and Dr. Hutchison. Patient was just admitted last week for a flare of her nephrotic syndrome with significant proteinuria. Patient did well on inpatient basis after being aggressively diuresed with 2 mg Bumex doses and 60 mg daily prednisone. Patient was discharged on the in good health. She states she started developing chest pain earlier today radiating towards the right flank into her back associated difficulty in breathing. She drove her car here but had to stop and was too weak to get out of the car and called EMS for assistance. She gets into the ER via EMS and is tachypneic, tachycardic, appears in acute distress but is saturating well on room air. Patient is very coarse breath sounds bilaterally, brought back in the room 2. For resuscitation and further evaluations. She states she was doing well upon discharge and then suddenly had a worsening recurrence of her swelling, not urinating enough over last few days and then today started developing chest pain. No history of DVT or PE to her knowledge but does have significant proteinuria and does raise her risk factor for his. Related Data Home Medications ?Medication ?Instructions ?Recorded ?Confirmed ?Last Taken ?Type melatonin 5 mg tablet 5 mg PO HS PRN Insomnia 08/17/19 04/16/24 04/12/24 History nicotine 21 mg/24 hr daily 1 patch transdermal DAILY 01/12/20 04/16/24 04/16/24 History transdermal patch ferrous sulfate 325 mg (65 mg mg 04/16/24 Unknown History iron) tablet (FeroSul) Allergies Allergy/AdvReac Type Severity Reaction Status Date / Time adhesive tape AdvReac Unknown Rash Verified 09/06/21 10:36 Review of Systems 2 Review of Systems: As reviewed above in HPI [facility] Past Medical History Medical History Rheumatoid arthritis Arthritis Depression Hair loss Psoriasis Cellulitis Excessive thirst Kidney disease Kidney infection UTI (urinary tract infection) Constipation Abdominal pain Nausea High cholesterol Wheezing SOB (shortness of breath) Ear pain Hearing loss Wears glasses Light headedness Dizziness Chronic headaches Trigger finger of right thumb Trigger finger, left middle finger Generalized edema Elevated d-dimer Abdominal fullness Nephrotic syndrome Normal cardiac stress test (~08/2019) Previous echocardiogram showed an ejection fraction of 55-60% with mild mitral and tricuspid regurgitation. Angioedema Depression with anxiety Gastroesophageal reflux disease Craniosynostosis Melanoma Left upper extremity, status post excision. Pleural effusion Chest pain Negative stress test 10/2019 Hyperlipidemia Not currently on medication. Tobacco abuse Surgical History Surgical History History of cranial surgery As a child for craniosynostosis. History of tubal ligation History of 3 sections History of melanoma excision (~2017) Left upper extremity. Family History Family History Sibling Testicle cancer Mother Small cell lung cancer Hypertension Father Throat cancer Hernia Melanoma Other Asthma Depression High cholesterol Kidney disorder Social History Social History Social History: The patient lives in [place] with her and 4 children. She has 1 adult child that is out of the home. 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 She smoked 1PPD for 20 years. She quit three weeks ago using the nicotine patches. She has a history of IV methamphetamine use for 2 years and quit over a year ago. She designates her , Jamil, as her surrogate decision maker and she wishes to be a full code. Smoking packs per day: 1 Smoking cigarettes per day: 20.0 Years smoked: 20 Smoking pack-years: 20.00 Smoking status: Current every day smoker Tobacco type: cigarettes Second hand tobacco smoke exposure: Yes Additional smoking assessment comments: Using nicotine patch Alcohol intake: former Alcohol use details: She reports no recent alcohol use. Substance use: current Substance use type: marijuana Other substance usage details: former IV methamphetamine use; last used >10 years, no alcohol intake >8 yr Do You Feel Safe in your Home?: Yes Lack of Transportation: YES Lack of Food: Often True Current Housing: I Do Not Have Housing Concerned About Future Housing: YES Difficulty Paying Gas/Electric Bills: YES Difficulty Paying for Meds: YES Currently Unemployed: No Education: Bachelor's Degree Difficulty w/ Childcare or Family Care: No Living arrangements: with family Occupation/Education: occupation Gender identity (if verbalized by the patient): Female Sexual Orientation (if Verbalized by the Patient): Straight or Heterosexual Spiritual care concerns: No Agree to blood products: Yes Exam 2 Narrative: GENERAL: Moderate distress, tachypneic, answer all questions appropriately, no conversational dyspnea. HEAD: [Normocephalic, atraumatic.] EYES: [PERRLA and EOMI.] ENT: Nares clear, no rhinorrhea or epistaxis. Mucous membranes moist. NECK: Supple. CHEST: Coarse breath sounds bilaterally, tachypnea with moderate respiratory distress but no hypoxia. Conversing in full sentences. Sitting more upright HEART: [Regular rate and rhythm]. No murmur heard. [Normal peripheral pulses.] ABDOMEN: [Soft, nondistended], [nontender], [No rigidity or guarding] EXTREMITIES: Normal range of motion. 2+ edema SKIN: Warm, dry, no rash. NEURO: [No focal deficits]. Alert and oriented [x3.] PSYCH: [Normal mood and affect.] Course Vital Signs Vital signs: Vital Signs Pulse Rate 77 04/22/24 19:21 Respiratory Rate 25 H 04/22/24 19:21 Blood Pressure 133/100 H 04/22/24 19:21 Pulse Oximetry 100 04/22/24 19:21 Oxygen Delivery Room Air 04/22/24 19:21 Temperature 36.6 C 04/22/24 20:16 Pulse Rate 93 04/23/24 02:45 Respiratory Rate 15 04/23/24 02:45 Blood Pressure 111/69 04/23/24 02:29 Pulse Oximetry 94 04/23/24 02:45 Oxygen Delivery Room Air 04/22/24 19:29 Procedures EJ/Peripheral Line Arm R: EJ/Peripheral Line Date: 04/22/24 EJ/Peripheral Line Time: 21:11 Time Out Performed: Yes Skin Cleansed in Sterile Fashion: Yes Ultrasound Guided: Yes Size (gauge): 20 IV Secured and Dressing Applied: Yes Patient Tolerated Procedure: well and no complications MDM - Chest Pain MDM Narrative Medical decision making narrative: 39-year-old female with a history of minimal change disease and nephrotic syndrome with significant proteinuria. She was just admitted to the hospital last week for a flare of her nephrotic syndrome requiring aggressive diuresis and steroids. Was discharged in good health with plans to follow up with Nephrology and possibly even start dialysis outpatient. Patient does not have any dialysis access. She returns today feeling weakness, chest pain radiating to her right flank and back. She is in [id number] distress, tachypneic and tachycardic, saturating 100% on room air with normal blood pressure. Coarse breath sounds throughout both lungs. Does appear to be edematous more so than my previous examination I saw her 1 week prior. Differential diagnosis at this time includes pneumonia, ACS, pneumothorax, pulmonary embolism, recurrence of her nephrotic syndrome and significant fluid overload in a pleural effusion. Workup was ordered including CBC, CMP, troponin, EKG, chest x-ray. Hartman catheter inserted with plan for possible diuresis. CT angiography of the chest was ordered at this time. Workup shows a leukocytosis of 12.9, hemoglobin 11.3, seems to be at her baseline. Thrombocytosis is noted but not severe. Chemistry panel shows slight rise in BUN and creatinine from previous but otherwise no significant elevation. Normal electrolytes with mild hypo natremia. Normal GFR. Normal glucose. Normal LFTs. Troponin negative x2. BNP very mildly elevated 156. Hypoalbuminemia 2.1. Worse than previous. Negative lipase. Chest x-ray shows some pulmonary vascular congestion and small left-sided pleural effusion which appears worse than previous. No infiltrates. CT angiography was ordered to rule out PE. There is no pulmonary embolism, no thoracic dissection, trace bilateral pleural effusions with compressive atelectasis is noted. EKG was obtained and nonischemic. Patient had a urinary Hartman catheter placed was given Bumex and prednisone here. Patient had significant improvement after diuresis. She is feeling better and no longer is tachypneic or tachycardic. Would benefit from admission given how quickly she developed respiratory distress upon discharge for more aggressive diuresis and re-evaluation by Nephrology for other therapeutic interventions or treatment plans. Patient was agreeable to this plan. I discussed the case with the hospitalist who accepted the patient to a [facility] telemetry bed. Medical Records Data Attestation: I reviewed the patient's medical records. Lab Data Attestation: I reviewed the patient's lab results. 04/22/24 21:07 04/22/24 21:07 Labs: Lab Results 04/22/24 04/23/24 Range/Units 21:07 00:37 WBC 12.9 H (4.5-10.0) K/mm3 RBC 4.73 (4.2-5.4) M/mm3 Hgb 11.3 L (12.0-15.0) g/dL Hct 36.4 L (37.0-47.0) % MCV 77.0 L (80-100) fl MCH 23.9 L (26-34) pg MCHC 31.0 L (32-36) g/dl RDW 21.1 H (11.5-14.5) % Plt Count 507 H (150-375) k/mm3 MPV 9.6 (7.4-10.4) fl Immature Gran % (Auto) 1.1 H (0-0.5) % Neut % (Auto) 81.7 H (45.5-73.1) % Lymph % (Auto) 10.5 L (18.3-44.2) % Webster % (Auto) 6.5 (2.6-8.5) % Eos % (Auto) 0.0 (0-4.4) % Baso % (Auto) 0.2 (0.2-1.2) % Lymph # (Auto) 1.35 (0.9-3.2) K/mm3 Webster # (Auto) 0.8 H (0.1-0.6) K/mm3 Eos # (Auto) 0.0 (0-0.3) K/mm3 Baso # (Auto) 0.0 (0.0-0.1) K/mm3 Abs Immat Gran (auto) 0.14 H (0.00-0.031) K/mm3 Absolute Neuts (auto) 10.5 H (1.3-6.7) K/mm3 Absolute Nucleated RBC 0.000 (0.0-0.012) K/mm3 Nucleated RBC % 0.0 (0.0-0.2) % PT 12.6 (11.1-14.7) Seconds INR 0.9 APTT 30.0 (22.3-36.8) Seconds Sodium 131 L (137-145) mmol/L Potassium 3.7 (3.4-5.0) mmol/L Chloride 101 (98-107) mmol/L Carbon Dioxide 30 (22-30) mmol/L Anion Gap 0 L (4-12) mmol/L BUN 24 H D (7-17) mg/dL Creatinine 0.56 L (0.7-1.0) mg/dL Estim Creat Clear Calc 109 ml/min Estimated GFR > 60 (59 - ) Glucose 95 (65-110) mg/dL Calcium 7.9 L (8.4-10.2) mg/dL Magnesium 1.9 (1.6-2.3) mg/dL Total Bilirubin 0.3 (0.2-1.3) mg/dL AST 24 (14-36) U/L ALT 22 (6-35) U/L Alkaline Phosphatase 64 (38-126) U/L Troponin I < 0.012 < 0.012 (0.000-0.034) ng/mL NT-Pro-B Natriuret Pep 156 H (19.9-100) pg/mL Total Protein 5.0 L (6.3-8.2) g/dL Albumin 2.1 L (3.5-5.1) g/dL Lipase 98 (23-300) U/L Imaging Data Attestation: I personally reviewed and interpreted this imaging study as follows: My impression: Impressions Chest X-Ray 04/22/24 20:32 IMPRESSION: Mild pulmonary vascular congestion with a small left-sided pleural effusion. No focal infiltrate. Chest CTA 04/22/24 22:18 IMPRESSION: No pulmonary embolus. No thoracic aortic dissection. Trace bilateral pleural effusions with adjacent compressive atelectasis ECG Data EKG #1: Attestation: I personally reviewed and interpreted this ECG as follows: ECG completion date: 04/23/24 ECG completion time: 00:23 Prior ECG tracings: available for review Interpretation: Sinus rhythm with no ST segment elevations, depressions or inversions. Regular rate, regular rhythm and axis. NV interval 161, QRS interval 89. QTC 381. Overall normal sinus rhythm, no signs of acute ischemic event. Discharge Plan Discharge Clinical Impression: Chest pain, Nephrotic syndrome, Hypoalbuminemia Patient Disposition: Still a Patient Condition: Stable Quality HEART score for chest pain patients History: moderately suspicious ECG: normal Age: < or = to 45 years Risk factors: 1 or 2 risk factors Troponin: < or = to 1x normal limit Heart score: 2
--- OUTSIDE RECORDS SUMMARY | 2024-04-22 19:42 | XMS_ITS | Clinical Summary ---
Author Organization [facility] Address [facility] [place] [address] Care Team Providers Care Black And White Printer Operator Name Role Phone Giovanni Mejia MD Unavailable [phone] Litzy Clayton MD Primary Care Provider [phone] Allergies No known active allergies Medications bumetanide [...] Care Team (Latest Contact Info) Description 04/29/2024 11:18 AM REEL AND REWINDER OPERATOR Hospital Encounter [facility] [place] [place] [address] Elmo Thompson MD [address] [address] 04/29/2024 11:18 AM REEL AND REWINDER OPERATOR - 04/29/2024 3:06 PM REEL AND REWINDER OPERATOR [place] [address] Elmo Thompson MD [address] [facility] [address] [place] [id number] ROBOTIC XI ASSISTED TOTAL LAPAROSCOPIC HYSTERECTOMY, BILATERAL SALPINGECTOMY, CYSTOSCOPY Scheduled Procedures Name Priority Associated Diagnoses Date/Ti me ROBOTIC XI HYSTERECTOMY N92.4, N94.4- MENORRHAGIA, DYSMENORRHEA 04/29/2024 11:18 AM REEL AND REWINDER OPERATOR Health Maintenance Due Date Last Done Comments [...] complete this topic Insurance [employer] Care Teams Black And White Printer Operator Relationship Specialty Start Date End Date Litzy Clayton MD [address] [place] [address] PCP - General FAMILY PRACTICE 11/27/23 Giovanni Mejia MD [address] [place], [place] [id number] Referring Physician NEPHROLOGY 11/27/23
--- OUTSIDE RECORDS SUMMARY | 2024-04-22 19:43 | XMS_ITS ---
Author Organization [facility] Address [address] [place] [address] Care Team Providers Care Staff Technologist Name Role Phone Natalia Saucedo Primary Care Provider REASON FOR VISIT appt check in Encounters Encounter Location Date Provider Diagnosis [facility] [address] [place] [address] 03/18/2023 Natalia Saucedo Plan Of Treatment No Information Progress Notes * Matt OKEEFEOB: 4 (37 yo F)Acc No.[id number]:03/18/2023 Patient: Santy SINGH :1985 A ge:37 Y S ex:Female Address:[address], [place] [address] * true * Date: Generated for Jose L carson/Shawna/eTransmitting on: 0 04/22/2024 07:42 PM GENERAL SURGEON
--- OUTSIDE RECORDS SUMMARY | 2024-04-22 19:43 | XMS_ITS | Data Portability ---
Author Organization [facility] [employer] [facility] , [facility] Address [address] [place] [address] Assessment No assessment recorded. Plan of Treatment Reminders Order Date Submit Date Provider Last Modified By Organization Details Last Modified Time Details Appointments Surgery Block 2024 10:30A M Elmo Thompson MD Not available Not available Not available Lab CBC w/ diff [address], [address] [place] [address] [address], [place], [address], 01/08/2024 15:03:25 Referral breast evaluatio n referral 2023 024 [place] [address] Not available 12/19/2023 12:29:35 Procedures None recorded. Surgeries None recorded. Imaging US, breast, unilatera l - right breast upper outer quad [address] - Breast Ctr, [address], [address], [place], [address], 12/19/2023 15:48:26 MAMMO, diagnosti c, digital, unilatera l - right breast upper outer quad 2023 024 [facility], [address], [address], [place], [address], 01/02/2024 16:10:28 US, transvagi nal 2023 024 GER Not available 12/13/2023 20:45:51 US, transvagi nal 2023 024 [email or web address] Not available 08/28/2023 12:29:39 Medication Orders ferrous sulfate 325 mg (65 mg iron) tablet [address] [facility]82449, [address] [place] [address], [id number], 03/22/2024 14:50:56 IBU 800 mg tablet [address] [facility] #74336, [address] [place] [address], [id number], 03/22/2024 14:50:58 hydroxyzi ne HCl 25 mg tablet [address] [facility] #66669, [address] [place] [address], [id number], 03/22/2024 14:51:07 metronida zole 500 mg tablet [address] [facility] #97002, [address] [place] [address], [id number], 03/22/2024 14:50:59 oxycodone -acetamin ophen 5 mg-325 mg tablet [address] [facility] #86273, [address] [place] [address], [id number], 03/22/2024 14:51:01 Patient TargetsNo targets recorded. Patient Instructions Encounter Date Encounter Id Patient Instructions Last Modified By Organization Details Last Modified Time 12/10/2023 [id number] breast lumps: care instructions Not available 12/10/2023 17:55:10 Reason for Referral Breast Evaluation Referral f or Breast lump Referring Physician: Elmo Thompson, RETAIL SHIFT SUPERVISOR, Encounter Date: 12/10/2023 Results Created Date Observation Date Name Description Value Unit Range Abnormal Flag Note LastModifiedBy Organization Detail LastModifiedTime 12/13/19 24 12/10/2023 US, trans vagin al No observ ation record ed. [email or web address], [place], [address], 12/16/2023 14:52:28 12/26/19 24 12/26/2023 MAMMO , diagn ostic , digit al, unila teral No observ ation record ed. [address], [place], [address], 03/22/2024 14:52:01 Result Notes None recorded. Procedures Surgical History Date Name Laterality Status Provider Name and Address Organization Details Recorded Time Most Recent Mammogram completed Rosalia Ramachandran [facility] IV 03/22/2024 14:20:15 5 laparoscopy completed Elmo Thompson MD [facility] [place], [address], [facility] IV 07/30/2023 16:02:36 C Section completed Janice Rosa [facility] IV 07/30/2023 15:12:15 Imaging Results Imaging Date Name Status LastModified by Organization Details LastModified Time 12/10/2023 US, transvaginal completed [email or web address], [place], [address], 12/16/2023 14:52:28 12/26/2023 MAMMO, diagnostic, digital, unilateral completed [address], [place], [address], 03/22/2024 14:52:01 Procedure Notes None recorded. Medical Equipment None Reported. Allergies No known drug allergies Medications Name Sig Start Date Stop Date Status Note LastModified by Organization Details LastModified Time bumetanide 2 mg tablet 12/09 completed Not Available Not Available Not Available IBU 800 mg tablet Take 1 tablet(s) 4 times a day by oral route as directed. active Not Available Not Available No t [...] Updated DateTime 4 160.02 cm 23.9 kg/m2 04265.9 7 g 98.1 [degF] 122 mm[Hg] 70 mm[Hg] Janice Rosa [facility] IV 4 15:22:19 Date Recorded Body height Body mass index (BMI) Body weight Systolic blood pressure Diastolic blood pressure Provider Name and Address Organization Details Last Updated DateTime 12/10/2023 160.02 cm 25.5 kg/m2 72205.02 g 102 mm[Hg] 68 mm[Hg] Estiven Sue RI [employer] IV 4 17:09:14 Date Recorded Body height Body mass index (BMI) Body weight Systolic blood pressure Diastolic blood pressure Provider Name and Address Organization Details Last Updated DateTime 03/22/2024 160.02 cm 27.8 kg/m2 14357.28 g 104 mm[Hg] 78 mm[Hg] Rosalia Ramachandran [facility] IV 5 14:24:22 Social History Question Answer Notes LastModified by Organizat ion Details LastModified Time Tobacco Smoking Status Current Some Day Smoker Janicenathaly Rosa [facility], [facility] 07/30/2023 15:12:05 Are You Blind Or Do You Have Difficulty Seeing? No [email or web address] Information not available 07/30/2023 Are You Currently Employed? Yes [email or web address] Information not available 07/30/2023 Are You Deaf Or Do You Have Serious Difficulty Hearing? No [email or web address] Information not available 07/30/2023 What Type Of Diet Are You Following? SPECIFIC [email or web address] Information not available 07/30/2023 What Is Your Occupation? [employer] And Has Lupus And Nephrotic Syndrome Information not available 07/30/2023 How Many Children Do You Have? 3 3 Living 2 Adopted. Information not available 03/22/2024 Are There Any Occupational Health Risks Where You Work? Yes Information not available 07/30/2023 What Is Your Relationship Status? 10 Years = Jamil [employer] Information not available 07/30/2023 Are You Sexually Active? Yes [email or web address] Information not available 07/30/2023 At What Age Did You Start Smoking Tobacco? 12 [email or web address] Information not available 07/30/2023 How Much Tobacco Do You Smoke? 2 PPW [email or web address] Information not available 07/30/2023 Do You Use Any Illicit Or Recreational Drugs? No Information not available 07/30/2023 How Many Years Have You Smoked Tobacco? 26 [email or web address] Information not available 07/30/2023 Sex: Unknown Functional Status Question Answer Note LastModified by Organizat ion Details LastModified Time What is your exercise level? Occasional Information not available 07/30/2023 Mental Status None recorded. Family History Relationship Description Onset Age of this Age Resolved Age Notes LastModified by Organization Details LastModified Time Mother Malignant tumor of lung small cells- passed 2016 [email or web address] Not available 12/10/2023 17:05:50 Father Hypertensive disorder [email or web address] Not available 2023 17:07:02 Father Malignant neoplasm of liver [email or web address] Not available 2024 14:20:58 Father Malignant neoplasm of skin Not available 2024 14:21:13 Father Hernia of abdominal cavity [email or web address] Not available 2024 14:21:30 Medical History Condition [...] SNOMED-CT Code Diagnosis ICD10 Code Diagnosis Note [id number] Elmo Thompson MD [facility] [address] [place] [address] 07/30/2023 14:49:18 08/05/2023 15:44:01 Menorrhagia 517989958 N92.0 COUNSELING was provided today regarding the [...] t up therelabs to be drawn at [facility] Iron defic iency anemia due to blood loss 177406655 D50.0 Additional diagnosis detail: Iron deficiency anemia due to chronic blood loss [id number] Elmo Thompson MD [facility] [address] [place] [address] 12/10/2023 16:24:22 12/11/2023 17:52:55 Pain of breast 55282470 N64.4 Breast lump 02078518 N63 .0 we will send [facility] if needed Menometrorrhagia 8538285 08 N92.1 COUNSELING was provided today regarding [...] wants to proceed as scheduled Secondary dysmenorrhea 67193244 N94.5 Anemia due to chronic blood loss 396086784 D50.0 Lump in up per outer quadrant of right breast 0486635780 80297 N63.11 Ordered US and mammogram for further evaluation . [id number] Elmo Thompson MD [facility] [address] [place] [address] 03/22/2024 14:08:12 03/24/2024 16:16:50 Menometrorrhagia 989896060 N92.1 COUNSELING was provided today regarding the [...] wants to proceed as scheduled Secondary dysmenorrhea 33665934 N94.5 Anemia due to chronic blood loss 827167286 D50.0 10.5 Health Concerns Section Related Observation LastModified by Organization Detai ls LastModified Time None Recorded Concern Status LastModified by Organization Details LastModified Time None Recorded Advance Directives Directive None Recorded Payers Encounter Date Sequence Insurance Name Policy Number Policy Mendoza Covered Member ID Mendoza Member ID Guarantor Name 07/30/2023 1 [facility] (MEDICAID HMO) [id number] Santy Okeefe [id number] Santy Okeefe 12/10/2023 1 [facility] (MEDICAID HMO) [id number] Santy Okeefe [id number] Santy Okeefe 03/22/2024 1 [facility] (MEDICAID HMO) [id number] Santy Okeefe [id number] Santy Okeefe Notes Date Note Type Note [...] some paracentesis w/nephrotic sx Elmo Thompson MD [address] [place] [address], [place], [address], [facility] 08/02/2023 20:02:59 12/10/2023 text/html Breast ProblemReported bypatient.Location:[facility]; in the axilla The patient verbally consented [...] C-sections in the past. Elmo Thompson MD [address] [place] [address], [place], [address], [facility] X[facility]ex IV 12/11/2023 15:48:08 03/22/2024 text/html The patient elvis gray consented to documentation via virtual scribe for this encounter. Santy is a 38-year-old woman who presents today for a hysterectomy consult due to menorrhagia. Patient stated that her menstrual cycles have been really heavy lately. She underwent mammogram, which were within normal limits. Elmo Thompson MD [address] [facility], [place], [address], [facility] IV 03/23/2024 14:45:44 OBGyn Episode Ob Episode Information Episode Created Date Number of Fetuses Patient Bloodtype Patient rh Status Prepregnancy Weight lbs Domestic Partner Domestic Partner Phone Father Name Molder Inflated Ball Status 12/10/19 24 1 CLOSED Fetus Data First Name Last Name Admitted to NICU Weight (g) Sex Living Outcome Pediatric Complications Fetus ID Race Codes Race Delivery Type 3515.33 8 F Full Term [id number] Repeat [place] Calculation Initial [place] Date Initial [...] Domestic Partner Domestic Partner Phone Father Name Molder Inflated Ball Status 12/10/19 24 1 CLOSED Fetus Data First Name Last Name Admitted to NICU Weight (g) Sex Living Outcome Pediatric Complications Fetus ID Race Codes Race Delivery Type 3345.24 1 F Full Term [id number] Primary [place] Calculation Initial [place] Date Initial [...] Domestic Partner Domestic Partner Phone Father Name Molder Inflated Ball Status 12/10/19 24 1 CLOSED Fetus Data First Name Last Name Admitted to NICU Weight (g) Sex Living Outcome Pediatric Complications Fetus ID Race Codes Race Delivery Type 3430.06 2704 M Full Term 194977 Repeat Milan Calculation Initial [place] Date Initial [...]
--- OUTSIDE RECORDS SUMMARY | 2024-04-22 19:43 | XMS_ITS | Patient Health Record ---
Author Organization [facility] Address [address] [place] [address] Care Team Providers Care Matlab Developer Name Role Phone Natalia Saucedo Primary Care Provider Reason For Referral No Information Plan Of Treatment No Information Insurance Providers Payer Name Payer Address Payer Phone Subscriber Number Group Number Insured Name Patient Relationship to Insured Coverage Start Date Coverage End Date [employer] [address] [place] [address] [id number] Santy Okeefe Self - patient is the insured 4 [employer] [address] [place] [address] [id number] Santy Okeefe Self - patient is the insured 4
--- OUTSIDE RECORDS SUMMARY | 2024-04-22 19:43 | XMS_ITS ---
Author Organization [facility] Address [address] [place] [address] Care Team Providers Care Product Safety Associate Name Role Phone Natalia Saucedo Primary Care Provider [phone] REASON FOR VISIT psych eval; hospital followup from [facility] Encounters Encounter Location Date Provider Diagnosis [address] [address] 03/18/2023 Natalia Saucedo Plan Of Treatment No Information Progress Notes * OKEEFE, JamJose AOB: [birth year] (39 yo F)Acc No.[id number]:03/18/2023 UNLOCKED PROGRESS NOTE Patient: Santy SINGH Provider: Niels Saucedo, DNP, PRODUCTION LINE TECHNICIAN, PMHNP-BC :1985 A ge:37 Y S ex:Female Date:03/18/2023 [facility] Subjective: * Chief Complaints: * 1 . [...] * Electronic signature of Carmenza Ogden , [id number] on 04/22/2024 at 07:43 PM ICE PLATFORM SUPERVISOR Sign off status: Pending * Provider: Niels Saucedo DNP, PRODUCTION LINE TECHNICIAN, PMHNP-BC Date: 0 03/18/2023 Generated for Printing/Faxing/eTransmitting on: 0 04/22/2024 07:43 PM ICE PLATFORM SUPERVISOR
[2024-04-22 20:16] VITALS: TEMP 36.6
[2024-04-22 21:14] LABS: Basophils Percent Auto 0.2 % (0.2-1.2); Hematocrit 36.4 % (37.0-47.0); Hemoglobin 11.3 g/dL (12.0-15.0); Immature Granulocyte Absolute 0.14 K/mm3 (0.00-0.031); Immature Granulocyte Percent A 1.1 % (0-0.5); Lymphocytes Absolute Auto 1.35 K/mm3 (0.9-3.2); Lymphocytes Percent Auto 10.5 % (18.3-44.2); Mean Corpuscular Hemoglobin 23.9 pg (26-34); Mean Platelet Volume 9.6 fl (7.4-10.4); Monocytes Absolute Auto 0.8 K/mm3 (0.1-0.6); Monocytes Percent Auto 6.5 % (2.6-8.5); Neutrophils Absolute Auto 10.5 K/mm3 (1.3-6.7); Neutrophils Percent Auto 81.7 % (45.5-73.1); Platelet Count Result 507 k/mm3 (150-375); Red Blood Count 4.73 M/mm3 (4.2-5.4); Red Cell Distribution Width 21.1 % (11.5-14.5); White Blood Count 12.9 K/mm3 (4.5-10.0)
[2024-04-22 21:23] LABS: Alanine Aminotransferase 22 U/L (6-35); Albumin Level 2.1 g/dL (3.5-5.1); Alkaline Phosphatase 64 U/L (38-126); Anion Gap 0 mmol/L (4-12); Aspartate Amino Transferase 24 U/L (14-36); Bilirubin,Total 0.3 mg/dL (0.2-1.3); Blood Urea Nitrogen 24 mg/dL (7-17); Calcium 7.9 mg/dL (8.4-10.2); Carbon Dioxide 30 mmol/L (22-30); Chloride 101 mmol/L (98-107); Estimated CRCL calculation 109 ml/min; Estimated Glomerular Filt Rate > 60; Glucose 95 mg/dL (65-110); Lipase 98 U/L (23-300); Magnesium 1.9 mg/dL (1.6-2.3); Potassium 3.7 mmol/L (3.4-5.0); Sodium 131 mmol/L (137-145)
[2024-04-22 21:27] LABS: INR 0.9; Prothrombin Time 12.6 Seconds (11.1-14.7)
[2024-04-22 21:34] LABS: NT Pro B Type Natriuretic Pept 156 pg/mL (19.9-100); Troponin I < 0.012 ng/mL (0.000-0.034)
[2024-04-22 22:39] VITALS: PULSE 101; RESP 21; O2SAT 99
[2024-04-22] MEDS: BUMETANIDE INJ 1 MG/4 ML VIAL IV PUSH (22:46)
[2024-04-22] MEDS: ALBUMIN HUMAN 25% 25 GM/100 ML 100 ML IVPB (23:19)
[2024-04-22] MEDS: NICOTINE (*PBKC) 14 MG PATCH 1 PATCH TRANSDERM (23:48)
[2024-04-22 23:58] VITALS: BP 137/89; PULSE 93; RESP 19; O2SAT 99
[2024-04-23] VITALS (24 sets, daily range): BP systolic 105–142; BP diastolic 67–81; PULSE 79–102; RESP 11–20; O2SAT 94–100; BMI 32.1
--- NOTE | 2024-04-23 00:20 | ECG_ITS ---
Test Date: 2024-04-23 00:23:23 Measurements Intervals [place] Rate: 94 P: 57 MA: 161 QRS: 20 QRSD: 89 T: 53 QT: 329 QTc: 413 Interpretive Statements SINUS RHYTHM BORDERLINE T WAVE ABNORMALITY- ANTERIOR LEADS BORDERLINE ECG Compared to ECG 04/22/2024 19:29:20 No significant changes Electronically Signed On 04-23-2024 06:54:51 [employer] [employer] [facility] by Nakul Loza D.O.
[2024-04-23 01:05] LABS: Troponin I < 0.012 ng/mL (0.000-0.034)
[2024-04-23 07:42] LABS: Basophils Percent Auto 0.3 % (0.2-1.2); Eosinophils Percent Auto 0.6 % (0-4.4); Hematocrit 30.8 % (37.0-47.0); Hemoglobin 9.4 g/dL (12.0-15.0); Immature Granulocyte Absolute 0.04 K/mm3 (0.00-0.031); Immature Granulocyte Percent A 0.6 % (0-0.5); Lymphocytes Absolute Auto 2.14 K/mm3 (0.9-3.2); Lymphocytes Percent Auto 32.5 % (18.3-44.2); Mean Corpuscular HGB Conc 30.5 g/dl (32-36); Mean Corpuscular Hemoglobin 23.7 pg (26-34); Mean Corpuscular Volume 77.6 fl (80-100); Mean Platelet Volume 9.7 fl (7.4-10.4); Monocytes Absolute Auto 0.5 K/mm3 (0.1-0.6); Monocytes Percent Auto 7.6 % (2.6-8.5); Neutrophils Absolute Auto 3.9 K/mm3 (1.3-6.7); Neutrophils Percent Auto 58.4 % (45.5-73.1); Platelet Count Result 454 k/mm3 (150-375); Red Blood Count 3.97 M/mm3 (4.2-5.4); White Blood Count 6.6 K/mm3 (4.5-10.0)
--- NOTE | 2024-04-23 07:42 | PC.NURSE ---
called dietary and ordered breakfast tray for pt at this time
[2024-04-23 07:52] LABS: Anion Gap 1 mmol/L (4-12); Blood Urea Nitrogen 21 mg/dL (7-17); Calcium 7.5 mg/dL (8.4-10.2); Carbon Dioxide 28 mmol/L (22-30); Chloride 102 mmol/L (98-107); Estimated CRCL calculation 121 ml/min; Estimated Glomerular Filt Rate > 60; Glucose 89 mg/dL (65-110); Magnesium 1.7 mg/dL (1.6-2.3); Potassium 3.8 mmol/L (3.4-5.0); Sodium 131 mmol/L (137-145)
--- NOTE | 2024-04-23 08:12 | PM.IMHP ---
H&P: HPI History of Present Illness Date/Time: 04/23/24 08:12 Chief Complaint: Chest pain Narrative: 39 years old lady with history of nephrotic syndrome, chronic anemia, migraine, present ED with a chief complaint of chest pain. Patient started have intermittent left chest pain yesterday, radiating to the back, associated with dyspnea. Patient denies fever chills cough headache. Patient was recently admitted to the hospital because of nephrotic syndrome and fluid overloaded. Patient received diuretic medication and steroid patient will discharge home with prednisone p.o. on . Patient does not have history of cardiac stent or bypass surgery. Patient called EMS and the patient was brought to ED for evaluation treatment. Upon arrival to ED, patient was afebrile, but as tachycardia tachypnea, no O2 desaturation on room air. CBC showed leukocytosis 12,800, hemoglobin 11.3 on the baseline, chemistry showed hyponatremia 131, elevated BUN creatinine ratio 24/0.56 abdomen 2.1 on baseline. Troponin x2 negative. EKG shows sinus rhythm no specific ST or T-wave changes. CTA showed no PE, no thoracic aortic dissection,, trace bilateral pleural effusion and adjacent atelectasis. We admit patient for further evaluation and management Review of Systems Review of Systems: ROS negative except above PMFSH Past Medical History Medical History Rheumatoid arthritis Arthritis Depression Hair loss Psoriasis Cellulitis Excessive thirst Kidney disease Kidney infection UTI (urinary tract infection) Constipation Abdominal pain Nausea High cholesterol Wheezing SOB (shortness of breath) Ear pain Hearing loss Wears glasses Light headedness Dizziness Chronic headaches Trigger finger of right thumb Trigger finger, left middle finger Generalized edema Elevated d-dimer Abdominal fullness Nephrotic syndrome Normal cardiac stress test (~08/2019) Previous echocardiogram showed an ejection fraction of 55-60% with mild mitral and tricuspid regurgitation. Angioedema Depression with anxiety Gastroesophageal reflux disease Craniosynostosis Melanoma Left upper extremity, status post excision. Pleural effusion Chest pain Negative stress test 10/2019 Hyperlipidemia Not currently on medication. Tobacco abuse Surgical History Surgical History History of cranial surgery As a child for craniosynostosis. History of tubal ligation History of 3 sections History of melanoma excision (~2017) Left upper extremity. Family History Family History Sibling Testicle cancer Mother Small cell lung cancer Hypertension Father Throat cancer Hernia Melanoma Other Asthma Depression High cholesterol Kidney disorder Social History Social History Social History: The patient lives in [place] with her and 4 children. She has 1 adult child that is out of the home. 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 She smoked 1PPD for 20 years. She quit three weeks ago using the nicotine patches. She has a history of IV methamphetamine use for 2 years and quit over a year ago. She designates her , Jamil, as her surrogate decision maker and she wishes to be a full code. Smoking packs per day: 1 Smoking cigarettes per day: 20.0 Years smoked: 20 Smoking pack-years: 20.00 Smoking status: Current every day smoker Second hand tobacco smoke exposure: Yes Additional smoking assessment comments: Using nicotine patch Alcohol intake: never Alcohol use details: She reports no recent alcohol use. Substance use: never Substance use type: marijuana Other substance usage details: former IV methamphetamine use; last used >10 years, no alcohol intake >8 yr Do You Feel Safe in your Home?: Yes Lack of Transportation: No Lack of Food: Never True Current Housing: I Have Housing Concerned About Future Housing: No Difficulty Paying Gas/Electric Bills: No Difficulty Paying for Meds: No Currently Unemployed: No Education: Bachelor's Degree Difficulty w/ Childcare or Family Care: No Living arrangements: with family Occupation/Education: occupation Gender identity (if verbalized by the patient): Female Sexual Orientation (if Verbalized by the Patient): Straight or Heterosexual Spiritual care concerns: No Agree to blood products: Yes Meds Home Medications and Allergies Home Medications ?Medication ?Instructions ?Recorded ?Confirmed ?Type melatonin 5 mg tablet 5 mg PO HS PRN Insomnia 08/17/19 04/23/24 History nicotine 21 mg/24 hr daily 1 patch transdermal DAILY 01/12/20 04/23/24 History transdermal patch compression socks, medium #1 ea 01/14/20 04/16/24 Rx ketoconazole 2 % topical cream 1 applic topical DAILY #60 grams 03/31/22 04/23/24 Rx bumetanide 1 mg tablet 1 mg PO BID 30 days #60 tabs 04/13/23 04/23/24 Rx sumatriptan succinate 50 mg tablet See Rx Instructions PO .COMPLEX 03/29/24 04/23/24 Rx (Imitrex) #10 tabs prednisone 20 mg tablet 60 mg (3 x 20 mg) PO DAILY@08 #30 04/17/24 04/23/24 Rx tabs hydroxyzine HCl 25 mg tablet 25 mg PO Q6H PRN anxiety 04/23/24 04/23/24 History Allergies Allergy/AdvReac Type Severity Reaction Status Date / Time adhesive tape AdvReac Unknown Rash Verified 04/23/24 09:06 Vital Signs Vital Signs - 24 hr 04/22/24 19:21 04/22/24 19:29 04/22/24 19:31 Temperature Pulse Rate 77 78 Respiratory Rate 25 H Blood Pressure 133/100 H Pulse Oximetry 100 Oxygen Delivery Room Air Room Air 04/22/24 20:16 04/22/24 22:39 04/22/24 23:58 Temperature 97.9 F Pulse Rate 101 H 93 Respiratory Rate 21 H 19 Blood Pressure 137/89 Pulse Oximetry 99 99 Oxygen Delivery 04/23/24 01:05 04/23/24 02:27 04/23/24 02:29 Temperature Pulse Rate 93 99 95 Respiratory Rate 16 15 17 Blood Pressure 142/80 H 111/69 Pulse Oximetry 98 100 98 Oxygen Delivery 04/23/24 02:30 04/23/24 02:45 04/23/24 03:01 Temperature Pulse Rate 94 93 98 Respiratory Rate 16 15 11 L Blood Pressure 112/74 Pulse Oximetry 98 94 100 Oxygen Delivery 04/23/24 03:02 04/23/24 03:15 04/23/24 03:40 Temperature Pulse Rate 95 99 101 H Respiratory Rate 11 L 15 18 Blood Pressure Pulse Oximetry 99 100 100 Oxygen Delivery 04/23/24 03:45 04/23/24 04:00 04/23/24 04:01 Temperature Pulse Rate 102 H 90 93 Respiratory Rate 12 13 14 Blood Pressure 108/67 Pulse Oximetry 99 100 99 Oxygen Delivery 04/23/24 04:15 04/23/24 04:32 04/23/24 04:45 Temperature Pulse Rate 93 95 92 Respiratory Rate 12 13 12 Blood Pressure Pulse Oximetry 99 98 96 Oxygen Delivery 04/23/24 05:03 04/23/24 05:15 04/23/24 05:30 Temperature Pulse Rate 89 85 84 Respiratory Rate 14 12 14 Blood Pressure Pulse Oximetry 96 98 Oxygen Delivery 04/23/24 06:34 04/23/24 07:30 Temperature Pulse Rate 89 96 Respiratory Rate 14 20 Blood Pressure 105/68 123/73 Pulse Oximetry 97 97 Oxygen Delivery Exam Narrative: GENERAL: Ill-appearing, in no acute distress. Well-nourished. - EYES: EOMI. Anicteric. Periorbital edema - HENT: Moist mucous membranes. - LUNGS: Clear to auscultation bilaterally, no wheezing, rhonchi, or rales. - CARDIOVASCULAR: Regular rate and rhythm. No murmur. No JVD. - ABDOMEN: Soft, non-tender and non-distended. No palpable masses. - EXTREMITIES: 3+ lower extremities edema. Peripheral pulses 2+. Non-tender. - NEUROLOGIC: No focal neurological deficits. CN II-XII grossly intact. - PSYCHIATRIC: Awake, Alert and oriented x 3. Appropriate mood and affect. - SKIN: No rashes or lesions. Warm. - LYMPH: No cervical lymphadenopathy. H&P: Results Labs Labs: Short CBC 04/22/24 04/23/24 Range/Units 21:07 07:26 WBC 12.9 H 6.6 (4.5-10.0) K/mm3 Hgb 11.3 L 9.4 L (12.0-15.0) g/dL Hct 36.4 L 30.8 L (37.0-47.0) % Plt Count 507 H 454 H (150-375) k/mm3 [facility] 04/22/24 04/23/24 21:07 07:26 Sodium 131 L 131 L Potassium 3.7 3.8 Chloride 101 102 Carbon Dioxide 30 28 BUN 24 H D 21 H Creatinine 0.56 L 0.50 L Glucose 95 89 Calcium 7.9 L 7.5 L Cardiac Enzymes 04/22/24 04/23/24 Range/Units 21:07 00:37 Troponin I < 0.012 < 0.012 (0.000-0.034) ng/mL Liver Function 04/22/24 Range/Units 21:07 Total Bilirubin 0.3 (0.2-1.3) mg/dL AST 24 (14-36) U/L ALT 22 (6-35) U/L Alkaline Phosphatase 64 (38-126) U/L Albumin 2.1 L (3.5-5.1) g/dL Assessment and Plan Assessment and plan (1) Chest pain: Code(s): R07.9 - Chest pain, unspecified Status: Acute (2) Hyperlipidemia: Qualifiers: Hyperlipidemia type: unspecified Qualified Code(s): E78.5 - Hyperlipidemia, unspecified Code(s): E78.5 - Hyperlipidemia, unspecified Status: Chronic (3) Nephrotic syndrome: Code(s): N04.9 - Nephrotic syndrome with unspecified morphologic changes Status: Acute (4) Minimal change glomerulonephropathy: Code(s): N05.0 - Unspecified nephritic syndrome with minor glomerular abnormality Status: Acute (5) Proteinuria: Code(s): R80.9 - Proteinuria, unspecified Status: Acute (6) Hyponatremia: Code(s): E87.1 - Hypo-osmolality and hyponatremia Status: Acute (7) Chronic anemia: Code(s): D64.9 - Anemia, unspecified Status: Acute Plan Chest pain Patient has been having intermittent chest pain since yesterday, locating in left chest, associated with shortness breast Troponin negative x2, EKGs are sinus rhythm no specific ST or T-wave changes CTA chest shows no PE or aortic dissection risk of ACS Place patient telemetry monitoring Stress echo 2020 shows no regional wall motion abnormality but showed left ventricle end systolic volume decreased pulse stress repeat echocardiogram Aspirin 325 mg once and 80 mg daily p.o. Telemetry monitoring Follow-up serial troponin, EKG. Ged Preparation Teacher syndrome Kidney function stable Patient is on Bumex and prednisone p.o. Hypoalbuminemia persists Consult licensed real estate broker for evaluation and management Hyponatremia Lower than baseline, 131 upon arrival, baseline 135 when patient was discharged Possible due to diuretic medication Provide sodium chloride 1 g b.i.d. p.o. Anasarca Patient has severe edema Labs resulting from hypoalbuminemia and fluid retention Start albumin 25 g q.6 hour Continue Bumex Chronic anemia Continue ferrous sulfate p.o. Follow-up CBC Hospitalist MIPS Advance Care Plan I have confirmed that the patient's Advanced Care Plan is present, code status is documented, or surrogate decision maker is listed in patient medical record.: Yes Medication Reconciliation The patient is not eligible for med reconciliation; the patient is in a emergent medical situation where delaying treatment would jeopardize the patients health.: Yes
[2024-04-23] MEDS: predniSONE 20 MG TABLET 60 MG PO (08:31)
--- NOTE | 2024-04-23 08:33 | ECHO_ITS ---
Patient Info Name: Santy Okeefe Age: 39 years : 1985 Gender: Female Ht: 62 in Wt: 175 lbs BSA: 1.90 m2 HR: 83 bpm BP: 138 / 81 mmHg Heart Rhythm: Sinus Rhythm Technical Quality: Good Exam Date: 04/23/2024 12:09 PM Exam Location: Echo Lab Exam Room: [facility] Patient Status: Inpatient Admit Date: 04/23/2024 Staff Ordering Physician: Nnamdi Casarze MD Refrigeration Brazer/Solderer: Kassandra Lacey RDCS Attending Provider: Caity Sifuentes MD Exam Type: CA echo doppler color flow Study Info Indications - Chest pain Complete two-dimensional, color flow and Doppler transthoracic echocardiogram is performed. Summary 1. Complete two-dimensional, color flow and Doppler transthoracic echocardiogram is performed. 2. Normal left ventricular size and systolic function with no regional wall motion abnormalities. 3. Trivial amount of mitral and pulmonic valve regurgitation. Left Ventricle Left ventricular chamber dimension is normal. Left ventricular systolic function is normal, estimated at 60-65%. The left ventricular diastolic function is grade I diastolic dysfunction. Right Ventricle Right ventricular chamber dimension is normal. Left Atria Left atrial chamber dimension is normal. Right Atria Right atrial chamber dimension is normal. Aortic Valve The aortic valve is normal. Pulmonic Valve The pulmonic valve is normal. There is trace pulmonic regurgitation. Mitral Valve The mitral valve has normal leaflets. There is trace mitral valve regurgitation. Tricuspid Valve The tricuspid valve leaflets are normal. Pericardium/Pleural The pericardium appears normal. Aorta The aortic root size at the sinus of Valsalva is normal. Left Ventricular Outflow Tract Name Value Normal LVOT 2D LVOT Diameter 2.2 cm LVOT Doppler LVOT Peak Gradient 7 mmHg LVOT Mean Gradient 4 mmHg LVOT VTI 27 cm LVOT VTI/AV VTI Ratio 0.8 LVOT Stroke Volume 101 ml LVOT CO 8.9 l/min LVOT CI 4.7 l/min/m2 Pulmonic Valve Name Value Normal PV Doppler PV Peak Gradient 4 mmHg PV Regurgitation Doppler VT Peak End Diastolic Velocity 120 cm/s Mitral Valve Name Value Normal MV Doppler MV Peak Gradient 4 mmHg MV Mean Gradient 1 mmHg MV Decel [place] 496 cm/s2 MV PHT 56 ms MV Area (PHT) 3.9 cm2 4.0-5.0 MV Area (Cont Eq VTI) 5.2 cm2 MV Regurgitation Doppler MR Peak Gradient 69 mmHg MV Diastolic Function MV E Peak Velocity 96 cm/s MV A Peak Velocity 66 cm/s MV E/A 1.4 MV Decel Time 193 ms MV Annular TDI MV E/e' (Septal) 9.6 <=8.0 MV E/e' (Lateral) 5.3 <=8.0 MV E/e' (Average) 7.4 Aortic Valve Name Value Normal AV Doppler AV Peak Velocity 168 cm/s AV Peak Gradient 11 mmHg AV Mean Gradient 6 mmHg AV VTI 36 cm AV Area (Cont Eq VTI) 2.8 cm2 >=3.0 AV Area (Cont Eq Patricio) 3.0 cm2 AV Regurgitation 2D LVOT Area 3.7 cm2 Ventricles Name Value Normal LV Dimensions 2D/MM IVS Diastole Thickness (MM) 0.8 cm 0.6-0.9 LVID Diastole (MM) 5.4 cm 3.8-5.2 LVIW Diastolic Thickness (MM) 0.9 cm 0.6-0.9 IVS Systolic Thickness (MM) 1.0 cm LVID Systole (MM) 3.9 cm 2.2-3.5 LVIW Systolic Thickness (MM) 1.1 cm LVOT Diameter 2.2 cm LV Mass (MM Cubed) 170.56 g 67.00-162.00 LV Mass Index (MM Cubed) 90 g/m2 43-95 Relative Wall Thickness (MM) 0.33 LV Fractional Shortening/Ejection Fraction 2D/MM LV Fractional Shortening (MM) 28 % 27-45 LV EF (MM Teicholz) 54 % 54-74 LV Diastolic Volume (4C MOD) 156 ml LV EF (4C MOD) 52 % LV Diastolic Volume (2C MOD) 184 ml LV EF (2C MOD) 59 % LV Diastolic Volume (BP MOD) 174 ml 46-106 LV Diastolic Volume Index (BP MOD) 92 ml/m2 29-61 LV Systolic Volume (BP MOD) 75 ml 14-42 LV Systolic Volume Index (BP MOD) 40 ml/m2 8-24 LV EF (BP MOD) 57 % 54-74 LV Diastolic Length (4C) 9.3 cm LV Systolic Length (4C) 7.6 cm LV Stroke Volume (4C MOD) 82 ml Atria Name Value Normal RA Dimensions RA Area (4C) 17.2 cm2 <=18.0 Report Signatures
--- NOTE | 2024-04-23 08:56 | ECG_ITS ---
Test Date: 2024-04-23 09:01:46 Measurements Intervals [place] Rate: 94 P: 54 ND: 176 QRS: 53 QRSD: 90 T: 65 QT: 350 QTc: 438 Interpretive Statements SINUS RHYTHM BASELINE ARTIFACT- V1-V6 NORMAL ECG Compared to ECG 04/23/2024 00:23:23 No significant changes Electronically Signed On 04-23-2024 09:13:35 TRANSPORTATION ASSOCIATE by Nakul Loza D.O.
[2024-04-23] MEDS: BUMETANIDE INJ 1 MG/4 ML VIAL IV PUSH (08:57)
[2024-04-23] MEDS: HYDROmorphone HCL INJ (*CRX) 1 MG/ML SYR 0.5 MG IV PUSH (09:12)
[2024-04-23] MEDS: NICOTINE (*PBKC) 14 MG PATCH 1 PATCH TRANSDERM (09:13)
[2024-04-23] MEDS: SODIUM CHLORIDE 1 GM TABLET PO (09:14)
--- NOTE | 2024-04-23 09:43 | PC.NURSE ---
800 output urinary catheter
--- NOTE | 2024-04-23 09:55 | ADMGEN ---
This patient, Santy Okeefe, was admitted to [facility] Surg Room 312-01. Patient/family oriented to hospital policies and general routines including ID bracelet, bed and alarms, visiting hours, pain management, procedures, bathroom and other care routines, personal items, smoking policy, room service/diet, and visiting hours. Information on how to activate the Rapid Response Team has been discussed. Patient/Family are encouraged to report perceived risks to care and to ask questions if they do not understand what they are told or what they should do.
--- NOTE | 2024-04-23 10:58 | PM.CNNEP ---
Assessment and Plan Assessment and plan (1) Nephrotic syndrome: Code(s): N04.9 - Nephrotic syndrome with unspecified morphologic changes Status: Acute Assessment and Plan: the patient has nephrotic syndrome. This is most likely due to recurrence of minimal change disease. She has been taking prednisone for a week. Last check she had greaterthan7.42g of protein per g of creatinine in her urine protein to creatinine ratio. Will recheck another 1 now symptoms are just as bad as they were last week she says. Her weight has not changed much since last admission. Her albumin level is low at 2.1. Will give 25g of albumin every 6hours and follow it with Bumex and see how she does. She will be on a low-salt diet as well. If things do not get better soon she may need a re-biopsy. (2) Chronic anemia: Code(s): D64.9 - Anemia, unspecified Status: Acute Assessment and Plan: Patient's hemoglobin is low. This should not come from nephrotic syndrome. Will check iron levels As well as B12 and folate. (3) Hyponatremia: Code(s): E87.1 - Hypo-osmolality and hyponatremia Status: Acute Assessment and Plan: sodium level is slightly low. His most likely from the pre renal fax of the nephrotic syndrome. Will see how this does going forward (4) Hypertension: Code(s): I10 - Essential (primary) hypertension Status: Acute Assessment and Plan: blood pressure seems to be doing pretty well. Will start lisinopril since this can help the urine protein as well. (5) Hyperlipidemia: Qualifiers: Hyperlipidemia type: unspecified Qualified Code(s): E78.5 - Hyperlipidemia, unspecified Code(s): E78.5 - Hyperlipidemia, unspecified Status: Chronic Assessment and Plan: She sees Dr. Rowe. Stress test is negative. History of Present Illness Reason for Consult Consult date: 04/23/24 Chief Complaint Chief complaint: Anasarca, nephrotic syndrome, fluid overload History of Present Illness Narrative: Santy is a very pleasant 39-year-old lady who has multiple medical problems including chronic smoking, hyperlipidemia, left upper extremity melanoma, craniosynostosis, depression with anxiety, GERD, and minimal change disease. She was seen in the office a couple of years ago and had swelling. She had proteinuria so biopsy was done showing the minimal change nephropathy. She was treated with prednisone and improved. She was then lost to follow-up because she has trouble getting to the office. She says about a month ago she started swelling again. She did not call anybody about this but then the swelling became severe. She gained about 70lb she says. She went to the ER. This is felt to be a recurrence of her minimal change so she was given steroids and diuretics. She lost about 20lb while here she says and she was discharged. Since then she has not really improved in fact she feels like she is gained more swelling so she came back yesterday. The patient says she has sensitive skin because of all the swelling. She has shortness of breath because she feels like she is drowning. She has foamy urine but no blood. She continues to smoke. No she should quit and is trying. Consider Shan takes or patches? She will work with her primary care physician she does not drink alcohol PMFSH Past Medical History Medical History Rheumatoid arthritis Arthritis Depression Hair loss Psoriasis Cellulitis Excessive thirst Kidney disease Kidney infection UTI (urinary tract infection) Constipation Abdominal pain Nausea High cholesterol Wheezing SOB (shortness of breath) Ear pain Hearing loss Wears glasses Light headedness Dizziness Chronic headaches Trigger finger of right thumb Trigger finger, left middle finger Generalized edema Elevated d-dimer Abdominal fullness Nephrotic syndrome Normal cardiac stress test (~08/2019) Previous echocardiogram showed an ejection fraction of 55-60% with mild mitral and tricuspid regurgitation. Angioedema Depression with anxiety Gastroesophageal reflux disease Craniosynostosis Melanoma Left upper extremity, status post excision. Pleural effusion Chest pain Negative stress test 10/2019 Hyperlipidemia Not currently on medication. Tobacco abuse Surgical History Surgical History History of cranial surgery As a child for craniosynostosis. History of tubal ligation History of 3 sections History of melanoma excision (~2017) Left upper extremity. Family History Family History Sibling Testicle cancer Mother Small cell lung cancer Hypertension Father Throat cancer Hernia Melanoma Other Asthma Depression High cholesterol Kidney disorder Social History Social History Social History: The patient lives in [place] with her and 4 children. She has 1 adult child that is out of the home. 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 She smoked 1PPD for 20 years. She quit three weeks ago using the nicotine patches. She has a history of IV methamphetamine use for 2 years and quit over a year ago. She designates her , Jamil, as her surrogate decision maker and she wishes to be a full code. Smoking packs per day: 1 Smoking cigarettes per day: 20.0 Years smoked: 20 Smoking pack-years: 20.00 Smoking status: Current every day smoker Second hand tobacco smoke exposure: Yes Additional smoking assessment comments: Using nicotine patch Alcohol intake: never Alcohol use details: She reports no recent alcohol use. Substance use: never Substance use type: marijuana Other substance usage details: former IV methamphetamine use; last used >10 years, no alcohol intake >8 yr Do You Feel Safe in your Home?: Yes Lack of Transportation: No Lack of Food: Never True Current Housing: I Have Housing Concerned About Future Housing: No Difficulty Paying Gas/Electric Bills: No Difficulty Paying for Meds: No Currently Unemployed: No Education: Bachelor's Degree Difficulty w/ Childcare or Family Care: No Living arrangements: with family Occupation/Education: occupation Gender identity (if verbalized by the patient): Female Sexual Orientation (if Verbalized by the Patient): Straight or Heterosexual Spiritual care concerns: No Agree to blood products: Yes Meds Home Medications and Allergies Home Medications ?Medication ?Instructions ?Recorded ?Confirmed ?Type melatonin 5 mg tablet 5 mg PO HS PRN Insomnia 08/17/19 04/23/24 History nicotine 21 mg/24 hr daily 1 patch transdermal DAILY 01/12/20 04/23/24 History transdermal patch compression socks, medium #1 ea 01/14/20 04/16/24 Rx ketoconazole 2 % topical cream 1 applic topical DAILY #60 grams 03/31/22 04/23/24 Rx bumetanide 1 mg tablet 1 mg PO BID 30 days #60 tabs 04/13/23 04/23/24 Rx sumatriptan succinate 50 mg tablet See Rx Instructions PO .COMPLEX 03/29/24 04/23/24 Rx (Imitrex) #10 tabs prednisone 20 mg tablet 60 mg (3 x 20 mg) PO DAILY@08 #30 04/17/24 04/23/24 Rx tabs hydroxyzine HCl 25 mg tablet 25 mg PO Q6H PRN anxiety 04/23/24 04/23/24 History Allergies Allergy/AdvReac Type Severity Reaction Status Date / Time adhesive tape AdvReac Unknown Rash Verified 04/23/24 09:06 Vital Signs Vital Signs - 24 hr 04/22/24 19:21 04/22/24 19:29 04/22/24 19:31 Temperature Pulse Rate 77 78 Respiratory Rate 25 H Blood Pressure 133/100 H Pulse Oximetry 100 Oxygen Delivery Room Air Room Air 04/22/24 20:16 04/22/24 22:39 04/22/24 23:58 Temperature 97.9 F Pulse Rate 101 H 93 Respiratory Rate 21 H 19 Blood Pressure 137/89 Pulse Oximetry 99 99 Oxygen Delivery 04/23/24 01:05 04/23/24 02:27 04/23/24 02:29 Temperature Pulse Rate 93 99 95 Respiratory Rate 16 15 17 Blood Pressure 142/80 H 111/69 Pulse Oximetry 98 100 98 Oxygen Delivery 04/23/24 02:30 04/23/24 02:45 04/23/24 03:01 Temperature Pulse Rate 94 93 98 Respiratory Rate 16 15 11 L Blood Pressure 112/74 Pulse Oximetry 98 94 100 Oxygen Delivery 04/23/24 03:02 04/23/24 03:15 04/23/24 03:40 Temperature Pulse Rate 95 99 101 H Respiratory Rate 11 L 15 18 Blood Pressure Pulse Oximetry 99 100 100 Oxygen Delivery 04/23/24 03:45 04/23/24 04:00 04/23/24 04:01 Temperature Pulse Rate 102 H 90 93 Respiratory Rate 12 13 14 Blood Pressure 108/67 Pulse Oximetry 99 100 99 Oxygen Delivery 04/23/24 04:15 04/23/24 04:32 04/23/24 04:45 Temperature Pulse Rate 93 95 92 Respiratory Rate 12 13 12 Blood Pressure Pulse Oximetry 99 98 96 Oxygen Delivery 04/23/24 05:03 04/23/24 05:15 04/23/24 05:30 Temperature Pulse Rate 89 85 84 Respiratory Rate 14 12 14 Blood Pressure Pulse Oximetry 96 98 Oxygen Delivery 04/23/24 06:34 04/23/24 07:30 04/23/24 08:49 Temperature Pulse Rate 89 96 84 Respiratory Rate 14 20 15 Blood Pressure 105/68 123/73 123/73 Pulse Oximetry 97 97 95 Oxygen Delivery 04/23/24 09:41 04/23/24 09:46 Temperature Pulse Rate 86 83 Respiratory Rate 13 14 Blood Pressure 138/81 138/81 Pulse Oximetry 96 99 Oxygen Delivery Results Lab Results 04/23/24 07:26 04/23/24 07:26 Lab results: Most recent lab results Calcium 7.5 mg/dL (8.4-10.2) L 04/23/24 07:26 Magnesium 1.7 mg/dL (1.6-2.3) 04/23/24 07:26
[2024-04-23 11:41] LABS: Iron 22 ug/dL (37-170)
[2024-04-23 11:51] LABS: Percent Iron Saturation 22 % (20-50)
[2024-04-23 12:49] LABS: Folic Acid 12.2 ng/mL (2.76->20)
[2024-04-23] MEDS: FUROSEMIDE INJ 40 MG/4 ML VIAL IV PUSH (13:26)
[2024-04-23] MEDS: ASPIRIN 81 MG CHEWABLE TABLET 324 MG PO (13:26)
[2024-04-23] MEDS: ALBUMIN HUMAN 25% 25 GM/100 ML 100 ML IVPB (13:27)
--- NOTE | 2024-04-23 15:21 | PC.NURSE ---
called to pt's room, she wishes to sign out AMA per her and family request, she is having drive her due to her eyes being completely swollen closed, he states he is taking her to [facility] in [facility]
--- NOTE | 2024-04-26 16:33 | P.DS_ITS ---
DS: Admitting Diagnosis Discharge Date 04/23/24 Admitting Diagnosis (1) Chest pain: Code(s): R07.9 - Chest pain, unspecified Status: Acute (2) Hyperlipidemia: Qualifiers: Hyperlipidemia type: unspecified Qualified Code(s): E78.5 - Hyperlipidemia, unspecified Code(s): E78.5 - Hyperlipidemia, unspecified Status: Chronic (3) Nephrotic syndrome: Code(s): N04.9 - Nephrotic syndrome with unspecified morphologic changes Status: Acute (4) Minimal change glomerulonephropathy: Code(s): N05.0 - Unspecified nephritic syndrome with minor glomerular abnormality Status: Acute (5) Proteinuria: Code(s): R80.9 - Proteinuria, unspecified Status: Acute (6) Hyponatremia: Code(s): E87.1 - Hypo-osmolality and hyponatremia Status: Acute (7) Chronic anemia: Code(s): D64.9 - Anemia, unspecified Status: Acute DS: Discharge Diagnosis Discharge Diagnosis (1) Chest pain: Code(s): R07.9 - Chest pain, unspecified Status: Acute (2) Hyperlipidemia: Qualifiers: Hyperlipidemia type: unspecified Qualified Code(s): E78.5 - Hyperlipidemia, unspecified Code(s): E78.5 - Hyperlipidemia, unspecified Status: Chronic (3) Nephrotic syndrome: Code(s): N04.9 - Nephrotic syndrome with unspecified morphologic changes Status: Acute (4) Minimal change glomerulonephropathy: Code(s): N05.0 - Unspecified nephritic syndrome with minor glomerular abnormality Status: Acute (5) Proteinuria: Code(s): R80.9 - Proteinuria, unspecified Status: Acute (6) Hyponatremia: Code(s): E87.1 - Hypo-osmolality and hyponatremia Status: Acute (7) Chronic anemia: Code(s): D64.9 - Anemia, unspecified Status: Acute DS: Summary Hospital Course Hospital Course: 39 years old lady with history of nephrotic syndrome, chronic anemia, migraine, present ED with a chief complaint of chest pain. Patient started have intermittent left chest pain yesterday, radiating to the back, associated with dyspnea. Patient denies fever chills cough headache. Patient was recently admitted to the hospital because of nephrotic syndrome and fluid overloaded. Patient received diuretic medication and steroid patient will discharge home with prednisone p.o. on fiber . Patient does not have history of cardiac stent or bypass surgery. Patient called EMS and the patient was brought to ED for evaluation treatment. Upon arrival to ED, patient was afebrile, but as tachycardia tachypnea, no O2 desaturation on room air. CBC showed leukocytosis 12,800, hemoglobin 11.3 on the baseline, chemistry showed hyponatremia 131, elevated BUN creatinine ratio 24/0.56 abdomen 2.1 on baseline. Troponin x2 negative. EKG shows sinus rhythm no specific ST or T-wave changes. CTA showed no PE, no thoracic aortic dissection,, trace bilateral pleural effusion and adjacent atelectasis. We admit patient for further evaluation and management The following med issues have been addressed during hospitalization Chest pain Patient has been having intermittent chest pain since yesterday, locating in left chest, associated with shortness breast Troponin negative x2, EKGs are sinus rhythm no specific ST or T-wave changes CTA chest shows no PE or aortic dissection risk of ACS Place patient telemetry monitoring Stress echo 2019 shows no regional wall motion abnormality but showed left ventricle end systolic volume decreased pulse stress repeat echocardiogram Aspirin 325 mg once and 80 mg daily p.o. Telemetry monitoring Follow-up serial troponin, EKG. Wood Grainer syndrome Kidney function stable Patient is on Bumex and prednisone p.o. Hypoalbuminemia persists Consult ropeman for evaluation and management Hyponatremia Lower than baseline, 131 upon arrival, baseline 135 when patient was discharged Possible due to diuretic medication Provide sodium chloride 1 g b.i.d. p.o. Anasarca Patient has severe edema Labs resulting from hypoalbuminemia and fluid retention Start albumin 25 g q.6 hour Continue Bumex Chronic anemia Continue ferrous sulfate p.o. Follow-up CBC Patient left AMA, the risk of AMA were explained to the patient, patient understood the risk of AMA Time Spent with Patient Time attestation: Total time spent providing and/or coordinating discharge services: Exam Narrative: GENERAL: Ill-appearing, in no acute distress. Well-nourished. - EYES: EOMI. Anicteric. Periorbital ed raven - HENT: Moist mucous membranes. - LUNGS: Clear to auscultation bilateral ly, no wheezing, rhonchi, or rales. - CARDIOVASCULAR: Regular rate and rhyth m. No murmur. No JVD. - ABDOMEN: Soft, non-tender and non-dist ended. No palpable masses. - EXTREMITIES: 3+ lower extremities ashley ma. Peripheral pulses 2+. Non-tender. - NEUROLOGIC: No focal neurological defi cits. CN II-XII grossly intact. - PSYCHIATRIC: Awake, Alert and oriented x 3. Appropriate mood and affect. - SKIN: No rashes or lesions. Warm. - LYMPH: No cervical lymphadenopathy. Discharge Plan Discharge Consulting providers: Giovanni Mejia; Nakul Loza; Elmo Membreno; Amberly Dias Patient Disposition: Left Against Medical Advice Patient Language: Citizen Of [place] Discharge Medications: No Action prednisone 20 mg Tablet 60 mg PO DAILY@08 Qty: 30 0RF hydroxyzine HCl 25 mg tablet 25 mg PO Q6H PRN (Reason: anxiety) melatonin 5 mg Tablet 5 mg PO HS PRN (Reason: Insomnia) nicotine 21 mg/24 hr Patch 24 Hour 1 patch TRANSDERMAL DAILY (DME) compression socks, medium Misc See Rx Instructions .ROUTE .MEDSUPPLY Qty: 1 0RF Rx Instructions: As directed ketoconazole 2 % cream 1 applic topical DAILY Qty: 60 0RF bumetanide 1 mg tablet 1 mg PO BID 30 Days Qty: 60 5RF sumatriptan succinate [Imitrex] 50 mg tablet See Rx Instructions PO .COMPLEX Qty: 10 6RF Rx Instructions: take 1 tab at onset of headache; if no relief may repeat 1 tab after at least 2 hrs; max = 4 tabs/24 hr PO Date of admission: 04/23/24 01:06 Primary Care Provider: Litzy Clayton Admitting Provider: Caity Sifuentes Attending physician on admission: Nnamdi Casarez Condition: Stable
== END 2024-04-23 15:23 | disposition left against medical advice (07) | DRG 462 ==
LOC: ANHED 19:41 → ANH3MEDSUR 04-23 03:30
PROVIDERS: Internal Medicine Nephrology; Admitting Provider General Practice; Emergency Provider Student in an Organized Health Care Education/Training Program; PCP Family Medicine; Visit Provider Hospitalist
DX: N05.0 Unspecified nephritic syndrome with minor glomerular abnormality (principal); E87.1 Hypo-osmolality and hyponatremia; R07.9 Chest pain, unspecified; R60.1 Generalized edema; E78.00 Pure hypercholesterolemia, unspecified; K21.9 Gastro-esophageal reflux disease without esophagitis; D64.9 Anemia, unspecified; R51.9 Headache, unspecified; M06.9 Rheumatoid arthritis, unspecified; L40.9 Psoriasis, unspecified; F41.9 Anxiety disorder, unspecified; F32.A Depression, unspecified; Z85.820 Personal history of malignant melanoma of skin; Z87.891 Personal history of nicotine dependence
CPT/HCPCS: 36415; 71045; 71275; 80048; 80053; 82607; 82728; 82746; 83540; 83550; 83690; 83735; 83880; 84484; 85025; 85610; 85730; 93005; 93306; 96365; 96374; 96375; 99285; A9270; J1171; J1939; J1940; J7512; P9047; Q9967

== ENCOUNTER 2024-05-10 09:29 | Outpatient (CLI) | payer OTHER, SELFPAY | END 2024-05-10 09:30 | disposition home or self-care (01) | PROVIDERS: PCP Family Medicine; Visit Provider Student in an Organized Health Care Education/Training Program | DX: M89.8X7 Other specified disorders of bone, ankle and foot (principal); M25.531 Pain in right wrist | CPT/HCPCS: 73100; 73630 ==

== ENCOUNTER 2024-06-02 09:49 | Emergency (ER) | payer OTHER, SELFPAY ==
[2024-06-02 10:11] VITALS: BP 126/88; PULSE 84; RESP 18; TEMP 37.2; O2SAT 100
--- NOTE | 2024-06-02 10:27 | ED_ITS ---
HPI - URI/Sore Throat General Chief Complaint: Upper Respiratory Infection Stated Complaint: cold symptoms/lump in breast Time Seen by Provider: 06/02/24 10:15 Source: patient Mode of arrival: ambulatory Limitations: no limitations History of Present Illness HPI Narrative: 39-year-old female with history of lupus presents with complaint of nasal congestion, sinus pressure, postnasal drainage, fatigue, body aches for 2 days. Afebrile. No chest pain or shortness breath. Has not taking any [id number]-[id number] medications to treat symptoms. Reports that she cannot a for them and would like them sent through insurance. All Systems reviewed and negative except as noted above. Related Data Home Medications ?Medication ?Instructions ?Recorded ?Confirmed ?Last Taken ?Type melatonin 5 mg tablet 5 mg PO HS PRN Insomnia 08/17/19 05/18/24 04/22/24 History nicotine 21 mg/24 hr daily 1 patch transdermal DAILY 01/12/20 05/18/24 04/16/24 History transdermal patch hydroxyzine HCl 25 mg tablet 25 mg PO Q6H PRN anxiety 04/23/24 05/18/24 Unknown History Allergies Allergy/AdvReac Type Severity Reaction Status Date / Time adhesive tape Allergy Mild Rash Verified 06/02/24 10:00 Review of Systems Review of Systems: CONSTITUTIONAL: Denies fever, chills, or sweats. reports fatigue. EYES: Denies visual changes, redness, or discharge. ENT: reports rhinorrhea, congestion, sinus pressure sore throat. Denies otalgia. CARDIOVASCULAR: Denies chest pain, palpitations, or edema. RESPIRATORY: Denies cough or dyspnea. GASTROINTESTINAL: Denies abdominal pain, nausea, vomiting, or diarrhea. GENITOURINARY: Denies dysuria or hematuria. SKIN: Denies rash or itching. MUSCULOSKELETAL: Denies back pain, joint pain . Reports myalgia. NEUROLOGIC: Denies headache, numbness, or weakness. PSYCHIATRIC: Denies anxiety or depression. All other systems reviewed are negative, except as documented in HPI. [facility] Past Medical History Medical History (Updated 06/02/24 @ 10:54 by Magdalena Baron NP) Left foot pain Left shoulder pain Anxiety Skin cancer Melenoma Bilateral pleural effusion Bilateral pleural effusion Leukocytosis Non-adherence to medical treatment Chest pain Rheumatoid arthritis Arthritis Depression Hair loss Psoriasis Cellulitis Excessive thirst Kidney disease Kidney infection UTI (urinary tract infection) Constipation Abdominal pain Nausea High cholesterol Wheezing SOB (shortness of breath) Ear pain Hearing loss Wears glasses Light headedness Dizziness Chronic headaches Trigger finger of right thumb Trigger finger, left middle finger Generalized edema Elevated d-dimer Abdominal fullness Nephrotic syndrome Normal cardiac stress test (~08/2019) Previous echocardiogram showed an ejection fraction of 55-60% with mild mitral and tricuspid regurgitation. Angioedema Depression with anxiety Gastroesophageal reflux disease Craniosynostosis Melanoma Left upper extremity, status post excision. Pleural effusion Chest pain Negative stress test 10/2019 Hyperlipidemia Not currently on medication. Tobacco abuse Surgical History Surgical History H/O: hysterectomy History of cranial surgery As a child for craniosynostosis. History of tubal ligation History of 3 sections History of melanoma excision (~2017) Left upper extremity. Family History Family History Sibling Testicle cancer Mother Small cell lung cancer Hypertension Father Throat cancer Hernia Melanoma Other Asthma Depression High cholesterol Kidney disorder Social History Social History Social History: The patient lives in [place] with her and 4 children. She has 1 adult child that is out of the home. 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 She smoked 1PPD for 20 years. She quit three weeks ago using the nicotine patches. She has a history of IV methamphetamine use for 2 years and quit over a year ago. She designates her , Jamil, as her surrogate decision maker and she wishes to be a full code. Smoking packs per day: 1 Smoking cigarettes per day: 20.0 Years smoked: 20 Smoking pack-years: 20.00 Smoking status: Current every day smoker Second hand tobacco smoke exposure: Yes Additional smoking assessment comments: Using nicotine patch Alcohol intake: never Alcohol use details: She reports no recent alcohol use. Substance use: never Substance use type: marijuana Other substance usage details: former IV methamphetamine use; last used >10 years, no alcohol intake >8 yr Do You Feel Safe in your Home?: Yes Lack of Transportation: No Lack of Food: Never True Current Housing: I Have Housing Concerned About Future Housing: No Difficulty Paying Gas/Electric Bills: No Difficulty Paying for Meds: No Currently Unemployed: No Education: Bachelor's Degree Difficulty w/ Childcare or Family Care: No Living arrangements: with family Occupation/Education: occupation Gender identity (if verbalized by the patient): Female Sexual Orientation (if Verbalized by the Patient): Straight or Heterosexual Spiritual care concerns: No Agree to blood products: Yes Comments At time of signature, agree with nursing past medical, surgical, social and family history. There is no relevant family history pertinent to the presenting complaint. Exam Narrative: GENERAL: This is a well-nourished, well-developed patient, ill-appearing but no acute distress HEAD: normocephalic, atraumatic. EYES: PERRL. Sclera clear/white. Vision is grossly intact. EARS: External ears normal, auditory canals clear and without drainage, fluid bilateral TMs without erythema or perforation. Hearing grossly intact. NOSE: External nose normal with purulent nasal drainage, congestion, erythema and swelling to bilateral nares THROAT: Mucous membranes moist, erythematous with mild swelling. No exudates. NECK: Neck supple, non-tender without lymphadenopathy, masses or thyromegaly. CARDIOVASCULAR: Regular rate and rhythm without murmurs, gallops, or rubs. RESPIRATORY: Clear to auscultation. Breath sounds equal bilaterally. No wheezes, rales, or rhonchi. SKIN: warm, Dry, intact with no suspicious lesions or rash, good texture and turgor. NEURO: awake, alert, and oriented to person, place and time. There were no obvious focal neurologic abnormalities. EXTREMITIES: No joint tenderness, effusion, or edema noted. No calf tenderness. Negative Homans sign bilaterally. BACK: Nontender without deformity. No CVA tenderness. Course Course Level of Care: Express Care Visit Vital Signs Vital signs: Vital Signs Temperature 37.2 C 06/02/24 10:11 Pulse Rate 84 06/02/24 10:11 Respiratory Rate 18 06/02/24 10:11 Blood Pressure 126/88 06/02/24 10:11 Pulse Oximetry 100 06/02/24 10:11 Oxygen Delivery Room Air 06/02/24 10:11 Temperature 37.2 C 06/02/24 10:11 Pulse Rate 84 06/02/24 10:11 Respiratory Rate 18 06/02/24 10:11 Blood Pressure 126/88 06/02/24 10:11 Pulse Oximetry 100 06/02/24 10:11 Oxygen Delivery Room Air 06/02/24 10:11 Reviewed MDM - URI/Sore Throat MDM Narrative Medical decision making narrative: negative COVID and influenza testing. Will prescribe antibiotic to due to patient's history of lupus and immunocompromise. Lungs clear to auscultation. Patient is alert, nontoxic. Please be advised this is a medical document. It is intended for xhrp-gt-eyqz communication. It is written in medical language and may contain unfamiliar abbreviations or verbiage. Medical documents are intended to carry relevant information, facts as evident, and the clinical opinion of the practitioner at the time of the encounter. This report may have been done utilizing a voice recognition system. Attempts have been made to correct errors. However, there may be uncorrected grammatical, spelling, and recognition errors present. The file time of this note does not necessarily represent the time of service. Differential Diagnosis Differential diagnosis: Likely upper respiratory infection, sinusitis, viral infection, influenza and pharyngitis Discharge Plan Discharge Clinical Impression: Acute bacterial sinusitis Patient Disposition: Home, Self-Care Condition: Stable Instructions: Antibiotic Form, Sinusitis (ED) Additional Instructions: your COVID and influenza test were negative today. Take medications as prescribed. Drink at least 64 oz of water a day. Place cool mist humidifier in bedroom where you sleep. See your doctor if symptoms are not improving. Patient Language: Tajik Prescriptions: New benzonatate 200 mg capsule 200 mg PO TID PRN (Reason: cough) Qty: 20 0RF ibuprofen 600 mg tablet 600 mg PO Q6H PRN (Reason: pain) Qty: 30 0RF amoxicillin-pot clavulanate 875-125 mg tablet 1 tablet PO Q12H 7 Days Qty: 14 0RF mometasone [Allergy Nasal (mometasone)] 50 mcg/actuation spray,non-aerosol 2 spray intranasal DAILY Qty: 17 0RF Rx Instructions: administer into each nostril pseudoephedrine HCl 60 mg tablet 60 mg PO Q4-6H PRN (Reason: nasal congestion) Qty: 20 0RF Rx Instructions: DNExceed 4 doses/24h No Action fluoxetine 10 mg capsule 10 mg PO DAILY Qty: 30 1RF prednisone 20 mg tablet 40 mg PO DAILY@08 Qty: 30 0RF hydroxyzine HCl 25 mg tablet 25 mg PO Q6H PRN (Reason: anxiety) melatonin 5 mg Tablet 5 mg PO HS PRN (Reason: Insomnia) nicotine 21 mg/24 hr Patch 24 Hour 1 patch TRANSDERMAL DAILY (DME) compression socks, medium Misc See Rx Instructions .ROUTE .MEDSUPPLY Qty: 1 0RF Rx Instructions: As directed ketoconazole 2 % cream 1 applic topical DAILY Qty: 60 0RF bumetanide 1 mg tablet 1 mg PO BID 30 Days Qty: 60 5RF sumatriptan succinate [Imitrex] 50 mg tablet See Rx Instructions PO .COMPLEX Qty: 10 6RF Rx Instructions: take 1 tab at onset of headache; if no relief may repeat 1 tab after at least 2 hrs; max = 4 tabs/24 hr PO rosuvastatin 5 mg tablet 5 mg PO DAILY Qty: 90 1RF Follow-up/Referrals: Litzy Clayton MD [Primary Care Provider] - Time of Disposition: 10:40
[2024-06-02 10:29] LABS: EDCOVIDSCREEN Negative (Negative); EDINFLUASCREEN Negative (Negative); EDINFLUBSCREEN Negative (Negative)
--- OUTSIDE RECORDS SUMMARY | 2024-06-02 10:52 | XMS_ITS | Encounter Summary ---
Author Organization [facility] Address [facility] [place] [address] Care Team Providers Care Hadoop Infrastructure Architect Name Role Phone Giovanni Mejia MD Unavailable [phone] Litzy Clayton MD Primary Care Provider [phone] Encounter Details Date Type Department Care Team (Late Contact Info) Description 04/29/2024 Prep for Procedure [facility] [place], [place] [id number] Elmo Thompson MD [address] [place] [address] Social History Tobacco Use Types Packs/Day Years Used Date Smoking Tobacco: Every Day Cigarettes Smokeless Tobacco: Never Alcohol Use Standard Drinks/Week Comments Never 0 (1 standard drink = 0.6 oz pur e alcohol) Comments No Sex and Gender Information Value Date Recorded Sex Assigned at Female 04/24/2024 5:56 PM [employer] Legal Sex Female 1:55 PM CDT Gender Identity Not on file Sexual Orientation Not on file documented as of this encounter Plan of Treatment Upcoming Encounters Date Type Department Care Team (Late Contact Info) Description 06/08/2024 9:10 AM CDT Office Visit [facility] [address] [facility] [address] [place] [address] [phone] Kelsey Soares MD [address] [place] [id number] documented as of this encounter Results * PREG TEST SERUM (HCG QUALITATIVE) (04/29/2024 8:23 AM [employer]) PREG SCREEN-SERUM NEGATIVE 04/29/2024 8:42 AM [employer] [facility] 04/29/2024 8:23 AM [employer] Elmo Thompson MD LABORATORY Final Result [facility] [address] [place] [address], [place] [phone] * (ABNORMAL) BASIC METABOLIC PANEL (04/28/2024 12:47 PM [employer]) Pathologist [facility] GLUCOSE 76 70 - 99 MG/DL 04/28/2024 1:19 PM [facility] BUN 15 7 - 18 MG/DL 04/28/2024 1:19 PM [facility] CREATININE S/P/B 0.43(L) 0.55 - 1.02 MG/DL 04/28/2024 1:19 PM [facility] SODIUM S/P/B 141 136 - 145 MMOL/L 04/28/2024 1:19 PM [facility] POTASSIUM S/P/B 3.5 3.5 - 5.1 MMOL/L 04/28/2024 1:19 PM [facility] CHLORIDE S/P/B 108 97 - 115 MMOL/L 04/28/2024 1:19 PM [facility] CO2 30.3 21 - 32 MMOL/L 04/28/2024 1:19 PM [facility] CALCIUM S/P/B 7.7(L) 8.5 - 10.1 MG/DL 04/28/2024 1:19 PM [facility] ANION GAP 2.7 2 - 10 MMOL/L 04/28/2024 1:19 PM [employer] [facility] BUN CREATININE RATIO 35.2(H) 6 - 26 04/28/2024 1:19 PM [facility] GFR ESTIMATE >90 >90 ML/MIN/1.7 3 M2 04/28/2024 1:19 PM [facility] Comment: NOTE: eGFR is not calculated for patients <18 years of age or gender unknown. This is an estimated GFR calculation using the new CKD EPI creatinine equation without race and so does not require a correction factor for race. This estimated GFR should not be used for calculating drug doses. 04/28/2024 12:4 7 PM [employer] Elmo Thompson MD LABORATORY Final Result [facility] [address] [place] [address], * (ABNORMAL) CBC W/DIFF AUTOMATED (04/28/2024 12:47 PM [employer]) WBC 8.94 4.5 - 11.0 x10'3/uL 04/28/2024 1:25 PM [facility] RBC 4.63 4.20 - 5.40 x10'6/uL 04/28/2024 1:25 PM [facility] HGB 11.1(L) 12.0 - 16.0 G/DL 04/28/2024 1:25 PM [facility] HCT 36.2(L) 38.0 - 48.0 % 04/28/2024 1:25 PM [facility] MCV 78.2(L) 81.0 - 99.0 FL 04/28/2024 1:25 PM [facility] MCH 24.0(L) 27.0 - 31.0 PG 04/28/2024 1:25 PM [employer] [facility] MCHC 30.7(L) 32.0 - 36.0 G/DL 04/28/2024 1:25 PM [facility] RDW 22.1(H) 11.5 - 14.5 % 04/28/2024 1:25 PM [employer] [facility] PLT 554(H) 130 - 400 x10'3/uL 04/28/2024 1:25 PM [employer] [facility] MPV 9.7 9.3 - 12.2 FL 04/28/2024 1:25 PM [facility] DIFFERENTIAL TYPE AUTOMATED DIFFERENTIAL 04/28/2024 1:25 PM [employer] [facility] NEUTROPHILS % 56.7 % 04/28/2024 1:25 PM [facility] LYMPHOCYTES % 35.7 % 04/28/2024 1:25 PM [employer] [facility] MONOCYTES % 4.5 % 04/28/2024 1:25 PM [employer] [facility] EOSINOPHILS 0.9 % 04/28/2024 1:25 PM [facility] BASOPHILS 0.4 % 04/28/2024 1:25 PM [facility] IMMATURE GRANS % 1.8 % 04/28/19 1:25 PM [employer] [facility] ABS. NEUTROPHILS 5.07 1.80 - 7.70 x10'3/uL 04/28/2024 1:25 PM [employer] [facility] ABS. LYMPHOCYTES 3.19 1.00 - 4.80 x10'3/uL 04/28/2024 1:25 PM [facility] ABS. MONOCYTES 0.40 0.24 - 0.86 x10'3/uL 04/28/2024 1:25 PM [facility] ABS. EOSINOPHILS 0.08 0.04 - 0.36 x10'3/uL 04/28/2024 1:25 PM [employer] [facility] ABS. BASOPHILS 0.04 0.01 - 0.08 x10'3/uL 04/28/2024 1:25 PM [employer] [facility] ABS. IMMATURE GRANULOCYTES 0.16 0.00 - 0.49 x10'3/uL 04/28/2024 1:25 PM [employer] [facility] RBC MORPHOLOGY SLIDE REVIEWED 2024 1:25 PM [employer] [facility] ANISO 2+ 04/28/2024 1:25 PM [employer] [facility] POIKLO 1+ 04/28/2024 1:25 PM [employer] [facility] PLT EST. INCREASED 04/28/2024 1:25 PM [employer] [facility] 04/28/2024 12:4 7 PM [employer] Elmo Thompson MD LABORATORY Final Result [facility] [address] [place] [address], [place] [phone] * TYPE & SCREEN (04/28/2024 12:47 PM [employer]) ABO/RH A POSITIVE 04/28/2024 1:42 PM [employer] [facility] ANTIBODY SCREEN NEGATIVE 04/28/2024 1:42 PM [employer] [facility] SAMPLE EXPIRATION 05/02/2024,2 359 04/29/2024 10:30 AM [employer] [facility] BB COMMENT NO HISTORY OF TRANSFUSIONS , OR ANTIBODIES, NEW SPECIMEN NOT NEEDED 04/29/2024 10:30 AM [employer] [facility] 04/28/2024 12:4 7 PM [employer] us Elmo Thompson MD BLOOD BANK TEST ORDERABLES F inal Result [facility] [address] [place] [address], [place] [phone] documented in this encounter Visit Diagnoses Diagnosis Menorrhagia- Primary Excessive or frequent menstruation Secondary dysmenorrhea Dysmenorrhea documented in this encounter Care Teams Hadoop Infrastructure Architect Relationship Specialty Start Date End Date Litzy Clayton MD [address] [place], [place] [id number] PCP - General FAMILY PRACTICE 11/27/23 Giovanni Mejia MD [address] [place] [address] Referring Physician NEPHROLOGY 11/27/23 documented as of this encounter
--- OUTSIDE RECORDS SUMMARY | 2024-06-02 10:52 | XMS_ITS | CONTINUITY OF CARE DOCUMENT ---
Author Name donna thompson Address Unknown Organization [facility] Address [address] [place] [address] Phone [phone] Care Team Providers Care Bankruptcy Processor Name Role Phone Joao Hopson MD Unavailable [phone] Joao Hopson MD Unavailable [phone] INSURANCE PROVIDERS Payer name Policy type / Coverage type [place] red democr[employer] ID [facility] [id number]
--- OUTSIDE RECORDS SUMMARY | 2024-06-02 10:52 | XMS_ITS ---
Author Organization [facility] Address [address] [place] [address] Care Team Providers Care Lasting Room Supervisor Name Role Phone Natalia Saucedo Primary Care Provider [phone] REASON FOR VISIT appt check in Encounters Encounter Location Date Provider Diagnosis [facility] [address] [place] [address] 03/18/2023 Natalia Saucedo Plan Of Treatment No Information Progress Notes * Matt OKEEFEOB: 4 (37 yo F)Acc No.[id number]:03/18/2023 Patient: Santy SINGH :1985 A ge:37 Y S ex:Female Address:[address], [place] [address] * true * Date: Generated for Jose L carson/Shawna/eTransmitting on: 0 06/02/2024 10:52 AM CDT
--- OUTSIDE RECORDS SUMMARY | 2024-06-02 10:52 | XMS_ITS ---
Author Organization [facility] Address [address] [place] [address] Care Team Providers [employer] Dean Name Role Phone Natalia Saucedo Primary Care Provider REASON FOR VISIT psych eval; hospital followup from [facility] Encounters Encounter Location Date Provider Diagnosis [address] [address] 03/18/2023 Natalia Saucedo Plan Of Treatment No Information Progress Notes * OKEEFE BinuJose AOB: 4 (39 yo F)Acc No.[id number]:03/18/2023 UNLOCKED PROGRESS NOTE Patient: Santy SINGH Provider: Niels Saucedo, DNP, CUSTOMER ENGAGEMENT SPECIALIST, PMHNP-BC :1985 A ge:37 Y S ex:Female Date:03/18/2023 [facility] Subjective: * Chief Complaints: * [...] * Electronic signature of Carmenza Ogden , [id number] on 06/02/2024 at 10:52 AM CDT Sign off status: Pending * Provider: Niels Saucedo DNP, CUSTOMER ENGAGEMENT SPECIALIST, PMHNP-BC Date: 0 03/18/2023 Generated for Printing/Faxing/eTransmitting on: 0 06/02/2024 10:52 AM CDT
--- OUTSIDE RECORDS SUMMARY | 2024-06-02 10:52 | XMS_ITS | Clinical Summary ---
Author Organization [facility] [address] [place] [address] 162 [address] [place] [address] Care Team Providers Care Process Safety Engineering Technologist Name Role Phone Litzy Clayton MD Primary Care Provider [phone] Allergies Active Allergy Reactions Criticality Noted Date Comments Adhesive Other (See comments) Low 04/28/2024 Rips the skin Skin sensitivity Venom-Honey Bee Swelling Medium 03/04/2023 Medications acetaminophen (TYLENOL) 500 mg tablet Take 2 tablets (1,000 mg total) by mouth every 6 (six) hours as needed 3 Active ferrous sulfate 325 mg (65 mg of elemental iron) tablet Take 1 tablet (325 mg total) by mouth 2 (two) times a day 5 Active hydrOXYzine (ATARAX) 25 mg tablet Take 1 tablet (25 mg total) by mouth every 6 (six) hours as needed 5 Active oxyCODONE-aceta minophen (PERCOCET) 5-325 mg per tablet Take 1 tablet by mouth every 6 (six) hours as needed 5 Active SUMAtriptan (IMITREX) 50 mg tablet Take 1 tablet (50 mg total) by mouth 2 (two) times a day as needed 5 Active bumetanide (BUMEX) 1 mg tablet Take 2 tablets (2 mg total) by mouth every 6 (six) hours 5 Active multivitamin tabletIndicatio ns:Vitamin Deficiency Prevention Take 1 tablet by mouth Active predniSONE (DELTASONE) 20 mg tablet Take 2 tablets (40 mg) by mouth daily 320 tablet 5 Active rosuvastatin (CRESTOR) 5 mg tablet Take 1 tablet (5 mg total) by mouth daily 5 Active FLUoxetine 10 mg capsule Take 1 tablet/capsu le (10 mg total) by mouth daily 5 Active predniSONE (DELTASONE) 5 mg tablet Take 2 tablets (10 mg) by mouth daily 40 tablet 5 Active FLUoxetine (PROzac) 20 mg capsule Take 1 tablet by mouth daily 4 05/18/19 25 Discontinu ed(Alterna te therapy) Active Problems Problem Noted Date Diagnosed Date Current episode of major dep ressive disorder without prior episode 03/06/2023 Flexor tendon laceration of forearm with open wound, left, initial encounter 03/04/2023 Laceration of left radial artery 03/04/2023 Suicide and self-inflicted injury 03/04/2023 Edema 04/29/2020 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 Will continue with Vanco and Rocephin at this time. Continue to monitor. All labs are normal. Intravenous drug user 11/01/2017 Overview (04/28/2024): Last Assessment & Plan: Consult social work Assessment & Plan (11/01/2017 9:38 PM CDT): Consult social work Methamphetamine abuse 11/01/2017 Assessment & Plan (11/01/2017 9:38 PM CDT): Per ED documentation patient last used 6 days ago. She is not exhibiting any signs of withdrawal at this time. Will consult social work for resources regarding treatment and cessation. Encounters Date Type Department Care Team Description 05/25/2024 Orders Only [facility] Nephrology at [address] [place] [address] Provider, MD Roberto 05/21/2024 Orders Only [facility] Ne[facility] at [place] [address] [place] [phone] Roberto Laurent MD 05/17/2024 11:45 AM CDT Office Visit [facility] Nephrology at [address] [phone] Saima Self MD History of minimal change disease (Primary Dx); Nephrotic syndrome; Urinary retention 05/17/2024 Telephone [facility] Nephrology at [address] [phone] Saima Self MD 05/03/2024 2:08 PM ERGONOMICS CONSULTANT - 05/03/2024 11:59 PM [facility] Office Building [address] [place] [phone] Retention of urine Discharge Disposition: Discharge to home or self care 05/03/2024 11:00 AM ERGONOMICS CONSULTANT Office Visit [facility] Surgery [address] [place] [phone] Kory Bauman MD Retention of urine 04/29/2024 7:25 AM ERGONOMICS CONSULTANT Lab [facility] Lab [address] [place] [address] History of minimal change disease; Nephrotic syndrome 04/28/2024 2:25 PM ERGONOMICS CONSULTANT Lab [facility] Lab [address] [place] [address] History of minimal change disease; Nephrotic syndrome 04/28/2024 1:30 PM ERGONOMICS CONSULTANT Office Visit [facility] Nephrology at [address] [phone] Saima Self MD Urinary retention; History of minimal change disease; Nephrotic syndrome 04/23/2024 11:59 PM ERGONOMICS CONSULTANT - 04/24/2024 4:25 AM ERGONOMICS CONSULTANT Emergency [facility] Emergency Department [address] [place] [address] Eliot Duggan MD Urinary retention (Primary Dx); Bilateral lower extremity edema; Hartman catheter in place; History of minimal change disease; Nephrotic syndrome; Constipation, unspecified constipation type Discharge Disposition: Discharge to home or self care from Last 3 Months Surgical History Surgery Date Site/Laterality Comments SECTION WRIST SURGERY Left HYSTERECTOMY 04/29/2024 Medical History Medical History Date Comments Hypertension Family History Medical History Relation Name Comments Autoimmune disease Mother Cancer Mother Relation Name Status Comments Mother Social History Tobacco Use Types Packs/Day Years Used Date Smoking Tobacco: Every Day Cigarettes Smokeless Tobacco: Never Tobacco Cessation:Ready to Q uit: Not Asked; Counseling Given: Not Answered Alcohol Use Standard Drinks/Week Comments No 0 (1 standard drink = 0.6 oz pur e alcohol) Personal Safety Answer Date Recorded Have you ever been in or are you currently in a harmful physical or emotional relationship or is someone making you feel afraid or unsafe? Denies 04/23/2024 Comments No Sex and Gender Information Value Date Recorded Sex Assigned at Not on file Legal Sex Female 12:30 PM ERGONOMICS CONSULTANT Gender Identity Not on file Sexual Orientation Not on file Obstetrics History Last Filed Vital Signs Vital Sign Reading Time Taken Comments Blood Pressure 135/78 05/17/2024 11:43 AM CDT Pulse 96 05/17/2024 11:43 AM CDT Temperature 37 C (98.6 F) 05/17/2024 11:43 AM CDT Respiratory Rate 18 04/23/2024 9:11 PM ERGONOMICS CONSULTANT Oxygen Saturation 100% 04/23/2024 9:11 PM ERGONOMICS CONSULTANT Inhaled Oxygen Concentration - - Weight 68.1 kg (150 lb 3.2 oz) 05/17/2024 11:43 AM CDT Height 162.6 cm (5' 4 ) 05/17/2024 11:43 AM CDT Body Mass Index 25.78 05/17/2024 11:43 AM CDT Plan of Treatment Health Maintenance Due Date Last Done Comments Breast Cancer Screening-Mammogram 1983 Depression Screening 1983 Hepatitis C Screening 1983 Varicella Vaccines (1 of 2 - 13+ 2-dose series) 1996 Hepatitis B Screening 2001 Regular Well Visit/Exam 18-64 2001 Covid-19 Vaccine ( season) 2023 07/06/2020, 06/09/2020 DTaP/Tdap/Td Vaccine (4 - Td or Tdap) 03/04/2033 03/04/2023, 11/16/2021, 05/13/2014 Pneumococcal vaccine <65 Completed 11/16/2021 Influenza Vaccine Completed 04/17/2024, , 01/14/2020, Additional history exists HPV Vaccines Aged Out No longer eligi ble based on patient's age to complete this topic Procedures Procedure Name Priority Date/Time Associated Diagnosis Comments URINALYSIS AND REFLEX TO MICROSCOPIC AND CULTURE Routine 05/03/2024 11:17 AM ERGONOMICS CONSULTANT Retention of urine MEASURE POST VOID RESIDUAL Routine 05/03/2024 11:16 AM ERGONOMICS CONSULTANT Retention of urine POCT URINALYSIS DIPSTICK Routine 05/03/2024 11:16 AM ERGONOMICS CONSULTANT Retention of urine PROTEIN / CREATININE RATIO, URINE, RANDOM Routine 04/29/2024 7:29 AM ERGONOMICS CONSULTANT History of minimal change disease Nephrotic syndrome URINALYSIS AND REFLEX TO MICROSCOPIC AND CULTURE Routine 04/29/2024 7:29 AM ERGONOMICS CONSULTANT History of minimal change disease Nephrotic syndrome EGFR Routine 04/28/2024 2:43 PM ERGONOMICS CONSULTANT History of minimal change disease Nephrotic syndrome RENAL FUNCTION PANEL Routine 04/28/2024 2:43 PM ERGONOMICS CONSULTANT History of minimal change disease Nephrotic syndrome FERRITIN Routine 04/28/2024 2:43 PM ERGONOMICS CONSULTANT History of minimal change disease Nephrotic syndrome IRON PROFILE W/ IBC Routine 04/28/2024 2 :43 PM ERGONOMICS CONSULTANT History of minimal change disease Nephrotic syndrome DIFFERENTIAL AUTO Routine 04/28/2024 2:4 2 PM ERGONOMICS CONSULTANT History of minimal change disease Nephrotic syndrome CBC WITH AUTO DIFFERENTIAL Routine 04/28/2024 2:42 PM ERGONOMICS CONSULTANT History of minimal change disease Nephrotic syndrome TROPONIN I HIGH-SENSITIVITY 2-HOUR Timed 04/24/2024 2:48 AM ERGONOMICS CONSULTANT XR CHEST PA LATERAL 2 VIEWS ED 04/24/2024 1:45 AM ERGONOMICS CONSULTANT EGFR STAT 04/24/2024 1:04 AM ERGONOMICS CONSULTANT PRO B-TYPE NATRIURETIC PEPTIDE STAT 04/24/2024 1:04 AM ERGONOMICS CONSULTANT TROPONIN I HIGH-SENSITIVITY SERIES (BASELINE, 2HR, 4HR, 6HR) STAT 04/24/2024 1:04 AM ERGONOMICS CONSULTANT LIPASE STAT 04/24/2024 1:04 AM ERGONOMICS CONSULTANT COMPREHENSIVE METABOLIC PANEL STAT 04/24/2024 1:04 AM ERGONOMICS CONSULTANT ECG 12-LEAD STAT 04/24/2024 12:44 AM ERGONOMICS CONSULTANT DIFFERENTIAL AUTO STAT 04/23/2024 7:2 5 PM ERGONOMICS CONSULTANT CBC WITH AUTO DIFFERENTIAL STAT 04/23/2024 7:25 PM ERGONOMICS CONSULTANT CBC WITH AUTO DIFFERENTIAL Routine 04/23/2024 11:02 AM ERGONOMICS CONSULTANT CBC WITHOUT DIFFERENTIAL Routine 04/23/2024 9:40 AM ERGONOMICS CONSULTANT from Last 3 Months Results * Urinalysis reflex to microscopic and culture Urine, bladder (05/03/2024 11:17 AM ERGONOMICS CONSULTANT) Color, ur Yellow Yellow Comment:Testing performed by : [address] [address] Clarity, ur Clear Clear PEGGY Comment:Testing performed by : [address] [address] Specific gravity, ur 1.024 1.003 - 1.030 PEGGY Comment:Testing performed by : [address] [address] pH, urine 6.5 PEGGY Comment: Interpretive Data U rine pH is affected by diet, medications, systemic acid-base disturbances, and renal tubular function. pH may affect urinary stone formation. For example, urine pH below 6.0 may help reduce the tendency for calcium phosphate stones and pH greater than 6.0 may reduce the tendency for uric acid stone formation. Source: [facility] [employer] Current Interpretive Data was last revised on 2017 Testing performed by: [facility], [address] [place] [address], [place]., [address] Protein, ur ql Negative Negative PEGGY Comment:Testing performed by : [address], [place]., [address] Glucose, ur ql Negative Negative PEGGY Comment:Testing performed by : [address], [place]., [address] Ketones, ur Negative Negative PEGGY Comment:Testing performed by : [address], [place]., [address] Bilirubin, ur Negative Negative PEGGY Comment:Testing performed by : [address], [place]., [address] Blood, ur Negative Negative PEGGY Comment:Testing performed by : [address], [place]., [address] Urobilinogen, ur <2.0 <2.0 mg/dL PEGGY Comment:Testing performed by : [address], [place]., [address] Nitrite, ur Negative Negative PEGGY Comment:Testing performed by : [address], [place]., [address] Leukocyte esterase, ur Negative Negative PEGGY Comment:Testing performed by : [address] [address] UA reflex comment Reflex conditions for microscopic UA and culture not met. PEGGY Comment:Testing performed by : [address], [place]., [address] Urine, bladder 05/03/2024 11 :17 AM ERGONOMICS CONSULTANT 05/03/2024 5:30 PM ERGONOMICS CONSULTANT us Yousef Trina Bauman MD LAB MICROBIOLOGY - G ENERAL ORDERABLES Final Result [facility] [address] [place] [address] Department [place] [address] * Measure post void residual (05/03/2024 11:16 AM ERGONOMICS CONSULTANT) Narrative Amberly Hassan, A - 05/03/2024 11:16 AM ERGONOMICS CONSULTANT Measurement of Post Void Residual urine and/or bladder capacity PVR = 11 ml us Kory Bauman MD NURSING ASSESSMENTS Final Result * (ABNORMAL) POCT urinalysis dipstick (05/03/2024 11:16 AM ERGONOMICS CONSULTANT) Color, Urine, POC Dark Yellow Clarity, ur, POC Clear Clear Glucose, ur, POC Negative Negative MG/DL Bilirubin, ur, POC Negative Negative, Small, Moderate, Large Ketones, ur, POC Negative Negative Specific Neely, POC 1.020 1.003 - 1.030 Blood, ur, POC Negative Negative pH, ur, POC 6.5 5.0 - 8.0 Protein, ur, POC Negative Negative Urobilinogen, urine, POC 0.2 0.2 - 1.0 mg/dL Nitrite, ur, POC Negative Negative Leukocytes, ur, POC Trace(A) Negative Lot Number 0 Urine 05/03/2024 11:1 6 AM ERGONOMICS CONSULTANT Kory Bauman MD POINT OF CARE TEST O RDERABLES Final Result * Urinalysis reflex to microscopic and culture Urine, clean voided (04/29/2024 7:29 AM ERGONOMICS CONSULTANT) Color, ur Yellow Yellow Clarity, ur Clear Clear PEGGY Specific gravity, ur 1.016 1.003 - 1.030 PEGGY pH, urine 7.5 [facility] Comment: Interpretive Data U rine pH is affected by diet, medications, systemic acid-base disturbances, and renal tubular function. pH may affect urinary stone formation. For example, urine pH below 6.0 may help reduce the tendency for calcium phosphate stones and pH greater than 6.0 may reduce the tendency for uric acid stone formation. Source: [facility] [employer] Current Interpretive Data was last revised on 2017 Protein, ur ql Negative Negative PEGGY Glucose, ur ql Negative Negative [facility] Ketones, ur Negative Negative [facility] Bilirubin, ur Negative Negative [facility] Blood, ur Negative Negative [facility] Urobilinogen, ur <2.0 <2.0 mg/dL [facility] Nitrite, ur Negative Negative [facility] Leukocyte esterase, ur Negative Negative [facility] UA reflex comment Reflex conditions for microscopic UA and culture not met. [facility] Urine, clean voided 04/29/2024 7:29 AM ERGONOMICS CONSULTANT 04/29/2024 7:31 AM ERGONOMICS CONSULTANT Saima Self MD LAB MICROBIOLOGY - GENERAL ORDERABLES Final Result Performing Organization Address [facility] Co de Phone Number [id number] [place] [address] * (ABNORMAL) Protein / creatinine ratio, urine, random (04/29/2024 7:29 AM ERGONOMICS CONSULTANT) [facility] Protein, ur, quant 22.0 mg/dL Comment: Interpretive Data No reference range established. Current interpretive data was last revised 2018. Creatinine Ur 49.0 mg/dL [facility] Comment: Interpretive Data No reference range established. Current interpretive data was last revised 2018. Protein/creatinin e ratio 449.0(H) 0.0 - 180.0 mg/g CR [facility] Urine 04/29/2024 7:29 AM ERGONOMICS CONSULTANT 04/29/2024 7:32 AM ERGONOMICS CONSULTANT Saima Self MD LAB URINE ORDERABLES Final Result Performing Organization Address [facility]/ZIP Co de Phone Number [address] [place] [address] * eGFR (04/28/2024 2:43 PM ERGONOMICS CONSULTANT) [facility] eGFR >90 >=60 mL/min/1. 73 m2 Comment: Interpretive Data Reference Interval Normal >/= 90 mL/min/1.73m2 Mildly decreased* 60 - 89 mL/min/1.73m2 Mildly to moderately decreased 45 - 59 mL/min/1.73m2 Moderately to severely decreased 30 - 44 mL/min/1.73m2 Severely decreased 15 - 29 mL/min/1.73m2 Kidney Failure < 15 mL/min/1.73m2 *Relative to young adult level Estimated glomerular filtration rate is determined by the 2020 CKD-EPI equation recommended by the National Kidney Foundation (A Unifying Approach to GFR Estimation: Recommendations of the NKF-ASK Task Force on Reassessing the Inclusion of Race in Diagnosing Kidney Disease, JASN 2020). The CKD-EPI equation should not be used for patients with unstable renal function and has not been validated in children and those over 70. Current interpretive data was last reviewed 2021. Blood 04/28/2024 2:43 PM ERGONOMICS CONSULTANT 04/28/2024 2:45 PM ERGONOMICS CONSULTANT Saima Self MD LAB BLOOD ORDERABLES Final Result Performing Organization Address City/[facility]/ZIP Co de Phone Number [address] [place] [address] * (ABNORMAL) Iron profile w/ IBC (04/28/2024 2:43 PM ERGONOMICS CONSULTANT) Pathologist [facility] Iron 33(L) 35 - 145 mcg/dL TIBC 176(L) 250 - 400 mcg/dL [facility] Transferrin saturation 19(L) 20 - 50 % [facility] Blood 04/28/2024 2:43 PM ERGONOMICS CONSULTANT 04/28/2024 2:45 PM ERGONOMICS CONSULTANT Saima Self MD LAB BLOOD ORDERABLES Final Result [address] [employer] [place] [address] * Ferritin (04/28/2024 2:43 PM ERGONOMICS CONSULTANT) Ferritin 21 15 - 150 ng/mL Blood 04/28/2024 2:43 PM ERGONOMICS CONSULTANT 04/28/2024 2:45 PM ERGONOMICS CONSULTANT Saima Self MD LAB BLOOD ORDERABLES Final Result PEGGY [address] [employer] [place] [address] * (ABNORMAL) Renal function panel (04/28/2024 2:43 PM ERGONOMICS CONSULTANT) Pathologist [facility] Sodium 139 135 - 145 mmol/L Potassium, pl 4.0 3.3 - 4.9 mmol/L [facility] Chloride 106 97 - 110 mmol/L [facility] CO2 24 22 - 32 mmol/L [facility] Anion gap 9 2 - 15 mmol/L [facility] BUN 16 6 - 25 mg/dL [facility] Creatinine 0.50(L) 0.60 - 1.10 mg/dL [facility] Glucose 92 70 - 199 mg/dL [facility] Comment: Interpretive Data Fasting glucose >/= 126 mg/dl is diagnostic for diabetes. Fasting is defined as no caloric intake for at least 8 hours. Fasting glucose between 100 mg/dl to 125 mg/dl is diagnostic of prediabetes. In a patient with classic symptoms of hyperglycemia or hyperglycemic crisis, a random glucose >/= 200 mg/dl is diagnostic for diabetes. In the absence of unequivocal hyperglycemia, results should be confirmed by repeat testing. The classification and Diagnosis of Diabetes Diabetes Care 202; 46: S19-S40. Current interpretive data was last revised 2022. Calcium 8.3(L) 8.5 - 10.3 mg/dL [facility] Phosphorus, pl 3.2 2.3 - 4.5 mg/dL [facility] Albumin 2.3(L) 3.5 - 5.0 g/dL [facility] Blood 04/28/2024 2:43 PM ERGONOMICS CONSULTANT 04/28/2024 2:45 PM ERGONOMICS CONSULTANT Saima Self MD LAB BLOOD ORDERABLES Final Result PEGGY [address] [employer] [place] [address] * Differential, auto (04/28/2024 2:42 PM ERGONOMICS CONSULTANT) Neutrophil abs 4.9 1.5 - 6.5 K/cumm Imm gran abs 0.1 0.0 - 0.1 K/cumm [facility] Lymphocyte abs 2.7 0.8 - 3.3 K/cumm [facility] Monocyte abs 0.4 0.2 - 0.8 K/cumm [facility] Eosinophil abs 0.1 0.0 - 0.5 K/cumm [facility] Basophil abs 0.1 0.0 - 0.1 K/cumm [facility] Neutrophil pct 59.1 % [facility] Comment: Interpretive Data Percent cell count reference ranges are not reported, since discordance with absolute values may lead to misinterpretation of CBC data. Current Interpretive Data was last revised on 2017. Imm gran pct 1.7 % [facility] Comment: Interpretive Data Percent cell count reference ranges are not reported, since discordance with absolute values may lead to misinterpretation of CBC data. Current Interpretive Data was last revised on 2017. Lymphocyte pct 33.2 % [facility] Comment: Interpretive Data Percent cell count reference ranges are not reported, since discordance with absolute values may lead to misinterpretation of CBC data. Current Interpretive Data was last revised on 2017. Monocyte pct 4.3 % [facility] Comment: Interpretive Data Percent cell count reference ranges are not reported, since discordance with absolute values may lead to misinterpretation of CBC data. Current Interpretive Data was last revised on 2017. Eosinophil pct 1.0 % [facility] Comment: Interpretive Data Percent cell count reference ranges are not reported, since discordance with absolute values may lead to misinterpretation of CBC data. Current Interpretive Data was last revised on 2017. Basophil pct 0.7 % [facility] Comment: Interpretive Data Percent cell count reference ranges are not reported, since discordance with absolute values may lead to misinterpretation of CBC data. Current Interpretive Data was last revised on 2017. Blood 04/28/2024 2:42 PM ERGONOMICS CONSULTANT 04/28/2024 2:45 PM ERGONOMICS CONSULTANT Saima Self MD LAB BLOOD ORDERABLES Final Result [address] [place] [address] * (ABNORMAL) CBC with auto differential (04/28/2024 2:42 PM ERGONOMICS CONSULTANT) [facility] WBC 8.2 3.8 - 9.9 K/cumm Hgb 12.3 11.9 - 15.5 g/dL [facility] Hct 41.8 35.6 - 45.5 % [facility] Plt 435(H) 150 - 400 K/cumm [facility] MPV 9.9 9.1 - 12.[address] [facility] RBC 5.16 3.90 - 5.20 M/cumm [facility] MCV 81.0(L) 81.3 - 96.[address] [facility] MCH 23.8(L) 27.1 - 33.[address] [facility] MCHC 29.4(L) 32.3 - 35.7 g/dL [facility] RDW CV 22.7(H) 11.1 - 14.9 % [facility] RDW SD 63.5(H) 35.7 - 48.[address] [facility] NRBC abs 0.00 0.00 - 0.01 K/cumm [facility] Blood 04/28/2024 2:42 PM ERGONOMICS CONSULTANT 04/28/2024 2:45 PM ERGONOMICS CONSULTANT Saima Self MD LAB BLOOD ORDERABLES Final Result Performing Organization Address [facility] de Phone Number [address] [place] [address] * Troponin I high-sensitivity 2-hour (04/24/2024 2:48 AM ERGONOMICS CONSULTANT) [facility] Trop I hs 7 <=17 ng/L Comment: Interpretive Data For further hscTnI resources including the diagnostic algorithm and an aid in interpretation, copy and paste this link: [email or web address].[email or web address]/[email or web address] Current Interpretive Data last revised 2019. Trop I hs delta 0 ng/L [facility] Trop I hs interp Insignificant [facility] Blood 04/24/2024 2:48 AM ERGONOMICS CONSULTANT 04/24/2024 3:13 AM ERGONOMICS CONSULTANT Charlee Farfan DO LAB BLOOD ORDERABLE S Final Result [facility] [place] [address] * XR Chest Pa Lateral 2 Vw (04/24/2024 1:45 AM ERGONOMICS CONSULTANT) Anatomical Region Laterality Modality Body, Chest N/A Computed Radiogr aphy 04/24/2024 1:51 AM ERGONOMICS CONSULTANT Impressions 04/24/2024 8:05 AM ERGONOMICS CONSULTANT The current study is compared with the chest radiograph dated 04/24/2006. Mild bibasilar atelectasis. No pleural effusion or pneumothorax. Heart size is normal. Dictated by: Johnathan Huitron M.D. The radiology attending physician has personally reviewed this study, and had reviewed and/or edited this written report and agrees with it. Electronically signed by: Zack Gold MD Narrative 04/24/2024 8:05 AM ERGONOMICS CONSULTANT EXAMINATION: 2 view chest radiograph Procedure Note Zack Gold MD - 04/24/2024 EXAMINATION: 2 view chest radiograph IMPRESSION: The current study is compared with the chest radiograph dated 04/24/2006. Mild bibasilar atelectasis. No pleural effusion or pneumothorax. Heart size is normal. Dictated by: Johnathan Huitron M.D. The radiology attending physician has personally reviewed this study, and had reviewed and/or edited this written report and agrees with it. Electronically signed by: Zack Gold MD us Charlee Farfan DO IMG XR PROCEDURES F inal Result * Troponin I high-sensitivity series (baseline, 2hr, 4hr, 6hr) (04/24/2024 1:04 AM ERGONOMICS CONSULTANT) Trop I hs 7 <=17 ng/L Comment: Interpretive Data For further hscTnI resources including the diagnostic algorithm and an aid in interpretation, copy and paste this link: https://bjhlab.testcatalog.org/show/hsTrop-1 Current Interpretive Data last revised 2019. Blood 04/24/2024 1:04 AM ERGONOMICS CONSULTANT 04/24/2024 1:19 AM ERGONOMICS CONSULTANT us Charlee Farfan DO LAB BLOOD ORDERABLE S Final Result Performing Organization Address [facility]/ZIP Co de Phone Number PEGGY [facility] [place] [address] * eGFR (04/24/2024 1:04 AM ERGONOMICS CONSULTANT) eGFR >90 >=60 mL/min/1. 73 m2 Comment: Interpretive Data Reference Interval Normal >/= 90 mL/min/1.73m2 Mildly decreased* 60 - 89 mL/min/1.73m2 Mildly to moderately decreased 45 - 59 mL/min/1.73m2 Moderately to severely decreased 30 - 44 mL/min/1.73m2 Severely decreased 15 - 29 mL/min/1.73m2 Kidney Failure < 15 mL/min/1.73m2 *Relative to young adult level Estimated glomerular filtration rate is determined by the 2020 CKD-EPI equation recommended by the National Kidney Foundation (A Unifying Approach to GFR Estimation: Recommendations of the NKF-ASK Task Force on Reassessing the Inclusion of Race in Diagnosing Kidney Disease, JASN 2020). The CKD-EPI equation should not be used for patients with unstable renal function and has not been validated in children and those over 70. Current interpretive data was last reviewed 2021. Blood 04/24/2024 1:04 AM ERGONOMICS CONSULTANT 04/24/2024 1:19 AM ERGONOMICS CONSULTANT us Richelle Sherman MD LAB BLOOD ORDERABLES Final R esult Performing Organization Address City/[facility]/ZIP Co de Phone Number PEGGY [facility] Department [place] [address] * Pro B-type natriuretic peptide (04/24/2024 1:04 AM ERGONOMICS CONSULTANT) NT-proBNP 291 <=300 pg/mL Comment: Interpretive Comments: A. Dyspnea in Acute Care Setting All Ages: < 300 pg/ml, acute heart failure unlikely. < 50 yrs: 300 - 450 pg/ml, further investigation warranted. > 450 pg/ml, acute heart failure likely. 50 - 74 yrs: 300 - 900 pg/ml, further investigation warranted. > 900 pg/ml, acute heart failure likely . > or = 75 yrs: 450 - 1800 pg/ml, further investigation warranted. > 1800 pg/ml, acute heart failure likely. B. Non-acute Setting < 75 yrs < 125 pg/ml, rules out heart failure. > or = 125 pg/ml, further investigation warranted. > or = 75 yrs < 450 pg/ml, rules out heart failure. > or = 450 pg/ml, further investigation warranted. - Knowledge of each individual patient's NT-proBNP range may be more useful than using similar cut-points for every patient. Please note that marked elevations in NT-proBNP levels may be observed in state other than Left Ventricular Congestive Failure, including: acute coronary syndromes, right heart strain/failure (including pulmonary embolism and cor pulmonale), critical illness, renal failure, as well as advanced age. - References: 1. Tae ALVAREZ et.al. Eur Heart J. 2006:27:330-337. 2. Yandel RW, Elyssa AM. J. AM Vishnu Cardiol: Cardiovasc Imag. 2009;2: 216- 225. Interpretive Data Last Revised Date: 2017. Blood 04/24/2024 1:04 AM ERGONOMICS CONSULTANT 04/24/2024 1:18 AM ERGONOMICS CONSULTANT us Charlee Farfan DO LAB BLOOD ORDERABLE S Final Result PEGG[facility] [place] [address] * Lipase (04/24/2024 1:04 AM ERGONOMICS CONSULTANT) Lipase 58 10 - 99 Units/L Blood Venous blood specimen / Unknown 04/24/2024 1:04 AM ERGONOMICS CONSULTANT 04/24/2024 1:19 AM ERGONOMICS CONSULTANT us Eliot Duggan MD LAB BLOOD ORDERABLES Fin al Result [facility] Department [place] [address] * (ABNORMAL) Comprehensive metabolic panel (04/24/2024 1:04 AM ERGONOMICS CONSULTANT) Sodium 142 135 - 145 mmol/L Potassium, pl 3.7 3.3 - 4.9 mmol/L [facility] Chloride 105 97 - 110 mmol/L [facility] CO2 27 22 - 32 mmol/L [facility] Anion gap 10 2 - 15 mmol/L [facility] BUN 22 6 - 25 mg/dL [facility] Creatinine 0.60 0.60 - 1.10 mg/dL [facility] Glucose 96 70 - 199 mg/dL [facility] Comment: Interpretive Data Fasting glucose >/= 126 mg/dl is diagnostic for diabetes. Fasting is defined as no caloric intake for at least 8 hours. Fasting glucose between 100 mg/dl to 125 mg/dl is diagnostic of prediabetes. In a patient with classic symptoms of hyperglycemia or hyperglycemic crisis, a random glucose >/= 200 mg/dl is diagnostic for diabetes. In the absence of unequivocal hyperglycemia, results should be confirmed by repeat testing. The classification and Diagnosis of Diabetes Diabetes Care 2021; 46: S19-S40. Current interpretive data was last revised 2022. Calcium 7.9(L) 8.5 - 10.3 mg/dL [facility] Bilirubin, total <0.2 0.1 - 1.2 mg/dL [facility] Protein, pl 5.2(L) 6.5 - 8.5 g/dL [facility] Albumin 2.2(L) 3.5 - 5.0 g/dL [facility] Alk phos 52 40 - 130 Units/L [facility] ALT 13 7 - 45 Units/L [facility] AST 20 10 - 45 Units/L [facility] Blood 04/24/2024 1:04 AM ERGONOMICS CONSULTANT 04/24/2024 1:19 AM ERGONOMICS CONSULTANT us Eliot Duggan MD LAB BLOOD ORDERABLES Fin al Result Performing Organization Address [facility] Co de Phone Number [facility] [place] [address] * ECG 12-LEAD (04/24/2024 12:44 AM ERGONOMICS CONSULTANT) Narrative [facility] - 04/24/2024 12:44 AM ERGONOMICS CONSULTANT Eliot Duggan MD 04/24/2024 12:45 AM ECG 12 lead Date/Time: 04/24/2024 12:44 AM Performed by: Eliot Duggan MD Authorized by: Charlee Farfan DO Comments: Indication: Abdominal pain Normal sinus rhythm with a ventricular rate of 79 beats per minute. Normal axis. Pr is 148, QRS is 86, QTC is 431. No acute ST elevation, depression, or T-wave inversion. Normal voltage, no peaked T-waves. Impression: Normal sinus rhythm, no STEMI or dysrhythmia. Low cardiac risk. Procedure Note Eliot Duggan MD - 04/24/2024 12:44 AM CST Procedure ECG 12 lead Date/Time: 04/24/2024 12:44 AM Performed by: Eliot Duggan MD Authorized by: Charlee Farfan DO Comments: Indication: Abdominal pain Normal sinus rhythm with a ventricular rate of 79 beats per minute.Normal axis. Pr is 148, QRS is 86, QTC is 431. No acute ST elevation,depression, or T-wave inversion. Normal voltage, no peaked T-waves. Impression: Normal sinus rhythm, no STEMI or dysrhythmia. Low cardiacrisk. Eliot Duggan MD 04/24/24 0045 us Charlee Farfan DO ECG ORDERABLES Fin al Result Performing Organization Address [facility]/ZIP Co de Phone Number [facility] * Differential, auto (04/23/2024 7:25 PM ERGONOMICS CONSULTANT) Neutrophil abs 3.6 1.5 - 6.5 K/cumm Imm gran abs 0.0 0.0 - 0.1 K/cumm [facility] Lymphocyte abs 1.9 0.8 - 3.3 K/cumm [facility] Monocyte abs 0.5 0.2 - 0.8 K/cumm [facility] Eosinophil abs 0.0 0.0 - 0.5 K/cumm [facility] Basophil abs 0.0 0.0 - 0.1 K/cumm [facility] Neutrophil pct 59.5 % [facility] Comment: Interpretive Data Percent cell count reference ranges are not reported, since discordance with absolute values may lead to misinterpretation of CBC data. Current Interpretive Data was last revised on 2017. Imm gran pct 0.7 % [facility] Comment: Interpretive Data Percent cell count reference ranges are not reported, since discordance with absolute values may lead to misinterpretation of CBC data. Current Interpretive Data was last revised on 2017. Lymphocyte pct 31.0 % [facility] Comment: Interpretive Data Percent cell count reference ranges are not reported, since discordance with absolute values may lead to misinterpretation of CBC data. Current Interpretive Data was last revised on 2017. Monocyte pct 8.3 % [facility] Comment: Interpretive Data Percent cell count reference ranges are not reported, since discordance with absolute values may lead to misinterpretation of CBC data. Current Interpretive Data was last revised on 2017. Eosinophil pct 0.2 % [facility] Comment: Interpretive Data Percent cell count reference ranges are not reported, since discordance with absolute values may lead to misinterpretation of CBC data. Current Interpretive Data was last revised on 2017. Basophil pct 0.3 % [facility] Comment: Interpretive Data Percent cell count reference ranges are not reported, since discordance with absolute values may lead to misinterpretation of CBC data. Current Interpretive Data was last revised on 2017. Blood 04/23/2024 7:25 PM ERGONOMICS CONSULTANT 04/24/2024 1:51 AM ERGONOMICS CONSULTANT us Richelle Sherman MD LAB BLOOD ORDERABLES Final R esult [facility] [place] [address] * (ABNORMAL) CBC with auto differential (04/23/2024 7:25 PM ERGONOMICS CONSULTANT) [facility] WBC 6.0 3.8 - 9.9 K/cumm Hgb 10.2(L) 11.9 - 15.5 g/dL [facility] Hct 32.6(L) 35.6 - 45.5 % [facility] Plt 549(H) 150 - 400 K/cumm [facility] MPV 10.0 9.1 - 12.3 fL [facility] RBC 4.24 3.90 - 5.20 M/cumm [facility] MCV 76.9(L) 81.3 - 96.4 fL [facility] MCH 24.1(L) 27.1 - 33.3 pg [facility] MCHC 31.3(L) 32.3 - 35.7 g/dL [facility] RDW CV 21.3(H) 11.1 - 14.9 % [facility] RDW SD 58.3(H) 35.7 - 48.1 fL [facility] NRBC abs 0.00 0.00 - 0.01 K/cumm [facility] Blood Venous blood specimen / Unknown 04/23/2024 7:25 PM ERGONOMICS CONSULTANT 04/24/2024 1:51 AM ERGONOMICS CONSULTANT us Eliot Duggan MD LAB BLOOD ORDERABLES Fin al Result [facility] [place] [address] * CBC with auto differential (04/23/2024 11:02 AM ERGONOMICS CONSULTANT) Blood us Historical Provider LAB BLOOD ORDERABLES Kirsten l Result EXTERNAL LAB * CBC without differential (04/23/2024 9:40 AM ERGONOMICS CONSULTANT) Blood Historical Provider LAB BLOOD ORDERABLES Kirsten l Result from Last [address] [place] [address] [place] [address] [facility] [address] [place] [address] Advance Directives For more information, please contact: [phone] * Full Code (Latest Code Status on File) Date Activated Date Inactivated Comments 11/01/2017 9:37 PM 11/04/2017 5:48 PM * Full Code Date Activated Date Inactivated Comments 11/01/2017 9:36 PM 11/01/2017 9:37 PM 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
--- OUTSIDE RECORDS SUMMARY | 2024-06-02 10:52 | XMS_ITS | Data Portability ---
Author Organization [employer] , [facility] Address [address] [place] [address] Assessment No assessment recorded. Plan of Treatment Reminders Order Date Submit Date Provider Last Modified By Organization Details Last Modified Time Details Appointments PROFESSIONAL ADVISOR EST 2024 02:45P M STEPHANE ROSENTHAL-BC Not available Not available Not available Lab CBC w/ diff [address], [address] [place] [address] [address], [address], [place], [address], 01/08/2024 15:03:25 Referral breast evaluatio n referral 2023 024 [place] [address] Not available 12/19/2023 12:29:35 Procedures None recorded. Surgeries None recorded. Imaging US, breast, unilatera l - right breast upper outer quad [address] - Breast Ctr, [address], [address], [place], [address], 12/19/2023 15:48:26 MAMMO, diagnosti c, digital, unilatera l - right breast upper outer quad 2023 024 [facility]tr, [address], [address], [place], [address], 01/02/2024 16:10:28 US, transvagi nal 2023 024 GER Not available 12/13/2023 20:45:51 US, transvagi nal 2023 024 [email or web address] Not available 08/28/2023 12:29:39 Medication Orders ferrous sulfate 325 mg (65 mg iron) tablet 2024 025 [facility][id number], [address] [place] [address], [id number], 03/22/2024 14:50:56 IBU 800 mg tablet 2024 025 [facility] #18552, [address] [place] [address], [id number], 03/22/2024 14:50:58 hydroxyzi ne HCl 25 mg tablet 2024 025 [facility] #06424, [address] [place] [address], [id number], 03/22/2024 14:51:07 metronida zole 500 mg tablet 2024 025 [facility] #94015, [address] [place] [address], [id number], 03/22/2024 14:50:59 oxycodone -acetamin ophen 5 mg-325 mg tablet 2024 025 [facility] #16777, [address] [place] [address], [id number], 03/22/2024 14:51:01 Patient TargetsNo targets recorded. Patient Instructions Encounter Date Encounter Id Patient Instructions Last Modified By Organization Details Last Modified Time 12/10/2023 [id number] breast lumps: care instructions Not available 12/10/2023 17:55:10 Reason for Referral Breast Evaluation Referral f or Breast lump Referring Physician: Elmo Thompson, STATEMENT CLERK, Encounter Date: 12/10/2023 Results Created Date Observation Date Name Description Value Unit Range Abnormal Flag Note LastModifiedBy Organization Detail LastModifiedTime 04/28/1904/28/2024 BASIC METAB OLIC PANEL glucose 76 mg/dL 70-99 Not Available [facility] (Lab) [address] [place], [address], 04/28/2024 14:19:20 04/28/19 25 04/28/2024 BASIC METAB OLIC PANEL BUN 15 mg/dL 7-18 Not Available [facility] (Lab) [address] [place], [address], 04/28/2024 14:19:20 04/28/19 25 04/28/2024 BASIC METAB OLIC PANEL creatinine 0.43 mg/dL 0.55-1 .02 low Not Available [facility] (Lab) [address] [place], [address], 04/28/2024 14:19:20 04/28/19 25 04/28/2024 BASIC METAB OLIC PANEL sodium 141 mmol/ L 136-14 5 Not Available [facility] (Lab) [address] [place], [address], 04/28/2024 14:19:20 04/28/19 25 04/28/2024 BASIC METAB OLIC PANEL potassium 3.5 mmol/ L 3.5-5. 1 Not Available [facility] (Lab) [address] [place], [address], 04/28/2024 14:19:20 04/28/19 25 04/28/2024 BASIC METAB OLIC PANEL chloride 108 mmol/ L 97-115 Not Available [facility] (Lab) [address] [place], [address], 04/28/2024 14:19:20 04/28/19 25 04/28/2024 BASIC METAB OLIC PANEL total CO2 30.3 mmol/ L 21-32 Not Available [facility] (Lab) [address], [place], [address], 04/28/2024 14:19:20 04/28/19 25 04/28/2024 BASIC METAB OLIC PANEL calcium 7.7 mg/dL 8.5-10 .1 low Not Available [facility] (Lab) [address], [place], [address], 04/28/2024 14:19:20 04/28/19 25 04/28/2024 BASIC METAB OLIC PANEL anion gap 2.7 mmol/ L 2-10 Not Available [facility] (Lab) [address], [place], [address], 04/28/2024 14:19:20 04/28/19 25 04/28/2024 BASIC METAB OLIC PANEL BUN creatinine ratio 35.2 6-[address] [facility] (Lab) [address], [place], [address], 04/28/2024 14:19:20 04/28/19 25 04/28/2024 BASIC METAB OLIC PANEL est GFR >90 mL/mi n/1.7 3_M2 >90 NOTE: eGFR is not calcu lated for patie nts <18 years of age or gende r unkno wn. This is an estim ated GFR calcu latio n using the new CKD EPI creat inine equat ion witho ut race and so does not requi re a corre ction facto r for race. This estim ated GFR shoul d not be used for calcu latin g drug doses . Not Available [facility] (Lab) [address], [place], [address], 04/28/2024 14:19:20 04/28/19 25 04/28/2024 CBC WITH DIFF WBC 8.94 x10'3 /uL 4.5-11 .0 Not Available [facility] (Lab) [address] [facility], [place], [address], 04/28/2024 14:26:02 04/28/19 25 04/28/2024 CBC WITH DIFF RBC 4.63 x10'6 /uL 4.20-5 .40 Not Available [facility] (Lab) [address] [facility], [place], [address], 04/28/2024 14:26:02 04/28/19 25 04/28/2024 CBC WITH DIFF hemoglobin 11.1 g/dL 12.0-1 6.0 low Not Available [facility] (Lab) [address] [facility], [place], [address], 04/28/2024 14:26:02 04/28/19 25 04/28/2024 CBC WITH DIFF hematocrit 36.2 % 38.0-4 8.0 low Not Available [facility] (Lab) [address] [facility], [place], [address], 04/28/2024 14:26:02 04/28/19 25 04/28/2024 CBC WITH DIFF MCV 78.2 fL 81.0-9 9.0 low Not Available [facility] (Lab) [address] [facility], [place], [address], 04/28/2024 14:26:02 04/28/19 25 04/28/2024 CBC WITH DIFF MCH 24.0 pg 27.0-3 1.0 low Not Available [facility] (Lab) [address] [facility], [place], [address], 04/28/2024 14:26:02 04/28/19 25 04/28/2024 CBC WITH DIFF MCHC 30.7 g/dL 32.0-3 6.0 low Not Available [facility] (Lab) [address], [place], [address], 04/28/2024 14:26:02 04/28/19 25 04/28/2024 CBC WITH DIFF RDW 22.1 % 11.5-1 4.5 high Not Available [facility] (Lab) [address], [place], [address], 04/28/2024 14:26:02 04/28/19 25 04/28/2024 CBC WITH DIFF platelet count 554 x10'3 /uL 130-40 0 high Not Available [facility] (Lab) [address], [place], [address], 04/28/2024 14:26:02 04/28/19 25 04/28/2024 CBC WITH DIFF MPV 9.7 fL 9.3-12 .2 Not Available [facility] (Lab) [address], [place], [address], 04/28/2024 14:26:02 04/28/19 25 04/28/2024 CBC WITH DIFF diff type AUTOMA MADELINE DIFFER ENTIAL Not Available [facility] (Lab) [address], [place], [address], 04/28/2024 14:26:02 04/28/19 25 04/28/2024 CBC WITH DIFF neutrophils 56.7 % Not Available [facility] (Lab) [address], [place], [address], 04/28/2024 14:26:02 04/28/19 25 04/28/2024 CBC WITH DIFF lymphocytes 35.7 % Not Available [facility] (Lab) [address], [place], [address], 04/28/2024 14:26:02 04/28/19 25 04/28/2024 CBC WITH DIFF monocytes 4.5 % Not Available [facility] (Lab) [address] [place], [address], 04/28/2024 14:26:02 04/28/19 25 04/28/2024 CBC WITH DIFF eosinophils 0.9 % Not Available [facility] (Lab) [address] [facility], [place], [address], 04/28/2024 14:26:02 04/28/19 25 04/28/2024 CBC WITH DIFF basophils 0.4 % Not Available [facility] (Lab) [address] [facility], [place], [address], 04/28/2024 14:26:02 04/28/19 25 04/28/2024 CBC WITH DIFF immature granulocytes 1.8 % Not Available [facility] (Lab) [address] [place], [address], 04/28/2024 14:26:02 04/28/19 25 04/28/2024 CBC WITH DIFF abs. neutrophils 5.07 x10'3 /uL 1.80-7 .70 Not Available [facility] (Lab) [address] [place], [address], 04/28/2024 14:26:02 04/28/19 25 04/28/2024 CBC WITH DIFF abs. lymphocytes 3.19 x10'3 /uL 1.00-4 .80 Not Available [facility] (Lab) [address] [place], [address], 04/28/2024 14:26:02 04/28/19 25 04/28/2024 CBC WITH DIFF abs. monocytes 0.40 x10'3 /uL 0.24-0 .86 Not Available [facility] (Lab) [place], [address], 04/28/2024 14:26:02 04/28/19 25 04/28/2024 CBC WITH DIFF abs. eosinophils 0.08 x10'3 /uL 0.04-0 .36 Not Available [facility] (Lab) [place], [address], 04/28/2024 14:26:02 04/28/19 25 04/28/2024 CBC WITH DIFF abs. basophils 0.04 x10'3 /uL 0.01-0 .08 Not Available [facility] (Lab) [place], [address], 04/28/2024 14:26:02 04/28/19 25 04/28/2024 CBC WITH DIFF abs. immature grans 0.16 x10'3 /uL 0.00-0 .49 Not Available [facility] (Lab) [place], [address], 04/28/2024 14:26:02 04/28/19 25 04/28/2024 CBC WITH DIFF RBC morphology SLIDE REVIEW ED Not Available [facility] (Lab) [place], [address], 04/28/2024 14:26:02 04/28/19 25 04/28/2024 CBC WITH DIFF anisocytosis 2+ Not Available [facility] (Lab) [place], [address], 04/28/2024 14:26:02 04/28/19 25 04/28/2024 CBC WITH DIFF poikilocytos is 1+ Not Available [facility] [place], [address], 04/28/2024 14:26:02 04/28/19 25 04/28/2024 CBC WITH DIFF platelet estimate INCREA SED Not Available [facility] (Lab) [address], [place], [address], 04/28/2024 14:26:02 04/28/19 25 04/28/2024 TYPE AND SCREE N ABO/Rh(D) A POSITI VE Not Available [facility] (Lab) [address] [facility], [place], [address], 04/29/2024 11:30:46 04/28/19 25 04/28/2024 TYPE AND SCREE N antibody screen NEGATI VE Not Available [facility] (Lab) [address] [facility], [place], [address], 04/29/2024 11:30:46 04/28/19 25 04/29/2024 TYPE AND SCREE N xm expiration 2024,2 359 Not Available [facility] (Lab) [address] [facility], [place], [address], 04/29/2024 11:30:46 04/28/19 25 04/29/2024 TYPE AND SCREE N comment NO HISTOR Y OF TRANSF USIONS ,PREGN JOSE OR ANTIBO DIES, NEW SPECIM EN NOT NEEDED Not Available [facility] (Lab) [address] [facility], [place], [address], 04/29/2024 11:30:46 04/29/19 25 04/29/2024 SERUM PREGN JOSE TEST serum test NEGATI VE Not Available [facility] (Lab) [address] [facility], [place], [address], 04/29/2024 09:42:44 12/13/19 24 12/10/2023 US, trans vagin al No observ ation record ed. floridalma [address], [place], [address], 12/16/2023 14:52:28 12/26/19 24 12/26/2023 MAMMO , diagn ostic , digit al, unila teral No observ ation record ed. [address], [place], [address], 03/22/2024 14:52:01 Result Notes None recorded. Procedures Surgical History Date Name Laterality Status Provider Name and Address Organization Details Recorded Time 04/29/19 25 robot assisted laparoscopic total hysterectomy completed Elmo Thompson MD [address] [place] [address], [phone], [facility] 05/03/2024 14:07:18 12/26/19 Most Recent Mammogram completed Rosalia Ramachandran [facility] 03/22/2024 14:20:15 07/12/19 15 laparoscopy completed Elmo Thompson MD [address] [place] [address], [phone], [facility] 07/30/2023 16:02:36 C Section completed Janice Rosa [facility] 07/30/2023 15:12:15 Imaging Results Imaging Date Name Status LastModified by Organization Details LastModified Time 12/10/2023 US, transvaginal completed noe [address], [place], [address], 12/16/2023 14:52:28 12/26/2023 MAMMO, diagnostic, digital, unilateral completed [address] [facility] [address], [place], [address], 03/22/2024 14:52:01 Procedure Notes None recorded. Medical [...] Updated DateTime 4 160.02 cm 23.9 kg/m2 64513.9 7 g 98.1 [degF] 122 mm[Hg] 70 mm[Hg] Janice Rosa [employer] [facility] 4 15:22:19 Date Recorded Body height Body mass index (BMI) Body weight Systolic blood pressure Diastolic blood pressure Provider Name and Address Organization Details Last Updated DateTime 12/10/2023 160.02 cm 25.5 kg/m2 43868.02 g 102 mm[Hg] 68 mm[Hg] Estiven Sue [employer] [facility] 4 17:09:14 Date Recorded Body height Body mass index (BMI) Body weight Systolic blood pressure Diastolic blood pressure Provider Name and Address Organization Details Last Updated DateTime 03/22/2024 160.02 cm 27.8 kg/m2 73259.28 g 104 mm[Hg] 78 mm[Hg] Rosalia Ramachandran [employer] [facility] 14:24:22 Social History Question Answer Notes LastModified by Organizat ion Details LastModified Time Tobacco Smoking Status Current Some Day Smoker Janice Moe zhu, [employer] [facility] 07/30/2023 15:12:05 Are You Blind Or Do You Have Difficulty Seeing? No [email or web address] Information not available 07/30/2023 Are You Currently Employed? Yes [email or web address] Information not available 07/30/2023 Are You Deaf Or Do You Have Serious Difficulty Hearing? No [email or web address] Information not available 07/30/2023 What Type Of Diet Are You Following? 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 3 3 Living 2 Adopted. [email or web address] Information not available 03/22/2024 Are There Any Occupational Health Risks Where You Work? Yes [email or web address] Information not available 07/30/2023 What Is Your Relationship Status? 10 Years = Jamil And All Is Good Information not available 07/30/2023 Are You Sexually Active? Yes [email or web address] Information not available 07/30/2023 At What Age Did You Start Smoking Tobacco? 12 [email or web address] Information not available 07/30/2023 How Much Tobacco Do You Smoke? 2 PPW Information not available 07/30/2023 Do You Use Any Illicit Or Recreational Drugs? No [email or web address] Information not available 07/30/2023 How Many Years Have You Smoked Tobacco? 26 [email or web address] Information not available 07/30/2023 Sex: Unknown Functional Status Question Answer Note LastModified by Organizat ion Details LastModified Time What is your exercise level? Occasional [email or web address] Information not available 07/30/2023 Mental Status None recorded. Family History Relationship Description Onset Age of this Age Resolved Age Notes LastModified by Organization Details LastModified Time Mother Malignant tumor of lung small cells- passed 2017 [email or web address] Not available 12/10/2023 17:05:50 Father Hypertensive disorder [email or web address] Not available 2023 17:07:02 Father Malignant neoplasm of liver Not available 2024 14:20:58 Father Malignant neoplasm of skin [email or web address] Not available 2024 14:21:13 Father Hernia of abdominal cavity [email or web address] Not available 2024 14:21:30 Medical History Condition Response Other Cancer N High Blood Pressure N Colon Cancer N Cytomegalovirus N Hyperthyroidism N MRSA N Blood Transfusion Y Herpes (HSV) N Breast Cancer N Lung Cancer N Depression Y Hypothyroidism N Incontinence N Panic Attacks Y Neurological Disorder N Deep Vein Thrombosis N Anxiety Disorder N Autoimmune disease Y Arthritis Y Shingles N Tuberculosis/Positive PPD N Infertility N Polycystic Ovarian Syndrome N Cervical Cancer N Hematuria N Chlamydia N Varicosities N Stroke N Seasonal allergies Y Crohn's Disease N Alzheimer's/Dementia N COPD/Emphysema N Endometriosis N HPV/Genital Warts N IBS (Irritable Bowel Syndrome) N History of Abnormal Pap N High Cholesterol Y Liver Disease N Fibromyalgia N Kidney Infection N Ulcer Y Kidney Disease Y HIV N Gallbladder disease N Sickle Cell Disease/Trait N Von Willebrand disease N ADD/ADHD N Eating Disorder N Anemia Y Diabetes Mellitus (non-insulin dependent ) N Ovarian Problems N Multiple Sclerosis N Gonorrhea N Frequent Urinary Tract infections N Osteopenia N Headaches/migraines Y GERD (reflux) N Ovarian Cancer N Diabetes (insulin dependent) N Seizures/Epilepsy N Breast Problems N Fibroids Y Heart Attack N Asthma N Lupus Y Endometrial Cancer N Rubella N Blood Clotting Disorder Y Bipolar [...] SNOMED-CT Code Diagnosis ICD10 Code Diagnosis Note [id number] Emlo Thompson MD [facility] [address] [place] [address] 07/30/2023 14:49:18 08/05/2023 15:44:01 Menorrhagia 666613620 N92.0 COUNSELING was provided today regarding the [...] t up therelabs to be drawn at [facility] in [facility] Iron defic iency anemia due to blood loss 025440901 D50.0 Additional diagnosis detail: Iron deficiency anemia due to chronic blood loss [id number] Elmo Thompson MD [address] [address] 12/10/2023 16:24:22 12/11/2023 17:52:55 Pain of breast 79986292 N64.4 Breast lump 24027556 N63 .0 we will send [facility] if needed Menometrorrhagia 1008219 08 N92.1 COUNSELING was provided today regarding [...] wants to proceed as scheduled Secondary dysmenorrhea 04006767 N94.5 Anemia due to chronic blood loss 474046210 D50.0 Lump in up per outer quadrant of right breast 3490996737 16144 N63.11 Ordered US and mammogram for further evaluation . [id number] Elmo Thompson MD [facility] [address] [place] [address] 03/22/2024 14:08:12 03/24/2024 16:16:50 Menometrorrhagia 621010346 N92.1 COUNSELING was provided today regarding the [...] wants to proceed as scheduled Secondary dysmenorrhea 65028753 N94.5 Anemia due to chronic blood loss 042872132 D50.0 10.5 Health Concerns Section Related Observation LastModified by Organization Detai ls LastModified Time None Recorded Concern Status LastModified by Organization Details LastModified Time None Recorded Advance Directives Directive None Recorded Payers Encounter Date Sequence Insurance Name Policy Number Policy Mendoza Covered Member ID Mendoza Member ID Guarantor Name 07/30/2023 1 [facility] (MEDICAID HMO) [id number] Santy Chukner [id number] Santy Okeefe 12/10/2023 1 [facility] (MEDICAID HMO) [id number] Santy Bunchulkner [id number] Santy Okeefe 03/22/2024 1 [facility] (MEDICAID HMO) [id number] Santy Chukner [id number] Santy Milianer Notes Date Note Type Note Provider Name [...] some paracentesis w/nephrotic sx Elmo Thompson MD [address] [facility], [place], [address], [facility] 08/02/2023 20:02:59 12/10/2023 text/html Breast ProblemReported bypatient.Location:[facility]; in the axilla The patient verbally consented [...] C-sections in the past. Elmo Thompson MD [address] [place] [address], [place], [address], [facility] 12/11/2023 15:48:08 03/22/2024 text/html The patient elvis gray consented to documentation via virtual scribe for this encounter. Santy is a 38-year-old woman who presents today for a hysterectomy consult due to menorrhagia. Patient stated that her menstrual cycles have been really heavy lately. She underwent mammogram, which were within normal limits. Elmo Thompson MD [address] [place] [address], [place], [address], [facility] 03/23/2024 14:45:44 OBGyn Episode Ob Episode Information Episode Created Date Number of Fetuses Patient Bloodtype Patient rh Status Prepregnancy Weight lbs Domestic Partner Domestic Partner Phone Father Name [employer] Developer Status 12/10/19 24 1 CLOSED Fetus Data First Name Last Name Admitted to NICU Weight (g) Sex Living Outcome Pediatric Complications Fetus ID Race Codes Race Delivery Type 3515.33 8 F Full Term Repeat [place] Calculation Initial Milan Date Initial [...] Domestic Partner Domestic Partner Phone Father Name [employer] Developer Status 12/10/19 24 1 CLOSED Fetus Data First Name Last Name Admitted to NICU Weight (g) Sex Living Outcome Pediatric Complications Fetus ID Race Codes Race Delivery Type 3345.24 1 F Full Term [id number] Primary [place] Calculation Initial [place] Date Initial [...] Domestic Partner Domestic Partner Phone Father Name [employer] Developer Status 12/10/19 24 1 CLOSED Fetus Data First Name Last Name Admitted to NICU Weight (g) Sex Living Outcome Pediatric Complications Fetus ID Race Codes Race Delivery Type 3430.06 2704 M Full Term [id number] Repeat [place] Calculation Initial [place] Date Initial [...]
--- OUTSIDE RECORDS SUMMARY | 2024-06-02 10:52 | XMS_ITS | Referral Summary ---
Author Organization [facility] [place] [address] [facility] [address] Address [address] [place] [address] Care Team Providers Care Sound Equipment Mechanic Name Role Phone Litzy Clayton MD Primary Care Provider [phone] Encounters Date Type Department Care Team Description 05/25/2024 Orders Only [facility] Nephrology at [address] [place] [phone] Roberto Laurent MD 05/21/2024 Orders Only [facility] Nephrology at [address] [place] [phone] Roberto Laurent MD 05/17/2024 Telephone [facility] Nephrology at [address] [phone] Saima Self MD 05/17/2024 11:45 AM CDT Office Visit [facility] Nephrology at [address] [phone] Saima Self MD History of minimal change disease (Primary Dx); Nephrotic syndrome; Urinary retention 05/03/2024 2:08 PM IMMUNOLOGIST - 05/03/2024 11:59 PM IMMUNOLOGIST Hospital Encounter [facility] Medical Office Building [address] [place] [address] Retention of urine Discharge Disposition: Discharge to home or self care 05/03/2024 11:00 AM IMMUNOLOGIST Office Visit [facility] Surgery [address] [place] [address] [address] [place] [address] Kory Bauman MD Retention of urine 04/29/2024 7:25 AM IMMUNOLOGIST Lab [facility] [address] [place] [address] History of minimal change disease; Nephrotic syndrome 04/28/2024 2:25 PM IMMUNOLOGIST Lab [facility] Lab [address] [place] [address] History of minimal change disease; Nephrotic syndrome 04/28/2024 1:30 PM IMMUNOLOGIST Office Visit [facility] Nephrology at [address] [place] [phone] Saima Self MD Urinary retention; History of minimal change disease; Nephrotic syndrome 04/23/2024 11:59 PM IMMUNOLOGIST - 04/24/2024 4:25 AM IMMUNOLOGIST Emergency [facility] [address] [place] [address] Eliot Duggan MD Urinary retention (Primary Dx); Bilateral lower extremity edema; Hartman catheter in place; History of minimal change disease; Nephrotic syndrome; Constipation, unspecified constipation type Discharge Disposition: Discharge to home or self care from Last 3 Months Allergies Active Allergy Reactions Criticality Noted Date [...] work for resources regarding treatment and cessation. Social History Tobacco Use Types Packs/Day Years [...] on file Legal Sex Female 12:30 PM IMMUNOLOGIST Gender Identity Not on file Sexual Orientation Not on file Last Filed Vital Signs Vital Sign Reading Time Taken Comments Blood Pressure 135/78 05/17/2024 11:43 AM CDT Pulse 96 05/17/2024 11:43 AM CDT Temperature 37 C (98.6 F) 05/17/2024 11:43 AM CDT Respiratory Rate 18 04/23/2024 9:11 PM IMMUNOLOGIST Oxygen Saturation 100% 04/23/2024 9:11 PM IMMUNOLOGIST Inhaled Oxygen Concentration - - Weight 68.1 kg (150 lb 3.2 oz) 05/17/2024 11:43 AM CDT Height 162.6 cm (5' 4 ) 05/17/2024 11:43 AM CDT Body Mass Index 25.78 05/17/2024 11:43 AM CDT Plan of Treatment Not on file Procedures Procedure Name Priority Date/Time Associated Diagnosis Comments URINALYSIS AND REFLEX TO MICROSCOPIC AND CULTURE Routine 05/03/2024 11:17 AM IMMUNOLOGIST Retention of urine MEASURE POST VOID RESIDUAL Routine 05/03/2024 11:16 AM IMMUNOLOGIST Retention of urine POCT URINALYSIS DIPSTICK Routine 05/03/2024 11:16 AM IMMUNOLOGIST Retention of urine PROTEIN / CREATININE RATIO, URINE, RANDOM Routine 04/29/2024 7:29 AM IMMUNOLOGIST History of minimal change disease Nephrotic syndrome URINALYSIS AND REFLEX TO MICROSCOPIC AND CULTURE Routine 04/29/2024 7:29 AM IMMUNOLOGIST History of minimal change disease Nephrotic syndrome EGFR Routine 04/28/2024 2:43 PM IMMUNOLOGIST History of minimal change disease Nephrotic syndrome RENAL FUNCTION PANEL Routine 04/28/2024 2:43 PM IMMUNOLOGIST History of minimal change disease Nephrotic syndrome FERRITIN Routine 04/28/2024 2:43 PM IMMUNOLOGIST History of minimal change disease Nephrotic syndrome IRON PROFILE W/ IBC Routine 04/28/2024 2 :43 PM IMMUNOLOGIST History of minimal change disease Nephrotic syndrome DIFFERENTIAL AUTO Routine 04/28/2024 2:4 2 PM IMMUNOLOGIST History of minimal change disease Nephrotic syndrome CBC WITH AUTO DIFFERENTIAL Routine 04/28/2024 2:42 PM IMMUNOLOGIST History of minimal change disease Nephrotic syndrome TROPONIN I HIGH-SENSITIVITY 2-HOUR Timed 04/24/2024 2:48 AM IMMUNOLOGIST XR CHEST PA LATERAL 2 VIEWS ED 04/24/2024 1:45 AM IMMUNOLOGIST EGFR STAT 04/24/2024 1:04 AM IMMUNOLOGIST PRO B-TYPE NATRIURETIC PEPTIDE STAT 04/24/2024 1:04 AM IMMUNOLOGIST TROPONIN I HIGH-SENSITIVITY SERIES (BASELINE, 2HR, 4HR, 6HR) STAT 04/24/2024 1:04 AM IMMUNOLOGIST LIPASE STAT 04/24/2024 1:04 AM IMMUNOLOGIST COMPREHENSIVE METABOLIC PANEL STAT 04/24/2024 1:04 AM IMMUNOLOGIST ECG 12-LEAD STAT 04/24/2024 12:44 AM IMMUNOLOGIST DIFFERENTIAL AUTO STAT 04/23/2024 7:2 5 PM IMMUNOLOGIST CBC WITH AUTO DIFFERENTIAL STAT 04/23/2024 7:25 PM IMMUNOLOGIST CBC WITH AUTO DIFFERENTIAL Routine 04/23/2024 11:02 AM IMMUNOLOGIST CBC WITHOUT DIFFERENTIAL Routine 04/23/2024 9:40 AM IMMUNOLOGIST from Last 3 Months Results * Urinalysis reflex to microscopic and culture Urine, bladder (05/03/2024 11:17 AM IMMUNOLOGIST) Color, ur Yellow Yellow Comment:Testing performed by : [address] [address] Clarity, ur Clear Clear [facility] Comment:Testing performed by : [address] [address] Specific gravity, ur 1.024 1.003 - 1.030 [facility] Comment:Testing performed by : [address] [address] pH, urine 6.5 [facility] Comment: Interpretive Data U rine pH is affected by diet, medications, systemic acid-base disturbances, and renal tubular function. pH may affect urinary stone formation. For example, urine pH below 6.0 may help reduce the tendency for calcium phosphate stones and pH greater than 6.0 may reduce the tendency for uric acid stone formation. Source: [facility] Current Interpretive Data was last revised on 2017 Testing performed by: [address] [address] Protein, ur ql Negative Negative [facility]Y Comment:Testing performed by : [address] [address] Glucose, ur ql Negative Negative [facility] Comment:Testing performed by : [address] [address] Ketones, ur Negative Negative [facility] Comment:Testing performed by : [address] [address] Bilirubin, ur Negative Negative [facility] Comment:Testing performed by : [address], [place]., [address] Blood, ur Negative Negative [facility] Comment:Testing performed by : [address] [address] Urobilinogen, ur <2.0 <2.0 mg/dL [facility] Comment:Testing performed by : [address] [address] Nitrite, ur Negative Negative [facility]Y Comment:Testing performed by : [address] [address] Leukocyte esterase, ur Negative Negative [facility] Comment:Testing performed by : [address] [address] UA reflex comment Reflex conditions for microscopic UA and culture not met. [facility] Comment:Testing performed by : [address] [address] Urine, bladder 05/03/2024 11 :17 AM IMMUNOLOGIST 05/03/2024 5:30 PM IMMUNOLOGIST Kory Bauman MD LAB MICROBIOLOGY - G ENERAL ORDERABLES Final Result [facility] [address] [facility] [place] [address] * Measure post void residual (05/03/2024 11:16 AM IMMUNOLOGIST) Narrative Amberly Hassan, [facility] - 05/03/2024 11:16 AM IMMUNOLOGIST Measurement of Post Void Residual urine and/or bladder capacity PVR = 11 ml Kory Bauman MD NURSING ASSESSMENTS Final Result * (ABNORMAL) POCT urinalysis dipstick (05/03/2024 11:16 AM IMMUNOLOGIST) Color, Urine, POC Dark Yellow Clarity, ur, POC Clear Clear Glucose, ur, POC Negative Negative MG/DL Bilirubin, ur, POC Negative Negative, Small, Moderate, Large Ketones, ur, POC Negative Negative Specific [place], POC 1.020 1.003 - 1.030 Blood, ur, POC Negative Negative pH, ur, POC 6.5 5.0 - 8.0 Protein, ur, POC Negative Negative Urobilinogen, urine, POC 0.2 0.2 - 1.0 mg/dL Nitrite, ur, POC Negative Negative Leukocytes, ur, POC Trace(A) Negative Lot Number 0 Urine 05/03/2024 11:1 6 AM IMMUNOLOGIST Kory Bauman MD POINT OF CARE TEST O RDERABLES Final Result * Urinalysis reflex to microscopic and culture Urine, clean voided (04/29/2024 7:29 AM IMMUNOLOGIST) Color, ur Yellow Yellow Clarity, ur Clear Clear [facility] Specific gravity, ur 1.016 1.003 - 1.030 [facility] pH, urine 7.5 [facility] Comment: Interpretive Data U rine pH is affected by diet, medications, systemic acid-base disturbances, and renal tubular function. pH may affect urinary stone formation. For example, urine pH below 6.0 may help reduce the tendency for calcium phosphate stones and pH greater than 6.0 may reduce the tendency for uric acid stone formation. Source: [facility] Current Interpretive Data was last revised on 2017 Protein, ur ql Negative Negative [facility] Glucose, ur ql Negative Negative [facility] Ketones, ur Negative Negative [facility] Bilirubin, ur Negative Negative [facility] Blood, ur Negative Negative [facility] Urobilinogen, ur <2.0 <2.0 mg/dL [facility] Nitrite, ur Negative Negative [facility] Leukocyte esterase, ur Negative Negative [facility] UA reflex comment Reflex conditions for microscopic UA and culture not met. [facility] Urine, clean voided 04/29/2024 7:29 AM IMMUNOLOGIST 04/29/2024 7:31 AM IMMUNOLOGIST us Saima Self MD LAB MICROBIOLOGY - GENERAL ORDERABLES Final Result [facility] [address] [facility] Department [place] [address] * (ABNORMAL) Protein / creatinine ratio, urine, random (04/29/2024 7:29 AM IMMUNOLOGIST) Protein, ur, quant 22.0 mg/dL Comment: Interpretive Data No reference range established. Current interpretive data was last revised 2018. Creatinine Ur 49.0 mg/dL [facility] Comment: Interpretive Data No reference range established. Current interpretive data was last revised 2018. Protein/creatinin e ratio 449.0(H) 0.0 - 180.0 mg/g CR [facility] [place] Urine 04/29/2024 7:29 AM IMMUNOLOGIST 04/29/2024 7:32 AM IMMUNOLOGIST us Saima Self MD LAB URINE ORDERABLES Final Result Performing Organization Address [facility] Co de Phone Number [address] [place] [address] * eGFR (04/28/2024 2:43 PM IMMUNOLOGIST) eGFR >90 >=60 mL/min/1. 73 m2 Comment: [...] last reviewed 2021. Blood 04/28/2024 2:43 PM IMMUNOLOGIST 04/28/2024 2:45 PM IMMUNOLOGIST Result Cynthia Self MD LAB BLOOD ORDERABLES Final Result Performing Organization Address [facility]/ZIP Co de Phone Number [address] [place] [address] * (ABNORMAL) Iron profile w/ IBC (04/28/2024 2:43 PM IMMUNOLOGIST) [facility] Iron 33(L) 35 - 145 mcg/dL TIBC 176(L) 250 - 400 mcg/dL [facility] Transferrin saturation 19(L) 20 - 50 % [facility] Blood 04/28/2024 2:43 PM IMMUNOLOGIST 04/28/2024 2:45 PM IMMUNOLOGIST Saima Self MD LAB BLOOD ORDERABLES Final Result Performing Organization Address [facility] Co de Phone Number [address] [place] [address] * Ferritin (04/28/2024 2:43 PM IMMUNOLOGIST) [facility] Ferritin 21 15 - 150 ng/mL Blood 04/28/2024 2:43 PM IMMUNOLOGIST 04/28/2024 2:45 PM IMMUNOLOGIST Saima Self MD LAB BLOOD ORDERABLES Final Result Performing Organization Address [facility] de Phone Number [address] [place] [address] * (ABNORMAL) Renal function panel (04/28/2024 2:43 PM IMMUNOLOGIST) [facility] Sodium 139 135 - 145 mmol/L Potassium, pl 4.0 3.3 - 4.9 mmol/L [facility] Chloride 106 97 - 110 mmol/L [facility] CO2 24 22 - 32 mmol/L [facility] Anion gap 9 2 - 15 mmol/L [facility] BUN 16 6 - 25 mg/dL [facility] Creatinine 0.50(L) 0.60 - 1.10 mg/dL [facility] Glucose 92 70 - 199 mg/dL [facility] Comment: Interpretive Data Fasting glucose [...] 2022. Calcium 8.3(L) 8.5 - 10.3 mg/dL [facility] Phosphorus, pl 3.2 2.3 - 4.5 mg/dL [facility] Albumin 2.3(L) 3.5 - 5.0 g/dL [facility] Blood 04/28/2024 2:43 PM IMMUNOLOGIST 04/28/2024 2:45 PM IMMUNOLOGIST Saima Self MD LAB BLOOD ORDERABLES Final Result [place] [id number] [facility] Department [place] [address] * Differential, auto (04/28/2024 2:42 PM IMMUNOLOGIST) Neutrophil abs 4.9 1.5 - 6.5 K/cumm Imm gran abs 0.1 0.0 - 0.1 K/cumm [facility] Lymphocyte abs 2.7 0.8 - 3.3 K/cumm [facility] Monocyte abs 0.4 0.2 - 0.8 K/cumm [facility] Eosinophil abs 0.1 0.0 - 0.5 K/cumm [facility] Basophil abs 0.1 0.0 - 0.1 K/cumm [facility] Neutrophil pct 59.1 % [facility] Comment: Interpretive Data Percent cell count reference ranges are not reported, since discordance with absolute values may lead to misinterpretation of CBC data. Current Interpretive Data was last revised on 2017. Imm gran pct 1.7 % [facility] Comment: Interpretive Data Percent cell count reference ranges are not reported, since discordance with absolute values may lead to misinterpretation of CBC data. Current Interpretive Data was last revised on 2017. Lymphocyte pct 33.2 % [facility] Comment: Interpretive Data Percent cell count reference ranges are not reported, since discordance with absolute values may lead to misinterpretation of CBC data. Current Interpretive Data was last revised on 2017. Monocyte pct 4.3 % [facility] Comment: Interpretive Data Percent cell count reference ranges are not reported, since discordance with absolute values may lead to misinterpretation of CBC data. Current Interpretive Data was last revised on 2017. Eosinophil pct 1.0 % [facility] Comment: Interpretive Data Percent cell count reference ranges are not reported, since discordance with absolute values may lead to misinterpretation of CBC data. Current Interpretive Data was last revised on 2017. Basophil pct 0.7 % [facility] Comment: Interpretive Data Percent cell count reference ranges are not reported, since discordance with absolute values may lead to misinterpretation of CBC data. Current Interpretive Data was last revised on 2017. Blood 04/28/2024 2:42 PM IMMUNOLOGIST 04/28/2024 2:45 PM IMMUNOLOGIST Saima Self MD LAB BLOOD ORDERABLES Final Result [facility] [address] [facility] Department [place] [address] * (ABNORMAL) CBC with auto differential (04/28/2024 2:42 PM IMMUNOLOGIST) WBC 8.2 3.8 - 9.9 K/cumm Hgb 12.3 11.9 - 15.5 g/dL [facility] Hct 41.8 35.6 - 45.5 % [facility] Plt 435(H) 150 - 400 K/cumm [facility] MPV 9.9 9.1 - 12.3 fL [facility] RBC 5.16 3.90 - 5.20 M/cumm [facility] MCV 81.0(L) 81.3 - 96.4 fL [facility] MCH 23.8(L) 27.1 - 33.3 pg [facility] MCHC 29.4(L) 32.3 - 35.7 g/dL [facility] RDW CV 22.7(H) 11.1 - 14.9 % [facility] RDW SD 63.5(H) 35.7 - 48.1 fL [facility] NRBC abs 0.00 0.00 - 0.01 K/cumm [facility] Blood 04/28/2024 2:42 PM IMMUNOLOGIST 04/28/2024 2:45 PM IMMUNOLOGIST Saima Self MD LAB BLOOD ORDERABLES Final Result Performing Organization Address City/[facility] Co de Phone Number [facility] [address] [facility] Department [place] [address] * Troponin I high-sensitivity 2-hour (04/24/2024 2:48 AM IMMUNOLOGIST) Trop I hs 7 <=17 ng/L Comment: Interpretive Data For further hscTnI resources including the diagnostic algorithm and an aid in interpretation, copy and paste this link: https://bjhlab.testcatalog.org/show/hsTrop-1 Current Interpretive Data last revised 2019. Trop I hs delta 0 ng/L [facility] Trop I hs interp Insignificant [facility] Blood 04/24/2024 2:48 AM IMMUNOLOGIST 04/24/2024 3:13 AM IMMUNOLOGIST Charlee Farfan DO LAB BLOOD ORDERABLE S Final Result Performing Organization Address [facility] Co de Phone Number [facility] Department [place] [address] * XR Chest Pa Lateral 2 Vw (04/24/2024 1:45 AM IMMUNOLOGIST) Anatomical Region Laterality Modality Body, Chest N/A Computed Radiogr aphy 04/24/2024 1:51 AM IMMUNOLOGIST Impressions 04/24/2024 8:05 AM IMMUNOLOGIST The current study is compared with the chest radiograph dated 04/24/2006. Mild bibasilar atelectasis. No pleural effusion or pneumothorax. Heart size is normal. Dictated by: Johnathan Huitron M.D. The radiology attending physician has personally reviewed this study, and had reviewed and/or edited this written report and agrees with it. Electronically signed by: Zack Gold MD Narrative 04/24/2024 8:05 AM IMMUNOLOGIST EXAMINATION: 2 view chest radiograph Procedure Note [...] (baseline, 2hr, 4hr, 6hr) (04/24/2024 1:04 AM IMMUNOLOGIST) Pathologist [facility] Trop I hs 7 <=17 ng/L Comment: Interpretive Data For further hscTnI resources including the diagnostic algorithm and an aid in interpretation, copy and paste this link: https://bjhlab.testcatalog.org/show/hsTrop-1 Current Interpretive Data last revised 2019. Blood 04/24/2024 1:04 AM IMMUNOLOGIST 04/24/2024 1:19 AM IMMUNOLOGIST us Charlee Farfan DO LAB BLOOD ORDERABLE S Final Result [facility] Department [place] [address] * eGFR (04/24/2024 1:04 AM IMMUNOLOGIST) Pathologist [facility] eGFR >90 >=60 mL/min/1. 73 m2 Comment: [...] of Race in Diagnosing Kidney Disease, JASN 202). The CKD-EPI equation should not be used for patients with unstable renal function and has not been validated in children and those over 70. Current interpretive data was last reviewed 2021. Blood 04/24/2024 1:04 AM IMMUNOLOGIST 04/24/2024 1:19 AM IMMUNOLOGIST us Richelle Sherman MD LAB BLOOD ORDERABLES Final R esult [facility] Department [place] [address] * Pro B-type natriuretic peptide (04/24/2024 1:04 AM IMMUNOLOGIST) NT-proBNP 291 <=300 pg/mL Comment: Interpretive Comments: [...] Heart J. 2006:27:330-337. 2. Yandel RW, Elyssa STARKS. J. AM Vishnu Cardiol: Cardiovasc Imag. 2009;2: 216- 225. Interpretive Data Last Revised Date: 2017. Blood 04/24/2024 1:04 AM IMMUNOLOGIST 04/24/2024 1:18 AM IMMUNOLOGIST us Charlee Farfan DO LAB BLOOD ORDERABLE S Final Result Performing Organization Address City/[facility]/ZIP Co de Phone Number [facility] [place] [address] * Lipase (04/24/2024 1:04 AM IMMUNOLOGIST) [facility] Lipase 58 10 - 99 Units/L Blood Venous blood specimen / Unknown 04/24/2024 1:04 AM IMMUNOLOGIST 04/24/2024 1:19 AM IMMUNOLOGIST us Eliot Duggan MD LAB BLOOD ORDERABLES Fin al Result Performing Organization Address City/[facility]/ZIP Co de Phone Number [facility] Department [place] [address] * (ABNORMAL) Comprehensive metabolic panel (04/24/2024 1:04 AM IMMUNOLOGIST) [facility] Sodium 142 135 - 145 mmol/L Potassium, pl 3.7 3.3 - 4.9 mmol/L [facility] Chloride 105 97 - 110 mmol/L [facility] CO2 27 22 - 32 mmol/L [facility] Anion gap 10 2 - 15 mmol/L [facility] BUN 22 6 - 25 mg/dL [facility] Creatinine 0.60 0.60 - 1.10 mg/dL [facility] Glucose 96 70 - 199 mg/dL [facility] Comment: Interpretive Data Fasting glucose >/= 126 [...] 2022. Calcium 7.9(L) 8.5 - 10.3 mg/dL [facility] Bilirubin, total <0.2 0.1 - 1.2 mg/dL [facility] Protein, pl 5.2(L) 6.5 - 8.5 g/dL [facility] Albumin 2.2(L) 3.5 - 5.0 g/dL [facility] Alk phos 52 40 - 130 Units/L [facility] ALT 13 7 - 45 Units/L [facility] AST 20 10 - 45 Units/L [facility] Blood 04/24/2024 1:04 AM IMMUNOLOGIST 04/24/2024 1:19 AM IMMUNOLOGIST us Eliot Duggan MD LAB BLOOD ORDERABLES Fin al Result Performing Organization Address City/State/[facility] Co de Phone Number [facility] Department [place] [address] * ECG 12-LEAD (04/24/2024 12:44 AM IMMUNOLOGIST) Narrative [facility] - 04/24/2024 12:44 AM IMMUNOLOGIST Eliot Duggan MD 04/24/2024 12:45 AM ECG [...] Low cardiacrisk. Eliot Duggan MD 04/24/24 0045 Charlee Farfan DO ECG ORDERABLES Fin al Result [facility] * Differential, auto (04/23/2024 7:25 PM IMMUNOLOGIST) Neutrophil abs 3.6 1.5 - 6.5 K/cumm Imm gran abs 0.0 0.0 - 0.1 K/cumm [facility] Lymphocyte abs 1.9 0.8 - 3.3 K/cumm [facility] Monocyte abs 0.5 0.2 - 0.8 K/cumm [facility] Eosinophil abs 0.0 0.0 - 0.5 K/cumm [facility] Basophil abs 0.0 0.0 - 0.1 K/cumm [facility] Neutrophil pct 59.5 % [facility] Comment: Interpretive Data Percent cell count reference ranges are not reported, since discordance with absolute values may lead to misinterpretation of CBC data. Current Interpretive Data was last revised on 2017. Imm gran pct 0.7 % [facility] Comment: Interpretive Data Percent cell count reference ranges are not reported, since discordance with absolute values may lead to misinterpretation of CBC data. Current Interpretive Data was last revised on 2017. Lymphocyte pct 31.0 % [facility] Comment: Interpretive Data Percent cell count reference ranges are not reported, since discordance with absolute values may lead to misinterpretation of CBC data. Current Interpretive Data was last revised on 2017. Monocyte pct 8.3 % [facility] Comment: Interpretive Data Percent cell count reference ranges are not reported, since discordance with absolute values may lead to misinterpretation of CBC data. Current Interpretive Data was last revised on 2017. Eosinophil pct 0.2 % [facility] Comment: Interpretive Data Percent cell count reference ranges are not reported, since discordance with absolute values may lead to misinterpretation of CBC data. Current Interpretive Data was last revised on 2017. Basophil pct 0.3 % [facility] Comment: Interpretive Data Percent cell count reference ranges are not reported, since discordance with absolute values may lead to misinterpretation of CBC data. Current Interpretive Data was last revised on 2017. Blood 04/23/2024 7:25 PM IMMUNOLOGIST 04/24/2024 1:51 AM IMMUNOLOGIST us Richelle Sherman MD LAB BLOOD ORDERABLES Final R esult [facility] [place] [address] * (ABNORMAL) CBC with auto differential (04/23/2024 7:25 PM IMMUNOLOGIST) WBC 6.0 3.8 - 9.9 K/cumm Hgb 10.2(L) 11.9 - 15.5 g/dL [facility] Hct 32.6(L) 35.6 - 45.5 % [facility] Plt 549(H) 150 - 400 K/cumm [facility] MPV 10.0 9.1 - 12.3 fL [facility] RBC 4.24 3.90 - 5.20 M/cumm [facility] MCV 76.9(L) 81.3 - 96.4 fL [facility] MCH 24.1(L) 27.1 - 33.3 pg [facility] MCHC 31.3(L) 32.3 - 35.7 g/dL [facility] RDW CV 21.3(H) 11.1 - 14.9 % [facility] RDW SD 58.3(H) 35.7 - 48.1 fL [facility] NRBC abs 0.00 0.00 - 0.01 K/cumm [facility] Blood Venous blood specimen / Unknown 04/23/2024 7:25 PM IMMUNOLOGIST 04/24/2024 1:51 AM IMMUNOLOGIST Eliot Duggan MD LAB BLOOD ORDERABLES Fin al Result Performing Organization Address [facility]/ZIP Co de Phone Number [facility] Department [place] [address] * CBC with auto differential (04/23/2024 11:02 AM IMMUNOLOGIST) Blood Historical Provider LAB BLOOD ORDERABLES Kirsten l Result EXTERNAL LAB * CBC without differential (04/23/2024 9:40 AM IMMUNOLOGIST) Blood Historical Provider LAB BLOOD ORDERABLES Kirsten l Result from Last [address] [place] [address] [facility] [place] [address] [address] Advance Directives For more information, please contact: [phone] * Full Code (Latest Code Status on File) Date Activated Date Inactivated Comments 11/01/2017 9:37 PM 11/04/2017 5:48 PM * Full Code Date Activated Date Inactivated Comments 11/01/2017 9:36 PM 11/01/2017 9:37 PM Care Teams Sound Equipment Mechanic Relationship Specialty Start Date End Date Litzy Clayton MD [address] [place] [address] PCP - General Family Medicine 04/24/24
--- OUTSIDE RECORDS SUMMARY | 2024-06-02 10:52 | XMS_ITS | Clinical Summary ---
Author Organization [facility] Address [address] [place] [address] Care Team Providers Care Integrated Logistics Programs Director Name Role Phone Giovanni Mejia MD Unavailable Litzy Clayton MD Primary Care Provider [phone] Allergies Active Allergy Reactions Criticality Noted Date Comments Tape Other (see comment) 04/29/2024 Skin sensitivity Bee Venom Swelling 03/04/2023 Medications bumetanide (BUMEX) 2 MG tablet Take 1 tablet (2 mg total) by mouth daily. 30 tablet 11/27/2023 Active FEROSUL 325 (65 Fe) MG tablet Take 1 tablet (325 mg total) by mouth 2 (two) times daily. 04/03/2024 Active metroNIDAZOLE (FLAGYL) 500 MG tablet Take 1 tablet (500 mg total) by mouth 3 (three) times daily. 04/03/2024 Active ibuprofen (MOTRIN) 800 MG tablet Take 1 tablet (800 mg total) by mouth every 8 (eight) hours as needed for Pain. 04/19/2024 Active oxyCODONE-acetam inophen (PERCOCET) 5-325 MG tablet Take 1 tablet by mouth every 6 (six) hours as needed. 04/03/2024 Active hydrOXYzine (ATARAX) 25 MG tablet Take 1 tablet (25 mg total) by mouth every 6 (six) hours as needed for Anxiety. 04/09/2024 Active SUMAtriptan (IMITREX) 50 MG tablet Take 1 tablet (50 mg total) by mouth 2 (two) times daily as needed. 03/29/2024 Active Active Problems No known active problems Encounters Date Type Department Care Team Description 04/29/2024 12:29 PM ROUTE SERVICE MANAGER Anesthesia [place] [address] Ilia Lara MD [facility] Lewis, [facility] 04/29/2024 11:18 AM ROUTE SERVICE MANAGER - 04/29/2024 3:06 PM ROUTE SERVICE MANAGER [place] [address] Elmo Foreman MD ROBOTIC XI ASSISTED TOTAL LAPAROSCOPIC HYSTERECTOMY, BILATERAL SALPINGECTOMY, CYSTOSCOPY 04/29/2024 8:01 AM ROUTE SERVICE MANAGER - 04/29/2024 5:00 PM ROUTE SERVICE MANAGER Hospital Encounter [facility] [place] [address] Elmo Foreman MD Discharge Disposition: Home or Self Care (Routine Discharge) 04/29/[address] [place] [address] Elmo Foreman MD 04/28/2024 12:20 PM ROUTE SERVICE MANAGER - 04/28/2024 11:59 PM ROUTE SERVICE MANAGER [place] [address] Elmo Foreman MD Discharge Disposition: Home or Self Care (Routine Discharge) 04/28/2024 Travel 04/26/2024 Travel 04/24/2024 5:49 PM ROUTE SERVICE MANAGER - 04/24/2024 7:19 PM ROUTE SERVICE MANAGER Emergency [facility] Emergency Room [address] [place] [address] Hector Farris DO Urinary Catheter Problem (Pt c/o leaking catheter. Xathater was placed overnight at [facility].) Discharge Disposition: Home or Self Care (Routine Discharge) 04/24/2024 Travel from Last 3 Months Social History Tobacco Use Types Packs/Day Years Used Date Smoking Tobacco: Every Day Cigarettes Smokeless Tobacco: Never Tobacco Cessation:Ready to Q uit: Not Asked; Counseling Given: Not Answered Alcohol Use Standard Drinks/Week Comments Never 0 (1 standard drink = 0.6 oz pur e alcohol) Comments No Sex and Gender Information Value Date Recorded Sex Assigned at Female 04/24/2024 5:56 PM ROUTE SERVICE MANAGER Legal Sex Female 1:55 PM CDT Gender Identity Not on file Sexual Orientation Not on file Last Filed Vital Signs Vital Sign Reading Time Taken Comments Blood Pressure 140/89 04/29/2024 4:54 PM ROUTE SERVICE MANAGER Pulse 77 04/29/2024 4:54 PM ROUTE SERVICE MANAGER Temperature 36.4 C (97.5 F) 04/29/2024 4:54 PM ROUTE SERVICE MANAGER Respiratory Rate 18 04/29/2024 4:54 PM ROUTE SERVICE MANAGER Oxygen Saturation 99% 04/29/2024 4:54 PM ROUTE SERVICE MANAGER Inhaled Oxygen Concentration - - Weight 74.9 kg (165 lb 2 oz) 04/29/2024 9:15 AM ROUTE SERVICE MANAGER Height 160 cm (5' 3 ) 04/29/2024 9:15 AM ROUTE SERVICE MANAGER Body Mass Index 29.25 04/29/2024 9:15 AM ROUTE SERVICE MANAGER Plan of Treatment Upcoming Encounters Date Type Department Care Team (Late st Contact Info) Description 06/08/2024 9:10 AM CDT Office Visit [facility] - [place] [address] [facility] [address] [place] [id number] Kelsey Soares MD [address] [place] [address] Health Maintenance Due Date Last Done Comments [...] Procedure Name Priority Date/Time Associated Diagnosis Comments LAPAROSCOPY SURGICAL REMOVAL TUBES OR OVARY 04/29/2024 12:29 PM ROUTE SERVICE MANAGER N92.4, N94.4- MENORRHAGIA, DYSMENORRHEA Case Notes SCHED BY OFFICE 02/25/24 S PHONE ASSESSSHORT STAY PROCEDURE GENERIC 04/29/2024 11:18 AM ROUTE SERVICE MANAGER CHORIONIC GONADOTROPIN HCG QL Routine 04/29/2024 8:23 AM ROUTE SERVICE MANAGER Menorrhagia Secondary dysmenorrhea PATHOLOGY Routine 04/29/2024 12:00 AM ROUTE SERVICE MANAGER TYPE & SCREEN Routine 04/28/2024 12:47 PM ROUTE SERVICE MANAGER Menorrhagia Secondary dysmenorrhea BASIC METABOLIC PANEL Routine 04/28/2024 12:47 PM ROUTE SERVICE MANAGER Menorrhagia Secondary dysmenorrhea CBC W/DIFF AUTOMATED Routine 04/28/2024 12:47 PM ROUTE SERVICE MANAGER Menorrhagia Secondary dysmenorrhea from Last 3 Months Results * PROCEDURE GENERIC (04/29/2024 11:18 AM ROUTE SERVICE MANAGER) us Elmo Foreman MD [facility] Final Resu lt * PREG TEST SERUM (HCG QUALITATIVE) (04/29/2024 8:23 AM ROUTE SERVICE MANAGER) PREG SCREEN-SERUM NEGATIVE 04/29/2024 8:42 AM ROUTE SERVICE MANAGER [facility] 04/29/2024 8:23 AM ROUTE SERVICE MANAGER Elmo Foreman MD LABORATORY Final Result [facility] [address] [place] [address], * Pathology (04/29/2024 12:00 AM ROUTE SERVICE MANAGER) PATHOLOGY [facility] Department of Laboratory Medicine [address] [place] [phone] , extension [id number] Pathology Report Surgical Pathology Report Name: CHENCHO OKEEFE Specimen #: [id number] Age: 2 1985 (Age: 39) Location: [facility] Sex: F Procedure Date: 04/29/2024 Hospital #: [id number] Date Received: 04/30/2024 Date Reported: 05/03/2024 Provider: ELMO FOREMAN MD Source: Uterus, cervix, and bilateral tubes Clinical History: Menorrhagia and dysmenorrhea FINAL DIAGNOSIS: Uterus and fallopian tubes, hysterectomy with bilateral salpingectomy: -Uterine cervix with patchy inflammation and reactive changes. -Proliferative phase endometrium with no significant histopathologic abnormality. -Myometrium with a single leiomyoma (5 mm), otherwise unremarkable. -Uterine serosa with no significant histopathologic abnormality. -Fallopian tubes with a few paratubal cysts and features consistent with prior surgical interruption. Gross Description: Received in formalin, labeled with a patient label and as cervix, uterus, bilateral fallopian tubes is a specimen consisting of a uterus with attached cervix and two detached segments of fallopian tube. 1 segment of tube has been marked by a stitch and designated right. The uterus exhibits deep incisions in the lower uterine segment both anteriorly and posteriorly. The uterus with cervix weighs 130 grams. It is arce cm in length, 5 cm from cornu to cornu, and 4.5 cm from anterior to posterior. The uterine serosa is smooth and arce. The ectocervix is 3.0 x 2.9 cm and is covered with pink-white mucosa. The specimen is opened to reveal that the endocervical canal has a diameter of 0.6 cm. No discrete cervical lesions are identified. The endometrial cavity is 4 x 2.5 cm. It is lined by a shaggy, rough, pink-red endometrium and contains a small amount of hemorrhagic material. Sections reveal that the endometrium has an average thickness of 0.3 cm. The myometrium has an average thickness of 2 cm. It exhibits a 0.5 cm intramural nodule in the posterior wall. The right fallopian tube is 2 cm in length with a diameter of 0.5 cm. It exhibits a rounded end, consistent with prior procedure. No lesions are noted on sectioning. The left fallopian tube is 2 cm in length with a diameter of 0.5 cm. It exhibits a rounded end, consistent with prior procedure. No lesions are noted on section. Agricultural Researcher tissue is submitted as follows: 1 cervix 2 through 4 anterior endomyometrium 5 and 6 posterior endomyometrium 7 right fallopian tube 8 left fallopian tube. Gross examination (when applicable), interpretation, and sign out were performed at [facility], [address] [place] [address]. Electronically Signed Out NOEL DE LA O MD [facility] TISSUE UTERINE STRUCTURE / Unknown 04/29/2024 2:07 PM ROUTE SERVICE MANAGER us Elmo Foreman MD PATHOLOGY/CYTOLOGY ORDERABLE S Final Result [facility] [address] [place] [address], [id number] * TYPE & SCREEN (04/28/2024 12:47 PM ROUTE SERVICE MANAGER) ABO/RH A POSITIVE 04/28/2024 1:42 PM ROUTE SERVICE MANAGER [facility] ANTIBODY SCREEN NEGATIVE 04/28/2024 1:42 PM ROUTE SERVICE MANAGER [facility] SAMPLE EXPIRATION 05/02/2024,2 359 04/29/2024 10:30 AM ROUTE SERVICE MANAGER [facility] BB COMMENT NO HISTORY OF TRANSFUSIONS , OR ANTIBODIES, NEW SPECIMEN NOT NEEDED 04/29/2024 10:30 AM [facility] 04/28/2024 12:4 7 PM ROUTE SERVICE MANAGER us Elmo Foreman MD BLOOD BANK TEST ORDERABLES F inal Result [facility] [address] [place] [address], [place] [phone] * (ABNORMAL) BASIC METABOLIC PANEL (04/28/2024 12:47 PM ROUTE SERVICE MANAGER) GLUCOSE 76 70 - 99 MG/DL 04/28/2024 1:19 PM [facility] BUN 15 7 - 18 MG/DL 04/28/2024 1:19 PM [facility] CREATININE S/P/B 0.43(L) 0.55 - 1.02 MG/DL 04/28/2024 1:19 PM [facility] SODIUM S/P/B 141 136 - 145 MMOL/L 04/28/2024 1:19 PM [facility] POTASSIUM S/P/B 3.5 3.5 - 5.1 MMOL/L 04/28/2024 1:19 PM [facility] CHLORIDE S/P/B 108 97 - 115 MMOL/L 04/28/2024 1:19 PM [facility] CO2 30.3 21 - 32 MMOL/L 04/28/2024 1:19 PM [facility] CALCIUM S/P/B 7.7(L) 8.5 - 10.1 MG/DL 04/28/2024 1:19 PM [facility] ANION GAP 2.7 2 - 10 MMOL/L 04/28/2024 1:19 PM ROUTE SERVICE MANAGER [facility] BUN CREATININE RATIO 35.2(H) 6 - 26 04/28/2024 1:19 PM ROUTE SERVICE MANAGER [facility] GFR ESTIMATE >90 >90 ML/MIN/1.7 3 M2 04/28/2024 1:19 PM [facility] Comment: NOTE: eGFR is not calculated for patients <18 years of age or gender unknown. This is an estimated GFR calculation using the new CKD EPI creatinine equation without race and so does not require a correction factor for race. This estimated GFR should not be used for calculating drug doses. 04/28/2024 12:4 7 PM ROUTE SERVICE MANAGER us Elmo Foreman MD LABORATORY Final Result [facility] [address] [place] [address], * (ABNORMAL) CBC W/DIFF AUTOMATED (04/28/2024 12:47 PM ROUTE SERVICE MANAGER) WBC 8.94 4.5 - 11.0 x10'3/uL 04/28/2024 1:25 PM [facility] RBC 4.63 4.20 - 5.40 x10'6/uL 04/28/2024 1:25 PM [facility] HGB 11.1(L) 12.0 - 16.0 G/DL 04/28/2024 1:25 PM [facility] HCT 36.2(L) 38.0 - 48.0 % 04/28/2024 1:25 PM [facility] MCV 78.2(L) 81.0 - 99.0 FL 04/28/2024 1:25 PM [facility] MCH 24.0(L) 27.0 - 31.0 PG 04/28/2024 1:25 PM ROUTE SERVICE MANAGER [facility] MCHC 30.7(L) 32.0 - 36.0 G/DL 04/28/2024 1:25 PM ROUTE SERVICE MANAGER [facility] RDW 22.1(H) 11.5 - 14.5 % 04/28/2024 1:25 PM [facility] PLT 554(H) 130 - 400 x10'3/uL 04/28/2024 1:25 PM [facility] MPV 9.7 9.3 - 12.2 FL 04/28/2024 1:25 PM [facility] DIFFERENTIAL TYPE AUTOMATED DIFFERENTIAL 04/28/2024 1:25 PM ROUTE SERVICE MANAGER [facility] NEUTROPHILS % 56.7 % 04/28/2024 1:25 PM ROUTE SERVICE MANAGER [facility] LYMPHOCYTES % 35.7 % 04/28/2024 1:25 PM ROUTE SERVICE MANAGER [facility] MONOCYTES % 4.5 % 04/28/2024 1:25 PM ROUTE SERVICE MANAGER [facility] EOSINOPHILS 0.9 % 04/28/2024 1:25 PM ROUTE SERVICE MANAGER [facility] BASOPHILS 0.4 % 04/28/2024 1:25 PM [facility] IMMATURE GRANS % 1.8 % 04/28/19 1:25 PM ROUTE SERVICE MANAGER [facility] ABS. NEUTROPHILS 5.07 1.80 - 7.70 x10'3/uL 04/28/2024 1:25 PM ROUTE SERVICE MANAGER [facility] ABS. LYMPHOCYTES 3.19 1.00 - 4.80 x10'3/uL 04/28/2024 1:25 PM [facility] ABS. MONOCYTES 0.40 0.24 - 0.86 x10'3/uL 04/28/2024 1:25 PM [facility] ABS. EOSINOPHILS 0.08 0.04 - 0.36 x10'3/uL 04/28/2024 1:25 PM ROUTE SERVICE MANAGER [facility] ABS. BASOPHILS 0.04 0.01 - 0.08 x10'3/uL 04/28/2024 1:25 PM ROUTE SERVICE MANAGER [facility] ABS. IMMATURE GRANULOCYTES 0.16 0.00 - 0.49 x10'3/uL 04/28/2024 1:25 PM ROUTE SERVICE MANAGER [facility] RBC MORPHOLOGY SLIDE REVIEWED 2024 1:25 PM ROUTE SERVICE MANAGER [facility] ANISO 2+ 04/28/2024 1:25 PM ROUTE SERVICE MANAGER [facility] POIKLO 1+ 04/28/2024 1:25 PM ROUTE SERVICE MANAGER [facility] PLT EST. INCREASED 04/28/2024 1:25 PM ROUTE SERVICE MANAGER [facility] 04/28/2024 12:4 7 PM ROUTE SERVICE MANAGER us Elmo Foreman MD LABORATORY Final Result [facility] [address] [place] [address], from Last 3 Months Insurance [employer] Advance Directives * Full Code (Latest Code Status on File) Date Activated Date Inactivated Comments 04/29/2024 4:25 PM 04/29/2024 7:07 PM Care Teams Integrated Logistics Programs Director Relationship Specialty Start Date End Date Litzy Clayton MD [address] [place] [address] PCP - General FAMILY PRACTICE 11/27/23 Giovanni Mejia MD [address] [place] [address] Referring Physician NEPHROLOGY 11/27/23
--- OUTSIDE RECORDS SUMMARY | 2024-06-02 10:53 | XMS_ITS | Patient Health Record ---
Author Organization [facility] Address [address] [place] [address] Care Team Providers Care Cnc Machine Programmer Name Role Phone Natalia Saucedo Primary Care Provider Reason For Referral No Information Plan Of Treatment No Information Insurance Providers Payer Name Payer Address Payer Phone Subscriber Number Group Number Insured Name Patient Relationship to Insured Coverage Start Date Coverage End Date [employer] [address] [place] [address] [id number] Santy Okeefe Self - patient is the insured 4 [employer] [address] [place] [address] [id number] Santy Okeefe Self - patient is the insured 4
--- OUTSIDE RECORDS SUMMARY | 2024-06-02 10:56 | XMS_ITS | CONTINUITY OF CARE DOCUMENT ---
Author Name donna thompson Address Unknown Organization [facility] Address [address] [facility] [address] [place] [address] Phone [phone] Care Team Providers Care Mapping Pilot Name Role Phone Joao Hopson MD Unavailable [phone] Joao Hopson MD Unavailable [phone] INSURANCE PROVIDERS Payer name Policy type / Coverage type [place] red libertarian ID [facility] [id number]
== END 2024-06-02 10:47 | disposition home or self-care (01) ==
PROVIDERS: Emergency Provider Nurse Practitioner Family; PCP Family Medicine
DX: J01.90 Acute sinusitis, unspecified (principal); Z20.822 Contact with and (suspected) exposure to COVID-19; M06.9 Rheumatoid arthritis, unspecified; M19.90 Unspecified osteoarthritis, unspecified site; E78.00 Pure hypercholesterolemia, unspecified; K21.9 Gastro-esophageal reflux disease without esophagitis; F41.9 Anxiety disorder, unspecified; Z85.820 Personal history of malignant melanoma of skin
CPT/HCPCS: 87426; 87804; 99213; G0463